=== PATIENT | female | born 1935 | race Caucasian/White ===

== ENCOUNTER 2021-04-12 18:34 | Inpatient (IN) ==
--- NOTE | 2021-04-12 23:22 | XRay Report ---
XR chest 1V portable CLINICAL HISTORY: Chest Pain. COMPARISON STUDY: No previous studies for comparison. TECHNIQUE: 1 view of the chest FINDINGS: Single frontal view of the chest demonstrates the cardiomediastinal silhouette to be within normal li mits. There is hyperinflation of the lungs with attenuation of the pulmonary vasculature peripherally characteristic of underlying chronic obstructive pulmonary disease. The lungs are clear of alveolar opacities. There is no evidence for pleural effusion. There is no evidence for vascular congestion. T here is no acute osseous pathology. IMPRESSION: No acute cardiopulmonary disease. Evidence for underlying COPD. ACT 112: Negative or not required by law. Electronically signed by: Dionisio Solis M.D. 04/12/2021 11:20 PM
--- NOTE | 2021-04-12 23:43 | Emergency Department Note ---
Impression & Plan Cellulitis ADMIT ED Provider Note HPI: The patient is a 86-year-old female who presents the emergency department with several weeks of worsening left lower extremity pain. Patient states that she has been on multiple rounds of antibiotics, states she is currently on cl indamycin, this has not improved her symptoms, she has developed some redness and pain below the knee and above the ankle in the left lower extremity. Patient sister at the bedside tells me that the patient did have an ultrasound done of the left lower extremity recently at [facility] that did not show any evidence of blood clot. Patient states that she has been on multiple rounds of clindamycin, this is caused her to have some nausea and epigastric discomfort at times, states she has had some diarrhea. Patient states she has been on various antibiotics for about the past month without improvement. On arrival here to the ED the patient is hemodynamically stable, she is frail-appearing but she is alert. She is afebrile. She is saturating well on room air. ROS: -Skin: Left lower extremity erythema/pain -MSK: Left lower extremity pain *10 point review systems was conducted and is otherwise negative unless stated above *Outpatient medications and allergy history reviewed PE: General: Alert, NAD, frail-appearing HEENT: Normocephalic, atraumatic Eyes: Extraocular eye movement is intact, no scleral erythema Pulmonary: Clear to auscultation bilaterally, no wheezing Cardio: Regular rate and rhythm GI: Abdomen is soft, nontender : No suprapubic tenderness MSK: No evidence of trauma or malformation of the extremities, plus edema of the bilateral lower extremities, there is erythema of the left lower extremity with pain to palpation Skin: Circumferential erythema of the left lower extremity below the knee and above the ankle joint, there is no blister formation, there is no crepitus to palpation Neuro: Alert, no focal deficits Psychiatric: Cooperative ekg monitor: - An order was placed for continuous cardiac monitoring - Patient was noted to be in sinus rhythm with rate of 80 EKG: Rate: 89 Rhythm: Sinus rhythm Intervals: Within normal limits Time: 2341 ST changes: No ST elevation US VENOUS LEFT LOWER EXTREMITY: Negative left lower extremity venous duplex ultrasound. There is no evidence of DVT. Radiologist: Neil Quiles MD CT OTHER - ct left tib/fib w/o: No subcutaneous emphysema is identified involving the left lower leg. The visualized osseous structures are intact and normally aligned. No acute fracture or dislocation. Mild to moderate diffuse cutaneous and subcutaneous edema throughout the left lower leg. There are scattered punctate calcifications suggesting chronic venous insufficiency. Several varicosities are present. No abscess or abnormal fluid collection is identified. Radiologist: Neil Quiles MD Medical Decision Making: Patient presented to the emergency department with left lower extremity cellulitic changes, she has had pain in this area for about the past month, she is failed outpatient antibiotic course. On arrival here to the ED she is hemodynamically stable, IV was established, lab work obtained, patient has a significant leukocytosis of 18.3 therefore blood cultures were drawn, patient was started on broad-spectrum antibiotics. Ultrasound imaging of the left lower extremity does not show any evidence of DVT, CT imaging does not show any evidence of subcutaneous emphysema. Given that the patient is failed outpatient antibiotics, she is a high white blood cell count, in addition to the finding of elevated creatinine in the setting of unknown baseline creatinine (patient denies any history of kidney disease) I do feel the patient would benefit from admission, she was given IV fluids here in the ED for her acute kidney injury and possible early sepsis, she was not given a full 30 cc/kg bolus secondary to hemodynamic stability and concern for potential fluid overload, she was started on broad-spectrum antibiotics for suspected left lower extremity cellulitis as the source for her leukocytosis. I discussed the above findings with the on- call hospitalist for [facility] in [place], Dr. Mathtews, and the patient was admitted in stable condition. Diagnosis: 1. Left lower extremity cellulitis 2. Leukocytosis 3. Acute kidney injury 4. Left lower extremity pain Disposition: Admission Pilo Monroe DO Emergency Medicine Past Med/Surg History Social History Smoking Status: Never smoker Feels Safe at Home: Yes Allergies Allergies Allergy/AdvReac Type Severity Reaction Status Date / Time barrium iodine Allergy Intermediate Rash Uncoded 04/13/21 00:12 Home Meds Home Medications Medication Instructions Recorded Confirmed acetaminophen 650 mg 650 mg PO Q4 PRN 04/13/21 04/13/21 tablet,extended release (Arthritis Pain Relief (acetaminophen) ER) clindamycin HCl 300 mg capsule 300 mg PO Q6H 04/13/21 04/13/21 dorzolamide 2 % eye drops 1 drp OPB BID 04/13/21 04/13/21 lisinopril 5 mg tablet 5 mg PO QAM 04/13/21 04/13/21 ondansetron HCl 4 mg tablet 4 mg PO Q6H PRN 04/13/21 04/13/21 timolol maleate 0.25 % eye drops 1 drp OPB QAM 04/13/21 04/13/21 Results & Data (ED) Vital Signs Vital Signs - 24 hr 04/12/21 18:40 04/13/21 00:30 04/13/21 02:30 Temperature 36.3 C L Temperature Source Temporal Artery Scan Pulse Rate 88 85 78 Pulse Rhythm Regular Pulse Strength Normal Respiratory Rate 20 21 24 Respiratory Effort / Characteristics Non-Labored Spontaneous Respiratory Depth Normal Respiratory Pattern Regular Blood Pressure 141/78 H 169/79 H 148/67 H Blood Pressure Mean 99 109 94 Pulse Oximetry 95 95 95 Oxygen Delivery Method Room Air Room Air Room Air Sepsis Recent Fever Within 48 Hours No Sepsis New/Unexplained Change in Mental Status No Sepsis Action Taken by Nursing No Action Required 04/13/21 03:00 04/13/21 03:30 04/13/21 04:00 Temperature Temperature Source Pulse Rate 81 80 84 Pulse Rhythm Pulse Strength Respiratory Rate 21 13 19 Respiratory Effort / Characteristics Respiratory Depth Respiratory Pattern Blood Pressure 162/74 H 148/61 H 154/67 H Blood Pressure Mean 103 90 96 Pulse Oximetry 95 95 94 Oxygen Delivery Method Room Air Room Air Room Air Sepsis Recent Fever Within 48 Hours Sepsis New/Unexplained Change in Mental Status Sepsis Action Taken by Nursing Laboratory Data Result diagrams: 04/13/21 00:00 04/13/21 04:30 Lab Results 04/13/21 04/13/21 04/13/21 Range/Units 00:00 00:00 00:00 WBC 18.35 H (4.8-10.8) K/uL RBC 3.36 L (4.2-5.4) M/uL Hgb 10.8 L (12.0-16.0) g/dL Hct 32.5 L (37-47) % MCV 96.7 (80-100) fL MCH 32.1 (25-34) pg MCHC 33.2 (32-36) g/dL RDW Std Deviation 53.1 H (36.4-46.3) fL RDW Coeff of Vasu 15.1 H (11.5-14.5) % Plt Count 443 H (130-400) K/uL MPV 10.2 (7.4-10.4) fL Immature Gran % (Auto) 0.3 % Neut % (Auto) 93.3 % Lymph % (Auto) 4.9 % Barry % (Auto) 1.4 % Eos % (Auto) 0.0 % Baso % (Auto) 0.1 % Reticulocyte % (Auto) (0.5-2.0) % Neut # (Auto) 17.13 H (1.4-6.5) K/uL Lymph # (Auto) 0.90 L (1.2-3.4) K/uL Barry # (Auto) 0.25 (0.11-0.59) K/uL Eos # (Auto) 0.00 (0-0.5) K/uL Baso # (Auto) 0.01 (0-0.2) K/uL Reticulocyte # (0.02-0.10) 10^6/uL Immature Gran # (Auto) 0.06 H (0.00-0.02) K/uL Echinocytes 2+ VBG pH (7.36-7.41) VBG pCO2 (38-50) mmHg VBG pO2 mmHg VBG HCO3 mmol/L VBG O2 Saturation % VBG Base Excess mEq/L Barometric Pressure mm/Hg Sodium 138 (136-145) mmol/L Potassium 5.2 H (3.5-5.1) mmol/L Chloride 111 H (98-107) mmol/L Carbon Dioxide 15 L (21-32) mmol/L Anion Gap 12 H (3-11) BUN 84 H (6-23) mg/dl Creatinine 2.71 H (0.6-1.2) mg/dl Est Cr Clr Drug Dosing Not Reportable Est GFR ( Amer) 17.8 ml/min Est GFR (Non-Af Amer) 15.4 ml/min BUN/Creatinine Ratio 31.0 H (10-20) Glucose 116 H (70-99(Fasting)) mg/dl Lactate (0.4-2.0) mmol/L Calcium 8.9 (8.5-10.1) mg/dl Iron (35-150) mcg/dl Transferrin (200-360) mg/dl Ferritin (8-388) ng/ml Total Bilirubin 0.3 (0.2-1.0) mg/dl AST 17 (13-39) U/L ALT 18 (7-52) U/L Alkaline Phosphatase 68 (34-104) U/L Total Creatine Kinase 38 (26-192) U/L Troponin I 0.03 (0-0.04) ng/ml B-Natriuretic Peptide 140 H (0-100) pg/ml Total Protein 6.8 (6.0-8.3) gm/dl Albumin 3.2 L (3.4-5.0) gm/dl Globulin 3.6 (2.5-4.0) gm/dl Albumin/Globulin Ratio 0.9 (0.9-2) Lipase 35 (11-82) U/L Vitamin B12 (211-911) pg/ml Folate (>5.38) ng/ml Procalcitonin (0-0.5) ng/ml TSH (0.300-4.500) uIu/ml SARS-CoV-2, RNA, NAAT (NEGATIVE) Blood Type Antibody Screen 04/13/21 04/13/21 04/13/21 Range/Units 00:00 00:00 00:34 WBC (4.8-10.8) K/uL RBC (4.2-5.4) M/uL Hgb (12.0-16.0) g/dL Hct (37-47) % MCV (80-100) fL MCH (25-34) pg MCHC (32-36) g/dL RDW Std Deviation (36.4-46.3) fL RDW Coeff of Vasu (11.5-14.5) % Plt Count (130-400) K/uL MPV (7.4-10.4) fL Immature Gran % (Auto) % Neut % (Auto) % Lymph % (Auto) % Barry % (Auto) % Eos % (Auto) % Baso % (Auto) % Reticulocyte % (Auto) (0.5-2.0) % Neut # (Auto) (1.4-6.5) K/uL Lymph # (Auto) (1.2-3.4) K/uL Barry # (Auto) (0.11-0.59) K/uL Eos # (Auto) (0-0.5) K/uL Baso # (Auto) (0-0.2) K/uL Reticulocyte # (0.02-0.10) 10^6/uL Immature Gran # (Auto) (0.00-0.02) K/uL Echinocytes VBG pH (7.36-7.41) VBG pCO2 (38-50) mmHg VBG pO2 mmHg VBG HCO3 mmol/L VBG O2 Saturation % VBG Base Excess mEq/L Barometric Pressure mm/Hg Sodium (136-145) mmol/L Potassium (3.5-5.1) mmol/L Chloride (98-107) mmol/L Carbon Dioxide (21-32) mmol/L Anion Gap (3-11) BUN (6-23) mg/dl Creatinine (0.6-1.2) mg/dl Est Cr Clr Drug Dosing Est GFR ( Amer) ml/min Est GFR (Non-Af Amer) ml/min BUN/Creatinine Ratio (10-20) Glucose (70-99(Fasting)) mg/dl Lactate (0.4-2.0) mmol/L Calcium (8.5-10.1) mg/dl Iron (35-150) mcg/dl Transferrin (200-360) mg/dl Ferritin (8-388) ng/ml Total Bilirubin (0.2-1.0) mg/dl AST (13-39) U/L ALT (7-52) U/L Alkaline Phosphatase (34-104) U/L Total Creatine Kinase (26-192) U/L Troponin I (0-0.04) ng/ml B-Natriuretic Peptide (0-100) pg/ml Total Protein (6.0-8.3) gm/dl Albumin (3.4-5.0) gm/dl Globulin (2.5-4.0) gm/dl Albumin/Globulin Ratio (0.9-2) Lipase (11-82) U/L Vitamin B12 (211-911) pg/ml Folate (>5.38) ng/ml Procalcitonin 0.22 (0-0.5) ng/ml TSH 3.362 (0.300-4.500) uIu/ml SARS-CoV-2, RNA, NAAT NEGATIVE (NEGATIVE) Blood Type Antibody Screen 04/13/21 04/13/21 04/13/21 Range/Units 01:14 04:30 04:30 WBC (4.8-10.8) K/uL RBC (4.2-5.4) M/uL Hgb (12.0-16.0) g/dL Hct (37-47) % MCV (80-100) fL MCH (25-34) pg MCHC (32-36) g/dL RDW Std Deviation (36.4-46.3) fL RDW Coeff of Vasu (11.5-14.5) % Plt Count (130-400) K/uL MPV (7.4-10.4) fL Immature Gran % (Auto) % Neut % (Auto) % Lymph % (Auto) % Barry % (Auto) % Eos % (Auto) % Baso % (Auto) % Reticulocyte % (Auto) 0.9 (0.5-2.0) % Neut # (Auto) (1.4-6.5) K/uL Lymph # (Auto) (1.2-3.4) K/uL Barry # (Auto) (0.11-0.59) K/uL Eos # (Auto) (0-0.5) K/uL Baso # (Auto) (0-0.2) K/uL Reticulocyte # 0.03 (0.02-0.10) 10^6/uL Immature Gran # (Auto) (0.00-0.02) K/uL Echinocytes VBG pH (7.36-7.41) VBG pCO2 (38-50) mmHg VBG pO2 mmHg VBG HCO3 mmol/L VBG O2 Saturation % VBG Base Excess mEq/L Barometric Pressure mm/Hg Sodium (136-145) mmol/L Potassium (3.5-5.1) mmol/L Chloride (98-107) mmol/L Carbon Dioxide (21-32) mmol/L Anion Gap (3-11) BUN (6-23) mg/dl Creatinine (0.6-1.2) mg/dl Est Cr Clr Drug Dosing Est GFR ( Amer) ml/min Est GFR (Non-Af Amer) ml/min BUN/Creatinine Ratio (10-20) Glucose (70-99(Fasting)) mg/dl Lactate 0.8 (0.4-2.0) mmol/L Calcium (8.5-10.1) mg/dl Iron (35-150) mcg/dl Transferrin (200-360) mg/dl Ferritin (8-388) ng/ml Total Bilirubin (0.2-1.0) mg/dl AST (13-39) U/L ALT (7-52) U/L Alkaline Phosphatase (34-104) U/L Total Creatine Kinase (26-192) U/L Troponin I (0-0.04) ng/ml B-Natriuretic Peptide (0-100) pg/ml Total Protein (6.0-8.3) gm/dl Albumin (3.4-5.0) gm/dl Globulin (2.5-4.0) gm/dl Albumin/Globulin Ratio (0.9-2) Lipase (11-82) U/L Vitamin B12 (211-911) pg/ml Folate (>5.38) ng/ml Procalcitonin (0-0.5) ng/ml TSH (0.300-4.500) uIu/ml SARS-CoV-2, RNA, NAAT (NEGATIVE) Blood Type O Positive Antibody Screen NEGATIVE 04/13/21 04/13/21 04/13/21 Range/Units 04:30 04:30 04:30 WBC (4.8-10.8) K/uL RBC (4.2-5.4) M/uL Hgb (12.0-16.0) g/dL Hct (37-47) % MCV (80-100) fL MCH (25-34) pg MCHC (32-36) g/dL RDW Std Deviation (36.4-46.3) fL RDW Coeff of Vasu (11.5-14.5) % Plt Count (130-400) K/uL MPV (7.4-10.4) fL Immature Gran % (Auto) % Neut % (Auto) % Lymph % (Auto) % Barry % (Auto) % Eos % (Auto) % Baso % (Auto) % Reticulocyte % (Auto) (0.5-2.0) % Neut # (Auto) (1.4-6.5) K/uL Lymph # (Auto) (1.2-3.4) K/uL Barry # (Auto) (0.11-0.59) K/uL Eos # (Auto) (0-0.5) K/uL Baso # (Auto) (0-0.2) K/uL Reticulocyte # (0.02-0.10) 10^6/uL Immature Gran # (Auto) (0.00-0.02) K/uL Echinocytes VBG pH 7.39 (7.36-7.41) VBG pCO2 26 L (38-50) mmHg VBG pO2 114 mmHg VBG HCO3 15 mmol/L VBG O2 Saturation 98.4 % VBG Base Excess -8.3 mEq/L Barometric Pressure 730.0 mm/Hg Sodium 137 (136-145) mmol/L Potassium 4.8 (3.5-5.1) mmol/L Chloride 114 H (98-107) mmol/L Carbon Dioxide 13 L (21-32) mmol/L Anion Gap 10 (3-11) BUN 83 H (6-23) mg/dl Creatinine 2.45 H (0.6-1.2) mg/dl Est Cr Clr Drug Dosing Not Reportable Est GFR ( Amer) 20.1 ml/min Est GFR (Non-Af Amer) 17.4 ml/min BUN/Creatinine Ratio 33.9 H (10-20) Glucose 106 H (70-99(Fasting)) mg/dl Lactate (0.4-2.0) mmol/L Calcium 7.8 L (8.5-10.1) mg/dl Iron 27 L (35-150) mcg/dl Transferrin 179 L (200-360) mg/dl Ferritin 43.2 (8-388) ng/ml Total Bilirubin (0.2-1.0) mg/dl AST (13-39) U/L ALT (7-52) U/L Alkaline Phosphatase (34-104) U/L Total Creatine Kinase (26-192) U/L Troponin I (0-0.04) ng/ml B-Natriuretic Peptide (0-100) pg/ml Total Protein (6.0-8.3) gm/dl Albumin (3.4-5.0) gm/dl Globulin (2.5-4.0) gm/dl Albumin/Globulin Ratio (0.9-2) Lipase (11-82) U/L Vitamin B12 578 (211-911) pg/ml Folate > 22.30 (>5.38) ng/ml Procalcitonin (0-0.5) ng/ml TSH (0.300-4.500) uIu/ml SARS-CoV-2, RNA, NAAT (NEGATIVE) Blood Type Antibody Screen Administered Medications Discontinued Medications Acetaminophen (Acetaminophen 500 Mg Tab) 1,000 mg PO NOW STA Stop: 04/13/21 00:18 Last Admin: 04/13/21 00:29 Dose: 1,000 mg Documented by: [id number] Amlodipine Besylate (Amlodipine Besylate 5 Mg Tab) 2.5 mg PO NOW STA Stop: 04/13/21 05:32 Last Admin: 04/13/21 05:51 Dose: 2.5 mg Documented by: [id number] Sodium Chloride (Nss 1000ml) 500 mls @ 999 mls/hr IV .Q31M ONE Stop: 04/13/21 00:31 Last Infusion: 04/13/21 03:37 Dose: 0 mls/hr Documented by: [id number] Admin: 04/13/21 00:16 Dose: 999 mls/hr Documented by: [id number] Vancomycin HCl 750 mg/ Sodium (Chloride) 265 mls @ 200 mls/hr IV NOW STA Stop: 04/13/21 02:29 Last Infusion: 04/13/21 03:37 Dose: 0 mls/hr Documented by: [id number] Admin: 04/13/21 02:08 Dose: 200 mls/hr Documented by: [id number] Cefepime HCl (Maxipime) 2,000 mg in 20 mls @ 5 mls/min IV NOW STA; Protocol Stop: 04/13/21 02:39 Last Admin: 04/13/21 04:34 Dose: 5 mls/min Documented by: [id number] Sodium Bicarbonate (Sodium Bicarbonate 8.4% Inj 50 Meq/50 Ml Vial) 50 meq IV NOW STA Stop: 04/13/21 03:24 Last Admin: 04/13/21 04:35 Dose: 50 meq Documented by: [id number] Tramadol HCl (Tramadol Hcl 50 Mg Tablet) 25 mg PO NOW STA Stop: 04/13/21 05:30 Last Admin: 04/13/21 05:51 Dose: 25 mg Documented by: [id number] Imaging Data Radiologist's Impression: Chest X-Ray 04/12/21 23:02 XR chest 1V portable CLINICAL HISTORY: Chest Pain. COMPARISON STUDY: No previous studies for comparison. TECHNIQUE: 1 view of the chest FINDINGS: Single frontal view of the chest demonstrates the cardiomediastinal silhouette to be within normal limits. There is hyperinflation of the lungs with attenuation of the pulmonary vasculature peripherally characteristic of underlying chronic obstructive pulmonary disease. The lungs are clear of alveolar opacities. There is no evidence for pleural effusion. There is no evidence for vascular congestion. There is no acute osseous pathology. IMPRESSION: No acute cardiopulmonary disease. Evidence for underlying COPD. ACT 112: Negative or not required by law. Electronically signed by: Dionisio Solis M.D. 04/12/2021 11:20 PM Discharge Plan Visit Data Chief Complaint: Swelling/Edema to Extremity Stated Complaint: LEFT LEG EDEMA ED Provider: Pilo Monroe Discharge Problem: Cellulitis Forms Stand Alone Forms: [facility] Prescriptions Prescriptions: No Action clindamycin HCl 300 mg Capsule 300 mg PO Q6H RF: 0 ondansetron HCl 4 mg Tablet 4 mg PO Q6H PRN (Reason: Nausea) RF: 0 acetaminophen [Arthritis Pain Relief (acetam)] 650 mg tablet extended release 650 mg PO Q4 PRN (Reason: Pain) RF: 0 timolol maleate 0.25 % drops 1 drp OPB QAM RF: 0 lisinopril 5 mg tablet 5 mg PO QAM RF: 0 dorzolamide 2 % drops 1 drp OPB BID RF: 0 Referrals Referrals: PCP,NO [Primary Care Provider] - Discharge Problem: Cellulitis Qualifiers: Site of cellulitis: extremity Site of cellulitis of extremity: lower extremity Laterality: left Qualified Code(s): L03.116 - Cellulitis of left lower limb
[2021-04-13] MEDS ORDERED: SODIUM CHLORIDE 0.9% 1000ML 500 ML IV ONE (00:01)
[2021-04-13] MEDS ORDERED: ACETAMINOPHEN 500 MG TAB PO STA (00:17)
[2021-04-13 00:21] LABS: Hematocrit (blood only) 32.5 % (37-47); Hemoglobin 10.8 g/dL (12.0-16.0); Mean Corpuscular Hemoglobin 32.1 pg (25-34); Mean Corpuscular Hgb Conc 33.2 g/dL (32-36); Mean Corpuscular Volume 96.7 fL (80-100); Mean Platelet Volume 10.2 fL (7.4-10.4); Platelet Count 443 K/uL (130-400); RDW Coefficient of Variation 15.1 % (11.5-14.5); RDW Standard Deviation 53.1 fL (36.4-46.3); Red Blood Count 3.36 M/uL (4.2-5.4); White Blood Count 18.35 K/uL (4.8-10.8)
[2021-04-13 00:42] LABS: Troponin I 0.03 ng/ml (0-0.04)
[2021-04-13 00:49] LABS: Alanine Aminotransferase 18 U/L (7-52); Albumin Globulin Ratio 0.9 (0.9-2); Albumin Level 3.2 gm/dl (3.4-5.0); Alkaline Phosphatase 68 U/L (34-104); Anion Gap 12 (3-11); Aspartate Aminotransferase 17 U/L (13-39); Bilirubin,Total 0.3 mg/dl (0.2-1.0); Blood Urea Nitrogen 84 mg/dl (6-23); Calcium 8.9 mg/dl (8.5-10.1); Carbon Dioxide 15 mmol/L (21-32); Chloride 111 mmol/L (98-107); Est GFR (African American) 17.8 ml/min; Est GFR (Non-African American) 15.4 ml/min; Globulin 3.6 gm/dl (2.5-4.0); Glucose 116 mg/dl (70-99(Fasting)); Lipase 35 U/L (11-82); Potassium 5.2 mmol/L (3.5-5.1); Sodium 138 mmol/L (136-145); Total Protein 6.8 gm/dl (6.0-8.3)
[2021-04-13] MEDS ORDERED: VANCOMYCIN HCL 750 MG in SODIUM CHLORIDE 0.9% 500 ML IV ONE (00:49)
[2021-04-13] MEDS ORDERED: VANCOMYCIN CONSULT ACTIVE PRN (00:49)
[2021-04-13 01:08] LABS: Basophils # (auto) 0.01 K/uL (0-0.2); Basophils % (auto) 0.1 %; Echinocytes 2+; Immature Granulocytes # (auto) 0.06 K/uL (0.00-0.02); Immature Granulocytes % (auto) 0.3 %; Lymphocytes % (auto) 4.9 %; Monocytes # (auto) 0.25 K/uL (0.11-0.59); Monocytes % (auto) 1.4 %; Neutrophils # (auto) 17.13 K/uL (1.4-6.5); Neutrophils % (auto) 93.3 %
[2021-04-13] MEDS ORDERED: VANCOMYCIN HCL 750 MG in SODIUM CHLORIDE 0.9% 250 ML IV STA (01:10)
[2021-04-13] MEDS ORDERED: CEFEPIME 2,000 MG/20 ML VIAL IV STA (02:36)
[2021-04-13] MEDS ORDERED: SODIUM BICARBONATE 8.4% INJ 50 MEQ/50 ML VIAL IV STA (03:23)
[2021-04-13 03:49] LABS: Creatine Kinase 38 U/L (26-192)
[2021-04-13 04:41] LABS: Reticulocyte % 0.9 % (0.5-2.0); Reticulocytes # 0.03 10^6/uL (0.02-0.10)
[2021-04-13 04:44] LABS: Base Excess VBG -8.3 mEq/L; Oxygen Saturation VBG 98.4 %; pH VBG 7.39 (7.36-7.41)
--- NOTE | 2021-04-13 04:48 | History & Physical Report ---
Date of Service April 13, 2021 Assessment & Plan (1) Cellulitis: Plan: LLE cellulitis Failed outpatient treatment Rule out osteomyelitis given prolonged symptoms HTN, elevated secondary to discomfort Mild hyperkalemia, ARF secondary illness, NSAID intake contributory, unknown baseline (patient unaware of prior kidney issues) Metabolic acidosis secondary to above Abdominal pain with diarrhea Rule out C. difficile given prolonged clindamycin Rx Anemia, unknown baseline FOBT done at the ER was negative Hyperglycemia rule out DM Medical telemetry given BP elevation CS, doxycycline, cefepime MRI to rule out osteomyelitis if official CT read does not show it Appropriate to hold lisinopril for now given kidney dysfunction and hyperkalemia Patient strongly counseled about adverse effects of NSAIDs on kidney function. Baseline UA, monitor creatinine response to IVF Nephrology consult if without improvement Low-dose amlodipine for BP control Stool C. difficile CT of the pelvis RE abdominal pain with diarrhea with kidney dysfunction Anemia work-up, transfuse PRBC if hemoglobin less than 7 and or for symptomatic anemia Check hemoglobin A1c Retrieve recent outpatient records/labs from PCPs office if able PT OT eval DVT prophylaxis with Heparin subcu Full code Text document was generated using [employer] voice recognition software. It may contain grammatical or spelling errors. Kindly contact undersigned for clarification of any documentation item in question. History of Present Illness Chief Complaint: Worsening left leg infection Primary Care Provider: Damien Knight (Former PCP Dr. Osborne) History obtained from patient and records. Medical history significant for hypertension. 5 months ago, patient developed left leg cellulitis for which unrecalled antibiotic was prescribed by PCPs office. No fever, no chills, no chest pain, no S OB. Infection did not respond to treatment as per patient. Left leg pain so bad that she has to take 3 tablets of Advil every day. Last month, patient consulted [facility] ER for worsening left leg infection. Patient prescribed clindamycin which she has been taking for about 3 weeks now. Left leg not getting better as per patient. Crampy abdominal pain with loose stools nonbloody/nonmelanotic. Patient brought to ER for evaluation. 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 Allergies Allergy/AdvReac Type Severity Reaction Status Date / Time Iodinated Contrast Media Allergy Intermediate Rash Verified 04/13/21 08:26 Home Medications Medication Instructions Recorded Confirmed Type acetaminophen 650 mg 650 mg PO Q4 PRN 04/13/21 04/13/21 History tablet,extended release (Arthritis Pain Relief (acetaminophen) ER) clindamycin HCl 300 mg capsule 300 mg PO Q6H 04/13/21 04/13/21 History dorzolamide 2 % eye drops 1 drp OPB BID 04/13/21 04/13/21 History lisinopril 5 mg tablet 5 mg PO QAM 04/13/21 04/13/21 History ondansetron HCl 4 mg tablet 4 mg PO Q6H PRN 04/13/21 04/13/21 History timolol maleate 0.25 % eye drops 1 drp OPB QAM 04/13/21 04/13/21 History Past Med/Surg History Social History Smoking Status: Never smoker Second Hand Exposure: No; Do You Dip or Chew Tobacco: No; Tobacco Cessation Education Requested by Patient: No Hx Alcohol Use: No Hx Substance Use: No Preferred Language: Maori Communication Ability: Effective Product Tester Fiberglass Required: Yes Beliefs That Will Affect Care: None Current Living Situation: Family Current Living Situation Comment: lives with son Feels Safe at Home: No Is there a partner from a previous relationship who is making you feel unsafe now?: No Any Concerns about Your Family Situation: No Would You Like to Speak to Someone About Your Situation: No Assistive Devices: None Review of Systems Review of Systems: As per HPI, all 10 systems reviewed, all other ROS negative Physical Exam Physical Exam: GENERAL: Comfortable, slightly anxious, frail, no respiratory distress SKIN: Pallor,, warm HEENT: Pale palpebral conjunctivae, no ptosis, dry buccal mucosa NECK : Supple, no tenderness CHEST : CTA, no tenderness HEART : RRR, no obvious murmurs ABDOMEN: Some distention, nontender RECTAL : Intact sphincter, yellow stool (FOBT negative) EXTREMITIES : LLE scaly erythema with minimal tenderness, no other conspicuous deformities noted NEUROLOGIC : Coherent, no facial asymmetry, no other gross focality Results & Data Results & Data ([facility]) Vital Signs (Past 12 Hours) Vital Signs Temp Pulse Resp BP Pulse Ox 04/13/21 04:00 84 19 154/67 H 94 04/13/21 03:30 80 13 148/61 H 95 04/13/21 03:00 81 21 162/74 H 95 04/13/21 02:30 78 24 148/67 H 95 04/13/21 00:30 85 21 169/79 H 95 04/12/21 18:40 36.3 C L 88 20 141/78 H 95 Laboratory Results Laboratory Results WBC 18.35 K/uL (4.8-10.8) H 04/13/21 00:00 RBC 3.36 M/uL (4.2-5.4) L 04/13/21 00:00 Hgb 10.8 g/dL (12.0-16.0) L 04/13/21 00:00 Hct 32.5 % (37-47) L 04/13/21 00:00 MCV 96.7 fL (80-100) 04/13/21 00:00 MCH 32.1 pg (25-34) 04/13/21 00:00 MCHC 33.2 g/dL (32-36) 04/13/21 00:00 RDW Std Deviation 53.1 fL (36.4-46.3) H 04/13/21 00:00 RDW Coeff of Vasu 15.1 % (11.5-14.5) H 04/13/21 00:00 Plt Count 443 K/uL (130-400) H 04/13/21 00:00 MPV 10.2 fL (7.4-10.4) 04/13/21 00:00 Immature Gran % (Auto) 0.3 % 04/13/21 00:00 Neut % (Auto) 93.3 % 04/13/21 00:00 Lymph % (Auto) 4.9 % 04/13/21 00:00 [place] % (Auto) 1.4 % 04/13/21 00:00 Eos % (Auto) 0.0 % 04/13/21 00:00 Baso % (Auto) 0.1 % 04/13/21 00:00 Reticulocyte % (Auto) 0.9 % (0.5-2.0) 04/13/21 04:30 Neut # (Auto) 17.13 K/uL (1.4-6.5) H 04/13/21 00:00 Lymph # (Auto) 0.90 K/uL (1.2-3.4) L 04/13/21 00:00 [place] # (Auto) 0.25 K/uL (0.11-0.59) 04/13/21 00:00 Eos # (Auto) 0.00 K/uL (0-0.5) 04/13/21 00:00 Baso # (Auto) 0.01 K/uL (0-0.2) 04/13/21 00:00 Reticulocyte # 0.03 10^6/uL (0.02-0.10) 04/13/21 04:30 Immature Gran # (Auto) 0.06 K/uL (0.00-0.02) H 04/13/21 00:00 Echinocytes 2+ 04/13/21 00:00 Sodium 138 mmol/L (136-145) 04/13/21 00:00 Potassium 5.2 mmol/L (3.5-5.1) H 04/13/21 00:00 Chloride 111 mmol/L (98-107) H 04/13/21 00:00 Carbon Dioxide 15 mmol/L (21-32) L 04/13/21 00:00 Anion Gap 12 (3-11) H 04/13/21 00:00 BUN 84 mg/dl (6-23) H 04/13/21 00:00 Creatinine 2.71 mg/dl (0.6-1.2) H 04/13/21 00:00 Est Cr Clr Drug Dosing Not Reportable 04/13/21 00:00 Est GFR ( Amer) 17.8 ml/min 04/13/21 00:00 Est GFR (Non-Af Amer) 15.4 ml/min 04/13/21 00:00 BUN/Creatinine Ratio 31.0 (10-20) H 04/13/21 00:00 Glucose 116 mg/dl (70-99(Fasting)) H 04/13/21 00:00 Lactate 0.8 mmol/L (0.4-2.0) 04/13/21 01:14 Calcium 8.9 mg/dl (8.5-10.1) 04/13/21 00:00 Total Bilirubin 0.3 mg/dl (0.2-1.0) 04/13/21 00:00 AST 17 U/L (13-39) 04/13/21 00:00 ALT 18 U/L (7-52) 04/13/21 00:00 Alkaline Phosphatase 68 U/L (34-104) 04/13/21 00:00 Total Creatine Kinase 38 U/L (26-192) 04/13/21 00:00 Troponin I 0.03 ng/ml (0-0.04) 04/13/21 00:00 B-Natriuretic Peptide 140 pg/ml (0-100) H 04/13/21 00:00 Total Protein 6.8 gm/dl (6.0-8.3) 04/13/21 00:00 Albumin 3.2 gm/dl (3.4-5.0) L 04/13/21 00:00 Globulin 3.6 gm/dl (2.5-4.0) 04/13/21 00:00 Albumin/Globulin Ratio 0.9 (0.9-2) 04/13/21 00:00 Lipase 35 U/L (11-82) 04/13/21 00:00 Procalcitonin 0.22 ng/ml (0-0.5) 04/13/21 00:00 TSH 3.362 uIu/ml (0.300-4.500) 04/13/21 00:00 SARS-CoV-2, RNA, NAAT NEGATIVE (NEGATIVE) 04/13/21 00:34 Impressions Chest X-Ray 04/12/21 23:02 XR chest 1V portable CLINICAL HISTORY: Chest Pain. COMPARISON STUDY: No previous studies for comparison. TECHNIQUE: 1 view of the chest FINDINGS: Single frontal view of the chest demonstrates the cardiomediastinal silhouette to be within normal limits. There is hyperinflation of the lungs with attenuation of the pulmonary vasculature peripherally characteristic of underlying chronic obstructive pulmonary disease. The lungs are clear of alveolar opacities. There is no evidence for pleural effusion. There is no evidence for vascular congestion. There is no acute osseous pathology. IMPRESSION: No acute cardiopulmonary disease. Evidence for underlying COPD. ACT 112: Negative or not required by law. Electronically signed by: Dionisio Solis M.D. 04/12/2021 11:20 PM Diagnostic Findings LLE venous Dopplers initial read: Negative left lower extremityvenous duplex ultrasound. There is no evidence of DVT CT left leg initial read: No subcutaneous emphysema is identified involving the left lower leg. The visualized osseous structures are intact and normallyaligned. No acute fracture or dislocation. Mild to moderate diffuse cutaneous and subcutaneous edema throughout the left lower leg. There are scattered punctate calcifications suggesting chronic venous insufficiency. Several varicosities are present. No abscess or abnormal fluid collection is identified. EKG is from interpretation rate 90, NSR, short HI, normal axis, no ischemia (1) Cellulitis Laterality: left Site of cellulitis: extremity Site of cellulitis of extremity: lower extremity Qualified Code(s): L03.116 - Cellulitis of left lower limb
[2021-04-13 05:08] LABS: Anion Gap 10 (3-11); BUN Creatinine Ratio 33.9 (10-20); Blood Urea Nitrogen 83 mg/dl (6-23); Calcium 7.8 mg/dl (8.5-10.1); Carbon Dioxide 13 mmol/L (21-32); Chloride 114 mmol/L (98-107); Est GFR (African American) 20.1 ml/min; Est GFR (Non-African American) 17.4 ml/min; Glucose 106 mg/dl (70-99(Fasting)); Iron 27 mcg/dl (35-150); Potassium 4.8 mmol/L (3.5-5.1); Sodium 137 mmol/L (136-145); Transferrin 179 mg/dl (200-360)
[2021-04-13 05:21] LABS: Ferritin 43.2 ng/ml (8-388)
[2021-04-13] MEDS ORDERED: traMADol HCL 50 MG TABLET PO STA (05:29)
[2021-04-13] MEDS ORDERED: LACTATED RINGER'S 1,000 ML IV STA (05:31)
[2021-04-13] MEDS ORDERED: amLODIPine BESYLATE 5 MG TAB PO STA (05:31)
[2021-04-13 05:35] LABS: Folate (Folic Acid) > 22.30 ng/ml (>5.38)
[2021-04-13 05:36] LABS: Vitamin B12 578 pg/ml (211-911)
[2021-04-13 06:45] LABS: Appearance Urine Clear (Clear); Bacteria Urine Automated Negative (Negative); Bilirubin Urine Negative (Negative); Blood Urine Negative (Negative); Color Urine Yellow; Glucose Urine UA Negative (Negative); Ketones Urine Negative (Negative); Leukocyte Esterase Urine Negative (Negative); Nitrite Urine Negative (Negative); Protein Urine 1+ (Negative); RBC Urine Automated 0-4 /hpf (0-4); Specific Gravity Urine 1.011 (1.000-1.030); Urobilinogen Urine Negative (Negative); pH Urine 5.5 (4.5-7.5)
--- NOTE | 2021-04-13 06:54 | CT Scan Report ---
CT OF THE ABDOMEN AND PELVIS WITHOUT CONTRAST CLINICAL HISTORY: Abdominal pain. COMPARISON STUDY: No previous studies for comparison. TECHNIQUE: Axial images of the abdomen and pelvis were obtained without IV contrast. Images were revi ewed in the axial, sagittal, and coronal planes. Automated exposure control was utilized for the buzz dy. A dose lowering technique was utilized adhering to the principles of ALARA. FINDINGS: A 6 mm subpleural right lower lobe nodule is noted. Although indeterminate, this is probabl y benign. No pneumatosis, free air or portal venous gas is present. Evaluation of the abdomen and pel vis is suboptimal given the lack of contrast and paucity of intra-abdominal fat. Unenhanced images of the liver, spleen, adrenal glands, left kidney and pancreas are unremarkable. There is no biliary or pancreatic ductal dilatation. There is a probable 8 mm hyperdense cyst within the lower pole of the right kidney. There is no hydronephrosis. There is trace right perinephric stranding. There is no arlene dence for a bowel obstruction. There is apparent wall thickening of the proximal duodenum with mild a djacent stranding. Extensive sigmoid diverticulosis is noted without evidence for acute diverticuliti s. No lymphadenopathy is identified on this unenhanced exam. No acute fracture or suspicious lesion i s identified within visualized skeletal structures. Levoscoliosis of the lumbar spine is present. IMPRESSION: 1. Wall thickening of the duodenum with trace adjacent stranding. Although this could be due to under distention, the findings raise the possibility of duodenitis. No extraluminal gas. 2. No bowel obstruction. Colonic diverticulosis without evidence for acute diverticulitis. 3. Trace right perinephric stranding, a nonspecific finding. No urinary calculi or hydronephrosis. 3. Technically difficult study to interpret given lack of contrast and paucity of intra-abdominal fat . ACT 112: Negative or not required by law. Electronically signed by: Ciaran Mcginnis M.D. 04/13/2021 6:52 AM
[2021-04-13] MEDS: HEPARIN SOD 5,000 UNIT/0.5 ML VIAL SQ SCH ×3 (06:56→21:53)
--- NOTE | 2021-04-13 07:06 | Ultrasound Report ---
LEFT LOWER EXTREMITY VENOUS DOPPLER HISTORY: Left leg pain eval for DVT COMPARISON STUDY: None. FINDINGS: There is normal compressibility, flow, and augmentation within the left lower extremity jorge p venous system. IMPRESSION: No DVT within the left lower extremity. ACT 112: Negative or not required by law. Electronically signed by: Madhu Calderon M.D. 04/13/2021 7:04 AM
--- NOTE | 2021-04-13 07:15 | CT Scan Report ---
LEFT TIBIA/FIBULA CT CT DOSE: 360.24 mGy.cm HISTORY: Left lower extremity cellulitis eval for gas forming infection TECHNIQUE: Multiaxial CT images of the left tibia/fibula were performed and reformatted in the sagitt al and coronal plane without the use of contrast. A dose lowering technique was utilized adhering to the principles of ALARA. COMPARISON: None. FINDINGS: No acute fracture or dislocation within the left tibia or fibula. Mild vascular calcificati ons are noted. No significant knee effusion. Skin thickening and mild subcutaneous trace edema seen t hroughout the left lower leg. No subcutaneous gas identified. No loculated fluid collections on this noncontrast study to suggest an abscess. Scattered varicosities are noted. IMPRESSION: 1. Skin thickening and subcutaneous edema throughout the left lower leg suggestive of a cellulitis. N o loculated fluid collections to suggest an abscess. 2. No subcutaneous emphysema identified. 3. No fracture or dislocation within the left lower leg. ACT 112: Negative or not required by law. Electronically signed by: Madhu Calderon M.D. 04/13/2021 7:14 AM
[2021-04-13] MEDS ORDERED: HYDROmorphone INJ 0.5 MG/0.5 ML SYR IV PRN (07:58)
[2021-04-13 08:00] LABS: Estimated Average Glucose 131 mg/dl; Hemoglobin A1C 6.2 % (4.5-5.6)
[2021-04-13] MEDS: PATIENT'S HEIGHT AND/OR WEIGHT NEEDED SCH ×4 (10:08→15:24)
[2021-04-13] MEDS: DOXYCYCLINE HYCLATE 100 MG CAP PO SCH ×2 (10:22→21:52)
[2021-04-13] MEDS: DORZOLAMIDE HCL 2% OPH SOLN 10 ML BTL OPB SCH ×2 (10:22→21:52)
[2021-04-13] MEDS: TIMOLOL GFS 0.5% OPH SOLN 74 DROPS/5 ML BTL OPB SCH (10:23)
[2021-04-13] MEDS: traMADol HCL 50 MG TABLET PO PRN ×3 (10:24→21:57)
[2021-04-13] MEDS ORDERED: Flu Vaccine-High Dose (Fluzone-HD) PF 65+ 0.7mL SYR IM ONE (11:30)
--- NOTE | 2021-04-13 17:25 | Hospitalist Progress Note ---
Date of Service April 13, 2021 Assessment & Plan (1) Cellulitis: Plan: 86-year-old lady with no significant past medical history except for hypertension but could have rheumatoid arthritis [ulnar deviation of bilateral fingers noted on exam] who was recently treated multiple times per left leg cellulitis. Patient states that it is started in November 2020 and he started worsening since Januarys time. She was started on an antibiotic 3 weeks ago which she could not tolerate with stomach upset and diarrhea, changed to a different antibiotic which again she could not tolerate and was finally changed to clindamycin which she was taking until prior to presentation. Patient reports worsening lower extremity erythema and pain affecting her ambulation. Patient ambulates independently at baseline. Of note, patient reports having diarrhea after initiation of her antibiotics 3 weeks ago which is resolved by 04/13 (at bedside exam). FOBT was negative. Patient not aware of any blood in the stool. She is being managed for the following: #. LLE cellulitis Present since November 2020, failure of outpatient therapy [see above] Per patient, prior to arrival, her LLE was painful, oozing with fluids to the point of her clothes and shoes getting wet and soaked in it. Admitting CT left tibia/fibula: Skin thickening and subcutaneous edema throughout left lower leg suggestive of cellulitis, no loculated fluid collecti ons. No subcutaneous emphysema identified. Admitting LLE venous Doppler: No DVT. Patient started on cefepime and doxycycline 04/13, continue with medications. Patient reports improving redness and pain, but still complains of significant pain in her lower extremity. Follow-up with 04/13 blood culture, consult ID. #. Likely TREVIN over CKD #. Mild hyperkalemia Patient not aware of her kidney being affected in the past Admitting creatinine 2.71 and BUN 84 Patient has been using ibuprofen 3 tablets up to 3 times a day for about 2 weeks prior to arrival Continue with IV fluids, monitor BMP daily. Avoid nephrotoxic's. Lisinopril on hold. #. Hypertension Likely secondary to LLE pain Patient on amlodipine, continue to monitor. Lisinopril on hold. PT OT eval DVT prophylaxis with Heparin subcu Full code Admission and Anticipated Discharge Date Admission Date: April 13, 2021 Subjective Patient seen and examined at bedside for left lower extremity cellulitis. Patient on room air, NAD, no new acute events overnight, patient reports eating and moving bowels okay. Patient reports improving belly pain to none today. Patient reports improvement in her lower extremity pain but still there is significant amount of pain in the left lower extremity or cellulitis is present. Patient denies fever/headache/dizziness/chest pain/palpitation/cough/chills/other review of symptoms. Physical Exam Physical Exam: GENERAL: Alert and oriented x3. NAD, on RA. HEENT: No pallor, no icterus. Pupils equal, round and reactive to light. Oral mucosa moist. NECK: No JVD, no neck masses. HEART: S1 and S2 heard. Regular rate and rhythm. No murmur, no gallop. RESPIRATORY SYSTEM: Normal AP diameter. No accessory muscle use. No wheezing, no crackles. ABDOMEN: Soft, bowel sounds present, nontender, no distention. CENTRAL NERVOUS SYSTEM: No facial droop. Speech is clear. Obeys simple commands. Moves extremities. EXTREMITIES: LLE -dry, scabs noted, erythematous, tender, warm ; RLE -some erythema and dry scabs around right ankle. Trace BLE edema. BUE with ulnar deviation of fingers. Results & Data Results & Data ([facility]) Vital Signs (Past 12 Hours) Vital Signs Pulse Resp BP Pulse Ox Pulse Ox 04/13/21 14:30 82 26 H 131/69 04/13/21 14:02 89 18 146/52 H 04/13/21 13:31 93 H 24 113/66 04/13/21 13:30 92 H 18 04/13/21 13:00 84 26 H 135/63 04/13/21 12:30 78 17 112/60 04/13/21 12:00 75 11 L 108/54 L 04/13/21 11:30 76 12 94/50 L 04/13/21 11:00 88 19 123/62 04/13/21 10:30 92 H 22 121/61 04/13/21 10:11 93 H 21 132/65 04/13/21 09:31 89 15 124/61 04/13/21 09:30 88 19 04/13/21 09:18 83 21 132/61 04/13/21 09:00 80 13 90/46 L 04/13/21 08:30 78 13 104/49 L 04/13/21 08:00 75 15 102/50 L 04/13/21 07:58 96 04/13/21 07:30 78 11 L 113/54 L 04/13/21 06:30 82 12 116/61 95 04/13/21 05:43 85 23 155/82 H (1) Cellulitis Laterality: left Site of cellulitis: extremity Site of cellulitis of extremity: lower extremity Qualified Code(s): L03.116 - Cellulitis of left lower limb
[2021-04-13] MEDS: LACTATED RINGER'S 1,000 ML IV SCH (19:13)
[2021-04-14] MEDS: CEFEPIME 2,000 MG in SYRINGE 0 ML IV SCH (04:47)
[2021-04-14] MEDS: HEPARIN SOD 5,000 UNIT/0.5 ML VIAL SQ SCH ×3 (05:54→21:02)
--- NOTE | 2021-04-14 06:38 | Electrocardiogram Report ---
Test Reason : Blood Pressure : / mmHG Vent. Rate : 089 BPM Atrial Rate : 089 BPM P-R Int : 120 ms QRS Dur : 088 ms QT Int : 350 ms P-R-T Axes : 082 069 070 degrees QTc Int : 425 ms Poor data quality, interpretation may be adversely affected Sinus rhythm with Premature atrial complexes Otherwise normal ECG No previous ECGs available Confirmed by Ras Fernandez ([id number]) on 04/14/2021 6:37:52 AM Referred By: REFERRED SELF Confirmed By:Ras Fernandez
[2021-04-14] MEDS: LACTATED RINGER'S 1,000 ML IV SCH (07:50)
[2021-04-14] MEDS: traMADol HCL 50 MG TABLET PO PRN ×3 (07:50→21:03)
[2021-04-14] MEDS: DOXYCYCLINE HYCLATE 100 MG CAP PO SCH ×2 (07:51→21:02)
[2021-04-14] MEDS: TIMOLOL GFS 0.5% OPH SOLN 74 DROPS/5 ML BTL OPB SCH (07:51)
[2021-04-14] MEDS: amLODIPine BESYLATE 5 MG TAB PO SCH (07:51)
[2021-04-14] MEDS: DORZOLAMIDE HCL 2% OPH SOLN 10 ML BTL OPB SCH ×2 (07:51→21:07)
[2021-04-14 10:04] LABS: Hematocrit (blood only) 24.5 % (37-47); Hemoglobin 7.8 g/dL (12.0-16.0); Mean Corpuscular Hemoglobin 31.6 pg (25-34); Mean Corpuscular Hgb Conc 31.8 g/dL (32-36); Mean Corpuscular Volume 99.2 fL (80-100); Mean Platelet Volume 10.3 fL (7.4-10.4); Platelet Count 337 K/uL (130-400); RDW Coefficient of Variation 15.3 % (11.5-14.5); Red Blood Count 2.47 M/uL (4.2-5.4); White Blood Count 9.65 K/uL (4.8-10.8)
[2021-04-14 10:16] LABS: Basophils # (auto) 0.02 K/uL (0-0.2); Basophils % (auto) 0.2 %; Eosinophils # (auto) 0.06 K/uL (0-0.5); Eosinophils % (auto) 0.6 %; Immature Granulocytes # (auto) 0.02 K/uL (0.00-0.02); Immature Granulocytes % (auto) 0.2 %; Lymphocytes # (auto) 0.66 K/uL (1.2-3.4); Lymphocytes % (auto) 6.8 %; Monocytes # (auto) 0.66 K/uL (0.11-0.59); Monocytes % (auto) 6.8 %; Neutrophils # (auto) 8.23 K/uL (1.4-6.5); Neutrophils % (auto) 85.4 %; RBC Morphology Unremarkable
[2021-04-14 11:06] LABS: BUN Creatinine Ratio 38.6 (10-20); Calcium 7.6 mg/dl (8.5-10.1); Est GFR (African American) 39.6 ml/min; Est GFR (Non-African American) 34.2 ml/min; Magnesium 1.5 mg/dl (1.7-2.4); Phosphorus 3.6 mg/dl (2.5-4.9)
[2021-04-14] MEDS: ADVANCED PROBIOTIC 1250 MG CAPSULE PO SCH (11:36)
[2021-04-14] MEDS ORDERED: STAT IV STA (12:22)
--- NOTE | 2021-04-14 12:55 | Hospitalist Progress Note ---
Date of Service April 14, 2021 Assessment & Plan (1) Cellulitis: Plan: 86-year-old lady with no significant past medical history except for hypertension but could have rheumatoid arthritis [ulnar deviation of bilateral fingers noted on exam] who was recently treated multiple times per left leg cellulitis. Patient states that it is started in November 2020 and he started worsening since Januarys time. She was started on an antibiotic 3 weeks ago which she could not tolerate with stomach upset and diarrhea, changed to a different antibiotic which again she could not tolerate and was finally changed to clindamycin which she was taking until prior to presentation. Patient reports worsening lower extremity erythema and pain affecting her ambulation. Patient ambulates independently at baseline. Of note, patient reports having diarrhea after initiation of her antibiotics 3 weeks ago which is resolved by 04/13 (at bedside exam). FOBT was negative. Patient not aware of any blood in the stool. She is being managed for the following: #. LLE cellulitis Present since November 2020, failure of outpatient therapy [see above] Per patient, prior to arrival, her LLE was painful, oozing with fluids to the point of her clothes and shoes getting wet and soaked in it. Admitting CT left tibia/fibula: Skin thickening and subcutaneous edema throughout left lower leg suggestive of cellulitis, no loculated fluid collecti ons. No subcutaneous emphysema identified. Admitting LLE venous Doppler: No DVT. Patient started on cefepime and doxycycline 04/13, continue with medications. Continue with probiotics. Patient reports improving redness but pain is same. Check vitamin D level, started her on vitamin D 04/14. 04/13 blood culture no growth 24 hours. ID consulted, await recommendations. #. Anemia Admitting hemoglobin of 10.8, patient not sure if she had anemia in the past. Unknown baseline. Hemoglobin dropped to 7.8 the following day, could be dilutional due to IV fluid she is receiving for TREVIN. Patient denies any blood in stool, FOBT in the ED was negative per documentation. Iron profile suggestive of iron deficiency with low normal ferritin storage and normal vitamin B12 and folate level. We will start her on iron supplement, and vitamin B12 supplement for 2 weeks. #. Likely TREVIN over CKD #. Electrolytes disturbances -monitor and replete as appropriate. Patient not aware of her kidney being affected in the past Admitting creatinine 2.71 and BUN 84 Patient has been using ibuprofen 3 tablets up to 3 times a day for about 2 weeks prior to arrival Creatinine trending down, 1.4 today, BMP daily, can DC IV fluids. Avoid nephrotoxic's. Lisinopril on hold. #. Hypertension Likely secondary to LLE pain Under control now. Patient on amlodipine, continue to monitor. Lisinopril on hold. PT OT eval DVT prophylaxis with Heparin subcu Full code Admission and Anticipated Discharge Date Admission Date: April 13, 2021 Subjective Patient seen and examined at bedside for left lower extremity cellulitis. Patient on room air, NAD, no new acute events overnight, patient reports eating and moving bowels okay. Patient denies any belly pain. Patient reports ongoing constant left lower extremity greater than RLE pain. Patient denies fever/headache/dizziness/chest pain/palpitation/cough/chills/other review of symptoms. Physical Exam Physical Exam: GENERAL: Alert and oriented x3. NAD, on RA. HEENT: No pallor, no icterus. Pupils equal, round and reactive to light. Oral mucosa moist. NECK: No JVD, no neck masses. HEART: S1 and S2 heard. Regular rate and rhythm. No murmur, no gallop. RESPIRATORY SYSTEM: Normal AP diameter. No accessory muscle use. No wheezing, no crackles. ABDOMEN: Soft, bowel sounds present, nontender, no distention. CENTRAL NERVOUS SYSTEM: No facial droop. Speech is clear. Obeys simple commands. Moves extremities. EXTREMITIES: LLE -dry, scabs noted, erythema improving, tender, warm ; RLE -some erythema and dry scabs around right ankle. Trace BLE edema. BUE with ulnar deviation of fingers. Results & Data Results & Data ([facility]) Vital Signs (Past 12 Hours) Vital Signs Temp Pulse Pulse Pulse Resp BP BP 04/14/21 11:57 36.5 C 83 20 132/68 04/14/21 07:45 69 04/14/21 07:27 36.7 C 85 20 133/66 04/14/21 02:47 36.5 C 101 H 16 128/65 Pulse Ox 04/14/21 11:57 100 04/14/21 07:45 04/14/21 07:27 98 04/14/21 02:47 97 (1) Cellulitis Laterality: left Site of cellulitis: extremity Site of cellulitis of extremity: lower extremity Qualified Code(s): L03.116 - Cellulitis of left lower limb
[2021-04-14] MEDS ORDERED: CALCIUM GLUCONATE 10% 1,000 MG in DEXTROSE 5% 50 ML IV ONE (13:00)
[2021-04-14] MEDS: MAGNESIUM SULFATE / D5W 1 GM/100 ML BAG IV SCH ×2 (13:10→15:05)
[2021-04-14] MEDS: CHOLECALCIFEROL 1,000 UNITS 25 MCG TAB PO SCH (14:17)
[2021-04-14] MEDS: CYANOCOBALAMIN (B-12) 100 MCG TABLET PO SCH (14:17)
[2021-04-14] MEDS: FERROUS GLUCONATE 324 MG TAB PO SCH (14:17)
[2021-04-14 16:04] LABS: Hematocrit (blood only) 26.7 % (37-47); Hemoglobin 8.6 g/dL (12.0-16.0)
[2021-04-15] MEDS: CEFEPIME 2,000 MG in SYRINGE 0 ML IV SCH (03:18)
[2021-04-15] MEDS: traMADol HCL 50 MG TABLET PO PRN ×2 (03:24→21:04)
[2021-04-15] MEDS: HEPARIN SOD 5,000 UNIT/0.5 ML VIAL SQ SCH ×3 (05:39→22:49)
[2021-04-15] MEDS: amLODIPine BESYLATE 5 MG TAB PO SCH (08:13)
[2021-04-15] MEDS: FERROUS GLUCONATE 324 MG TAB PO SCH (08:14)
[2021-04-15] MEDS: DOXYCYCLINE HYCLATE 100 MG CAP PO SCH ×2 (08:14→20:45)
[2021-04-15] MEDS: CYANOCOBALAMIN (B-12) 100 MCG TABLET PO SCH (08:14)
[2021-04-15] MEDS: CHOLECALCIFEROL 1,000 UNITS 25 MCG TAB PO SCH (08:14)
[2021-04-15] MEDS: ADVANCED PROBIOTIC 1250 MG CAPSULE PO SCH (08:15)
[2021-04-15] MEDS: ACETAMINOPHEN 325 MG TAB PO PRN ×2 (08:15→14:46)
[2021-04-15 09:02] LABS: Hematocrit (blood only) 29.6 % (37-47); Hemoglobin 9.4 g/dL (12.0-16.0); Mean Corpuscular Hemoglobin 31.6 pg (25-34); Mean Corpuscular Hgb Conc 31.8 g/dL (32-36); Mean Corpuscular Volume 99.7 fL (80-100); Mean Platelet Volume 10.5 fL (7.4-10.4); Platelet Count 401 K/uL (130-400); RDW Coefficient of Variation 15.5 % (11.5-14.5); RDW Standard Deviation 55.9 fL (36.4-46.3); Red Blood Count 2.97 M/uL (4.2-5.4); White Blood Count 9.86 K/uL (4.8-10.8)
[2021-04-15 09:18] LABS: BUN Creatinine Ratio 34.2 (10-20); Calcium 8.3 mg/dl (8.5-10.1); Creatinine Clr Calc Pharmacy 24.9 ml/min; Est GFR (African American) 49.2 ml/min; Est GFR (Non-African American) 42.5 ml/min; Magnesium 1.9 mg/dl (1.7-2.4); Potassium 3.7 mmol/L (3.5-5.1)
[2021-04-15] MEDS: DORZOLAMIDE HCL 2% OPH SOLN 10 ML BTL OPB SCH ×2 (10:53→20:44)
[2021-04-15] MEDS: TIMOLOL GFS 0.5% OPH SOLN 74 DROPS/5 ML BTL OPB SCH (10:54)
--- NOTE | 2021-04-15 17:12 | Hospitalist Progress Note ---
Date of Service April 15, 2021 Assessment & Plan (1) Cellulitis: Plan: 86-year-old lady with no significant past medical history except for hypertension but could have rheumatoid arthritis [ulnar deviation of bilateral fingers noted on exam] who was recently treated multiple times per left leg cellulitis. Patient states that it is started in November 2020 and he started worsening since Januarys time. She was started on an antibiotic 3 weeks ago which she could not tolerate with stomach upset and diarrhea, changed to a different antibiotic which again she could not tolerate and was finally changed to clindamycin which she was taking until prior to presentation. Patient reports worsening lower extremity erythema and pain affecting her ambulation. Patient ambulates independently at baseline. Of note, patient reports having diarrhea after initiation of her antibiotics 3 weeks ago which is resolved by 04/13 (at bedside exam). FOBT was negative. Patient not aware of any blood in the stool. She is being managed for the following: #. LLE cellulitis Present since November 2020, failure of outpatient therapy [see above] Per patient, prior to arrival, her LLE was painful, oozing with fluids to the point of her clothes and shoes getting wet and soaked in it. Admitting CT left tibia/fibula: Skin thickening and subcutaneous edema throughout left lower leg suggestive of cellulitis, no loculated fluid collecti ons. No subcutaneous emphysema identified. Admitting LLE venous Doppler: No DVT. Patient started on cefepime and doxycycline 04/13, continue with medications. Continue with probiotics. Patient reports improving redness but pain is same. Vitamin D level fairly WNL, MRI BLE , low-dose of gabapentin. 04/13 blood culture no growth 24 hours. ID consulted, await recommendations. #. Anemia Admitting hemoglobin of 10.8, patient not sure if she had anemia in the past. Unknown baseline. Hemoglobin dropped to 7.8 the following day, could be dilutional due to IV fluid she is receiving for TREVIN. Patient denies any blood in stool, FOBT in the ED was negative per documentation. Iron profile suggestive of iron deficiency with low normal ferritin storage and normal vitamin B12 and folate level. Started her on iron supplement, and vitamin B12 supplement for 2 weeks. f/u HnH daily and as appropriate. #. Likely TREVIN over CKD - resolved #. Electrolytes disturbances -monitor and replete as appropriate. Patient not aware of her kidney being affected in the past Admitting creatinine 2.71 and BUN 84 Patient has been using ibuprofen 3 tablets up to 3 times a day for about 2 weeks prior to arrival Resume lisinopril, stop amlodipine which has been started instead. #. Hypertension Likely secondary to LLE pain Under control now. Continue with home meds, fairly under control. PT OT eval DVT prophylaxis with Heparin subcu Full code Admission and Anticipated Discharge Date Admission Date: April 13, 2021 Subjective Patient seen and examined at bedside for left lower extremity cellulitis. Patient on room air, NAD, no new acute events overnight, patient reports eating and moving bowels okay. Patient denies any belly pain. Patient reports ongoing constant left lower extremity greater than RLE pain, no improvement, will get MRI. Patient denies fever/headache/dizziness/chest pain/palpitation/cough/chills/other review of symptoms. Physical Exam Physical Exam: GENERAL: Alert and oriented x3. NAD, on RA. HEENT: No pallor, no icterus. Pupils equal, round and reactive to light. Oral mucosa moist. NECK: No JVD, no neck masses. HEART: S1 and S2 heard. Regular rate and rhythm. No murmur, no gallop. RESPIRATORY SYSTEM: Normal AP diameter. No accessory muscle use. No wheezing, no crackles. ABDOMEN: Soft, bowel sounds present, nontender, no distention. CENTRAL NERVOUS SYSTEM: No facial droop. Speech is clear. Obeys simple commands. Moves extremities. EXTREMITIES: LLE -dry, scabs noted, erythema improving, tender, warm ; RLE -some erythema - improved and dry scabs around right ankle. Trace BLE edema. BUE with ulnar deviation of fingers. Results & Data Results & Data ([facility]) Vital Signs (Past 12 Hours) Vital Signs Temp Pulse Pulse Resp BP BP Pulse Ox 04/15/21 15:36 36.4 C L 72 18 149/67 H 97 04/15/21 12:21 36.4 C L 70 20 157/68 H 99 04/15/21 08:31 36.5 C 95 H 18 106/64 99 04/15/21 06:21 78 (1) Cellulitis Laterality: left Site of cellulitis: extremity Site of cellulitis of extremity: lower extremity Qualified Code(s): L03.116 - Cellulitis of left lower limb
[2021-04-15] MEDS: GABAPENTIN 100 MG CAP PO SCH (21:05)
[2021-04-16] MEDS ORDERED: GADOBUTROL 30ML VIAL IV ONE (01:41)
[2021-04-16] MEDS: PROMETHAZINE HCL 6.25 MG in SODIUM CHLORIDE 0.9% 50 ML IV PRN (01:48)
[2021-04-16] MEDS: CEFEPIME 2,000 MG in SYRINGE 0 ML IV SCH (04:13)
[2021-04-16] MEDS: HEPARIN SOD 5,000 UNIT/0.5 ML VIAL SQ SCH ×3 (06:11→19:56)
--- NOTE | 2021-04-16 08:05 | Magnetic Resonance Report ---
MR lower leg LT wo/w con CLINICAL HISTORY: Left lower leg pain and erythema distally. No recent injury. Evaluate for celluliti s/osteomyelitis. COMPARISON STUDY: CT of the left tibia and fibula from 04/13/2021 TECHNIQUE: Multiplanar multisequence images of the left lower leg were performed without contrast FINDINGS: Bones: Homogeneous marrow signal is seen throughout the imaged bones. There is no evidence for marrow edema or marrow replacement. There is no MR evidence for osteomyelitis. There is no evidence for acu te or old fracture. Joints: The knee joint space was not included on this study. The ankle joint space is within normal limits. There is no evidence for an intra-articular effusion. The bones are in anatomic alignment. Soft tissues: There is an intramuscular lipoma involving the distal gastrocnemius muscle. This repre sents a benign finding. There is mild edema seen within the popliteus muscle posteriorly which mildly enhances following cont rast administration. The findings represent a muscle strain. Homogeneous signal is demonstrated throu ghout the remaining imaged muscles of the lower leg without evidence for muscle edema or hematoma. There is again noted to be diffuse edema within the subcutaneous fat particularly posteriorly charact eristic of cellulitis. No focal fluid collections are identified. There is also evidence for skin thi ckening. IMPRESSION: 1. No MR evidence for osteomyelitis. 2. Strain of the popliteus also. 3. Cellulitis with no focal fluid collection. 4. Diffuse skin thickening is also present. ACT 112: Negative or not required by law. Electronically signed by: Dionisio Solis M.D. 04/16/2021 8:04 AM
[2021-04-16 08:31] LABS: Hematocrit (blood only) 27.2 % (37-47); Hemoglobin 8.9 g/dL (12.0-16.0); Mean Corpuscular Hemoglobin 32.1 pg (25-34); Mean Corpuscular Hgb Conc 32.7 g/dL (32-36); Mean Corpuscular Volume 98.2 fL (80-100); Mean Platelet Volume 10.7 fL (7.4-10.4); Platelet Count 354 K/uL (130-400); RDW Coefficient of Variation 15.1 % (11.5-14.5); Red Blood Count 2.77 M/uL (4.2-5.4); White Blood Count 12.22 K/uL (4.8-10.8)
[2021-04-16] MEDS: GABAPENTIN 100 MG CAP PO SCH ×2 (08:48→19:55)
[2021-04-16] MEDS: CYANOCOBALAMIN (B-12) 100 MCG TABLET PO SCH (08:48)
[2021-04-16] MEDS: FERROUS GLUCONATE 324 MG TAB PO SCH (08:48)
[2021-04-16] MEDS: lisinopril 5 MG TAB PO SCH (08:48)
[2021-04-16] MEDS: CHOLECALCIFEROL 1,000 UNITS 25 MCG TAB PO SCH (08:48)
[2021-04-16] MEDS: ADVANCED PROBIOTIC 1250 MG CAPSULE PO SCH (08:48)
[2021-04-16] MEDS: DORZOLAMIDE HCL 2% OPH SOLN 10 ML BTL OPB SCH ×2 (08:49→19:55)
[2021-04-16] MEDS: DOXYCYCLINE HYCLATE 100 MG CAP PO SCH ×2 (08:49→19:56)
[2021-04-16] MEDS: TIMOLOL GFS 0.5% OPH SOLN 74 DROPS/5 ML BTL OPB SCH (08:49)
[2021-04-16 09:00] LABS: Calcium 7.7 mg/dl (8.5-10.1); Creatinine Clr Calc Pharmacy 28.4 ml/min; Est GFR (African American) 59.5 ml/min; Est GFR (Non-African American) 51.3 ml/min; Potassium 3.7 mmol/L (3.5-5.1)
--- NOTE | 2021-04-16 09:19 | Magnetic Resonance Report ---
MRI OF THE RIGHT TIBIA AND FIBULA COMBO CLINICAL HISTORY: Right leg pain. COMPARISON STUDY: No priors. TECHNIQUE: MRI of the right tibia and fibula was performed utilizing various T1 and T2-weighted seque nces in the axial, sagittal, and coronal planes. Contrast-enhanced sequences are acquired following t he IV administration of 4 cc of Gadavist. FINDINGS: Normal marrow signal intensity is maintained throughout the right tibia and fibula. There i s no marrow edema or evidence of periostitis. No destructive bony lesion is seen. The knee and ankle joints are grossly maintained. Degenerative changes are noted in the lateral tibial plateau. Soft tis nasrin edema is present throughout the right lower extremity. No organized fluid collection is seen sugg est abscess. There is mild generalized atrophy of the regional musculature. The Achilles tendon is in tact as imaged. IMPRESSION: 1. No osseous abnormality is seen involving the right tibia or fibula. 2. Soft tissue edema is present throughout the right calf. 3. No organized fluid collection is seen to suggest abscess. Dictated: 04/16/2021 7:57 AM Transcribed: 04/16/2021 8:32 AM Candace [id number] [facility] Electronically signed by: Po Gaines M.D. 04/16/2021 9:18 AM
--- NOTE | 2021-04-16 18:14 | Hospitalist Progress Note ---
Date of Service April 16, 2021 Assessment & Plan (1) Cellulitis: Plan: 86-year-old lady with no significant past medical history except for hypertension but could have rheumatoid arthritis [ulnar deviation of bilateral fingers noted on exam] who was recently treated multiple times per left leg cellulitis. Patient states that it is started in November 2020 and he started worsening since January [place] time. She was started on an antibiotic 3 weeks ago which she could not tolerate with stomach upset and diarrhea, changed to a different antibiotic which again she could not tolerate and was finally changed to clindamycin which she was taking until prior to presentation. Patient reports worsening lower extremity erythema and pain affecting her ambulation. Patient ambulates independently at baseline. Of note, patient reports having diarrhea after initiation of her antibiotics 3 weeks ago which is resolved by 04/13 (at bedside exam). FOBT was negative. Patient not aware of any blood in the stool. She is being managed for the following: #. LLE cellulitis Present since November 2020, failure of outpatient therapy [see above] Per patient, prior to arrival, her LLE was painful, oozing with fluids to the point of her clothes and shoes getting wet and soaked in it. Admitting CT left tibia/fibula: Skin thickening and subcutaneous edema throughout left lower leg suggestive of cellulitis, no loculated fluid collecti ons. No subcutaneous emphysema identified. Admitting LLE venous Doppler: No DVT. MRI BLE: neg for OM. Patient started on cefepime and doxycycline 04/13 --> doxy and augmentin 04/16. Continue with probiotics. Patient reports improving redness, also pain after gabapentin. Vitamin D level fairly WNL, c/w low-dose of gabapentin. 04/13 blood culture no growth 48 hours. ID consulted, Change antibiotics to doxycycline and Augmentin for 2-3 more days. Consider vascular evaluation. #. Anemia Admitting hemoglobin of 10.8, patient not sure if she had anemia in the past. Unknown baseline. Hemoglobin dropped to 7.8 the following day, could be dilutional due to IV fluid she is receiving for TREVIN. Patient denies any blood in stool, FOBT in the ED was negative per document ation. Iron profile suggestive of iron deficiency with low normal ferritin storage and normal vitamin B12 and folate level. Started her on iron supplement vitamin B12 supplement for 2 weeks. f/u HnH daily and as appropriate. #. Likely TREVIN over CKD - resolved #. Electrolytes disturbances -monitor and replete as appropriate. Patient not aware of her kidney being affected in the past Admitting creatinine 2.71 and BUN 84 Patient has been using ibuprofen 3 tablets up to 3 times a day for about 2 weeks prior to arrival Resume lisinopril, stop amlodipine which has been started instead. Pt advised to avoid NSAIDs. #. Hypertension Likely secondary to LLE pain Fairly under control now. Continue with home meds. PT OT eval DVT prophylaxis with Heparin subcu Full code Admission and Anticipated Discharge Date Admission Date: April 13, 2021 Subjective Patient seen and examined at bedside for left lower extremity cellulitis. Patient on room air, NAD, no new acute events overnight, patient reports eating and moving bowels okay. Patient denies any belly pain. Patient reports improvement in her lower extremity pain after starting her on gabapentin. Patient was made aware of possible side effects of gabapentin, patient was agreeable to try gabapentin. Now she wants to continue with gabapentin as of now. Patient feels better with pain. Patient denies fever/headache/dizziness/chest pain/palpitation/cough/chills/other review of symptoms. Physical Exam Physical Exam: GENERAL: Alert and oriented x3. NAD, on RA. HEENT: No pallor, no icterus. Pupils equal, round and reactive to light. Oral mucosa moist. NECK: No JVD, no neck masses. HEART: S1 and S2 heard. Regular rate and rhythm. No murmur, no gallop. RESPIRATORY SYSTEM: Normal AP diameter. No accessory muscle use. No wheezing, no crackles. ABDOMEN: Soft, bowel sounds present, nontender, no distention. CENTRAL NERVOUS SYSTEM: No facial droop. Speech is clear. Obeys simple commands. Moves extremities. EXTREMITIES: LLE -dry, scabs noted, erythema improved, tender, warm ; RLE -no erythema - improved and dry scabs around right ankle. Trace BLE edema. BUE with ulnar deviation of fingers. Results & Data Results & Data ([facility]) Vital Signs (Past 12 Hours) Vital Signs Temp Pulse Pulse Resp BP Pulse Ox 04/16/21 15:40 76 04/16/21 15:24 36.8 C 81 18 157/82 H 97 04/16/21 11:17 37.1 C 80 18 127/72 95 04/16/21 08:00 86 04/16/21 07:29 36.8 C 90 18 162/73 H 98 (1) Cellulitis Laterality: left Site of cellulitis: extremity Site of cellulitis of extremity: lower extremity Qualified Code(s): L03.116 - Cellulitis of left lower limb
[2021-04-16] MEDS: AMOXICILLIN/CLAVULANATE 500 MG TAB PO SCH (18:26)
[2021-04-17] MEDS: PROMETHAZINE HCL 6.25 MG in SODIUM CHLORIDE 0.9% 50 ML IV PRN (02:47)
[2021-04-17] MEDS: HEPARIN SOD 5,000 UNIT/0.5 ML VIAL SQ SCH ×3 (05:53→21:40)
--- NOTE | 2021-04-17 07:40 | History & Physical Report ---
Date of Service April 17, 2021 Assessment & Plan (1) Aortoiliac occlusive disease: Plan: Patient is admitted for an aortobifemoral bypass. I have discussed the risks options and benefits of the procedure with the patient. The patient understands the risks options and benefits and agrees to the procedure. Admission and Anticipated Discharge Date Admission Date: April 13, 2021 History of Present Illness Chief Complaint: Bilateral iliac artery occlusions Primary Care Provider: NO PCP Ms. Cast is a 55-year-old female who presents for followup, having undergone an MRA of the abdomen to better evaluate left renal artery stenosis. 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 The patient reports to clinic today with no complaints related to her renal artery stenosis. She denies any issues with urination and otherwise states that her hypertension has been managed relatively well recently. Upon review of the MRA in clinic, there was noted to be a small area of the left renal artery, which is perhaps mildly stenotic; however, this does not appear to be generating any symptoms. In addition to the renal artery stenosis, she also notes significant restrictions on her ability to ambulate. She states that she has been experiencing claudication symptoms that limit her to walking less than 1 block at a time. She states that she frequently has to wake up from sleep and sit at the edge of the bed in order to help with the cramping and pain that she develops overnight. 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 She states that when she used to be able to work, she used to have to take frequent breaks given the cramping and pain that she was experiencing in her bilateral lower extremities. 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 She denies any fevers, chills, nausea , vomiting, shortness of breath or chest pain at this visit. Allergies Allergy/AdvReac Type Severity Reaction Status Date / Time Iodinated Contrast Media Allergy Intermediate Rash Verified 04/13/21 08:26 Home Medications Medication Instructions Recorded Confirmed Type acetaminophen 650 mg 650 mg PO Q4 PRN 04/13/21 04/13/21 History tablet,extended release (Arthritis Pain Relief (acetaminophen) ER) clindamycin HCl 300 mg capsule 300 mg PO Q6H 04/13/21 04/13/21 History dorzolamide 2 % eye drops 1 drp OPB BID 04/13/21 04/13/21 History lisinopril 5 mg tablet 5 mg PO QAM 04/13/21 04/13/21 History ondansetron HCl 4 mg tablet 4 mg PO Q6H PRN 04/13/21 04/13/21 History timolol maleate 0.25 % eye drops 1 drp OPB QAM 04/13/21 04/13/21 History Past Med/Surg History Social History Smoking Status: Never smoker Second Hand Exposure: No; Do You Dip or Chew Tobacco: No; Tobacco Cessation Education Requested by Patient: No Hx Alcohol Use: No Hx Substance Use: No Preferred Language: Vietnamese Communication Ability: Effective Surgery Teacher Required: Yes Beliefs That Will Affect Care: None Current Living Situation: Family Current Living Situation Comment: lives with son Feels Safe at Home: No Is there a partner from a previous relationship who is making you feel unsafe now?: No Any Concerns about Your Family Situation: No Would You Like to Speak to Someone About Your Situation: No Assistive Devices: Walker Review of Systems All systems reviewed & are unremarkable except as noted in HPI & below Physical Exam Physical Exam: The patient is in no acute distress. In the office today, her heart rate is 67 beats per minute, she is saturating 95% on room air. Her blood pressure is 116 systolic over 78 diastolic. She moves about the room without assistance. Her neck is supple. Her trachea is midline. No carotid bruits can be auscultated. Her heart is in regular rate and rhythm with no extraneous heart sounds, her lungs are clear to auscultation bilaterally. Her abdomen is soft, nontender, nondistended. On cardiovascular exam, she has bilateral upper extremity pulses palpable. On lower extremity exam, she is noted to have a nonpalpable dorsalis pedis pulses, posterior tibial pulses bilaterally. In addition, her femoral pulses can also not be palpated. She does have Doppler signals in the left peroneal region as well as the left posterior tibial region, and on the right lower extremity, she has Doppler signals present in the dorsalis pedis region as well as the posterior tibial region. Results & Data ([facility]) Vital Signs (Past 12 Hours) Vital Signs Temp Pulse Pulse Resp BP Pulse Ox 04/17/21 07:00 37.0 C 96 H 16 153/73 H 95 04/17/21 02:08 37.5 C 99 H 18 170/82 H 95 04/16/21 23:52 86 04/16/21 21:57 36.8 C 90 18 170/73 H 97 Code Status & VTE Plan VTE Prophylaxis Plan VTE Prophylaxis will be ordered: Yes
[2021-04-17 07:54] LABS: Hematocrit (blood only) 26.3 % (37-47); Hemoglobin 8.5 g/dL (12.0-16.0); Mean Corpuscular Hemoglobin 31.8 pg (25-34); Mean Corpuscular Hgb Conc 32.3 g/dL (32-36); Mean Corpuscular Volume 98.5 fL (80-100); Mean Platelet Volume 10.5 fL (7.4-10.4); Platelet Count 339 K/uL (130-400); RDW Coefficient of Variation 15.2 % (11.5-14.5); RDW Standard Deviation 54.2 fL (36.4-46.3); Red Blood Count 2.67 M/uL (4.2-5.4); White Blood Count 11.68 K/uL (4.8-10.8)
[2021-04-17] MEDS: GABAPENTIN 100 MG CAP PO SCH ×2 (08:51→21:40)
[2021-04-17] MEDS: ADVANCED PROBIOTIC 1250 MG CAPSULE PO SCH (08:51)
[2021-04-17] MEDS: FERROUS GLUCONATE 324 MG TAB PO SCH (08:51)
[2021-04-17] MEDS: DOXYCYCLINE HYCLATE 100 MG CAP PO SCH ×2 (08:51→21:40)
[2021-04-17] MEDS: DORZOLAMIDE HCL 2% OPH SOLN 10 ML BTL OPB SCH ×2 (08:52→21:39)
[2021-04-17] MEDS: lisinopril 5 MG TAB PO SCH (08:52)
[2021-04-17] MEDS: CYANOCOBALAMIN (B-12) 100 MCG TABLET PO SCH (08:52)
[2021-04-17] MEDS: TIMOLOL GFS 0.5% OPH SOLN 74 DROPS/5 ML BTL OPB SCH (08:52)
[2021-04-17] MEDS: CHOLECALCIFEROL 1,000 UNITS 25 MCG TAB PO SCH (08:52)
[2021-04-17] MEDS: AMOXICILLIN/CLAVULANATE 500 MG TAB PO SCH ×2 (08:52→17:12)
[2021-04-17] MEDS: ONDANSETRON 4 MG OD TAB PO PRN ×2 (10:20→17:11)
--- NOTE | 2021-04-17 16:52 | Hospitalist Progress Note ---
Date of Service April 17, 2021 Assessment & Plan (1) Cellulitis: Plan: 86-year-old lady with non healing/recurrent LLE cellulitis presented with LLE cellulitis and pain. Patient states that it is started in November 2020 and he started worsening since [place] time. She was started on an antibiotic 3 weeks ago which she could not tolerate with stomach upset and diarrhea, changed to a different antibiotic which again she could not tolerate and was finally c hanged to clindamycin which she was taking until prior to presentation. Patient reports worsening lower extremity erythema and pain affecting her ambulation. Patient ambulates independently at baseline without use of cane or walker. Lives with son at home. Of note, patient reports having diarrhea after initiation of her antibiotics 3 weeks ago which is resolved by 04/13 (at bedside exam). FOBT was negative. Patient not aware of any blood in the stool. She is being managed for the following: #. LLE cellulitis- Present since November 2020, failure of outpatient therapy [see above] Per patient, prior to arrival, her LLE was painful, oozing with fluids to the point of her clothes and shoes getting wet and soaked in it. Admitting CT left tibia/fibula: Skin thickening and subcutaneous edema throughout left lower leg suggestive of cellulitis, no loculated fluid collections. No subcutaneous emphysema identified. Admitting LLE venous Doppler: No DVT. MRI BLE: neg for OM. Patient started on cefepime and doxycycline 04/13 --> doxy and augmentin 04/16. Continue with probiotics. Patient reports improving redness, also pain after gabapentin. Vitamin D level fairly WNL, c/w low-dose of gabapentin. 04/13 blood culture no growth 48 hours. ID consulted, Changed antibiotics to doxycycline and Augmentin, continue and monitor. Vascular surgery consulted per ID recommendation for possible PAD- recommended arterial duplex- ordered. #. Anemia Admitting hemoglobin of 10.8, patient not sure if she had anemia in the past. Hb slowly drifting down. No active bleed, FOBT negative in ED. Iron profile suggestive of iron deficiency wand on iron supplement Follow up on H&H #. Likely TREVIN over CKD - resolved #. Electrolytes disturbances -monitor and replete as appropriate. Patient not aware of her kidney being affected in the past Admitting creatinine 2.71 and BUN 84 Patient has been using ibuprofen 3 tablets up to 3 times a day for about 2 weeks prior to arrival. Recommended avoiding NSAIDs. Tylenol instead. #. Hypertension Likely secondary to LLE pain. On low dose lisinopril, titrate as indicated. PT OT eval DVT prophylaxis with Heparin subcu. Will hold if Hb continues to downtrend. Full code Admission and Anticipated Discharge Date Admission Date: April 13, 2021 Subjective Patient seen and examined at bedside. States has mild abdominal discomfort with medications and intermittent nausea/vomiting. Appetite not so great. Leg pain improving, more pain with when weight bearing. She would like to walk more. Asking when she will be discharged. Physical Exam Physical Exam: Patient was seen and examined. Constitutional: Elderly female, not in distress Eyes: PERRL, conjunctivae normal, anicteric sclerae ENMT: external ear and nose normal, oropharynx normal Neck: normal visual inspection Respiratory: normal respiratory effort, lungs clear to auscultation Cardiovascular: RRR, no murmur, no edema Rate/Rhythm: regular rate and regular rhythm Heart Sounds: normal S1 and normal S2; no gallop, no murmur and no cardiac rub Left leg covered with dressing, venous stasis changes Gastrointestinal (Abdomen): normal bowel sounds, soft, nontender, no hepatosplenomegaly Musculoskeletal: no cyanosis or clubbing, extremities motor strength 5/5 Skin: no rashes, warm and dry Neurologic: moves all extremities and awake; no focal motor deficits Psychiatric: A+Ox3, euthymic affect Orientation: alert and oriented x 3 Results & Data Results & Data ([facility]) Vital Signs (Past 12 Hours) Vital Signs Temp Pulse Pulse Pulse Resp BP Pulse Ox 04/17/21 16:00 36.6 C 76 20 177/86 H 99 04/17/21 15:59 75 04/17/21 11:00 36.8 C 73 16 167/80 H 98 04/17/21 10:26 88 04/17/21 07:00 37.0 C 96 H 16 153/73 H 95 Laboratory Results Short CBC 04/17/21 Range/Units 07:23 WBC 11.68 H (4.8-10.8) K/uL Hgb 8.5 L (12.0-16.0) g/dL Hct 26.3 L (37-47) % Plt Count 339 (130-400) K/uL Diagnostic Findings Reviewed. LE arterial duplex pending. Medications Administered Current Inpatient Medications Acetaminophen (Acetaminophen 325 Mg Tab) 650 mg PO Q4H PRN PRN Reason: Pain or Fever Stop: 05/13/21 07:57 Last Admin: 04/15/21 14:46 Dose: 650 mg Documented by: Amoxicillin/Clavulanate Potassium (Amoxicillin/Clavulanate 500 Mg Tab) 1 tab PO BIDM [facility] Stop: 04/23/21 18:14 Last Admin: 04/17/21 08:52 Dose: 1 tab Documented by: Cyanocobalamin (Cyanocobalamin (Vitamin B-12) 100 Mcg Tablet) 100 mcg PO QAM S Stop: 04/27/21 09:01 Last Admin: 04/17/21 08:52 Dose: 100 mcg Documented by: Dorzolamide HCl (Dorzolamide Hcl 2% Oph Soln 10 Ml Btl) 1 drops OPB BID [facility] Stop: 05/13/21 08:59 Last Admin: 04/17/21 08:52 Dose: 1 drops Documented by: Doxycycline Hyclate (Doxycycline Hyclate 100 Mg Cap) 100 mg PO BID [facility] Stop: 04/20/21 08:59 Last Admin: 04/17/21 08:51 Dose: 100 mg Documented by: Ferrous Gluconate (Ferrous Gluconate 324 Mg Tab) 324 mg PO QAM [facility] Stop: 05/14/21 12:59 Last Admin: 04/17/21 08:51 Dose: 324 mg Documented by: Gabapentin (Gabapentin 100 Mg Cap) 100 mg PO BID [facility] Stop: 05/15/21 20:59 Last Admin: 04/17/21 08:51 Dose: 100 mg Documented by: Heparin Sodium (Porcine) (Heparin Sod 5,000 Unit/0.5 Ml Vial) 5,000 units SQ Q8 CK Stop: 05/13/21 05:59 Last Admin: 04/17/21 15:35 Dose: 5,000 units Documented by: Hydromorphone HCl (Hydromorphone Inj 0.5 Mg/0.5 Ml Syr) 0.25 mg IV Q6H PRN PRN Reason: Pain Stop: 04/27/21 07:57 Promethazine HCl 6.25 mg/ (Sodium Chloride) 50.25 mls @ 201 mls/hr IV Q6H PRN PRN Reason: Nausea And Vomiting Stop: 05/13/21 07:57 Last Infusion: 04/17/21 03:08 Dose: Infused Documented by: Lactobacillus Acidophilus (Advanced Probiotic 1250 Mg Capsule) 2 cap PO DAILY [facility] Stop: 05/14/21 08:59 Last Admin: 04/17/21 08:51 Dose: 2 cap Documented by: Lisinopril (Lisinopril 5 Mg Tab) 5 mg PO QAM [facility] Stop: 05/16/21 08:59 Last Admin: 04/17/21 08:52 Dose: 5 mg Documented by: Ondansetron HCl (Ondansetron 4 Mg Od Tab) 4 mg PO Q6H PRN PRN Reason: Nausea Stop: 05/17/21 10:08 Last Admin: 04/17/21 10:20 Dose: 4 mg Documented by: Timolol Maleate (Timolol Gfs 0.5% Oph Soln 74 Drops/5 Ml Btl) 1 drops [facility]B [facility] [place] Stop: 05/13/21 08:59 Last Admin: 04/17/21 08:52 Dose: 1 drops Documented by: Tramadol HCl (Tramadol Hcl 50 Mg Tablet) 25 - 50 mg PO Q4H PRN PRN Reason: Pain Stop: 05/13/21 07:57 Last Admin: 04/15/21 21:04 Dose: 50 mg Documented by: Vitamin D (Cholecalciferol 1,000 Units 25 Mcg Tab) 1,000 units PO QAM [facility] Stop: 05/14/21 12:44 Last Admin: 04/17/21 08:52 Dose: 1,000 units Documented by: (1) Cellulitis Laterality: left Site of cellulitis: extremity Site of cellulitis of extremity: lower extremity Qualified Code(s): L03.116 - Cellulitis of left lower limb
[2021-04-18] MEDS: HEPARIN SOD 5,000 UNIT/0.5 ML VIAL SQ SCH ×2 (05:26→15:37)
[2021-04-18 06:58] LABS: BUN Creatinine Ratio 29.9 (10-20); Calcium 7.6 mg/dl (8.5-10.1); Creatinine Clr Calc Pharmacy 31.8 ml/min; Est GFR (African American) 70.4 ml/min; Est GFR (Non-African American) 60.7 ml/min; Magnesium 1.3 mg/dl (1.7-2.4); Phosphorus 2.3 mg/dl (2.5-4.9); Potassium 3.4 mmol/L (3.5-5.1)
[2021-04-18] MEDS ORDERED: POTASSIUM CHLORIDE 10 MEQ TABCR PO STA (07:48)
--- NOTE | 2021-04-18 07:50 | Ultrasound Report ---
US arterial duplex LE BI HISTORY: 86 years-old Female r/o PAD peripheral arterial disease COMPARISON: None TECHNIQUE: Segmental pressures of the lower extremities were obtained in addition to numerous real-ti me sonographic images of the arterial structures assessing grayscale appearance, color and spectral f low FINDINGS: SEGMENTAL PRESSURES: (ABIS WERE UNABLE TO BE CONDUCTED SECONDARY TO REPORTED PAIN). Right: Brachial-168 (index); digit-95 (0.57) Left: Digital-77 (0.46). RIGHT: There is diffuse atherosclerotic plaque. Triphasic waveforms within the common femoral artery, super ficial femoral and popliteal arteries with mildly blunted biphasic waveforms within the profunda femo ris artery. Abdominal triphasic waveforms of the lower leg. No arterial occlusion or or significant e levated peak systolic velocities. Within the right ankle note is made of a 1.5 cm fluid collection, p ossibly a joint effusion. LEFT: There is diffuse atherosclerotic plaque. Predominantly triphasic waveforms are noted above the level of the knee. Biphasic waveforms in the popliteal artery with mildly elevated peak systolic velocities measuring up to 165 cm/s. Mostly biphasic waveforms within the left lower leg. No arterial occlusion or significantly elevated peak systolic velocities. IMPRESSION: 1. Decreased left greater than right toe brachial indices. 2. No arterial occlusion. 3. Mostly biphasic waveforms within the left lower leg. 4. Mildly elevated peak systolic velocities within the left popliteal artery suggests mild stenosis. ACT 112: Negative or not required by law. The above report was generated using voice recognition software. It may contain grammatical, syntax o r spelling errors. Electronically signed by: Braulio Sumner M.D. 04/18/2021 7:48 AM
--- NOTE | 2021-04-18 08:01 | Communication Note ---
Date of Service: April 18, 2021 Lower extremity arterial study does not suggest occlusions of the main arteries of both lower extremities. Waveforms are triphasic to biphasic in both lower extremities. No indication for any intervention needed at this time. Won't be able to see patient till this afternoon.
[2021-04-18] MEDS ORDERED: POT PHOSPHATE MONOBASIC W/ SOD TAB PO SCH (09:00)
[2021-04-18] MEDS: MAGNESIUM SULFATE / D5W 1 GM/100 ML BAG IV SCH ×4 (09:03→15:37)
[2021-04-18] MEDS: lisinopril 5 MG TAB PO SCH (09:04)
[2021-04-18] MEDS: TIMOLOL GFS 0.5% OPH SOLN 74 DROPS/5 ML BTL OPB SCH (09:04)
[2021-04-18] MEDS: DORZOLAMIDE HCL 2% OPH SOLN 10 ML BTL OPB SCH (09:04)
[2021-04-18] MEDS: GABAPENTIN 100 MG CAP PO SCH (09:04)
[2021-04-18] MEDS: CHOLECALCIFEROL 1,000 UNITS 25 MCG TAB PO SCH (09:04)
[2021-04-18] MEDS: ADVANCED PROBIOTIC 1250 MG CAPSULE PO SCH (09:04)
[2021-04-18] MEDS: CYANOCOBALAMIN (B-12) 100 MCG TABLET PO SCH (09:04)
[2021-04-18] MEDS: DOXYCYCLINE HYCLATE 100 MG CAP PO SCH (09:04)
[2021-04-18] MEDS: FERROUS GLUCONATE 324 MG TAB PO SCH (09:05)
[2021-04-18] MEDS: AMOXICILLIN/CLAVULANATE 500 MG TAB PO SCH ×2 (09:05→16:52)
--- NOTE | 2021-04-18 12:39 | Consultation ---
Date of Consultation April 18, 2021 Assessment & Plan (1) Peripheral arterial disease: Pt with PAD noted on US, but this is mild and unlikely to be contributing to her LLE cellulitis. Pt discussed wtih Dr Jackson. Does not recommend vascular surgical intervention at this time. Pt aware. Please call if needed. History of Present Illness Reason for Consultation: PAD Attending Physician: Charlie Perez MD History of Present Illness 86 yo f with hx of HTN, admitted with LLE cellulitis, seen in consultation today for PAD. Pt states she developed cellulitis in LLE, and has had this infection in the past as well. Had such severe pain that she was unable to ambulate and came to [facility] for eval. Pt states her pain, erythema, swelling in LLE are significantly improved since admission here. States is looking forward to going home soon. Prior to this infection, she was ambulating down the jaz to get her mail daily without any claudication sx. Pt denies BENAVIDES, fever, chest pain, SOB, abd pain, N/V, rest pain, claudication, other complaints. Arterial US demonstrates mild/moderate diffuse disease without focal stenosis. Allergies Allergy/AdvReac Type Severity Reaction Status Date / Time Iodinated Contrast Media Allergy Intermediate Rash Verified 04/13/21 08:26 Home Medications Medication Instructions Recorded Confirmed Type acetaminophen 650 mg 650 mg PO Q4 PRN 04/13/21 04/13/21 History tablet,extended release (Arthritis Pain Relief (acetaminophen) ER) clindamycin HCl 300 mg capsule 300 mg PO Q6H 04/13/21 04/13/21 History dorzolamide 2 % eye drops 1 drp OPB BID 04/13/21 04/13/21 History lisinopril 5 mg tablet 5 mg PO QAM 04/13/21 04/13/21 History ondansetron HCl 4 mg tablet 4 mg PO Q6H PRN 04/13/21 04/13/21 History timolol maleate 0.25 % eye drops 1 drp OPB QAM 04/13/21 04/13/21 History Patient History Social History Smoking Status: Never smoker Second Hand Exposure: No; Do You Dip or Chew Tobacco: No; Tobacco Cessation Education Requested by Patient: No Hx Alcohol Use: No Hx Substance Use: No Preferred Language: Malaysian Communication Ability: Effective Digital Media Associate Required: Yes Beliefs That Will Affect Care: None marital status: / Current Living Situation: Family Current Living Situation Comment: lives with son Feels Safe at Home: No Is there a partner from a previous relationship who is making you feel unsafe now?: No Any Concerns about Your Family Situation: No Would You Like to Speak to Someone About Your Situation: No Assistive Devices: Walker Review of Systems Review of Systems: All systems reviewed & are unremarkable except as noted in HPI & below Physical Exam Constitutional: WD/WN, vitals as above healthy appearing and cooperative; not in distress ENMT: Ears: no hearing impairment Respiratory: normal respiratory effort, lungs clear to auscultation Auscultation: + diminished lung sounds Cardiovascular: Rate/Rhythm: regular rate and regular rhythm Vessels: femoral pulses present, posterior tibial pulses present (+1), dorsalis pedis pulses present (+1 ) and radial pulses present Extremities: normal capillary refill and + edema (LLE) Gastrointestinal (Abdomen): Inspection/Auscultation: abdomen normal to inspection and normal bowel sounds Percussion/Palpation: abdomen soft; abdomen nontender Musculoskeletal: no cyanosis or clubbing, extremities motor strength 5/5 Skin: no erythema (LLE improved per pt. ) Neurologic: moves all extremities and awake; no focal motor deficits and not confused Psychiatric: A+Ox3, euthymic affect Results & Data ([facility]) Vital Signs (Past 12 Hours) Vital Signs Temp Pulse Pulse Resp BP Pulse Ox 04/18/21 12:25 81 04/18/21 11:14 37.0 C 78 16 110/61 92 04/18/21 07:45 36.8 C 86 18 149/70 H 97 04/18/21 04:54 36.8 C 97 H 18 157/78 H 95 04/18/21 01:00 76
--- NOTE | 2021-04-18 16:25 | Discharge Summary ---
Date of Service April 18, 2021 Admission HPI Per Admitting Provider Ms. Cast is a 55-year-old female who presents for followup, having undergone an MRA of the abdomen to better evaluate left renal artery stenosis. 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 The patient reports to clinic today with no complaints related to her renal artery stenosis. She denies any issues with urination and otherwise states that her hypertension has been managed relatively well recently. Upon review of the MRA in clinic, there was noted to be a small area of the left renal artery, which is perhaps mildly stenotic; however, this does not appear to be generating any symptoms. In addition to the renal artery stenosis, she also notes significant restrictions on her ability to ambulate. She states that she has been experiencing claudication symptoms that limit her to walking less than 1 block at a time. She states that she frequently has to wake up from sleep and sit at the edge of the bed in order to help with the cramping and pain that she develops overnight. 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 She states that when she used to be able to work, she used to have to take frequent breaks given the cramping and pain that she was experiencing in her bilateral lower extremities. 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 She denies any fevers, chills, nausea, vomiting, shortness of breath or chest pain at this visit. Principal Diagnosis LLE cellulitis Discharge Data Allergies Allergy/AdvReac Type Severity Reaction Status Date / Time Iodinated Contrast Media Allergy Intermediate Rash Verified 04/13/21 08:26 Consultations 04/13/21 03:03 ED Decision to Admit Stat 04/13/21 17:15 Consult Infectious Diseases Routine 04/16/21 18:09 Consult Vascular Surgery Routine Ordered Studies 04/12/21 23:41 CT tib/fib LT wo con Urgent 04/13/21 00:29 US venous doppler LE LT Urgent 04/13/21 05:26 CT abd pelvis wo con Stat 04/15/21 17:20 MR lower leg LT wo/w con Routine 04/16/21 00:18 MR lower leg RT wo/w con Routine 04/17/21 12:53 US arterial duplex LE BI Routine Hospital Course (1) Cellulitis: 86-year-old lady with non healing/recurrent LLE cellulitis presented with LLE cellulitis and pain. Patient states that it is started in November 2020 and he started worsening since [place] time. She was started on an antibiotic 3 weeks ago which she could not tolerate with stomach upset and diarrhea, changed to a different antibiotic which again she could not tolerate and was f inally changed to clindamycin which she was taking until prior to presentation. Patient reports worsening lower extremity erythema and pain affecting her ambulation. Patient ambulates independently at baseline without use of cane or walker. Lives with son at home. Patient was seen by ID. Started on augmentin/doxycycline with improvement in cellulitis and pain. Seen by vascular surgery- only mild PAD. Electrolytes repleted prior to discharge. Patient declined rehab and home services. Being discharged to complete antibiotic course along with probiotic. Called son to discuss discharge plan but unable to reach. Patient is awake, alert, comfortable and stable for discharge. Recommended to find a PCP as soon as possible and follow up. She was managed for the following: #. LLE cellulitis- significantly better. Continue doxycycline/augmentin for 3 more days, along with probiotic. Low dose gabapentin for pain. Recommended avoiding NSAIDs. F/u with PCP Present since November 2020, failure of outpatient therapy and intolerance Per patient, prior to arrival, her LLE was painful, oozing with fluids to the point of her clothes and shoes getting wet and soaked in it. On admission, CT left tibia/fibula: Skin thickening and subcutaneous edema throughout left lower leg suggestive of cellulitis, no loculated fluid collections. No subcutaneous emphysema identified. On admission, LLE venous Doppler: No DVT. MRI BLE: neg for OM. LE duplex reviewed. Blood clx negative #. Anemia- Hb overall stable. Ferritin normal, iron low. she was briefly on iron supplementation- Can consider OTC iron supplement after antibiotic course is done. No active bleed, FOBT negative in ED. #. TREVIN due to NSAIDs use- resolved. Cr back to baseline. Recommended avoiding NSAIDS and use tylenol instead #. Hypertension- Likely secondary to LLE pain, now improved. continue home lisinopril, f/u with PCP # Hypokalemia- repleted # Hypomagnesemia- repleted IV. Being discharged on po supplementation- recommended to start taking after antibiotic course is done # Hypophosphatemia- repleted. Total Time Total Time Spent Total Time Spent (In Minutes): 35 minute Discharge Plan Discharge Items Patient Disposition: Home - Self-Care Reason For Visit: HYPERKALEMIA, ARF Discharge Diagnosis: Left leg cellulitis, TREVIN Condition on Discharge: Good Activity: Resume your previous activity Non-emergency contact: Primary Care Provider Call non-emergency contact if: you have any medication questions, your symptoms worsen, your pain is not controlled and you have a fever Follow-up/Referrals: Marjorie Saravia CRNP [Outside Practitioners] - (Date & Time 04/23/2021 11:00 AM Provider [facility]ORIN [facility] [address], [place] [id number] ) Diet: Regular Addtl Attending Provider Instructions: Continue the antibiotics starting tonight Start taking magnesium pills only after the antibiotic course is done. Avoid pain medications like advil or motrin. Okay to take tylenol for pain. Follow up with family doctor as soon as possible to make sure the leg infection is completely resolved. Pending Studies at Discharge: No Stand-Alone Forms: My [facility] BRAINDIGIT, Smoking Cessation Medications and DC Order Prescriptions: New amoxicillin-pot clavulanate 500-125 mg tablet 1 tab PO BIDM 3 Days Qty: 6 RF: 0 doxycycline hyclate 100 mg Capsule 100 mg PO BID 3 Days Qty: 6 RF: 0 gabapentin 100 mg Capsule 100 mg PO BID 30 Days Qty: 60 RF: 0 Advanced Probiotic 625 mg (10 billion cell) Capsule 2 cap PO DAILY 7 Days Qty: 14 RF: 0 magnesium 200 mg tablet 200 mg PO DAILY Qty: 1 RF: 0 Continued ondansetron HCl 4 mg Tablet 4 mg PO Q6H PRN (Reason: Nausea) RF: 0 acetaminophen [Arthritis Pain Relief (acetam)] 650 mg tablet extended release 650 mg PO Q4 PRN (Reason: Pain) RF: 0 timolol maleate 0.25 % drops 1 drp OPB QAM RF: 0 lisinopril 5 mg tablet 5 mg PO QAM RF: 0 dorzolamide 2 % drops 1 drp OPB BID RF: 0 Discontinued clindamycin HCl 300 mg Capsule 300 mg PO Q6H RF: 0 Discharge Orders: Discharge Order (Routine); Ordered 04/18/21 Ordered By: Charlie Levine/Other Patient Handouts: A1C Admission Data Admit Date/Time: 04/13/21 06:29 Attending Provider: Charlie Perez Admit Provider: Wyatt German Primary Care Provider: PCP,NO Other Providers: Wyatt German ; Adarsh Fajardo ; Sheila Blum ; Casey Quiles I. ; Reinier Tenorio II ; Maddi Nava ; Pilo Magana ; Shilo Serrano ; Derik Jackson Other Interventions: Discharge Summary Assessment (RN) Last Done: 04/18/21 14:27
[2021-04-18] MEDS: ONDANSETRON 4 MG OD TAB PO PRN (16:52)
--- NOTE | 2021-04-19 09:29 | Discharge Summary ---
Date of Service April 19, 2021 Admission HPI Per Admitting Provider Ms. Cast is a 55-year-old female who presents for followup, having undergone an MRA of the abdomen to better evaluate left renal artery stenosis. 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 The patient reports to clinic today with no complaints related to her renal artery stenosis. She denies any issues with urination and otherwise states that her hypertension has been managed relatively well recently. Upon review of the MRA in clinic, there was noted to be a small area of the left renal artery, which is perhaps mildly stenotic; however, this does not appear to be generating any symptoms. In addition to the renal artery stenosis, she also notes significant restrictions on her ability to ambulate. She states that she has been experiencing claudication symptoms that limit her to walking less than 1 block at a time. She states that she frequently has to wake up from sleep and sit at the edge of the bed in order to help with the cramping and pain that she develops overnight. 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 She states that when she used to be able to work, she used to have to take frequent breaks given the cramping and pain that she was experiencing in her bilateral lower extremities. 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 She denies any fevers, chills, nausea, vomiting, shortness of breath or chest pain at this visit. Discharge Data Allergies Allergy/AdvReac Type Severity Reaction Status Date / Time Iodinated Contrast Media Allergy Intermediate Rash Verified 04/13/21 08:26 Consultations 04/13/21 03:03 ED Decision to Admit Stat 04/13/21 17:15 Consult Infectious Diseases Routine 04/16/21 18:09 Consult Vascular Surgery Routine Ordered Studies 04/12/21 23:41 CT tib/fib LT wo con Urgent 04/13/21 00:29 US venous doppler LE LT Urgent 04/13/21 05:26 CT abd pelvis wo con Stat 04/15/21 17:20 MR lower leg LT wo/w con Routine 04/16/21 00:18 MR lower leg RT wo/w con Routine 04/17/21 12:53 US arterial duplex LE BI Routine Hospital Course (1) Cellulitis: 86-year-old lady with non healing/recurrent LLE cellulitis presented with LLE cellulitis and pain. Patient states that it is started in November 2020 and he started worsening since [place] time. She was started on an antibiotic 3 weeks ago which she could not tolerate with stomach upset and diarrhea, changed to a different antibiotic which again she could not tolerate and was finally changed to clindamycin which she was taking until prior to presentation. Patient reports worsening lower extremity erythema and pain affecting her ambulation. Patient ambulates independently at baseline without use of cane or walker. Lives with son at home. Patient was seen by ID. Started on augmentin/doxycycline with improvement in cellulitis and pain. Seen by vascular surgery- only mild PAD. Electrolytes repleted prior to discharge. Patient declined rehab and home services. Being discharged to complete antibiotic course along with probiotic. Called son to discuss discharge plan but unable to reach. Patient is awake, alert, comfortable and stable for discharge. Recommended to find a PCP as soon as possible and follow up. She was managed for the following: #. LLE cellulitis- significantly better. Continue doxycycline/augmentin for 3 more days, along with probiotic. Low dose gabapentin for pain. Recommended avoiding NSAIDs. F/u with PCP Present since November 2020, failure of outpatient therapy and intolerance Per patient, prior to arrival, her LLE was painful, oozing with fluids to the point of her clothes and shoes getting wet and soaked in it. On admission, CT left tibia/fibula: Skin thickening and subcutaneous edema throughout left lower leg suggestive of cellulitis, no loculated fluid collections. No subcutaneous emphysema identified. On admission, LLE venous Doppler: No DVT. MRI BLE: neg for OM. LE duplex reviewed. Blood clx negative #. Anemia- Hb overall stable. Ferritin normal, iron low. she was briefly on iron supplementation- Can consider OTC iron supplement after antibiotic course is done. No active bleed, FOBT negative in ED. #. TREVIN due to NSAIDs use- resolved. Cr back to baseline. Recommended avoiding NSAIDS and use tylenol instead #. Hypertension- Likely secondary to LLE pain, now improved. continue home lisinopril, f/u with PCP # Hypokalemia- repleted # Hypomagnesemia- repleted IV. Being discharged on po supplementation- recommended to start taking after antibiotic course is done # Hypophosphatemia- repleted. Discharge Plan Discharge Items Patient Disposition: Home - Self-Care Reason For Visit: HYPERKALEMIA, ARF Discharge Diagnosis: Left leg cellulitis, TREVIN Condition on Discharge: Good Activity: Resume your previous activity Non-emergency contact: Primary Care Provider Call non-emergency contact if: you have any medication questions, your symptoms worsen, your pain is not controlled and you have a fever Follow-up/Referrals: Marjorie Saravia CRNP [Outside Practitioners] - (Date & Time 04/23/2021 11:00 AM Provider KORIN Cobian [facility] [address] [facility], [place] [id number] ) Diet: Regular Addtl Attending Provider Instructions: Continue the antibiotics starting tonight Start taking magnesium pills only after the antibiotic course is done. Avoid pain medications like advil or motrin. Okay to take tylenol for pain. Follow up with family doctor as soon as possible to make sure the leg infection is completely resolved. Pending Studies at Discharge: No Stand-Alone Forms: My [facility], Smoking Cessation Medications and DC Order Prescriptions: New amoxicillin-pot clavulanate 500-125 mg tablet 1 tab PO BIDM 3 Days Qty: 6 RF: 0 doxycycline hyclate 100 mg Capsule 100 mg PO BID 3 Days Qty: 6 RF: 0 gabapentin 100 mg Capsule 100 mg PO BID 30 Days Qty: 60 RF: 0 Advanced Probiotic 625 mg (10 billion cell) Capsule 2 cap PO DAILY 7 Days Qty: 14 RF: 0 magnesium 200 mg tablet 200 mg PO DAILY Qty: 1 RF: 0 Continued ondansetron HCl 4 mg Tablet 4 mg PO Q6H PRN (Reason: Nausea) RF: 0 acetaminophen [Arthritis Pain Relief (acetam)] 650 mg tablet extended release 650 mg PO Q4 PRN (Reason: Pain) RF: 0 timolol maleate 0.25 % drops 1 drp OPB QAM RF: 0 lisinopril 5 mg tablet 5 mg PO QAM RF: 0 dorzolamide 2 % drops 1 drp OPB BID RF: 0 Discontinued clindamycin HCl 300 mg Capsule 300 mg PO Q6H RF: 0 Discharge Orders: Discharge Order (Routine); Ordered 04/18/21 Ordered By: Charlie Levine/Other Patient Handouts: A1C Admission Data Admit Date/Time: 04/13/21 06:29 Attending Provider: Charlie Perez Admit Provider: Wyatt German Primary Care Provider: PCP,NO Other Providers: Wyatt German ; Adarsh Fajardo ; Sheila Blum ; Casey Quiles I. ; Reinier Tenorio II ; Maddi Nava ; Pilo Magana ; Shilo Serrano ; Derik Jackson Other Interventions: Discharge Summary Assessment (RN) Last Done: 04/18/21 14:27
--- NOTE | 2021-04-19 09:38 | Discharge Summary ---
Date of Service April 18, 2021 Admission HPI Per Admitting Provider Chief Complaint: Worsening left leg infection Primary Care Provider: Damien Knight (Former PCP Dr. Osborne) History obtained from patient and records. Medical history significant for hypertension. 5 months ago, patient developed left leg cellulitis for which unrecalled antibiotic was prescribed by PCPs office. No fever, no chills, no chest pain, no S OB. Infection did not respond to treatment as per patient. Left leg pain so bad that she has to take 3 tablets of Advil every day. Last month, patient consulted [facility] ER for worsening left leg infection. Patient prescribed clindamycin which she has been taking for about 3 weeks now. Left leg not getting better as per patient. Crampy abdominal pain with loose stools nonbloody/nonmelanotic. Admission Exam Per Admitting Provider GENERAL: Comfortable, slightly anxious, frail, no respiratory distress SKIN: Pallor,, warm HEENT: Pale palpebral conjunctivae, no ptosis, dry buccal mucosa NECK : Supple, no tenderness CHEST : CTA, no tenderness HEART : RRR, no obvious murmurs ABDOMEN: Some distention, nontender RECTAL : Intact sphincter, yellow stool (FOBT negative) EXTREMITIES : LLE scaly erythema with minimal tenderness, no other conspicuous deformities noted NEUROLOGIC : Coherent, no facial asymmetry, no other gross focality Principal Diagnosis LLE cellulitis Discharge Data Allergies Allergy/AdvReac Type Severity Reaction Status Date / Time Iodinated Contrast Media Allergy Intermediate Rash Verified 04/13/21 08:26 Consultations 04/13/21 03:03 ED Decision to Admit Stat 04/13/21 17:15 Consult Infectious Diseases Routine 04/16/21 18:09 Consult Vascular Surgery Routine Ordered Studies 04/12/21 23:41 CT tib/fib LT wo con Urgent 04/13/21 00:29 US venous doppler LE LT Urgent 04/13/21 05:26 CT abd pelvis wo con Stat 04/15/21 17:20 MR lower leg LT wo/w con Routine 04/16/21 00:18 MR lower leg RT wo/w con Routine 04/17/21 12:53 US arterial duplex LE BI Routine Hospital Course (1) Cellulitis: 86-year-old lady with non healing/recurrent LLE cellulitis presented with LLE cellulitis and pain. Patient states that it is started in November 2020 and he started worsening since [place] time. She was started on an antibiotic 3 weeks ago which she could not tolerate with stomach upset and diarrhea, changed to a different antibiotic which again she could not tolerate and was fi renee changed to clindamycin which she was taking until prior to presentation. Patient reports worsening lower extremity erythema and pain affecting her ambulation. Patient ambulates independently at baseline without use of cane or walker. Lives with son at home. Patient was seen by ID. Started on augmentin/doxycycline with improvement in cellulitis and pain. Seen by vascular surgery- only mild PAD. Electrolytes repleted prior to discharge. Patient declined rehab and home services. Being discharged to complete antibiotic course along with probiotic. Called son to discuss discharge plan but unable to reach. Patient is awake, alert, comfortable and stable for discharge. Recommended to find a PCP as soon as possible and follow up. She was managed for the following: #. LLE cellulitis- significantly better. Continue doxycycline/augmentin for 3 more days, along with probiotic. Low dose gabapentin for pain. Recommended avoiding NSAIDs. F/u with PCP Present since November 2020, failure of outpatient therapy and intolerance Per patient, prior to arrival, her LLE was painful, oozing with fluids to the point of her clothes and shoes getting wet and soaked in it. On admission, CT left tibia/fibula: Skin thickening and subcutaneous edema throughout left lower leg suggestive of cellulitis, no loculated fluid collections. No subcutaneous emphysema identified. On admission, LLE venous Doppler: No DVT. MRI BLE: neg for OM. LE duplex reviewed. Blood clx negative #. Anemia- Hb overall stable. Ferritin normal, iron low. she was briefly on iron supplementation- Can consider OTC iron supplement after antibiotic course is done. No active bleed, FOBT negative in ED. #. TREVIN due to NSAIDs use- resolved. Cr back to baseline. Recommended avoiding NSAIDS and use tylenol instead #. Hypertension- Likely secondary to LLE pain, now improved. continue home lisinopril, f/u with PCP # Hypokalemia- repleted # Hypomagnesemia- repleted IV. Being discharged on po supplementation- recommended to start taking after antibiotic course is done # Hypophosphatemia- repleted. # Moderate malnutrition/Undernutrition- BMI 18.34. On nutritional supplement here- recommend continuing. Total Time Total Time Spent Total Time Spent (In Minutes): 35 min Discharge Plan Discharge Items Patient Disposition: Home - Self-Care Reason For Visit: HYPERKALEMIA, ARF Discharge Diagnosis: Left leg cellulitis, TREVIN Condition on Discharge: Good Activity: Resume your previous activity Non-emergency contact: Primary Care Provider Call non-emergency contact if: you have any medication questions, your symptoms worsen, your pain is not controlled and you have a fever Follow-up/Referrals: Marjorie Saravia CRNP [Outside Practitioners] - (Date & Time 04/23/2021 11:00 AM Provider KORIN Cobian [facility] [address], [place] [id number] ) Diet: Regular Addtl Attending Provider Instructions: Continue the antibiotics starting tonight Start taking magnesium pills only after the antibiotic course is done. Avoid pain medications like advil or motrin. Okay to take tylenol for pain. Follow up with family doctor as soon as possible to make sure the leg infection is completely resolved. Pending Studies at Discharge: No Stand-Alone Forms: My [facility] [employer], Smoking Cessation Medications and DC Order Prescriptions: New amoxicillin-pot clavulanate 500-125 mg tablet 1 tab PO BIDM 3 Days Qty: 6 RF: 0 doxycycline hyclate 100 mg Capsule 100 mg PO BID 3 Days Qty: 6 RF: 0 gabapentin 100 mg Capsule 100 mg PO BID 30 Days Qty: 60 RF: 0 Advanced Probiotic 625 mg (10 billion cell) Capsule 2 cap PO DAILY 7 Days Qty: 14 RF: 0 magnesium 200 mg tablet 200 mg PO DAILY Qty: 1 RF: 0 Continued ondansetron HCl 4 mg Tablet 4 mg PO Q6H PRN (Reason: Nausea) RF: 0 acetaminophen [Arthritis Pain Relief (acetam)] 650 mg tablet extended release 650 mg PO Q4 PRN (Reason: Pain) RF: 0 timolol maleate 0.25 % drops 1 drp OPB QAM RF: 0 lisinopril 5 mg tablet 5 mg PO QAM RF: 0 dorzolamide 2 % drops 1 drp OPB BID RF: 0 Discontinued clindamycin HCl 300 mg Capsule 300 mg PO Q6H RF: 0 Discharge Orders: Discharge Order (Routine); Ordered 04/18/21 Ordered By: Charlie Levine/Other Patient Handouts: A1C Admission Data Admit Date/Time: 04/13/21 06:29 Attending Provider: Charlie Perez Admit Provider: Wyatt German Primary Care Provider: PCP,YINKA Other Providers: Wyatt German ; Adarsh Fajardo ; Sheila Blum ; Casey Quiles I. ; Reinier Tenorio II ; Maddi Nava ; Pilo Magana ; Shilo Serrano ; Derik Jackson Other Interventions: Discharge Summary Assessment (RN) Last Done: 04/18/21 14:27
== END 2021-04-18 18:20 | disposition home or self-care (01) | DRG 603 ==
LOC: ED 18:34 → EDINP 04-13 06:29 → SUATTDRO 04-13 06:29 → EDINP 04-13 06:54 → 2W 04-13 20:22
DX: E83.42 Hypomagnesemia; Z68.1 Body mass index [BMI] 19.9 or less, adult; I73.9 Peripheral vascular disease, unspecified; T39.395A Adverse effect of other nonsteroidal anti-inflammatory drugs [NSAID], initial encounter; N17.9 Acute kidney failure, unspecified; E44.0 Moderate protein-calorie malnutrition; E87.6 Hypokalemia; Z79.899 Other long term (current) drug therapy; Z91.041 Radiographic dye allergy status; E83.39 Other disorders of phosphorus metabolism; L03.116 Cellulitis of left lower limb; I10 Essential (primary) hypertension

== ENCOUNTER 2021-05-23 12:02 | Inpatient (IN) ==
[2021-05-23 12:51] LABS: Partial Thromboplastin Ratio 0.8; Partial Thromboplastin Time 22.1 Seconds (21.0-31.0); Prothrombin Time 10.5 Seconds (9.0-12.0)
[2021-05-23 13:10] LABS: Alanine Aminotransferase 17 U/L (7-52); Albumin Level 3.1 gm/dl (3.4-5.0); Alkaline Phosphatase 66 U/L (34-104); Anion Gap 6 (3-11); Aspartate Aminotransferase 21 U/L (13-39); Bilirubin,Total 0.3 mg/dl (0.2-1.0); Blood Urea Nitrogen 52 mg/dl (6-23); Calcium 8.5 mg/dl (8.5-10.1); Carbon Dioxide 24 mmol/L (21-32); Chloride 108 mmol/L (98-107); Est GFR (African American) 59.5 ml/min; Est GFR (Non-African American) 51.3 ml/min; Globulin 3.2 gm/dl (2.5-4.0); Glucose 98 mg/dl (70-99(Fasting)); Potassium 4.1 mmol/L (3.5-5.1); Sodium 138 mmol/L (136-145); Total Protein 6.3 gm/dl (6.0-8.3)
[2021-05-23 13:15] LABS: Hematocrit (blood only) 19.4 % (37-47); Mean Corpuscular Hemoglobin 32.3 pg (25-34); Mean Corpuscular Hgb Conc 30.9 g/dL (32-36); Mean Corpuscular Volume 104.3 fL (80-100); Mean Platelet Volume 9.6 fL (7.4-10.4); Nucleated RBC # (auto) 0.04 K/uL (0-0); Nucleated RBC % (auto) 0.4 %; Platelet Count 382 K/uL (130-400); RDW Coefficient of Variation 18.6 % (11.5-14.5); RDW Standard Deviation 65.1 fL (36.4-46.3); Red Blood Count 1.86 M/uL (4.2-5.4); White Blood Count 11.02 K/uL (4.8-10.8)
[2021-05-23 13:16] LABS: Anisocytosis Present; Basophils # (auto) 0.01 K/uL (0-0.2); Basophils % (auto) 0.1 %; Immature Granulocytes # (auto) 0.05 K/uL (0.00-0.02); Immature Granulocytes % (auto) 0.5 %; Lymphocytes # (auto) 1.22 K/uL (1.2-3.4); Lymphocytes % (auto) 11.1 %; Monocytes # (auto) 0.96 K/uL (0.11-0.59); Monocytes % (auto) 8.7 %; Neutrophils # (auto) 8.78 K/uL (1.4-6.5); Neutrophils % (auto) 79.6 %; Polychromasia 1+
--- NOTE | 2021-05-23 13:30 | XRay Report ---
XR chest 1V portable CLINICAL HISTORY: Chest Pain. COMPARISON STUDY: 04/12/2021 TECHNIQUE: 1 view of the chest FINDINGS: Single frontal view of the chest demonstrates the cardiomediastinal silhouette to be within normal li mits. Compared to previous study, there is a decreased inspiratory effort with asymmetric elevation r ight hemidiaphragm and minimal crowding the bronchovascular markings at the right lung base. The lung s are otherwise clear of alveolar opacities. There is no evidence for pleural effusion. There is no e vidence for vascular congestion. There is no acute osseous pathology. IMPRESSION: 1. No acute cardiopulmonary disease. Decreased inspiration. ACT 112: Negative or not required by law. Electronically signed by: Dionisio Solis M.D. 05/23/2021 1:28 PM
[2021-05-23 13:33] LABS: Troponin I 0.07 ng/ml (0-0.04)
[2021-05-23] MEDS ORDERED: SODIUM CHLORIDE 0.9% 250 ML IV PRN (13:38)
--- NOTE | 2021-05-23 13:42 | Emergency Department Note ---
History of Present Illness General Chief complaint: Chest Pain Stated complaint: CHEST PAIN, SOB, DR HINES OVER Time Seen by Provider: 05/23/21 13:25 Source: patient History of Present Illness Provider complaint: Chest pain Onset (ago): week(s) Location: chest Radiation: back and neck Pain Consistency: + intermittent and + now resolved Maximum Pain Intensity: 8 Quality: + aching (Pressure and tightness) Relieved By: + none Exacerbated By: + none Associated symptoms: + shortness of breath and + weakness; no cough, no diaphoresis, no fever/chills or no nausea/vomiting This is an 86-year-old female who presents with chest pain intermittently for the past week. She states that last about 15 minutes at a time. It is located in the middle of her chest with some radiation to her back, neck and shoulders. She has associated shortness of breath but no diaphoresis. She denies any modifying factors. She is no longer having any chest pain. She did have some earlier. She denies using any blood thinners even aspirin. She does state that she was admitted recently for cellulitis and was placed on antibiotics. She states after taking the antibiotic she developed epigastric burning. She states that she had an EGD and colonoscopy about 5 years ago which showed polyps in her colon but otherwise was unremarkable. She has had some black stools over the past 2 weeks but states that this is because she was placed on iron for anemia. She was anemic in the hospital but was told that she did not require transfusion. She does state that she has been feeling very weak over the past week. She denies fever, cough or cold symptoms, vomiting, diarrhea or urinary symptoms. Home Medications Medication Instructions Recorded Confirmed Type acetaminophen 650 mg 650 mg PO Q4 PRN 04/13/21 05/23/21 History tablet,extended release (Arthritis Pain Relief (acetaminophen) ER) dorzolamide 2 % eye drops 1 drp OPB BID 04/13/21 05/23/21 History lisinopril 5 mg tablet 5 mg PO QAM 04/13/21 05/23/21 History ondansetron HCl 4 mg tablet 4 mg PO Q6H PRN 04/13/21 05/23/21 History timolol maleate 0.25 % eye drops 1 drp OPB QAM 04/13/21 05/23/21 History magnesium 200 mg tablet 200 mg PO DAILY #1 tab 04/18/21 05/23/21 Rx ferrous sulfate 325 mg (65 mg 325 mg PO AMHS 05/23/21 05/23/21 History iron) tablet Allergies Allergy/AdvReac Type Severity Reaction Status Date / Time Iodinated Contrast Media Allergy Intermediate Rash Verified 05/23/21 14:13 Past Med/Surg History Medical History Anemia Arthritis Hypertension Surgical History H/O: hysterectomy History of bunionectomy History of surgery on arm Family History Other Family history non-contributory Social History Smoking Status: Never smoker Second Hand Exposure: No; Hx Alcohol Use: No Hx Substance Use: No Preferred Language: Monegasque Communication Ability: Effective Shot Lighter Required: Yes Beliefs That Will Affect Care: None marital status: / Current Living Situation: Family Current Living Situation Comment: lives with son Feels Safe at Home: Yes Assistive Devices: Walker Review of Systems See HPI for pertinent positives & negatives. and A total of 10 systems reviewed and were otherwise negative Physical Exam Vital Signs Vital Signs - 24 hr 05/23/21 12:06 05/23/21 14:01 Temperature 36.7 C Temperature Source Oral Pulse Rate 88 Pulse Rate [Apical] 79 Pulse Rhythm Regular Pulse Rhythm [Apical] Regular Pulse Strength Normal Respiratory Rate 20 15 Respiratory Effort / Characteristics Non-Labored Spontaneous Respiratory Depth Normal Normal Respiratory Pattern Regular Blood Pressure 125/65 Blood Pressure [Left Arm] 153/93 H Blood Pressure Mean 85 Blood Pressure Mean [Left Arm] 113 Blood Pressure Position Sitting Pulse Oximetry 100 100 Oxygen Delivery Method Room Air Room Air Sepsis Recent Fever Within 48 Hours No Sepsis New/Unexplained Change in Mental Status No Sepsis Action Taken by Nursing No Action Required Constitutional: Vital signs reviewed. Eyes: Pupils are equal round reactive to light. Conjunctiva are noninjected. ENT: Pharynx is clear without erythema or exudate. Mucous membranes are moist. Neck supple without meningeal signs. Respiratory: Clear to auscultation bilaterally. Breath sounds are equal bilaterally. Cardiovascular: Regular rate and rhythm. No rubs or gallops. GI: Soft, nondistended with minimal epigastric tenderness. Bowel sounds are present. Rectal: Guaiac positive dark stools. Musculoskeletal: Bilateral lower extremity edema. Slight erythema no lower extremity tenderness. Integumentary: No cyanosis. or jaundice. Neurological: The patient is awake and alert. No focal deficits. Psychiatric: Normal affect. Not anxious appearing. Course Administered Medications Pantoprazole Sodium 40 mg/ (Dextrose) 100 mls @ 20 mls/hr IV Q5H CK Stop: 06/22/21 14:14 Last Admin: 05/23/21 14:27 Dose: 8 mg/hr, 20 mls/hr Documented by: [id number] Discontinued Medications Pantoprazole Sodium 80 mg/ (Dextrose) 120 mls @ 400 mls/hr IV NOW ONE Stop: 05/23/21 14:17 Last Infusion: 05/23/21 14:56 Dose: 0 mls/hr Documented by: [id number] Admin: 05/23/21 14:27 Dose: 400 mls/hr Documented by: [id number] Ceftriaxone Sodium (Rocephin) 1,000 mg in 50 mls @ 100 mls/hr IV NOW STA Stop: 05/23/21 15:14 Last Infusion: 05/23/21 15:17 Dose: 0 mls/hr Documented by: [id number] Admin: 05/23/21 15:17 Dose: 100 mls/hr Documented by: [id number] Critical Care Time Critical Care Time: Yes Total Critical Care Time: 40 I have personally spent approximately 40 minutes of critical care time in the direct management of this patient. This includes bedside care, interpretation of diagnostic studies, and testing, discussion with consultants, patient, and family members, and other required patient management activities. These minutes are in excess of all separately billable procedures. Medical Decision Making Differential Diagnosis Unstable angina, RI, pleurisy, pneumonia, anemia, GI bleed Medical Records Attestation: I reviewed the patient's medical records. I did perform a limited focused review of portions of the patient's old chart on the electronic medical record. The patient was admitted to the hospital last month for left lower extremity cellulitis and had a Doppler of the left lower extremity showing no evidence of DVT. Hemoglobin on April 17 was 8.5. Home Medications Current Medication List: was personally reviewed by me Laboratory Data Attestation: I reviewed the patient's lab results. Result diagrams: 05/23/21 12:19 05/23/21 12:19 Lab Results 05/23/21 05/23/21 05/23/21 Range/Units 12:19 12:19 12:19 WBC 11.02 H (4.8-10.8) K/uL RBC 1.86 L (4.2-5.4) M/uL Hgb 6.0 L* (12.0-16.0) g/dL Hct 19.4 L* (37-47) % MCV 104.3 H (80-100) fL MCH 32.3 (25-34) pg MCHC 30.9 L (32-36) g/dL RDW Std Deviation 65.1 H (36.4-46.3) fL RDW Coeff of Vasu 18.6 H (11.5-14.5) % Plt Count 382 (130-400) K/uL MPV 9.6 (7.4-10.4) fL Immature Gran % (Auto) 0.5 % Neut % (Auto) 79.6 % Lymph % (Auto) 11.1 % [place] % (Auto) 8.7 % Eos % (Auto) 0.0 % Baso % (Auto) 0.1 % Neut # (Auto) 8.78 H (1.4-6.5) K/uL Lymph # (Auto) 1.22 (1.2-3.4) K/uL [place] # (Auto) 0.96 H (0.11-0.59) K/uL Eos # (Auto) 0.00 (0-0.5) K/uL Baso # (Auto) 0.01 (0-0.2) K/uL Immature Gran # (Auto) 0.05 H (0.00-0.02) K/uL Absolute Nucleated RBC 0.04 H (0-0) K/uL Nucleated RBC % (auto) 0.4 % Polychromasia 1+ Anisocytosis Present PT 10.5 (9.0-12.0) Seconds INR 1.0 (0.9-1.1) APTT 22.1 (21.0-31.0) Seconds PTT Ratio 0.8 Sodium 138 (136-145) mmol/L Potassium 4.1 (3.5-5.1) mmol/L Chloride 108 H (98-107) mmol/L Carbon Dioxide 24 (21-32) mmol/L Anion Gap 6 (3-11) BUN 52 H (6-23) mg/dl Creatinine 1.00 (0.6-1.2) mg/dl Est Cr Clr Drug Dosing Not Reportable Est GFR ( Amer) 59.5 ml/min Est GFR (Non-Af Amer) 51.3 ml/min BUN/Creatinine Ratio 52.0 H (10-20) Glucose 98 (70-99(Fasting)) mg/dl Calcium 8.5 (8.5-10.1) mg/dl Total Bilirubin 0.3 (0.2-1.0) mg/dl AST 21 (13-39) U/L ALT 17 (7-52) U/L Alkaline Phosphatase 66 (34-104) U/L Troponin I 0.07 H* (0-0.04) ng/ml B-Natriuretic Peptide (0-100) pg/ml Total Protein 6.3 (6.0-8.3) gm/dl Albumin 3.1 L (3.4-5.0) gm/dl Globulin 3.2 (2.5-4.0) gm/dl Albumin/Globulin Ratio 1.0 (0.9-2) TSH (0.300-4.500) uIu/ml SARS-CoV-2, RNA, NAAT (NEGATIVE) Blood Type Blood Type Recheck Antibody Screen Crossmatch 05/23/21 05/23/21 05/23/21 Range/Units 12:19 13:53 14:51 WBC (4.8-10.8) K/uL RBC (4.2-5.4) M/uL Hgb (12.0-16.0) g/dL Hct (37-47) % MCV (80-100) fL MCH (25-34) pg MCHC (32-36) g/dL RDW Std Deviation (36.4-46.3) fL RDW Coeff of Vasu (11.5-14.5) % Plt Count (130-400) K/uL MPV (7.4-10.4) fL Immature Gran % (Auto) % Neut % (Auto) % Lymph % (Auto) % [place] % (Auto) % Eos % (Auto) % Baso % (Auto) % Neut # (Auto) (1.4-6.5) K/uL Lymph # (Auto) (1.2-3.4) K/uL [place] # (Auto) (0.11-0.59) K/uL Eos # (Auto) (0-0.5) K/uL Baso # (Auto) (0-0.2) K/uL Immature Gran # (Auto) (0.00-0.02) K/uL Absolute Nucleated RBC (0-0) K/uL Nucleated RBC % (auto) % Polychromasia Anisocytosis PT (9.0-12.0) Seconds INR (0.9-1.1) APTT (21.0-31.0) Seconds PTT Ratio Sodium (136-145) mmol/L Potassium (3.5-5.1) mmol/L Chloride (98-107) mmol/L Carbon Dioxide (21-32) mmol/L Anion Gap (3-11) BUN (6-23) mg/dl Creatinine (0.6-1.2) mg/dl Est Cr Clr Drug Dosing Est GFR ( Amer) ml/min Est GFR (Non-Af Amer) ml/min BUN/Creatinine Ratio (10-20) Glucose (70-99(Fasting)) mg/dl Calcium (8.5-10.1) mg/dl Total Bilirubin (0.2-1.0) mg/dl AST (13-39) U/L ALT (7-52) U/L Alkaline Phosphatase (34-104) U/L Troponin I (0-0.04) ng/ml B-Natriuretic Peptide (0-100) pg/ml Total Protein (6.0-8.3) gm/dl Albumin (3.4-5.0) gm/dl Globulin (2.5-4.0) gm/dl Albumin/Globulin Ratio (0.9-2) TSH 2.935 (0.300-4.500) uIu/ml SARS-CoV-2, RNA, NAAT (NEGATIVE) Blood Type O Positive Blood Type Recheck O Positive Antibody Screen NEGATIVE Crossmatch See Detail 05/23/21 05/23/21 Range/Units 14:51 Unknown WBC (4.8-10.8) K/uL RBC (4.2-5.4) M/uL Hgb (12.0-16.0) g/dL Hct (37-47) % MCV (80-100) fL MCH (25-34) pg MCHC (32-36) g/dL RDW Std Deviation (36.4-46.3) fL RDW Coeff of Vasu (11.5-14.5) % Plt Count (130-400) K/uL MPV (7.4-10.4) fL Immature Gran % (Auto) % Neut % (Auto) % Lymph % (Auto) % [place] % (Auto) % Eos % (Auto) % Baso % (Auto) % Neut # (Auto) (1.4-6.5) K/uL Lymph # (Auto) (1.2-3.4) K/uL [place] # (Auto) (0.11-0.59) K/uL Eos # (Auto) (0-0.5) K/uL Baso # (Auto) (0-0.2) K/uL Immature Gran # (Auto) (0.00-0.02) K/uL Absolute Nucleated RBC (0-0) K/uL Nucleated RBC % (auto) % Polychromasia Anisocytosis PT (9.0-12.0) Seconds INR (0.9-1.1) APTT (21.0-31.0) Seconds PTT Ratio Sodium (136-145) mmol/L Potassium (3.5-5.1) mmol/L Chloride (98-107) mmol/L Carbon Dioxide (21-32) mmol/L Anion Gap (3-11) BUN (6-23) mg/dl Creatinine (0.6-1.2) mg/dl Est Cr Clr Drug Dosing Est GFR ( Amer) ml/min Est GFR (Non-Af Amer) ml/min BUN/Creatinine Ratio (10-20) Glucose (70-99(Fasting)) mg/dl Calcium (8.5-10.1) mg/dl Total Bilirubin (0.2-1.0) mg/dl AST (13-39) U/L ALT (7-52) U/L Alkaline Phosphatase (34-104) U/L Troponin I (0-0.04) ng/ml B-Natriuretic Peptide 435 H (0-100) pg/ml Total Protein (6.0-8.3) gm/dl Albumin (3.4-5.0) gm/dl Globulin (2.5-4.0) gm/dl Albumin/Globulin Ratio (0.9-2) TSH (0.300-4.500) uIu/ml SARS-CoV-2, RNA, NAAT NEGATIVE (NEGATIVE) Blood Type Blood Type Recheck Antibody Screen Crossmatch Imaging Data Radiologist's Impression: Chest X-Ray 05/23/21 12:27 XR chest 1V portable CLINICAL HISTORY: Chest Pain. COMPARISON STUDY: 04/12/2021 TECHNIQUE: 1 view of the chest FINDINGS: Single frontal view of the chest demonstrates the cardiomediastinal silhouette to be within normal limits. Compared to previous study, there is a decreased inspiratory effort with asymmetric elevation right hemidiaphragm and minimal crowding the bronchovascular markings at the right lung base. The lungs are otherwise clear of alveolar opacities. There is no evidence for pleural effusion. There is no evidence for vascular congestion. There is no acute osseous pathology. IMPRESSION: 1. No acute cardiopulmonary disease. Decreased inspiration. ACT 112: Negative or not required by law. Electronically signed by: Dionisio Solis M.D. 05/23/2021 1:28 PM ECG Data Attestation: I personally reviewed and interpreted this ECG as follows: Indication: + chest pain Rate (beats per minute): 85 Rhythm: + normal sinus ECG Intervals/blocks: + Short KS ECG ST segments: no ST elevation ECG Findings: + Other (Motion artifact); no PVCs Comparison ECG Date: from (April 12, 2021) Change: the following changes noted (Shortened KS is new today) MDM Narrative I did evaluate the patient as noted above. The patient is presenting with intermittent chest pain for the past week. She describes it as a tightness and aching and pressure. It lasts about 15 minutes at a time and she has shortness of breath with it. Currently she is not having chest pain. IV access was established. I did place an order for continuous cardiac monitoring. The mon itor showed normal sinus rhythm at a rate of 88 bpmI did order and personally review the patient's 12-lead EKG as described above. She has a shortened KS interval without delta waves. No acute ischemia is noted. I did order and personally reviewed the images of the patient's chest x-ray as described above. Chest x-ray is unremarkable. I did order and review the patient's blood work as noted in the electronic medical record. Hemoglobin is 6 down from 8.5 last month. White count is 11. Platelet count is 382. Coags are unremarkable. Electrolytes are unremarkable other than a chloride of 108. Troponin is slightly elevated 0.07. I did obtain informed consent for transfusion. I did order a Covid 19 swab. I did order 2 units of packed RBCs to be transfused immediately. She is guaiac positive on rectal examination. She stated that she had epigastric burning since she took the antibiotics several weeks ago. She was started on a Protonix drip with a bolus. I did discuss the case with the hospitalist and case folder. Impression & Plan Acute gastrointestinal bleeding, Anemia due to blood loss, Acute chest pain, E levated troponin, Bilateral edema of lower extremity, Acute epigastric pain Discharge Plan Visit Data Chief Complaint: Chest Pain Stated Complaint: CHEST PAIN, SOB, DR REF OVER ED Provider: Osmany Villalobos Discharge Problem: Acute gastrointestinal bleeding, Anemia due to blood loss, Acute chest pain, Elevated troponin, Bilateral edema of lower extremity, Acute epigastric pain Forms Stand Alone Forms: My [facility] [place] Prescriptions Prescriptions: No Action ondansetron HCl 4 mg Tablet 4 mg PO Q6H PRN (Reason: Nausea) RF: 0 acetaminophen [Arthritis Pain Relief (acetam)] 650 mg tablet extended release 650 mg PO Q4 PRN (Reason: Pain) RF: 0 timolol maleate 0.25 % drops 1 drp OPB QAM RF: 0 lisinopril 5 mg tablet 5 mg PO QAM RF: 0 dorzolamide 2 % drops 1 drp OPB BID RF: 0 magnesium 200 mg tablet 200 mg PO DAILY Qty: 1 RF: 0 ferrous sulfate 325 mg (65 mg iron) tablet 325 mg PO AMHS RF: 0 Referrals Referrals: PCP,NO [Physician] -
--- NOTE | 2021-05-23 13:42 | Electrocardiogram Report ---
Test Reason : Blood Pressure : / mmHG Vent. Rate : 085 BPM Atrial Rate : 085 BPM P-R Int : 100 ms QRS Dur : 088 ms QT Int : 366 ms P-R-T Axes : 100 087 083 degrees QTc Int : 435 ms Poor data quality, interpretation may be adversely affected Sinus rhythm Otherwise normal ECG When compared with ECG of 12-APR-2021 23:41, Premature atrial complexes are no longer Present Confirmed by Lauro Finnegan ([id number]) on 05/23/2021 1:41:48 PM Referred By: Confirmed By:Bereket Finnegan
[2021-05-23] MEDS ORDERED: PANTOPRAZOLE BOLUS/DRIP 1 EA IV STA (13:50)
[2021-05-23] MEDS ORDERED: PANTOprazole 80 MG in DEXTROSE 5% 100 ML IV ONE (14:00)
--- NOTE | 2021-05-23 14:02 | History & Physical Report ---
Date of Service May 23, 2021 Assessment & Plan (1) Acute gastrointestinal bleeding: (2) Anemia due to blood loss: (3) Acute chest pain: (4) Elevated troponin: (5) Bilateral edema of lower extremity: (6) Cellulitis: Plan: This is an 86-year-old female who has significant past medical history of HTN, glaucoma, arthritis, history of cellulitis who presents to ED secondary to, "going downhill for a few weeks." Suspected acute upper GI bleeding Anemia due to blood loss Admit to PCU Type and cross, transfuse 2 units PRBC, 20 mg IV Lasix in between units Recent anemia panel 04/13 revealed iron 27, transferrin 179, ferritin 43, normal B12 folic acid Patient started iron twice daily 3 weeks ago IV PPI bolus and drip Clear liquids today, n.p.o. after midnight GI consulted -discussed with nurse practitioner Joey Possible plan for scope tomorrow Chest Pain elevated trop currently CP free, ekg w/o st t wave change likely demand in setting of anemia cycle troponin, monitor on tele obtain echo B/L Lower extremity swelling R > L LLE Cellulitis LLE mildly erythematous, warm; WBC mildly elevated at 11k empirically tx with IV Rocephin obtain b/l venous doppler HTN hold lisinopril for now in setting of anemia monitor BP Glaucoma continue eye gtts DVT ppx: SCD/TEDS Dispo: PCU PCP: Debora, new to PCP will need to establish FULL CODE Pt was seen and examined in collaboration with Dr. Abbott, please see addendum History of Present Illness Chief Complaint: "Going downhill for few weeks." Primary Care Provider: Dr. Cazares This is an 86-year-old female who has significant past medical history of HTN, glaucoma, arthritis, history of cellulitis who presents to ED secondary to, "going downhill for a few weeks." Of significance patient was hospitalized at our facility from 04/13-04/19 secondary to left lower extremity cellulitis. She required IV antibiotics. During that hospitalization she was diagnosed with anemia and iron panel was performed. Revealed iron 27, ferritin 43, normal B12 folic acid. She was subsequently started on oral iron twice daily. Upon discharge she gradually went downhill over the span of 3 to 4 weeks. She complained of burning in her stomach that would come and go, made worse with meals. She further complained of weakness, fatigue, inability to walk, ROGEL and substernal chest pain that radiates to her right neck. Chest pain would come and go and would improve if she would sit still. It would last from seconds to minutes. She cannot pinpoint a pattern of the chest pain. Did not occur with exertion as she states, "I have not been able to exert myself." Typically patient lives at home and her son lives with her. Normally she is ambulatory and active in the house with IADLs. This is limited over the past few weeks. She does complain of black tarry stools ever since starting the iron. She states she was seen in [facility] due to PCP telling her to go there for a transfusion. It was felt that she did not need a transfusion and was started on iron. In ED she did remain hemodynamically stable; however, hemoglobin and hematocrit was 6.0 19.4 respectively. She does have mild elevation WBC 11.0 2K. Her CMP was generally unremarkable except for elevated BUN of 52 creatinine 1.00. She did have mild elevated troponin of 0.07. Her EKG revealed sinus rhythm without ST or T wave abnormality. Allergies Allergy/AdvReac Type Severity Reaction Status Date / Time Iodinated Contrast Media Allergy Intermediate Rash Verified 05/23/21 14:13 Home Medications Medication Instructions Recorded Confirmed Type acetaminophen 650 mg 650 mg PO Q4 PRN 04/13/21 05/23/21 History tablet,extended release (Arthritis Pain Relief (acetaminophen) ER) dorzolamide 2 % eye drops 1 drp OPB BID 04/13/21 05/23/21 History lisinopril 5 mg tablet 5 mg PO QAM 04/13/21 05/23/21 History ondansetron HCl 4 mg tablet 4 mg PO Q6H PRN 04/13/21 05/23/21 History timolol maleate 0.25 % eye drops 1 drp OPB QAM 04/13/21 05/23/21 History magnesium 200 mg tablet 200 mg PO DAILY #1 tab 04/18/21 05/23/21 Rx ferrous sulfate 325 mg (65 mg 325 mg PO AMHS 05/23/21 05/23/21 History iron) tablet Past Med/Surg History Medical History Anemia Arthritis Hypertension Surgical History H/O: hysterectomy History of bunionectomy History of surgery on arm Family History Other Family history non-contributory Social History Smoking Status: Never smoker Second Hand Exposure: No; Hx Alcohol Use: No Hx Substance Use: No Preferred Language: Tamazight Communication Ability: Effective Pipe Jeeper Required: Yes Beliefs That Will Affect Care: None marital status: / Current Living Situation: Family Current Living Situation Comment: lives with son Feels Safe at Home: Yes Assistive Devices: Walker Review of Systems Review of Systems: All systems reviewed & are unremarkable except as noted in HPI & below Physical Exam Physical Exam: Constitutional: Petite, elderly, female, WD/WN, vitals as above, NAD, sitting up in bed, pleasant, conversing easily Head: Normocephalic, Atraumatic Eyes: PERRL, conjunctivae normal, anicteric sclerae ENMT: external ear and nose normal, oropharynx normal Neck: trachea midline, no thyromegaly normal visual inspection Respiratory: normal respiratory effort, lungs clear to auscultation, no wheeze, rales, rhonchi. Normal insp/exp effort, no accessory muscle use Cardiovascular: RRR, no murmur, bilateral lower extremity swelling right greater than left, left-sided warmth and erythema noted pretibially Vessels: no JVD or carotid bruit Chest: normal inspection of chest Abdomen: normal bowel sounds, soft, tender to palpation in epigastrium, no rebound, no guarding no hepatosplenomegaly Musculoskeletal: no cyanosis or clubbing, extremities motor strength 5/5 Skin: no rashes, warm and dry normal turgor Neurologic: PERRL, EOMI, accommodation nl, no face palsy, no dysarthria CN's II-XI intact bilaterally and moves all extremities Psychiatric: A+Ox3, euthymic affect Lymphatic: no cervical or axillary lymphadenopathy : deferred Results & Data Results & Data ([facility]) Vital Signs (Past 12 Hours) Vital Signs Temp Pulse Resp BP Pulse Ox 05/23/21 12:06 36.7 C 88 20 125/65 100 Diagnostic Findings Chest X-Ray 05/23/21 12:27 XR chest 1V portable CLINICAL HISTORY: Chest Pain. COMPARISON STUDY: 04/12/2021 TECHNIQUE: 1 view of the chest FINDINGS: Single frontal view of the chest demonstrates the cardiomediastinal silhouette to be within normal limits. Compared to previous study, there is a decreased inspiratory effort with asymmetric elevation right hemidiaphragm and minimal crowding the bronchovascular markings at the right lung base. The lungs are otherwise clear of alveolar opacities. There is no evidence for pleural effusion. There is no evidence for vascular congestion. There is no acute osseous pathology. IMPRESSION: 1. No acute cardiopulmonary disease. Decreased inspiration. ACT 112: Negative or not required by law. Electronically signed by: Dionisio Solis M.D. 05/23/2021 1:28 PM Medications Administered Medication List Pantoprazole Sodium 40 mg/ (Dextrose) 100 mls @ 20 mls/hr IV Q5H CK Stop: 06/22/21 14:14 Last Admin: 05/23/21 14:27 Dose: 8 mg/hr, 20 mls/hr Documented by: Discontinued Medications Pantoprazole Sodium 80 mg/ (Dextrose) 120 mls @ 400 mls/hr IV NOW ONE Stop: 05/23/21 14:17 Last Admin: 05/23/21 14:27 Dose: 400 mls/hr Documented by: COVID-19 Results Results COVID-19 Adm Lab Results: RBC 1.86 M/uL (4.2-5.4) L 05/23/21 WBC 11.02 K/uL (4.8-10.8) H 05/23/21 Hgb 6.0 g/dL (12.0-16.0) L* 05/23/21 Hct 19.4 % (37-47) L* 05/23/21 Plt Count 382 K/uL (130-400) 05/23/21 Neutrophils (%) (Auto) 79.6 % 05/23/21 Lymphocytes (%) (Auto) 11.1 % 05/23/21 Monocytes # (Auto) 0.96 K/uL (0.11-0.59) H 05/23/21 Eosinophils # (Auto) 0.00 K/uL (0-0.5) 05/23/21 Immature Granulocyte % (Auto) 0.5 % 05/23/21 Neutrophils # (Auto) 8.78 K/uL (1.4-6.5) H 05/23/21 Lymphocytes # (Auto) 1.22 K/uL (1.2-3.4) 05/23/21 Monocytes # (Auto) 0.96 K/uL (0.11-0.59) H 05/23/21 Eosinophils # (Auto) 0.00 K/uL (0-0.5) 05/23/21 Basophils # (Auto) 0.01 K/uL (0-0.2) 05/23/21 Immature Granulocyte # (Auto) 0.05 K/uL (0.00-0.02) H 05/23/21 Polychromasia 1+ 05/23/21 Anisocytosis Present 05/23/21 Na 138 mmol/L (136-145) 05/23/21 K 4.1 mmol/L (3.5-5.1) 05/23/21 Cl 108 mmol/L (98-107) H 05/23/21 CO2 24 mmol/L (21-32) 05/23/21 Anion Gap 6 (3-11) 05/23/21 BUN 52 mg/dl (6-23) H 05/23/21 Creatinine 1.00 mg/dl (0.6-1.2) 05/23/21 BUN/Creatinine Ratio 52.0 (10-20) H 05/23/21 Glucose Level 98 mg/dl (70-99(Fasting)) 05/23/21 Ca 8.5 mg/dl (8.5-10.1) 05/23/21 Total Bilirubin 0.3 mg/dl (0.2-1.0) 05/23/21 AST/SGOT 21 U/L (13-39) 05/23/21 ALT/SGPT 17 U/L (7-52) 05/23/21 Alkaline Phosphatase 66 U/L (34-104) 05/23/21 Total Protein 6.3 gm/dl (6.0-8.3) 05/23/21 Albumin 3.1 gm/dl (3.4-5.0) L 05/23/21 Globulin 3.2 gm/dl (2.5-4.0) 05/23/21 Albumin/Globulin Ratio 1.0 (0.9-2) 05/23/21 Troponin I 0.07 ng/ml (0-0.04) H* 05/23/21 PTT 22.1 Seconds (21.0-31.0) 05/23/21 INR 1.0 (0.9-1.1) 05/23/21 SARS-CoV-2, RNA, NAAT NEGATIVE (NEGATIVE) 05/23/21 Chest X-Ray 05/23/21 Code Status & VTE Plan Code Status Full code VTE Prophylaxis Plan VTE Prophylaxis will be ordered: Yes Supervising Physician Co-Signing Physician Notes Attending addendum: The patient was seen and examined in emergency room in presence of the brother She has been complaining of epigastric discomfort with weakness and shortness of breath for the last 2 to 3 weeks She also has history of black stool but at the same time she has been taking iron tablet Complains to have some chest pressure but no definite chest pain Does not take any NSAID's On examination Lying in bed without any acute distress Very lean and thin and hemodynamically stable Chest pain-decreased breath sounds in both sides without any crackles Heart-S1-S2 with flow murmurs Abdomen-benign with normal bowel sound Extremities-trace edema on the left and about 1+ edema on the right FLY RAISER LOCKSTITCH-alert, awake and oriented x3 Admission labs, EKG and imaging studies reviewed Hemoglobin is noted to be low at 6.0 with BUN elevated at 52 Likely has upper GI bleed secondary to peptic ulcer disease without any evidence of use of NSAID's She will get blood transfusions and Protonix infusion GI will be consulted Agree with assessment and plan as outlined above by Emeli Abbott (1) Cellulitis Laterality: left Site of cellulitis: extremity Site of cellulitis of extremity: lower extremity Qualified Code(s): L03.116 - Cellulitis of left lower limb
[2021-05-23] MEDS: PANTOprazole 40 MG in DEXTROSE 5% 100 ML IV SCH ×2 (14:27→20:10)
[2021-05-23] MEDS ORDERED: FUROSEMIDE INJ 20 MG/2 ML VIAL IV STA (14:43)
[2021-05-23] MEDS ORDERED: cefTRIAXone SODIUM 1,000 MG/50 ML BAG IV STA (14:45)
--- NOTE | 2021-05-23 15:09 | Gastrointestinal Consultation ---
Date of Consultation May 23, 2021 Assessment & Plan (1) Anemia due to blood loss: Appreciate primary hospitalists management of fluids/electrolyte replacement. Consider cardiology consult to r/o cardiac event. would plan for EGD tomorrow. Clear liquids po today. NPO after midnight except pills with sip of water. Agree with PPI drip or could do BID as no evidence of rapid GI bleeding. Will continue to follow closely. Please notify us if worsening Hb and/or if rapid gross GI bleeding. Supervising Physician Co-Signing Physician Notes I performed a history and physical examination of the patient today, including specifically on physical exam - soft abdomen. I have discussed the patient's management with the advanced practitioner. Please refer to the nurse practitioner's note for the documented findings and plan of care. EGD IV PPI History of Present Illness Reason for Consultation: GI bleed Requesting Physician: Emeli Lopez PA-C Attending Physician: Dr. Abbott History of Present Illness Ms. Danica Lorenz is an 86 yr old female pt of Dr. Cazares with a hx of HTN, glaucoma, arthritis, history of cellulitis (IP tx in April). She presented for weakness which was first noticed about 2 weeks ago and has slowly worsened. During this time, she has passed 1-2 formed black BMs/day but has been on po iron since her last admission. She has also epigastric burning intermittently during the past 2 weeks. She has not had nausea/vomiting. Because she experienced chest/neck pressure today she was brought to the ED by her brother. She is comfortable now. On arrival, Hb 6, down from 8.5 on 04/17/21. She has an elevated BUN at 52, creatinine is normal. Troponin is elevated. She is receiving a PPI drip, fluids and blood transfusion is ordered. She is awake, alert and hemodynamically stable. She has not had any BMs since arrival. Pt believes that she underwent EGD and colonoscopy about 5 yrs ago but I am unable to find of record of that in [facility] or [facility]. Allergies Allergy/AdvReac Type Severity Reaction Status Date / Time Iodinated Contrast Media Allergy Intermediate Rash Verified 05/23/21 14:13 Home Medications Medication Instructions Recorded Confirmed Type acetaminophen 650 mg 650 mg PO Q4 PRN 04/13/21 05/23/21 History tablet,extended release (Arthritis Pain Relief (acetaminophen) ER) dorzolamide 2 % eye drops 1 drp OPB BID 04/13/21 05/23/21 History lisinopril 5 mg tablet 5 mg PO QAM 04/13/21 05/23/21 History ondansetron HCl 4 mg tablet 4 mg PO Q6H PRN 04/13/21 05/23/21 History timolol maleate 0.25 % eye drops 1 drp OPB QAM 04/13/21 05/23/21 History magnesium 200 mg tablet 200 mg PO DAILY #1 tab 04/18/21 05/23/21 Rx ferrous sulfate 325 mg (65 mg 325 mg PO AMHS 05/23/21 05/23/21 History iron) tablet Patient History Medical History Anemia Arthritis Hypertension Surgical History H/O: hysterectomy History of bunionectomy History of surgery on arm Family History Other Family history non-contributory Social History Smoking Status: Never smoker Second Hand Exposure: No; Hx Alcohol Use: No Hx Substance Use: No Preferred Language: Uzbek Communication Ability: Effective Slitting Machine Feeder Required: Yes Beliefs That Will Affect Care: None marital status: / Current Living Situation: Family Current Living Situation Comment: lives with son Other Information That Helps Us Care for You: No Feels Safe at Home: Yes Safety Concerns: Feels Safe At This Time Assistive Devices: Walker Review of Systems Review of Systems: ROS: Gen: + weakness, fatigue; no fevers/chills/sweats Eyes: No eye redness, or pain, no recent vision changes Resp: + SOB, no cough Cardio: +chest/neck pressure. No palpitations/irregular beats GI: + burning abdominal pain; no nausea/vomiting : Denies pain on urination Skin: + cellulitis on both lower legs. No jaundice, itching or new rashes Ext: + mild edema both lower legs - pt tells me improved. Physical Exam Constitutional: well developed, + ill appearing, + thin and cooperative Eyes: PERRL, conjunctivae normal, anicteric sclerae ENMT: external ear and nose normal, oropharynx normal Neck: trachea midline, no thyromegaly Respiratory: normal respiratory effort, lungs clear to auscultation Cardiovascular: Rate/Rhythm: regular rate and regular rhythm Extremities: + edema (bilat lower leg (mild) edema/redness consistent with cellulitis) Gastrointestinal (Abdomen): Inspection/Auscultation: abdomen normal to inspection and normal bowel sounds; abdomen not distended and no abdominal edema Percussion/Palpation: + abdomen tender (Mild diffuse adbdominal msk tenderness. No signs of acute abdomen.) and abdomen soft; no guarding and abd omen not rigid Skin: normal turgor and + pallor Neurologic: PERRL, EOMI, accommodation nl, no face palsy, no dysarthria awake; not confused Psychiatric: Orientation: alert, oriented x 3 and cooperative Results & Data ([facility]) Vital Signs (Past 12 Hours) Vital Signs Temp Pulse Pulse Resp BP BP Pulse Ox 05/23/21 14:01 79 15 153/93 H 100 05/23/21 12:06 36.7 C 88 20 125/65 100 Laboratory Results WBC 11, Hb 6, Hct 19, Plts 382, Na 138, K 4.1, Cl 108, CO2 24, BUN 52, Cr 1.0, glucose 98. Trop 0.07 LFTs normal. Diagnostic Findings CXR (-)
[2021-05-23] MEDS ORDERED: POLYETHYLENE (MIRALAX) 17 GM PACK PO PRN (22:09)
[2021-05-23] MEDS ORDERED: MAGNESIUM HYDROXIDE SUSP 30 ML UDC PO PRN (22:09)
[2021-05-23] MEDS ORDERED: ONDANSETRON INJ 2 MG/ML 2 ML VIAL IV PRN (22:09)
[2021-05-23] MEDS ORDERED: ALUMINUM/MAGNESIUM SUSP 30 ML UDC PO PRN (22:09)
[2021-05-23] MEDS ORDERED: ACETAMINOPHEN 325 MG TAB PO PRN (22:09)
[2021-05-23] MEDS ORDERED: PATIENT'S HEIGHT AND/OR WEIGHT NEEDED SCH (22:15)
[2021-05-23] MEDS: DORZOLAMIDE HCL 2% OPH SOLN 10 ML BTL OPB SCH (22:56)
[2021-05-23] MEDS: FERROUS SULFATE 325 MG TAB PO SCH (22:56)
[2021-05-24 00:50] LABS: Hemoglobin 8.3 g/dL (12.0-16.0)
[2021-05-24] MEDS: PANTOprazole 40 MG in DEXTROSE 5% 100 ML IV SCH ×4 (00:56→16:45)
[2021-05-24 06:18] LABS: Basophils # (auto) 0.02 K/uL (0-0.2); Basophils % (auto) 0.2 %; Eosinophils # (auto) 0.04 K/uL (0-0.5); Eosinophils % (auto) 0.5 %; Hematocrit (blood only) 23.8 % (37-47); Hemoglobin 7.8 g/dL (12.0-16.0); Immature Granulocytes # (auto) 0.01 K/uL (0.00-0.02); Immature Granulocytes % (auto) 0.1 %; Lymphocytes % (auto) 13.2 %; Mean Corpuscular Hemoglobin 30.7 pg (25-34); Mean Corpuscular Hgb Conc 32.8 g/dL (32-36); Mean Corpuscular Volume 93.7 fL (80-100); Mean Platelet Volume 9.8 fL (7.4-10.4); Monocytes # (auto) 0.98 K/uL (0.11-0.59); Monocytes % (auto) 11.7 %; Neutrophils % (auto) 74.3 %; Platelet Count 299 K/uL (130-400); RDW Standard Deviation 59.6 fL (36.4-46.3); Red Blood Count 2.54 M/uL (4.2-5.4); White Blood Count 8.35 K/uL (4.8-10.8)
[2021-05-24 06:45] LABS: Albumin Globulin Ratio 0.9 (0.9-2); Albumin Level 2.4 gm/dl (3.4-5.0); BUN Creatinine Ratio 46.3 (10-20); Bilirubin,Total 0.7 mg/dl (0.2-1.0); Calcium 7.6 mg/dl (8.5-10.1); Creatinine Clr Calc Pharmacy 34.8 ml/min; Est GFR (African American) 75.6 ml/min; Est GFR (Non-African American) 65.3 ml/min; Globulin 2.7 gm/dl (2.5-4.0); Magnesium 1.8 mg/dl (1.7-2.4); Potassium 3.8 mmol/L (3.5-5.1); Total Protein 5.1 gm/dl (6.0-8.3)
[2021-05-24 06:56] LABS: RBC Morphology Unremarkable
--- NOTE | 2021-05-24 07:09 | Ultrasound Report ---
BILATERAL LOWER EXTREMITY VENOUS DOPPLER HISTORY: Lower extremity edema COMPARISON STUDY: None. FINDINGS: There is normal compressibility, flow, and augmentation within the bilateral lower extremit y deep venous systems. IMPRESSION: No DVT within the right or left lower extremity. ACT 112: Negative or not required by law. Electronically signed by: Madhu Calderon M.D. 05/24/2021 7:07 AM
[2021-05-24] MEDS: DORZOLAMIDE HCL 2% OPH SOLN 10 ML BTL OPB SCH ×2 (08:41→21:21)
[2021-05-24] MEDS: TIMOLOL GFS 0.5% OPH SOLN 74 DROPS/5 ML BTL OPB SCH (08:41)
[2021-05-24] MEDS: FERROUS SULFATE 325 MG TAB PO SCH ×2 (08:42→21:21)
[2021-05-24] MEDS: MAGNESIUM OXIDE 400 MG TAB PO SCH (08:43)
--- NOTE | 2021-05-24 10:10 | Anesthesiology Consultation ---
Date of Service May 24, 2021 Assessment & Plan (1) Encounter for pre-operative examination: Chart Review Chart Review: Acceptable Risk for Surgery History Surgery Operation Date: 05/24/21 16:00 Proposed Procedures p Esophagogastroduodenoscopy Dr Peoples - Aliza Peoples MD Height/Weight Height: 5 ft Weight: 44 kg Allergies Allergy/AdvReac Type Severity Reaction Status Date / Time Iodinated Contrast Media Allergy Intermediate Rash Verified 05/23/21 14:13 Medications Home Medications Medication Instructions Recorded Confirmed Last Taken acetaminophen 650 mg 650 mg PO Q4 PRN 04/13/21 05/23/21 Unknown tablet,extended release (Arthritis Pain Relief (acetaminophen) ER) dorzolamide 2 % eye drops 1 drp OPB BID 04/13/21 05/23/21 04/11/21 lisinopril 5 mg tablet 5 mg PO QAM 04/13/21 05/23/21 04/12/21 ondansetron HCl 4 mg tablet 4 mg PO Q6H PRN 04/13/21 05/23/21 Unknown timolol maleate 0.25 % eye drops 1 drp OPB QAM 04/13/21 05/23/21 04/11/21 magnesium 200 mg tablet 200 mg PO DAILY #1 tab 04/18/21 05/23/21 Unknown ferrous sulfate 325 mg (65 mg 325 mg PO AMHS 05/23/21 05/23/21 Unknown iron) tablet Active Medications Generic Name Dose Route Start Last Admin Trade Name Freq PRN Reason Stop Dose Admin Dorzolamide HCl 1 drops 05/23/21 22:09 05/24/21 08:41 Dorzolamide Hcl 2% Oph Soln 10 Ml Btl OPB 06/22/21 22:08 1 drops BID CK Administration Ferrous Sulfate 325 mg 05/23/21 22:09 05/24/21 08:42 Ferrous Sulfate 325 Mg Tab PO 06/22/21 22:08 325 mg AMHS CK Administration Pantoprazole Sodium 40 mg/ 100 mls @ 20 mls/hr 05/23/21 14:15 05/24/21 09:58 Dextrose IV 06/22/21 14:14 8 mg/hr Q5H CK 20 mls/hr Administration 8 MG/HR Magnesium Oxide 200 mg 05/24/21 09:00 05/24/21 08:43 Magnesium Oxide 400 Mg Tab PO 06/23/21 08:59 200 mg DAILY CK Administration Timolol Maleate 1 drops 05/24/21 09:00 05/24/21 08:41 Timolol Gfs 0.5% Oph Soln 74 Drops/5 Ml Btl OPB 06/23/21 08:59 1 drops QAM CK Administration Past Medical History Medical History Anemia Arthritis Hypertension Past Family History Family History Other Family history non-contributory Past Surgical History Surgical History H/O: hysterectomy History of bunionectomy History of surgery on arm Social History Smoking Status: Never smoker Hx Alcohol Use: No Hx Substance Use: No Physical Exam Vital Signs Last Vital Signs Temp 36.7 C 05/24/21 07:45 Pulse 84 05/24/21 08:00 Resp 17 05/24/21 07:45 BP 136/64 05/24/21 07:45 Pulse Ox 96 05/24/21 07:45 Testing Laboratory Results 05/24/21 05:35 05/24/21 05:35 PT 10.5 Seconds (9.0-12.0) 05/23/21 12:19 INR 1.0 (0.9-1.1) 05/23/21 12:19 APTT 22.1 Seconds (21.0-31.0) 05/23/21 12:19 Blood Type O Positive 05/23/21 13:53 Antibody Screen NEGATIVE 05/23/21 13:53 Electrocardiogram Date: 05/23/21 Findings: + NSR @ (85) Echocardiogram Date: 05/23/21 EF: 65% LV Function: normal Valvular Disease: + no significant valvular disease
--- NOTE | 2021-05-24 11:03 | History & Physical Bridge Note ---
Date of Service May 24, 2021 History & Physical Bridge Note I have examined the patient, reviewed the History & Physical and in the interval since the performance of the History & Physical I have noted the following changes of clinical significance: no changes noted
[2021-05-24] MEDS ORDERED: LIDOCAINE 2% 2 ML VIAL/AMP(20MG/ML) INFIL ONE (11:26)
[2021-05-24] MEDS ORDERED: PROPOFOL IV EMULSION 10 MG/ML 20 ML VIAL IV ONE (11:26)
[2021-05-24] MEDS ORDERED: GLYCOPYRROLATE 0.2 MG/ML VIAL ONE (11:26)
[2021-05-24] MEDS ORDERED: ONDANSETRON INJ 2 MG/ML 2 ML VIAL ONE (11:26)
--- NOTE | 2021-05-24 12:08 | GI REPORT ---
Patient Name: Danica Lorenz Procedure Date: 05/24/2021 10:58 AM Date of : 1935 Admit Type: Inpatient Age: 86 Gender: Female Attending MD: Aliza Peoples MD Procedure: Upper GI endoscopy Providers: Aliza Peoples MD Referring MD: Sen Fletcher Md Indications: Suspected upper gastrointestinal bleeding, Anemia Medicines: Propofol per Anesthesia Complications: No immediate complications. Estimated Blood Loss: Estimated blood loss: none. Procedure: Pre-Anesthesia Assessment: - Prior to the procedure, a History and Physical was performed, and patient medications, allergies and sensitivities were reviewed. The patient's tolerance of previous anesthesia was reviewed. - The risks and benefits of the procedure and the sedation options and risks were discussed with the patient. All questions were answered and informed consent was obtained. - Patient identification and proposed procedure were verified prior to the procedure by the physician and the nurse. The procedure was verified in the procedure room. - Pre-procedure physical examination revealed no contraindications to sedation. After obtaining informed consent, the endoscope was passed under direct vision. Throughout the procedure, the patient's blood pressure, pulse, and oxygen saturations were monitored continuously. The Endoscope was introduced through the mouth, and advanced to the second part of duodenum. The upper GI endoscopy was accomplished without difficulty. The patient tolerated the procedure well. Findings: The examined esophagus was normal. The entire examined stomach was normal. One non-bleeding cratered duodenal ulcer with a visible vessel was found in the duodenal bulb. The lesion was 20 mm in largest dimension. Coagulation for hemostasis using bipolar probe was successful. The second portion of the duodenum was normal. Impression: - Normal esophagus. - Normal stomach. - Non-bleeding duodenal ulcer with a visible vessel. Treated with bipolar cautery. - Normal second portion of the duodenum. - No specimens collected. Recommendation: - [facility] to [facility] for [facility] care. - Clear liquid diet today. - No aspirin, ibuprofen, naproxen, or other non-steroidal anti-inflammatory drugs. - Use a proton pump inhibitor IV daily for 2 days then PO BID for 3 months then once daily lifelong. Aliza Peolpes MD 05/24/2021 12:08:00 PM This report has been signed electronically. Note Initiated On: 05/24/2021 10:58 AM Number of Addenda: 0 I attest to the content of the Intraoperative Record and orders documented therein, exceptions below {[id number]}
--- NOTE | 2021-05-24 12:47 | Anesthesiology Progress Note ---
Date of Service May 24, 2021 Anesthesia Post Procedure Vital Signs Vital Signs: Temp Pulse Pulse Pulse Resp BP BP 05/24/21 12:30 36.4 C L 63 16 149/74 H 05/24/21 12:15 36.4 C L 77 16 157/74 H 05/24/21 12:00 81 16 126/77 05/24/21 11:44 78 16 106/70 05/24/21 11:29 73 16 97/50 L 05/24/21 10:30 36.5 C 69 16 142/80 H 05/24/21 08:00 84 05/24/21 07:45 36.7 C 83 17 136/64 05/24/21 02:53 36.7 C 93 H 16 133/69 05/23/21 23:00 80 05/23/21 22:10 36.9 C 82 84 16 152/81 H 05/23/21 20:41 92 H 17 122/70 05/23/21 19:43 102 H 16 129/84 05/23/21 18:21 36.8 C 103 H 152/76 H 05/23/21 18:17 102 H 16 156/88 H 05/23/21 17:45 95 H 17 138/80 05/23/21 16:09 89 15 138/60 05/23/21 16:07 87 16 132/70 05/23/21 15:49 36.6 C 92 H 20 135/53 L 05/23/21 14:01 79 15 153/93 H Pulse Ox 05/24/21 12:30 99 05/24/21 12:15 99 05/24/21 12:00 92 05/24/21 11:44 98 05/24/21 11:29 97 05/24/21 10:30 98 05/24/21 08:00 05/24/21 07:45 96 05/24/21 02:53 96 05/23/21 23:00 05/23/21 22:10 96 05/23/21 20:41 96 05/23/21 19:43 98 05/23/21 18:21 99 05/23/21 18:17 98 05/23/21 17:45 98 05/23/21 16:09 96 05/23/21 16:07 98 05/23/21 15:49 95 05/23/21 14:01 100 Pain Intensity Bilateral Leg: Pain Intensity: 5 Transfer of Care Handoff Completed per policy Notes Mental Status: alert / awake / arousable Patient Amnestic to Procedure: Yes Nausea / Vomiting: adequately controlled Pain: adequately controlled Airway Patency, RR, SpO2: stable & adequate BP & HR: stable & adequate Hydration State: stable & adequate Anesthetic Complications: no major complications apparent
[2021-05-24] MEDS: cefTRIAXone SODIUM 1,000 MG in DEXTROSE 5% 50 ML IV SCH (13:55)
--- NOTE | 2021-05-24 15:37 | Hospitalist Progress Note ---
Date of Service May 24, 2021 Assessment & Plan (1) Acute gastrointestinal bleeding: (2) Anemia due to blood loss: (3) Acute chest pain: (4) Elevated troponin: (5) Bilateral edema of lower extremity: (6) Cellulitis: Plan: 86-year-old female who has significant past medical history of HTN, glaucoma, arthritis, BLE cellulitis presented to ED 05/23 secondary to, "going downhill for a few weeks." She is being managed for the following: #. Likely acute upper GI bleeding #. Anemia due to blood loss Patient easily tired and fatigued prior to presentation which was worsening lately. Admitting hemoglobin of 6.0, status post 2 unit PRBC transfusion Hemoglobin 7.8 today, follow-up with hemoglobin in the evening, transfuse for symptomatic anemia or hemoglobin less than 7 05/24 EGD scope: Normal esophagus/stomach. Nonbleeding duodenal ulcer treated with bipolar cautery. Normal second portion of the duodenum. No specimens collected. GI evaluated, clear liquid diet today, no aspirin/NSAIDs, PPI IV for 2 days and then p.o. twice daily for 3 months and then once daily lifelong. Continue with iron supplement, PPI, clear liquid diet, advance as tolerated from tomorrow. #. Chest Pain #. elevated trop Chest pain likely secondary to demand ischemia in the setting of anemia No further chest pain while in hospital per patient Troponin flat trended around 0.07-0.09 05/23/2021 echo: Grade 1 diastolic dysfunction, EF 65 to 70%. Continue to monitor, continue with telemetry. #. B/L Lower extremity swelling R > L #. New diastolic CHF #. LLE Cellulitis LLE mildly erythematous, warm; WBC mildly elevated at 11k at presentation BLE US Doppler: negative for DVT empirically tx with IV Rocephin at admission, c/w Rocephin 05/24 BNP at presentation elevated. 05/23 ECHO see above, pt got a dose of iv lasix at presentation. Clinically leg swelling getting better. Pt will likely need lasix as needed upon DC and possible f/u with cardio. #. HTN hold lisinopril for now in setting of blood loss for concern of hypotension, likely resume when Hb stable. monitor BP #. Glaucoma continue eye gtts DVT ppx: SCD/TEDS Dispo: PCU PCP: Debora, new to PCP will need to establish FULL CODE Admission and Anticipated Discharge Date Admission Date: May 23, 2021 Subjective Patient seen and examined at bedside as a follow-up of likely acute upper GI bleeding, anemia and demand ischemia and LLE cellulitis. Patient lying in bed, on room air, NAD, no new acute events overnight. Patient remains n.p.o. for EGD scope today. Patient denies any further chest pain while in the hospital. Patient denies any headache/chills/chest pain/dizziness/belly pain/sore throat/other review of symptoms. Physical Exam Physical Exam: GENERAL: Alert and oriented x3. NAD, on RA. HEENT: No pallor, no icterus. Pupils equal, round and reactive to light. Oral mucosa moist. NECK: No JVD, no neck masses. HEART: S1 and S2 heard. Regular rate and rhythm. No murmur, no gallop. RESPIRATORY SYSTEM: Normal AP diameter. No accessory muscle use. No wheezing, no crackles. ABDOMEN: Soft, bowel sounds present, nontender, no distention. CENTRAL NERVOUS SYSTEM: No facial droop. Speech is clear. Obeys simple commands. Moves extremities. EXTREMITIES: BLE alicia stockings in place, trace edema noted. Results & Data Results & Data ([facility]) Vital Signs (Past 12 Hours) Vital Signs Temp Pulse Pulse Pulse Resp BP Pulse Ox 05/24/21 15:18 36.5 C 76 18 130/52 L 96 05/24/21 13:45 36.4 C L 66 16 149/74 H 100 05/24/21 13:15 36.4 C L 67 16 146/69 H 99 05/24/21 12:45 36.4 C L 63 16 141/65 H 99 05/24/21 12:30 36.4 C L 63 16 149/74 H 99 05/24/21 12:15 36.4 C L 77 16 157/74 H 99 05/24/21 12:00 81 16 126/77 92 05/24/21 11:44 78 16 106/70 98 05/24/21 11:29 73 16 97/50 L 97 05/24/21 10:30 36.5 C 69 16 142/80 H 98 05/24/21 08:00 84 05/24/21 07:45 36.7 C 83 17 136/64 96 (1) Cellulitis Laterality: left Site of cellulitis: extremity Site of cellulitis of extremity: lower extremity Qualified Code(s): L03.116 - Cellulitis of left lower limb
[2021-05-24] MEDS: PANTOprazole 40 MG in SYRINGE 0 ML IV SCH (21:21)
[2021-05-24 22:36] LABS: Hematocrit (blood only) 26.3 % (37-47); Hemoglobin 8.6 g/dL (12.0-16.0)
[2021-05-25 07:32] LABS: Hematocrit (blood only) 25.9 % (37-47); Hemoglobin 8.6 g/dL (12.0-16.0); Mean Corpuscular Hemoglobin 31.6 pg (25-34); Mean Corpuscular Hgb Conc 33.2 g/dL (32-36); Mean Corpuscular Volume 95.2 fL (80-100); Mean Platelet Volume 9.8 fL (7.4-10.4); Platelet Count 309 K/uL (130-400); RDW Coefficient of Variation 19.3 % (11.5-14.5); RDW Standard Deviation 64.8 fL (36.4-46.3); Red Blood Count 2.72 M/uL (4.2-5.4); White Blood Count 7.08 K/uL (4.8-10.8)
[2021-05-25 07:56] LABS: BUN Creatinine Ratio 27.5 (10-20); Calcium 7.6 mg/dl (8.5-10.1); Creatinine Clr Calc Pharmacy 28.7 ml/min; Est GFR (African American) 58.1 ml/min; Est GFR (Non-African American) 50.1 ml/min; Magnesium 1.8 mg/dl (1.7-2.4); Potassium 3.9 mmol/L (3.5-5.1)
[2021-05-25] MEDS: TIMOLOL GFS 0.5% OPH SOLN 74 DROPS/5 ML BTL OPB SCH (08:44)
[2021-05-25] MEDS: FERROUS SULFATE 325 MG TAB PO SCH ×2 (08:45→20:39)
[2021-05-25] MEDS: MAGNESIUM OXIDE 400 MG TAB PO SCH (08:45)
[2021-05-25] MEDS: PANTOprazole 40 MG in SYRINGE 0 ML IV SCH ×2 (08:45→20:40)
[2021-05-25] MEDS: DORZOLAMIDE HCL 2% OPH SOLN 10 ML BTL OPB SCH ×2 (08:48→20:39)
--- NOTE | 2021-05-25 10:59 | Gastroenterology Progress Note ---
Date of Service May 25, 2021 Assessment & Plan (1) Duodenal ulcer disease: Plan: PPI drip x48 hours, then 40 mg twice daily x3 months, then once daily long-term. No NSAIDs. No follow-up endoscopy required. Advance diet. GI will sign off. Please notify us if any new or worsening GI issues. Admission and Anticipated Discharge Date Admission Date: May 23, 2021 Supervising Physician Co-Signing Physician Notes I performed a history and physical examination of the patient today, including specifically on physical exam - soft abdomen. I have discussed the patient's management with the advanced practitioner. Please refer to the nurse practitioner's note for the documented findings and plan of care. No evidence of GI bleeding. Advance Diet. PPI Recall GI if needed Subjective 86-year-old female, admitted 05/24 for melena. Hemoglobin 6 on arrival + 2 units RBCs ->8.6 today. BUN 52->28. No gross GI bleeding since arrival. Patient had moderate upper abdomen pain yesterday and today is pain-free though soft minimally tender in the epigastric area on exam. PPI drip is running. She is hemodynamically stable. Sitting up in bed. Conversational. No O2 requirements. Continues to deny any NSAID use. Review of Systems Review of Systems: ROS: Gen: + weakness, fatigue; no fevers/chills/sweats Eyes: No eye redness, or pain, no recent vision changes Resp: No SOB, no cough Cardio: Denies chest pain . No palpitations/irregular beats GI: Minimal epigastric discomfort; no nausea/vomiting : Denies pain on urination Skin: + cellulitis on both lower legs. No jaundice, itching or new rashes Ext: + mild edema both lower legs - pt tells me improved. Physical Exam Constitutional: well developed, + ill appearing, + thin and cooperative Eyes: PERRL, conjunctivae normal, anicteric sclerae ENMT: external ear and nose normal, oropharynx normal Neck: trachea midline, no thyromegaly Respiratory: normal respiratory effort, lungs clear to auscultation Cardiovascular: Rate/Rhythm: regular rate and regular rhythm Extremities: + edema (bilat lower leg (mild) edema/redness consistent with cellulitis) Gastrointestinal (Abdomen): Inspection/Auscultation: abdomen normal to inspection and normal bowel sounds; abdomen not distended and no abdominal edema Percussion/Palpation: + abdomen tender (Minimal epigastric tenderness on deep palpation.) and abdomen soft; no guarding and abdomen not rigid Musculoskeletal: Scoliosis/kyphosis Skin: normal turgor and + pallor (Improved) Neurologic: PERRL, EOMI, accommodation nl, no face palsy, no dysarthria awake; not confused Psychiatric: Orientation: alert, oriented x 3 and cooperative Results & Data ([facility]) Vital Signs (Past 12 Hours) Vital Signs Temp Pulse Pulse Resp BP Pulse Ox 05/25/21 07:49 36.7 C 80 15 160/82 H 97 05/25/21 03:03 36.8 C 69 16 128/68 97 05/24/21 23:19 36.8 C 77 18 122/60 96 05/24/21 23:00 83 Laboratory Results WBC 7, Hb 8.6, HCT 25, platelets 309. NA 135, K3.7, CL 108, CO2 23, BUN 28, CR 1.02, glucose 76. Diagnostic Findings EGD 04/26/2021: - Normal esophagus. - Normal stomach. - Non-bleeding duodenal ulcer with a visible vessel. Treated with bipolar cautery. - Normal second portion of the duodenum. - No specimens collected.
[2021-05-25] MEDS: cefTRIAXone SODIUM 1,000 MG in DEXTROSE 5% 50 ML IV SCH (14:03)
--- NOTE | 2021-05-25 17:00 | Hospitalist Progress Note ---
Date of Service May 25, 2021 Assessment & Plan (1) Acute gastrointestinal bleeding: (2) Anemia due to blood loss: (3) Acute chest pain: (4) Elevated troponin: (5) Bilateral edema of lower extremity: (6) Cellulitis: Plan: 86-year-old female who has significant past medical history of HTN, glaucoma, arthritis, BLE cellulitis presented to ED 05/23 secondary to, "going downhill for a few weeks." She is being managed for the following: #. Likely acute upper GI bleeding #. Anemia due to blood loss Patient easily tired and fatigued prior to presentation which was worsening lately. Admitting hemoglobin of 6.0, status post 2 unit PRBC transfusion Hemoglobin is stable around 8, transfuse for symptomatic anemia or hemoglobin less than 7 05/24 EGD scope: Normal esophagus/stomach. Nonbleeding duodenal ulcer treated with bipolar cautery. Normal second portion of the duodenum. No specimens collected. GI evaluated, no aspirin/NSAIDs, PPI p.o. twice daily for 3 months and then once daily lifelong. Continue with iron supplement, PPI IV, to be transitioned to p.o. from tomorrow evening, advance as tolerated from tomorrow. Patient reports feeling better. #. Chest Pain #. elevated trop Chest pain likely secondary to demand ischemia in the setting of anemia No further chest pain while in hospital per patient Troponin flat trended around 0.07-0.09 05/23/2021 echo: Grade 1 diastolic dysfunction, EF 65 to 70%. Continue to monitor, continue with telemetry. #. B/L Lower extremity swelling R > L #. New acute diastolic CHF - improving. #. LLE Cellulitis LLE mildly erythematous, warm; WBC mildly elevated at 11k at presentation BLE US Doppler: negative for DVT empirically tx with IV Rocephin at admission, c/w Rocephin 05/24 BNP at presentation elevated. 05/23 ECHO see above, pt got a dose of iv lasix at presentation. Clinically leg swelling getting better. Pt will likely need lasix as needed upon DC and possible f/u with cardio. Patient made aware. #. HTN Continue with home meds as and when appropriate. monitor BP #. Glaucoma continue eye gtts DVT ppx: SCD/TEDS Dispo: PCU PCP: Debora, new to PCP will need to establish FULL CODE Admission and Anticipated Discharge Date Admission Date: May 23, 2021 Subjective Patient seen and examined at bedside as a follow-up of likely acute upper GI bleeding, anemia and demand ischemia and LLE cellulitis. Patient lying in bed, on room air, NAD, no new acute events overnight. Patient tolerating diet well, patient reports improving appetite and feeling better. Patient denies any chest pain or belly pain. Patient denies any headache/chills/chest pain/dizziness/belly pain/sore throat/other review of symptoms. Physical Exam Physical Exam: GENERAL: Alert and oriented x3. NAD, on RA. HEENT: No pallor, no icterus. Pupils equal, round and reactive to light. Oral mucosa moist. NECK: No JVD, no neck masses. HEART: S1 and S2 heard. Regular rate and rhythm. No murmur, no gallop. RESPIRATORY SYSTEM: Normal AP diameter. No accessory muscle use. No wheezing, no crackles. ABDOMEN: Soft, bowel sounds present, nontender, no distention. CENTRAL NERVOUS SYSTEM: No facial droop. Speech is clear. Obeys simple commands. Moves extremities. EXTREMITIES: BLE alicia stockings in place, trace edema noted. Results & Data Results & Data ([facility]) Vital Signs (Past 12 Hours) Vital Signs Temp Pulse Resp BP Pulse Ox 05/25/21 15:13 36.4 C L 80 15 121/57 L 98 05/25/21 11:38 36.5 C 65 16 121/62 98 05/25/21 07:49 36.7 C 80 15 160/82 H 97 (1) Cellulitis Laterality: left Site of cellulitis: extremity Site of cellulitis of extremity: lower extremity Qualified Code(s): L03.116 - Cellulitis of left lower limb
[2021-05-26 07:58] LABS: Hematocrit (blood only) 29.7 % (37-47); Hemoglobin 9.6 g/dL (12.0-16.0); Mean Corpuscular Hemoglobin 31.1 pg (25-34); Mean Corpuscular Hgb Conc 32.3 g/dL (32-36); Mean Corpuscular Volume 96.1 fL (80-100); Mean Platelet Volume 9.5 fL (7.4-10.4); Platelet Count 324 K/uL (130-400); RDW Coefficient of Variation 18.7 % (11.5-14.5); RDW Standard Deviation 65.1 fL (36.4-46.3); Red Blood Count 3.09 M/uL (4.2-5.4); White Blood Count 9.92 K/uL (4.8-10.8)
[2021-05-26 08:26] LABS: BUN Creatinine Ratio 22.4 (10-20); Calcium 7.7 mg/dl (8.5-10.1); Creatinine Clr Calc Pharmacy 27.1 ml/min; Est GFR (Non-African American) 52.6 ml/min; Magnesium 1.8 mg/dl (1.7-2.4); Potassium 3.8 mmol/L (3.5-5.1)
[2021-05-26] MEDS: TIMOLOL GFS 0.5% OPH SOLN 74 DROPS/5 ML BTL OPB SCH (09:12)
[2021-05-26] MEDS: PANTOprazole 40 MG in SYRINGE 0 ML IV SCH (09:13)
[2021-05-26] MEDS: FERROUS SULFATE 325 MG TAB PO SCH ×2 (09:13→20:11)
[2021-05-26] MEDS: MAGNESIUM OXIDE 400 MG TAB PO SCH (09:14)
[2021-05-26] MEDS: lisinopril 5 MG TAB PO SCH (09:14)
[2021-05-26] MEDS: DORZOLAMIDE HCL 2% OPH SOLN 10 ML BTL OPB SCH ×2 (09:21→20:09)
[2021-05-26] MEDS ORDERED: STAT IV STA (10:00)
[2021-05-26] MEDS ORDERED: CALCIUM GLUCONATE 10% 1,000 MG in DEXTROSE 5% 50 ML IV ONE (10:15)
[2021-05-26] MEDS: ADVANCED PROBIOTIC 1250 MG CAPSULE PO SCH (10:30)
[2021-05-26] MEDS: cefTRIAXone SODIUM 1,000 MG in DEXTROSE 5% 50 ML IV SCH (14:01)
--- NOTE | 2021-05-26 17:34 | Hospitalist Progress Note ---
Date of Service May 26, 2021 Assessment & Plan (1) Acute gastrointestinal bleeding: (2) Anemia due to blood loss: (3) Acute chest pain: (4) Elevated troponin: (5) Bilateral edema of lower extremity: (6) Cellulitis: Plan: 86-year-old female who has significant past medical history of HTN, glaucoma, arthritis, BLE cellulitis presented to ED 05/23 secondary to, "going downhill for a few weeks." She is being managed for the following: #. Likely acute upper GI bleeding #. Anemia due to blood loss Patient easily tired and fatigued prior to presentation which was worsening lately. Admitting hemoglobin of 6.0, status post 2 unit PRBC transfusion Hemoglobin is stable around 8 -9 , transfuse for symptomatic anemia or hemoglobin less than 7 05/24 EGD scope: Normal esophagus/stomach. Nonbleeding duodenal ulcer treated with bipolar cautery. Normal second portion of the duodenum. No specimens collected. GI evaluated, no aspirin/NSAIDs, PPI p.o. twice daily for 3 months and then once daily lifelong. Continue with iron supplement, PPI PO from today evening, for 3 months BID and then daily lifelong. Pt tolerating diet well. Patient reports feeling better. #. Chest Pain #. elevated trop Chest pain likely secondary to demand ischemia in the setting of anemia No further chest pain while in hospital per patient Troponin flat trended around 0.07-0.09 05/23/2021 echo: Grade 1 diastolic dysfunction, EF 65 to 70%. Continue to monitor, continue with telemetry. #. B/L Lower extremity swelling R > L #. New acute diastolic CHF - improving. #. LLE Cellulitis LLE mildly erythematous, warm; WBC mildly elevated at 11k at presentation BLE US Doppler: negative for DVT empirically tx with IV Rocephin at admission, c/w Rocephin 05/24, transition to PO after tomorrow's iv dose. BNP at presentation elevated. 05/23 ECHO see above, pt got a dose of iv lasix at presentation. Clinically leg swelling getting better. Pt will likely need lasix as needed upon DC and possible f/u with cardio. Patient made aware. #. HTN Continue with home meds as and when appropriate. monitor BP #. Glaucoma continue eye gtts DVT ppx: SCD/TEDS Dispo: PCU PCP: Debora, new to PCP will need to establish FULL CODE Disposition: likely DC arianna. Needs f/u with PCP, Cardio. Admission and Anticipated Discharge Date Admission Date: May 23, 2021 Subjective Patient seen and examined at bedside as a follow-up of likely acute upper GI bleeding, anemia and demand ischemia and LLE cellulitis. Patient eating her lunch, on room air, NAD, no new acute events overnight. Patient tolerating diet well, patient reports improving appetite and feeling better. Patient denies any chest pain or belly pain. Patient denies any headache/chills/chest pain/dizziness/belly pain/sore throat/other review of symptoms. Physical Exam Physical Exam: GENERAL: Alert and oriented x3. NAD, on RA. HEENT: No pallor, no icterus. Pupils equal, round and reactive to light. Oral mucosa moist. NECK: No JVD, no neck masses. HEART: S1 and S2 heard. Regular rate and rhythm. No murmur, no gallop. RESPIRATORY SYSTEM: Normal AP diameter. No accessory muscle use. No wheezing, no crackles. ABDOMEN: Soft, bowel sounds present, nontender, no distention. CENTRAL NERVOUS SYSTEM: No facial droop. Speech is clear. Obeys simple commands. Moves extremities. EXTREMITIES: erythema LLE > RLE, trace edema noted. Results & Data Results & Data ([facility]) Vital Signs (Past 12 Hours) Vital Signs Temp Pulse Pulse Resp BP Pulse Ox 05/26/21 15:38 80 05/26/21 15:11 36.8 C 70 17 118/56 L 98 05/26/21 12:37 67 05/26/21 11:04 36.6 C 68 18 132/71 98 05/26/21 07:14 36.7 C 72 17 148/73 H 97 (1) Cellulitis Laterality: left Site of cellulitis: extremity Site of cellulitis of extremity: lower extremity Qualified Code(s): L03.116 - Cellulitis of left lower limb
[2021-05-26] MEDS: PANTOprazole 40 MG TAB PO SCH (20:10)
[2021-05-27 05:46] LABS: Hematocrit (blood only) 27.9 % (37-47); Hemoglobin 8.9 g/dL (12.0-16.0)
[2021-05-27 06:29] LABS: BUN Creatinine Ratio 21.2 (10-20); Calcium 7.6 mg/dl (8.5-10.1); Creatinine Clr Calc Pharmacy 31.2 ml/min; Est GFR (African American) 72.4 ml/min; Est GFR (Non-African American) 62.5 ml/min; Potassium 4.1 mmol/L (3.5-5.1)
[2021-05-27] MEDS: TIMOLOL GFS 0.5% OPH SOLN 74 DROPS/5 ML BTL OPB SCH (08:11)
[2021-05-27] MEDS: ADVANCED PROBIOTIC 1250 MG CAPSULE PO SCH (08:12)
[2021-05-27] MEDS: lisinopril 5 MG TAB PO SCH (08:13)
[2021-05-27] MEDS: MAGNESIUM OXIDE 400 MG TAB PO SCH (08:14)
[2021-05-27] MEDS: FERROUS SULFATE 325 MG TAB PO SCH ×2 (08:15→20:37)
[2021-05-27] MEDS: PANTOprazole 40 MG TAB PO SCH ×2 (08:16→20:37)
[2021-05-27] MEDS: DORZOLAMIDE HCL 2% OPH SOLN 10 ML BTL OPB SCH ×2 (08:17→20:38)
[2021-05-27] MEDS ORDERED: Nursing to Pharmacy Communication SCH (08:45)
[2021-05-27] MEDS: CHOLECALCIFEROL 1,000 UNITS 25 MCG TAB PO SCH (09:23)
--- NOTE | 2021-05-27 09:26 | Discharge Summary ---
Date of Service May 27, 2021 Admission HPI Per Admitting Provider This is an 86-year-old female who has significant past medical history of HTN, glaucoma, arthritis, history of cellulitis who presents to ED secondary to, "going downhill for a few weeks." Of significance patient was hospitalized at our facility from 04/13-04/19 secondary to left lower extremity cellulitis. She required IV antibiotics. During that hospitalization she was diagnosed with anemia and iron panel was performed. Revealed iron 27, ferritin 43, normal B12 folic acid. She was subsequently started on oral iron twice daily. Upon discharge she gradually went downhill over the span of 3 to 4 weeks. She c omplained of burning in her stomach that would come and go, made worse with meals. She further complained of weakness, fatigue, inability to walk, ROGEL and substernal chest pain that radiates to her right neck. Chest pain would come and go and would improve if she would sit still. It would last from seconds to minutes. She cannot pinpoint a pattern of the chest pain. Did not occur with exertion as she states, "I have not been able to exert myself." Typically patient lives at home and her son lives with her. Normally she is ambulatory and active in the house with IADLs. This is limited over the past few weeks. She does complain of black tarry stools ever since starting the iron. She states she was seen in [facility]/ER due to PCP telling her to go there for a transfusion. It was felt that she did not need a transfusion and was started on iron. In ED she did remain hemodynamically stable; however, hemoglobin and hematocrit was 6.0 19.4 respectively. She does have mild elevation WBC 11.0 2K. Her CMP was generally unremarkable except for elevated BUN of 52 creatinine 1.00. She did have mild elevated troponin of 0.07. Her EKG revealed sinus rhythm without ST or T wave abnormality. Admission Exam Per Admitting Provider Constitutional: Petite, elderly, female, WD/WN, vitals as above, NAD, sitting up in bed, pleasant, conversing easily Head: Normocephalic, Atraumatic Eyes: PERRL, conjunctivae normal, anicteric sclerae ENMT: external ear and nose normal, oropharynx normal Neck: trachea midline, no thyromegaly normal visual inspection Respiratory: normal respiratory effort, lungs clear to auscultation, no wheeze, rales, rhonchi. Normal insp/exp effort, no accessory muscle use Cardiovascular: RRR, no murmur, bilateral lower extremity swelling right greater than left, left-sided warmth and erythema noted pretibially Vessels: no JVD or carotid bruit Chest: normal inspection of chest Abdomen: normal bowel sounds, soft, tender to palpation in epigastrium, no rebound, no guarding no hepatosplenomegaly Musculoskeletal: no cyanosis or clubbing, extremities motor strength 5/5 Skin: no rashes, warm and dry normal turgor Neurologic: PERRL, EOMI, accommodation nl, no face palsy, no dysarthria CN's II-XI intact bilaterally and moves all extremities Psychiatric: A+Ox3, euthymic affect Lymphatic: no cervical or axillary lymphadenopathy : deferred Principal Diagnosis Likely upper GI bleed BLE edema/acute diastolic CHF [new] LLE cellulitis Discharge Exam GENERAL: Alert and oriented x3. NAD, on RA. HEENT: No pallor, no icterus. Pupils equal, round and reactive to light. Oral mucosa moist. NECK: No JVD, no neck masses. HEART: S1 and S2 heard. Regular rate and rhythm. No murmur, no gallop. RESPIRATORY SYSTEM: Normal AP diameter. No accessory muscle use. No wheezing, no crackles. ABDOMEN: Soft, bowel sounds present, nontender, no distention. CENTRAL NERVOUS SYSTEM: No facial droop. Speech is clear. Obeys simple commands. Moves extremities. EXTREMITIES: erythema LLE improving, trace edema noted. Discharge Data Allergies Allergy/AdvReac Type Severity Reaction Status Date / Time Iodinated Contrast Media Allergy Intermediate Rash Verified 05/24/21 10:29 Consultations 05/23/21 13:53 Consult Gastroenterology Routine 05/23/21 14:01 ED Decision to Admit Stat Procedures Performed Operation Date: 05/24/21 16:00 Actual Procedures p EGD Hemostasis - Aliza Peoples MD Ordered Studies 05/24/21 00:01 US venous doppler LE Routine Hospital Course (1) Acute gastrointestinal bleeding: (2) Anemia due to blood loss: (3) Acute chest pain: (4) Elevated troponin: (5) Bilateral edema of lower extremity: (6) Cellulitis: 86-year-old female who has significant past medical history of HTN, glaucoma, arthritis, BLE cellulitis presented to ED 05/23 secondary to, "going downhill for a few weeks." She was managed for the following: #. Likely acute upper GI bleeding #. Anemia due to blood loss Patient easily tired and fatigued prior to presentation which was worsening lately. Admitting hemoglobin of 6.0, status post 2 unit PRBC transfusion Hemoglobin is stable around 8 -9 , get CBC done in a week time upon DC, Pt made aware. 05/24 EGD scope: Normal esophagus/stomach. Nonbleeding duodenal ulcer treated with bipolar cautery. Normal second portion of the duodenum. No specimens collected. GI evaluated, no aspirin/NSAIDs, PPI p.o. twice daily for 3 months and then once daily lifelong. Continue with iron supplement, PPI PO BID for 3 months and then daily lifelong. #. Chest Pain #. elevated trop Chest pain likely secondary to demand ischemia in the setting of anemia No further chest pain while in hospital per patient Troponin flat trended around 0.07-0.09 05/23/2021 echo: Grade 1 diastolic dysfunction, EF 65 to 70%. Continue to monitor, continue with telemetry. #. B/L Lower extremity swelling R > L #. New acute diastolic CHF - improving. #. LLE Cellulitis LLE mildly erythematous, warm; WBC mildly elevated at 11k at presentation BLE US Doppler: negative for DVT empirically tx with IV Rocephin at admission, c/w Rocephin 05/24, transition to PO keflex for 7 more days upon DC. Pt will get todays iv dose and will DC, can take PO meds from arianna. BNP at presentation elevated. 05/23 ECHO see above, pt got a dose of iv lasix at presentation. Clinically leg swelling got better. Patient being discharged on a small dose of Lasix to be taken as needed for leg swelling/increasing weight gain, will need cardiology follow-up as an outpatient. Patient made aware. #. HTN Continue with home meds as and when appropriate. monitor BP #. Glaucoma continue eye gtts DVT ppx: SCD/TEDS Dispo: PCU PCP: Debora new to PCP will need to establish FULL CODE Patient being discharged to home with family support with following instruction at the point of discharge which were communicated to patient's Son as well over the phone: You are being discharged home with family support. Follow-up with your PCP within 1 week time. While in the hospital, you underwent EGD scope and found to have duodenal ulcer which was cauterized. Continue with Protonix 40 mg twice a day for 3 months and then once daily for lifelong. Get your blood work CBC and BMP in a week time upon discharge. Avoid Motrin/Aleve/any other NSAIDs in future. Continue with iron supplement, continue with high-dose vitamin D supplement for 7 days followed by [id number] vitamin D/calcium tablet daily as discussed at the bedside. Continue with antibiotics for 7 more days for your LLE cellulitis, wear compression stockings during the day. You have been diagnosed with new diastolic heart failure, you will be discharged on a small dose of Lasix to be used as needed for leg swelling or increasing body weight [measure your body weight daily]. As discussed at the bedside, you will need an outpatient follow-up with cardiology in a month time. Take medications as prescribed. Total Time Total Time Spent Total Time Spent (In Minutes): 35 Discharge Plan Discharge Items Patient Disposition: Home - Self-Care Reason For Visit: GIB Discharge Diagnosis: Likely upper GI bleed BLE edema/acute diastolic CHF [new] LLE cellulitis Activity: Resume your previous activity Non-emergency contact: Primary Care Provider Call non-emergency contact if: you have any medication questions, your symptoms worsen and your temperature is above 101 Follow-up/Referrals: Peter Cazares MD [Primary Care Provider] - (Date & Time 05/31/2021 11:20 AM Provider Meagan Castillo MD Department Family Practice [facility] ) Diet: Heart Healthy Add Attending Provider Instructions: You are being discharged home with family support. Follow-up with your PCP within 1 week time. While in the hospital, you underwent EGD scope and found to have duodenal ulcer which was cauterized. Continue with Protonix 40 mg twice a day for 3 months and then once daily for lifelong. Get your blood work CBC and BMP in a week time upon discharge. Avoid Motrin/Aleve/any other NSAIDs in future. Continue with iron supplement, continue with high-dose vitamin D supplement for 7 days followed by [id number] vitamin D/calcium tablet daily as discussed at the bedside. Continue with antibiotics for 7 more days for your LLE cellulitis, wear compression stockings during the day. You have been diagnosed with new diastolic heart failure, you will be discharged on a small dose of Lasix to be used as needed for leg swelling or increasing body weight [measure your body weight daily]. As discussed at the bedside, you will need an outpatient follow-up with cardiology in a month time. Take medications as prescribed. Pending Studies at Discharge: No Stand-Alone Forms: [facility], Smoking Cessation Medications and DC Order Prescriptions: New Advanced Probiotic 625 mg (10 billion cell) Capsule 2 cap PO DAILY 10 Days Qty: 20 RF: 0 pantoprazole 40 mg Tablet,Delayed Release (Dr/Ec) 40 mg PO BID Qty: 60 RF: 0 cephalexin 500 mg capsule 500 mg PO BID 7 Days Qty: 14 RF: 0 cholecalciferol (vitamin D3) 125 mcg (5,000 unit) capsule 125 mcg PO DAILY 7 Days Qty: 7 RF: 0 furosemide 20 mg tablet 20 mg PO Q OTHER DAY Qty: 14 RF: 0 Continued ondansetron HCl 4 mg Tablet 4 mg PO Q6H PRN (Reason: Nausea) RF: 0 acetaminophen [Arthritis Pain Relief (acetam)] 650 mg tablet extended release 650 mg PO Q4 PRN (Reason: Pain) RF: 0 timolol maleate 0.25 % drops 1 drp OPB QAM RF: 0 lisinopril 5 mg tablet 5 mg PO QAM RF: 0 dorzolamide 2 % drops 1 drp OPB BID RF: 0 magnesium 200 mg tablet 200 mg PO DAILY Qty: 1 RF: 0 ferrous sulfate 325 mg (65 mg iron) tablet 325 mg PO AMHS RF: 0 Discharge Orders: Discharge Order (Routine); Ordered 05/27/21 Ordered By: Sen Fletcher Admission Data Admit Date/Time: 05/23/21 13:58 Attending Provider: Sen Fletcher Admit Provider: Neno Abbott Primary Care Provider: Peter Cazares Other Providers: Aliza Peoples ; Neno Abbott
[2021-05-27] MEDS: cefTRIAXone SODIUM 1,000 MG in DEXTROSE 5% 50 ML IV SCH (10:43)
[2021-05-27] MEDS ORDERED: DIPHTHERIA/TETANUS TOX ADSORBED ULTRAFINED 0.5 ML SYR/VIAL IM ONE (11:59)
[2021-05-27] MEDS ORDERED: MoRPHine SULFATE 2 MG/ML CARP IV PRN (12:06)
--- NOTE | 2021-05-27 12:31 | XRay Report ---
XR hand LT min 3V routine CLINICAL HISTORY: 4th digit pain, pinched in wheelchair TECHNIQUE: 3 views of the bilateral hands were obtained. Comparison: None available at the time of this dictation. FINDINGS: There is a mildly comminuted fracture of the distal tuft of the fourth digit distal phalanx. There is a fracture of the right fifth digit distal phalanx. Degenerative changes are seen in the bilateral j oints, most prominent in the metacarpophalangeal joints. Soft tissue swelling seen about the fracture s. IMPRESSION: Comminuted fracture of the left fourth digit distal phalanx and fracture and partial indentation of t he fifth digit distal phalanx. ACT 112: Negative or not required by law. Electronically signed by: Vinay Lai M.D. 05/27/2021 12:29 PM
--- NOTE | 2021-05-27 12:53 | Hospitalist Progress Note ---
Date of Service May 27, 2021 Assessment & Plan (1) Acute gastrointestinal bleeding: (2) Anemia due to blood loss: (3) Acute chest pain: (4) Elevated troponin: (5) Bilateral edema of lower extremity: (6) Cellulitis: Plan: 86-year-old female who has significant past medical history of HTN, glaucoma, arthritis, BLE cellulitis presented to ED 05/23 secondary to, "going downhill for a few weeks." She was managed for the following: #. Left 4th Digit # #. Rt 5th digit #/laceration/partial amputation Patient was discharged and while trying to sit over wheelchair to get transported around, her fingers stuck in handle and hurt fingers. XR Rt and Lt hand sent and reviewed: Comminuted fracture of left fourth digit distal phalanx, complete fracture of right fifth digit distal phalanx Orthopedic consulted, to OR at 1700 today #. Likely acute upper GI bleeding #. Anemia due to blood loss Patient easily tired and fatigued prior to presentation which was worsening lately. Admitting hemoglobin of 6.0, status post 2 unit PRBC transfusion Hemoglobin is stable around 8 -9 , get CBC done in a week time upon DC, Pt made aware. 05/24 EGD scope: Normal esophagus/stomach. Nonbleeding duodenal ulcer treated with bipolar cautery. Normal second portion of the duodenum. No specimens collected. GI evaluated, no aspirin/NSAIDs, PPI p.o. twice daily for 3 months and then once daily lifelong. Continue with iron supplement, PPI PO BID for 3 months and then daily lifelong. #. Chest Pain #. elevated trop Chest pain likely secondary to demand ischemia in the setting of anemia No further chest pain while in hospital per patient Troponin flat trended around 0.07-0.09 05/23/2021 echo: Grade 1 diastolic dysfunction, EF 65 to 70%. Continue to monitor, continue with telemetry. #. B/L Lower extremity swelling R > L #. New acute diastolic CHF - improving. #. LLE Cellulitis LLE mildly erythematous, warm; WBC mildly elevated at 11k at presentation BLE US Doppler: negative for DVT empirically tx with IV Rocephin at admission, c/w Rocephin 05/24, transition to PO keflex for 7 more days upon DC. Pt will get todays iv dose and will DC, can take PO meds from arianna. BNP at presentation elevated. 05/23 ECHO see above, pt got a dose of iv lasix at presentation. Clinically leg swelling got better. Patient being discharged on a small dose of Lasix to be taken as needed for leg swelling/increasing weight gain, will need cardiology follow-up as an outpatient. Patient made aware. #. HTN Continue with home meds as and when appropriate. monitor BP #. Glaucoma continue eye gtts DVT ppx: SCD/TEDS Dispo: PCU PCP: Debora, new to PCP will need to establish FULL CODE Admission and Anticipated Discharge Date Admission Date: May 23, 2021 Subjective Patient seen and examined at bedside as a follow-up of likely acute upper GI bleeding, anemia and demand ischemia and LLE cellulitis. Pt lying in bed, on room air, NAD, no new acute events overnight.Pt was being discharged and had her finger stuck in wheelchair getting left 4th digit and rt 5th digit. Patient denies any headache/chills/chest pain/dizziness/belly pain/sore throat/other review of symptoms. Physical Exam Physical Exam: GENERAL: Alert and oriented x3. NAD, on RA. HEENT: No pallor, no icterus. Pupils equal, round and reactive to light. Oral mucosa moist. NECK: No JVD, no neck masses. HEART: S1 and S2 heard. Regular rate and rhythm. No murmur, no gallop. RESPIRATORY SYSTEM: Normal AP diameter. No accessory muscle use. No wheezing, no crackles. ABDOMEN: Soft, bowel sounds present, nontender, no distention. CENTRAL NERVOUS SYSTEM: No facial droop. Speech is clear. Obeys simple commands. Moves extremities. EXTREMITIES: erythema LLE improving, trace edema noted. Left 4 and 5 digit tender; rt fifth digit - partial ampuation. Results & Data Results & Data ([facility]) Vital Signs (Past 12 Hours) Vital Signs Temp Pulse Pulse Resp BP Pulse Ox 05/27/21 11:03 36.6 C 81 78 17 153/74 H 96 05/27/21 07:03 36.6 C 78 17 153/74 H 96 05/27/21 02:59 36.7 C 71 16 146/69 H 96 (1) Cellulitis Laterality: left Site of cellulitis: extremity Site of cellulitis of extremity: lower extremity Qualified Code(s): L03.116 - Cellulitis of left lower limb
--- NOTE | 2021-05-27 12:55 | XRay Report ---
XR hand RT min 3V routine CLINICAL HISTORY: partial amp distal 5th digit TECHNIQUE: 3 views of the bilateral hands were obtained. Comparison: None available at the time of this dictation. FINDINGS: There is a mildly comminuted fracture of the distal tuft of the fourth digit distal phalanx. There is a fracture of the right fifth digit distal phalanx. Degenerative changes are seen in the bilateral j oints, most prominent in the metacarpophalangeal joints. Soft tissue swelling seen about the fracture s. IMPRESSION: Comminuted fracture of the left fourth digit distal phalanx and fracture and partial indentation of t he fifth digit distal phalanx. ACT 112: Negative or not required by law. Electronically signed by: Vinay Lai M.D. 05/27/2021 12:54 PM
--- NOTE | 2021-05-27 15:10 | Anesthesiology Consultation ---
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 History Surgery Operation Date: 05/24/21 16:00 Proposed Procedures p Esophagogastroduodenoscopy Dr Peoples - Aliza Peoples MD Operation Date: 05/27/21 16:30 Proposed Procedures p Partial amputation of right Fifth finger and Partial amputation of Left fifth finger(Bilateral) - Kush Starr DO Height/Weight Height: 5 ft Weight: 40.9 kg Allergies Allergy/AdvReac Type Severity Reaction Status Date / Time Iodinated Contrast Media Allergy Intermediate Rash Verified 05/24/21 10:29 Medications Home Medications Medication Instructions Recorded Confirmed Last Taken acetaminophen 650 mg 650 mg PO Q4 PRN 04/13/21 05/23/21 Unknown tablet,extended release (Arthritis Pain Relief (acetaminophen) ER) dorzolamide 2 % eye drops 1 drp OPB BID 04/13/21 05/23/21 04/11/21 lisinopril 5 mg tablet 5 mg PO QAM 04/13/21 05/23/21 04/12/21 ondansetron HCl 4 mg tablet 4 mg PO Q6H PRN 04/13/21 05/23/21 Unknown timolol maleate 0.25 % eye drops 1 drp OPB QAM 04/13/21 05/23/21 04/11/21 magnesium 200 mg tablet 200 mg PO DAILY #1 tab 04/18/21 05/23/21 Unknown ferrous sulfate 325 mg (65 mg 325 mg PO AMHS 05/23/21 05/23/21 Unknown iron) tablet L.acidop,casei,lactis,rham-B.lact,larissa 2 cap PO DAILY 10 Days #20 cap 05/27/21 Unknown 625 mg (10 billion cell) capsule (Advanced Probiotic) cephalexin 500 mg capsule 500 mg PO BID 7 Days #14 cap 05/27/21 Unknown cholecalciferol (vitamin D3) 125 125 mcg PO DAILY 7 Days #7 cap 05/27/21 Unknown mcg (5,000 unit) capsule furosemide 20 mg tablet 20 mg PO Q OTHER DAY #14 tab 05/27/21 Unknown pantoprazole 40 mg tablet,delayed 40 mg PO BID #60 tab 05/27/21 Unknown release Active Medications Generic Name Dose Route Start Last Admin Trade Name Freq PRN Reason Stop Dose Admin Acetaminophen 650 mg 05/23/21 22:09 05/27/21 11:57 Acetaminophen 325 Mg Tab PO 06/22/21 22:08 650 mg Q4H PRN Administration Pain or Fever Dorzolamide HCl 1 drops 05/23/21 22:09 05/27/21 08:17 Dorzolamide Hcl 2% Oph Soln 10 Ml Btl OPB 06/22/21 22:08 1 drops BID CK Administration Ferrous Sulfate 325 mg 05/23/21 22:09 05/27/21 08:15 Ferrous Sulfate 325 Mg Tab PO 06/22/21 22:08 325 mg AMHS CK Administration Ceftriaxone Sodium 1,000 mg/ 50 mls @ 100 mls/hr 05/24/21 14:00 05/27/21 11:51 Dextrose IV 05/31/21 13:59 Infused Q24H CK Infusion Protocol Lactobacillus Acidophilus 2 cap 05/26/21 10:15 05/27/21 08:12 Advanced Probiotic 1250 Mg Capsule PO 06/25/21 10:14 2 cap DAILY CK Administration Lisinopril 5 mg 05/26/21 09:00 05/27/21 08:13 Lisinopril 5 Mg Tab PO 06/25/21 08:59 5 mg QAM CK Administration Magnesium Oxide 200 mg 05/24/21 09:00 05/27/21 08:14 Magnesium Oxide 400 Mg Tab PO 06/23/21 08:59 200 mg DAILY CK Administration Pantoprazole Sodium 40 mg 05/26/21 21:00 05/27/21 08:16 Pantoprazole 40 Mg Tab PO 08/24/21 20:59 40 mg BID CK Administration Timolol Maleate 1 drops 05/24/21 09:00 05/27/21 08:11 Timolol Gfs 0.5% Oph Soln 74 Drops/5 Ml Btl OPB 06/23/21 08:59 1 drops QAM CK Administration Vitamin D 1,000 units 05/27/21 09:00 05/27/21 09:23 Cholecalciferol 1,000 Units 25 Mcg Tab PO 06/26/21 08:59 1,000 units QAM CK Administration NPO Date Last Intake of Fluids: 05/23/21 Time Last Intake of Fluids: 23:59 Last Intake of Fluids Comment: None today Date Last Intake of Solids: 05/22/21 Time Last Intake of Solids: 17:00 Last Intake of Solids Comment: None today Past Medical History Medical History Anemia Arthritis Hypertension Past Family History Family History Other Family history non-contributory Past Surgical History Surgical History H/O: hysterectomy History of bunionectomy History of surgery on arm Social History Smoking Status: Never smoker Hx Alcohol Use: No Hx Substance Use: No Physical Exam Vital Signs Last Vital Signs Temp 97.9 F 05/27/21 11:03 Pulse 81 05/27/21 11:03 Resp 17 05/27/21 11:03 BP 153/74 H 05/27/21 11:03 Pulse Ox 96 05/27/21 11:03 Testing Laboratory Results 05/27/21 05:37 05/27/21 05:37 PT 10.5 Seconds (9.0-12.0) 05/23/21 12:19 INR 1.0 (0.9-1.1) 05/23/21 12:19 APTT 22.1 Seconds (21.0-31.0) 05/23/21 12:19 Blood Type O Positive 05/23/21 13:53 Antibody Screen NEGATIVE 05/23/21 13:53 Electrocardiogram Date: 05/23/21 Findings: + NSR @ (85) Echocardiogram Date: 05/23/21 EF: 65% LV Function: normal Valvular Disease: + no significant valvular disease
[2021-05-27] MEDS ORDERED: BUPIVACAINE 0.5 % 5 MG/1 ML MPF 30ML VIAL ONE (15:43)
[2021-05-27] MEDS ORDERED: fentaNYL citrate 100 MCG/2 ML VIAL IV PRN (16:13)
[2021-05-27] MEDS ORDERED: ONDANSETRON INJ 2 MG/ML 2 ML VIAL IV PRN (16:13)
[2021-05-27] MEDS ORDERED: ePHEDrine sulfate 50 MG/ML AMP IV PRN (16:13)
[2021-05-27] MEDS ORDERED: ATROPINE SULFATE 0.1 MG/ML 10ML SYR IV PRN (16:13)
[2021-05-27] MEDS ORDERED: fentaNYL citrate 100 MCG/2 ML VIAL ONE (16:23)
[2021-05-27] MEDS ORDERED: PROPOFOL IV EMULSION 10 MG/ML 20 ML VIAL IV ONE (16:23)
--- NOTE | 2021-05-27 16:54 | History & Physical Bridge Note ---
Date of Service May 27, 2021 History & Physical Bridge Note I have examined the patient, reviewed the History & Physical and in the interval since the performance of the History & Physical I have noted the following changes of clinical significance: Will require revision amputation right fifth finger and revision amputation left fourth finger.
[2021-05-27] MEDS ORDERED: ceFAZolin 330 MG/ML 1 GM VIAL ONE ×2 (17:04→17:09)
[2021-05-27] MEDS ORDERED: ceFAZolin 1000MG 1,000 MG/7.5 ML SYR IV ONE (17:07)
--- NOTE | 2021-05-27 17:46 | Orthopedic Consultation ---
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 All potential risks, benefits, complications, alternatives, and rehab have been discussed with the patient and she wishes to proceed. We will follow with the patient through admission. Follow up with Dr. Starr's clinic ~10-14 days post op. (2) Partial traumatic amputation of left ring finger through phalanx: History of Present Illness Reason for Consultation: left 4th finger and right 5th finger injuries Attending Physician: Sen Fletcher MD History of Present Illness This is a patient who was being discharged from the hospital today. While being transported, her hands got caught in the wheels of her wheelchair. She sustained a partial amputation of the right 5th finger and also partial amputation of the left 4th finger. She is now being scheduled for surgical tx of bilateral hand partial amputations. Allergies Allergy/AdvReac Type Severity Reaction Status Date / Time Iodinated Contrast Media Allergy Intermediate Rash Verified 05/24/21 10:29 Home Medications Medication Instructions Recorded Confirmed Type acetaminophen 650 mg 650 mg PO Q4 PRN 04/13/21 05/23/21 History tablet,extended release (Arthritis Pain Relief (acetaminophen) ER) dorzolamide 2 % eye drops 1 drp OPB BID 04/13/21 05/23/21 History lisinopril 5 mg tablet 5 mg PO QAM 04/13/21 05/23/21 History ondansetron HCl 4 mg tablet 4 mg PO Q6H PRN 04/13/21 05/23/21 History timolol maleate 0.25 % eye drops 1 drp OPB QAM 04/13/21 05/23/21 History magnesium 200 mg tablet 200 mg PO DAILY #1 tab 04/18/21 05/23/21 Rx ferrous sulfate 325 mg (65 mg 325 mg PO AMHS 05/23/21 05/23/21 History iron) tablet L.acidop,casei,lactis,rham-B.lact,larissa 2 cap PO DAILY 10 Days #20 cap 05/27/21 Rx 625 mg (10 billion cell) capsule (Advanced Probiotic) cephalexin 500 mg capsule 500 mg PO BID 7 Days #14 cap 05/27/21 Rx cholecalciferol (vitamin D3) 125 125 mcg PO DAILY 7 Days #7 cap 05/27/21 Rx mcg (5,000 unit) capsule furosemide 20 mg tablet 20 mg PO Q OTHER DAY #14 tab 05/27/21 Rx pantoprazole 40 mg tablet,delayed 40 mg PO BID #60 tab 05/27/21 Rx release Patient History Medical History Anemia Arthritis Hypertension Surgical History H/O: hysterectomy History of bunionectomy History of surgery on arm Family History Other Family history non-contributory Social History Smoking Status: Never smoker Second Hand Exposure: No; Hx Alcohol Use: No Hx Substance Use: No Preferred Language: [place] Communication Ability: Effective Network Infrastructure Architect Required: Yes Beliefs That Will Affect Care: None marital status: / Current Living Situation: Family Current Living Situation Comment: lives with son Other Information That Helps Us Care for You: No Feels Safe at Home: Yes Safety Concerns: Feels Safe At This Time Assistive Devices: None Physical Exam Constitutional: WD/WN, vitals as above + thin; no acute distress Neck: trachea midline Musculoskeletal: Extremities: + hand abnormality Left (right 5th finger partial amputation. left 4th partial amputation) Psychiatric: Orientation: alert Speech: normal rate/rhythm/volume of speech Results & Data ([facility]) Vital Signs (Past 12 Hours) Vital Signs Temp Pulse Pulse Pulse Resp BP Pulse Ox 05/27/21 15:10 36.7 C 67 17 149/69 H 99 05/27/21 11:03 36.6 C 81 78 17 153/74 H 96 05/27/21 08:00 69 05/27/21 07:03 36.6 C 78 17 153/74 H 96
--- NOTE | 2021-05-27 18:17 | Post Operative Brief Note ---
Immediate Post Op Note v1 Date of Surgery May 27, 2021 Pre & Post Diagnosis Operation Date: 05/24/21 16:00 Pre-Op Diagnosis: GIB Post-Op Diagnosis: ulcer Operation Date: 05/27/21 16:30 Pre-Op Diagnosis: Partial traumatic amputation of right fifth finger, partial traumatic amputation of left fourth finger Post-Op Diagnosis: Partial traumatic amputation of right fifth finger, partial traumatic amputation of left fourth finger I identified the patient and participated in the time-out.: Yes Procedure Operation Date: 05/24/21 16:00 Actual Procedures p EGD Hemostasis - Aliza Peoples MD Operation Date: 05/27/21 16:30 Actual Procedures p 1. Revision Amputation of Right Fifth Finger and 2. Revision Amputation of Left Fourth Finger(Bilateral) - Kush tSarr DO Surgeon Kush Starr DO Electrical Systems Drafter None Estimated Blood Loss 1 Findings Consistent with Post-Op Diagnosis Specimens Amputated parts left fifth finger Anesthesia Type MAC Regional Complications none Disposition Accompanied Patient To Recovery: No
--- NOTE | 2021-05-27 18:24 | Anesthesiology Progress Note ---
Date of Service May 27, 2021 Anesthesia Post Procedure Vital Signs Vital Signs: Temp Pulse Pulse Pulse Resp BP Pulse Ox 05/27/21 15:10 36.7 C 67 17 149/69 H 99 05/27/21 11:03 36.6 C 81 78 17 153/74 H 96 05/27/21 08:00 69 05/27/21 07:03 36.6 C 78 17 153/74 H 96 05/27/21 02:59 36.7 C 71 16 146/69 H 96 05/26/21 23:05 37.0 C 74 16 164/65 H 96 05/26/21 22:42 75 05/26/21 19:16 36.5 C 80 17 142/66 H 97 Pain Intensity Bilateral Leg: Pain Intensity: 1 Transfer of Care Handoff Completed per policy Notes Mental Status: alert / awake / arousable Patient Amnestic to Procedure: Yes Nausea / Vomiting: adequately controlled Pain: adequately controlled Airway Patency, RR, SpO2: stable & adequate BP & HR: stable & adequate Hydration State: stable & adequate Anesthetic Complications: no major complications apparent and Pt Satisfied with anesthetic care Notes: The patient is awake and comfortable. Her vital signs are stable.
[2021-05-27] MEDS ORDERED: bisacodyL 10 MG SUPP PR PRN (19:41)
[2021-05-27] MEDS ORDERED: traMADol HCL 50 MG TABLET PO PRN (19:41)
[2021-05-27] MEDS ORDERED: METOCLOPRAMIDE HCL INJ 5 MG/ML 2 ML VIAL IV PRN (19:41)
[2021-05-27] MEDS ORDERED: diphenhydrAMINE Capsule 25 MG CAP PO PRN (19:41)
[2021-05-27] MEDS ORDERED: HYDROmorphone INJ 0.5 MG/0.5 ML SYR IV PRN (19:41)
[2021-05-27] MEDS ORDERED: MAGNESIUM HYDROXIDE SUSP 30 ML UDC PO PRN (19:41)
[2021-05-27] MEDS ORDERED: NALOXONE HCL 0.4 MG/1 ML VIAL/CARP IV PRN (19:41)
[2021-05-27] MEDS ORDERED: SODIUM CHLORIDE 0.9% 1000ML 1,000 ML IV SCH (19:41)
[2021-05-27] MEDS: DOCUSATE SODIUM 100 MG CAP PO SCH (20:37)
[2021-05-27] MEDS: ACETAMINOPHEN 500 MG TAB PO SCH (20:38)
[2021-05-27] MEDS ORDERED: SENNA 8.6 MG TAB PO SCH (21:00)
--- NOTE | 2021-05-28 00:08 | Operative Report (OR) ---
DATE OF PROCEDURE: 05/27/2021. PREOPERATIVE DIAGNOSES: 1. Right hand fifth finger traumatic partial amputation. 2. Left hand fourth finger traumatic partial amputation. POSTOPERATIVE DIAGNOSES: 1. Right hand fifth finger traumatic partial amputation. 2. Left hand fourth finger traumatic partial amputation. PROCEDURES: 1. Right hand fifth finger revision amputation. 2. Left hand fourth finger revision amputation. SURGEON: Kush Starr DO. PRODUCTION DRILLING MACHINE OPERATOR: None. ANESTHESIA: MAC regional. SPECIMENS: Amputated parts, right fifth finger. DRAINS: None. COMPLICATIONS: None. BLOOD LOSS: 1 mL. PERTINENT HISTORY: This is an 86-year-old female who was initially admitted to [facility] for GI bleeding. She had undergone a successful treatment for that problem and upon discharg e today, there was a mishap with her wheelchair and she had both of her fingers, bilateral hands caug ht in the spokes of the wheelchair performing a partial amputation on the right fifth digit and a par tial amputation on the left fourth digit. Orthopedics was consulted by the medical service and in li ght of the fact the patient had a full breakfast including eggs, we had to wait a full 8 hours after ingestion of her breakfast and she was then scheduled for revision amputation of the above noted fing ers as indicated. All potential risks, benefits, complications, alternatives, rehab potential for incomplete relief of symptoms, need for further surgery, DVT, PE, , persistent pain, swelling, scarring, weakness, ne urovascular injury, wound complications, need for further amputation revision were discussed with the patient. The patient decided to proceed with the procedure as indicated. DESCRIPTION OF PROCEDURE: The patient was taken to the operative suite and placed supine on the oper ating table. After review of consent and identification of proper operative site, the patient was se dated and the bilateral hands were then sterilely prepped and draped in the usual fashion. Beginning with the right hand, after surgical timeout was performed, a digital block was performed with 10 mL of 0.5% Marcaine plain to the fifth digit and then, after surgical timeout was confirmed, a digital block was then performed of the left hand fourth digit with 10 mL of 0.5% Marcaine. Then, a Tourni-C ot was used to exsanguinate and occlude blood flow for the right fifth digit and then a revision ampu tation was performed of the fifth digit beginning with a 15 blade scalpel to excise the devitalized t issue including a significant portion of the distal phalanx, which was crushed, and the nail bed and the remainder of the nail plate due to a soft tissue deficit. Next, a bone biting rongeur was then u sed to resect approximately 50% of the remaining distal phalanx. The site was copiously irrigated wi th sterile saline until clear. The flap was then revised to have a low tension closure of the finger tip closing over the damaged soft tissue and then 4-0 nylon suture closure was then performed to form a stable soft tissue closure. Next, the right fifth finger then had a sterile compressive dressing consisting of Xeroform gauze, 1-inch Conform and Coban. The Tourni-Cot tourniquet was then removed. Normal blood flow returned to the digit. Next, attention was directed toward the left fourth digit and a 15 blade scalpel was then used to exc ise devitalized tissue distally and the damaged portion of the nail bed and nail plate were then margarita ply excised with a 15-blade scalpel and a bone biting rongeur. Portion of the distal phalanx was the n sharply excised with a bone biting rongeur, smoothed and contoured and then residual comminuted fra gments of the distal phalanx were then sharply excised with a 15 blade scalpel. The soft tissue enve rani was then revised and reshaped with a 15 blade scalpel. The site was then copiously irrigated wi th sterile saline with Ancef and soft tissue was then closed back to the surrounding soft tissue of t he fourth digit of the left hand to perform the shape of the tip of the finger with interrupted 4-0 n ylon sutures. Next, a sterile compressive dressing consisting of Xeroform gauze, 1-inch Conform roll and Coban was then applied over the digit. The tourniquet was released. Normal blood flow returned to the digit. The patient was then awakened and then taken to recovery in stable condition. Job ID: [id number]
[2021-05-28] MEDS: ACETAMINOPHEN 500 MG TAB PO SCH ×2 (05:01→15:34)
[2021-05-28 06:27] LABS: Hemoglobin 9.3 g/dL (12.0-16.0); Mean Corpuscular Hemoglobin 30.2 pg (25-34); Mean Corpuscular Volume 97.4 fL (80-100); Mean Platelet Volume 9.8 fL (7.4-10.4); Platelet Count 317 K/uL (130-400); RDW Coefficient of Variation 18.2 % (11.5-14.5); RDW Standard Deviation 64.6 fL (36.4-46.3); Red Blood Count 3.08 M/uL (4.2-5.4); White Blood Count 10.23 K/uL (4.8-10.8)
[2021-05-28] MEDS: TIMOLOL GFS 0.5% OPH SOLN 74 DROPS/5 ML BTL OPB SCH (08:25)
[2021-05-28] MEDS: DORZOLAMIDE HCL 2% OPH SOLN 10 ML BTL OPB SCH (08:25)
[2021-05-28] MEDS: FERROUS SULFATE 325 MG TAB PO SCH (08:26)
[2021-05-28] MEDS: lisinopril 5 MG TAB PO SCH (08:26)
[2021-05-28] MEDS: DOCUSATE SODIUM 100 MG CAP PO SCH (08:26)
[2021-05-28] MEDS: CHOLECALCIFEROL 1,000 UNITS 25 MCG TAB PO SCH (08:26)
[2021-05-28] MEDS: MAGNESIUM OXIDE 400 MG TAB PO SCH (08:26)
[2021-05-28] MEDS: ADVANCED PROBIOTIC 1250 MG CAPSULE PO SCH (08:26)
[2021-05-28] MEDS: PANTOprazole 40 MG TAB PO SCH (08:27)
[2021-05-28] MEDS ORDERED: MULTIVITAMIN TAB PO SCH (09:00)
[2021-05-28] MEDS: cefTRIAXone SODIUM 1,000 MG in DEXTROSE 5% 50 ML IV SCH (12:09)
--- NOTE | 2021-05-28 14:04 | Discharge Summary ---
Date of Service May 28, 2021 Admission HPI Per Admitting Provider This is an 86-year-old female who has significant past medical history of HTN, glaucoma, arthritis, history of cellulitis who presents to ED secondary to, "going downhill for a few weeks." Of significance patient was hospitalized at our facility from 04/13-04/19 secondary to left lower extremity cellulitis. She required IV antibiotics. During that hospitalization she was diagnosed with anemia and iron panel was performed. Revealed iron 27, ferritin 43, normal B12 folic acid. She was subsequently started on oral iron twice daily. Upon discharge she gradually went downhill over the span of 3 to 4 weeks. She c omplained of burning in her stomach that would come and go, made worse with meals. She further complained of weakness, fatigue, inability to walk, ROGEL and substernal chest pain that radiates to her right neck. Chest pain would come and go and would improve if she would sit still. It would last from seconds to minutes. She cannot pinpoint a pattern of the chest pain. Did not occur with exertion as she states, "I have not been able to exert myself." Typically patient lives at home and her son lives with her. Normally she is ambulatory and active in the house with IADLs. This is limited over the past few weeks. She does complain of black tarry stools ever since starting the iron. She states she was seen in [facility]/ER due to PCP telling her to go there for a transfusion. It was felt that she did not need a transfusion and was started on iron. In ED she did remain hemodynamically stable; however, hemoglobin and hematocrit was 6.0 19.4 respectively. She does have mild elevation WBC 11.0 2K. Her CMP was generally unremarkable except for elevated BUN of 52 creatinine 1.00. She did have mild elevated troponin of 0.07. Her EKG revealed sinus rhythm without ST or T wave abnormality. Admission Exam Per Admitting Provider Constitutional: Petite, elderly, female, WD/WN, vitals as above, NAD, sitting up in bed, pleasant, conversing easily Head: Normocephalic, Atraumatic Eyes: PERRL, conjunctivae normal, anicteric sclerae ENMT: external ear and nose normal, oropharynx normal Neck: trachea midline, no thyromegaly normal visual inspection Respiratory: normal respiratory effort, lungs clear to auscultation, no wheeze, rales, rhonchi. Normal insp/exp effort, no accessory muscle use Cardiovascular: RRR, no murmur, bilateral lower extremity swelling right greater than left, left-sided warmth and erythema noted pretibially Vessels: no JVD or carotid bruit Chest: normal inspection of chest Abdomen: normal bowel sounds, soft, tender to palpation in epigastrium, no rebound, no guarding no hepatosplenomegaly Musculoskeletal: no cyanosis or clubbing, extremities motor strength 5/5 Skin: no rashes, warm and dry normal turgor Neurologic: PERRL, EOMI, accommodation nl, no face palsy, no dysarthria CN's II-XI intact bilaterally and moves all extremities Psychiatric: A+Ox3, euthymic affect Lymphatic: no cervical or axillary lymphadenopathy : deferred Principal Diagnosis Likely upper GI bleed BLE edema/acute diastolic CHF [new] LLE cellulitis Traumatic partial amputation right hand fifth finger and left hand fourth finger Discharge Exam GENERAL: Alert and oriented x3. NAD, on RA. HEENT: No pallor, no icterus. Pupils equal, round and reactive to light. Oral mucosa moist. NECK: No JVD, no neck masses. HEART: S1 and S2 heard. Regular rate and rhythm. No murmur, no gallop. RESPIRATORY SYSTEM: Normal AP diameter. No accessory muscle use. No wheezing, no crackles. ABDOMEN: Soft, bowel sounds present, nontender, no distention. CENTRAL NERVOUS SYSTEM: No facial droop. Speech is clear. Obeys simple commands. Moves extremities. EXTREMITIES: erythema LLE improving, trace edema noted. Left 4th and rt fifth digit - clean dressing w/o soakage. Discharge Data Allergies Allergy/AdvReac Type Severity Reaction Status Date / Time Iodinated Contrast Media Allergy Intermediate Rash Verified 05/24/21 10:29 Consultations 05/23/21 13:53 Consult Gastroenterology Routine 05/23/21 14:01 ED Decision to Admit Stat 05/27/21 11:44 Consult Orthopedic Surgery Routine Procedures Performed Operation Date: 05/24/21 16:00 Actual Procedures p EGD Hemostasis - Aliza Peoples MD Operation Date: 05/27/21 16:30 Actual Procedures p Revison Amputation of Right Fifth Finger and Revision Amputation of Left Fourth Finger(Bilateral) - Kush Starr DO Ordered Studies 05/24/21 00:01 US venous doppler LE BI Routine Hospital Course (1) Acute gastrointestinal bleeding: (2) Anemia due to blood loss: (3) Acute chest pain: (4) Elevated troponin: (5) Bilateral edema of lower extremity: (6) Cellulitis: 86-year-old female who has significant past medical history of HTN, glaucoma, arthritis, BLE cellulitis presented to ED 05/23 secondary to, "going downhill for a few weeks." She was managed for the following: #. Traumatic partial amputation right hand fifth finger and left hand fourth finger Patient was discharged 05/27 and while trying to sit over wheelchair to get transported around, her fingers stuck in handle and hurt fingers. XR Rt and Lt hand sent and reviewed: Comminuted fracture of left fourth digit distal phalanx, complete fracture of right fifth digit distal phalanx Orthopedic evaluated, s/p Rt hand 5th finger partial amputation and left hand 4th finger revision amputation. d/w ortho 05/28, ok w/ dc from their POV. #. Likely acute upper GI bleeding #. Anemia due to blood loss Patient easily tired and fatigued prior to presentation which was worsening lately. Admitting hemoglobin of 6.0, status post 2 unit PRBC transfusion Hemoglobin is stable around 8 -9 , get CBC done in a week time upon DC, Pt made aware. 05/24 EGD scope: Normal esophagus/stomach. Nonbleeding duodenal ulcer treated with bipolar cautery. Normal second portion of the duodenum. No specimens collected. GI evaluated, no aspirin/NSAIDs, PPI p.o. twice daily for 3 months and then once daily lifelong. Continue with iron supplement, PPI PO BID for 3 months and then daily lifelong. #. Chest Pain #. elevated trop Chest pain likely secondary to demand ischemia in the setting of anemia No further chest pain while in hospital per patient Troponin flat trended around 0.07-0.09 05/23/2021 echo: Grade 1 diastolic dysfunction, EF 65 to 70%. Continue to monitor, continue with telemetry. #. B/L Lower extremity swelling R > L #. New acute diastolic CHF - improving. #. LLE Cellulitis LLE mildly erythematous, warm; WBC mildly elevated at 11k at presentation BLE US Doppler: negative for DVT empirically tx with IV Rocephin at admission, c/w Rocephin 3/24, transition to PO keflex for 7 more days upon DC. Pt will get todays iv dose and will DC, can take PO meds from arianna. BNP at presentation elevated. 05/23 ECHO see above, pt got a dose of iv lasix at presentation. Clinically leg swelling got better. Patient being discharged on a small dose of Lasix to be taken as needed for leg swelling/increasing weight gain, will need cardiology follow-up as an outpatient. Patient made aware. #. HTN Continue with home meds as and when appropriate. monitor BP #. Glaucoma continue eye gtts DVT ppx: SCD/TEDS Dispo: PCU PCP: Debora, new to PCP will need to establish FULL CODE Patient being discharged to home with family support with following instruction at the point of discharge which were communicated to patient's Son as well over the phone: You are being discharged home with family support. Follow-up with your PCP within 1 week time. Follow-up with your orthopedics in 7 to 10 days upon discharge. While in the hospital, you underwent EGD scope and found to have duodenal ulcer which was cauterized. Continue with Protonix 40 mg twice a day for 3 months and then once daily for lifelong. Get your blood work CBC and BMP in a week time upon discharge. Avoid Motrin/Aleve/any other NSAIDs in future. Continue with iron supplement, continue with high-dose vitamin D supplement for 7 days followed by [id number] vitamin D/calcium tablet daily as discussed at the bedside. Continue with antibiotics for 7 more days for your LLE cellulitis, wear compression stockings during the day. You have been diagnosed with new diastolic heart failure, you will be discharged on a small dose of Lasix to be used as needed for leg swelling or increasing body weight [measure your body weight daily]. As discussed at the bedside, you will need an outpatient follow-up with cardiology in a month time. Can use OTC tylenol for pain control. Take medications as prescribed. Total Time Total Time Spent Total Time Spent (In Minutes): 35 Discharge Plan Discharge Items Patient Disposition: Home - Self-Care Reason For Visit: GIB Discharge Diagnosis: Likely upper GI bleed BLE edema/acute diastolic CHF [new] LLE cellulitis Traumatic partial amputation right hand fifth finger and left hand fourth finger Activity: Resume your previous activity Non-emergency contact: Primary Care Provider Call non-emergency contact if: you have any medication questions, your symptoms worsen and your temperature is above 101 Follow-up/Referrals: Peter Cazares MD [Primary Care Provider] - 05/31/21 11:20 am (Date & Time 05/31/2021 11:20 AM Provider Meagan Castillo MD Department Family Practice [facility] ) Diet: Heart Healthy Addtl Attending Provider Instructions: You are being discharged home with family support. Follow-up with your PCP within 1 week time. Follow-up with your orthopedics in 7 to 10 days upon discharge. While in the hospital, you underwent EGD scope and found to have duodenal ulcer which was cauterized. Continue with Protonix 40 mg twice a day for 3 months and then once daily for lifelong. Get your blood work CBC and BMP in a week time upon discharge. Avoid Motrin/Aleve/any other NSAIDs in future. Continue with iron supplement, continue with high-dose vitamin D supplement for 7 days followed by [id number] vitamin D/calcium tablet daily as discussed at the bedside. Continue with antibiotics for 7 more days for your LLE cellulitis, wear compression stockings during the day. You have been diagnosed with new diastolic heart failure, you will be discharged on a small dose of Lasix to be used as needed for leg swelling or increasing body weight [measure your body weight daily]. As discussed at the bedside, you will need an outpatient follow-up with cardiology in a month time. Can use OTC tylenol for pain control. Take medications as prescribed. Addtl Chiropractic Teacher Provider Instructions: ACTIVITY RECOMMENDATIONS: * Avoid lifting anything heavier than a medium water glass until your first post operative visit. SPECIAL CARE INSTRUCTIONS: * Your bandage should be left in place until your first post op follow up. * Some drainage onto the dressing may occur. This is normal. * If the bandage feels excessively tight, you may loosen the elastic bandage. Then call the physician's office for further instructions. * If possible, keep your hand elevated above the level of your heart for the first 2 post operative days. You may use a sling if necessary. * You should move your fingers regularly (50-100 motions per hour) unless otherwise instructed. SPECIAL PRECAUTIONS: * If you notice increased drainage, fever over 101 degrees F. or severe, unremitting pain, call your physician/office at . * You may have been prescribed pain medication. If you experience nausea and/or skin rash, discontinue this medication and contact our office for an alternative medication. FOLLOW UP VISIT: If appointment is not already scheduled: Please call [facility] to make a follow-up appointment for 7- 10 days after your surgery at . Pending Studies at Discharge: No Stand-Alone Forms: My [facility], Smoking Cessation Medications and DC Order Prescriptions: New Advanced Probiotic 625 mg (10 billion cell) Capsule 2 cap PO DAILY 10 Days Qty: 20 RF: 0 pantoprazole 40 mg Tablet,Delayed Release (Dr/Ec) 40 mg PO BID Qty: 60 RF: 0 cephalexin 500 mg capsule 500 mg PO BID 7 Days Qty: 14 RF: 0 cholecalciferol (vitamin D3) 125 mcg (5,000 unit) capsule 125 mcg PO DAILY 7 Days Qty: 7 RF: 0 furosemide 20 mg tablet 20 mg PO Q OTHER DAY Qty: 14 RF: 0 acetaminophen [Tylenol 8 Hour] 650 mg tablet extended release 650 mg PO Q8H PRN (Reason: fever or pain) Qty: 30 RF: 0 Continued ondansetron HCl 4 mg Tablet 4 mg PO Q6H PRN (Reason: Nausea) RF: 0 acetaminophen [Arthritis Pain Relief (acetam)] 650 mg tablet extended release 650 mg PO Q4 PRN (Reason: Pain) RF: 0 timolol maleate 0.25 % drops 1 drp OPB QAM RF: 0 lisinopril 5 mg tablet 5 mg PO QAM RF: 0 dorzolamide 2 % drops 1 drp OPB BID RF: 0 magnesium 200 mg tablet 200 mg PO DAILY Qty: 1 RF: 0 ferrous sulfate 325 mg (65 mg iron) tablet 325 mg PO AMHS RF: 0 Discharge Orders: Discharge Order (Routine); Ordered 05/28/21 Ordered By: Sen Fletcher Admission Data Admit Date/Time: 05/23/21 13:58 Attending Provider: Sen Fletcher Admit Provider: Neno Abbott Primary Care Provider: Peter Cazares Other Providers: Aliza Peoples ; Neno Abbott ; Kush Starr Other Interventions: Discharge Summary Assessment (RN) Last Done: 05/27/21 11:03
--- NOTE | 2021-06-04 09:51 | Coding Query ---
CODING QUERY To promote full compliance with coding requirements relating to patient care, provider participation is requested in all cases of production utility worker uncertainty. Please assist us with the question(s) below: Coding Question(s): Pt adm with acute GI bleed and transfused PC's . EGD revealed peptic ulcer,nonbleeding. One visable vessel cauterized. Please document, if known or suspected, the etiology of the GI bleed. Thanks for your help! [facility] Physician's Response(s): Likely duodenal ulcer is the etiology of the GI bleed. Principal Diagnosis: "that condition established after study, to be chiefly responsible for occasioning the admission of the patient to the hospital for care." Co-Existing Principal Diagnosis: "when two or more diagnoses equally meet the criteria for principal diagnosis as determined by the circumstances of admission, diagnostic work up, and/or therapy provided, and the Alphabetic Index, Tabular List, or another coding guideline does not provide sequencing direction, any one of the diagnoses may be sequenced first." "When the physician has documented what appears to be a current diagnosis in the body of the record, but has not included the diagnosis in the final diagnostic statement, the physician should be asked whether the diagnosis should be added." ([facility] 2 QTR90. p3-4) JOSIASD
== END 2021-05-28 15:45 | disposition home or self-care (01) | DRG 987 ==
LOC: ED 12:02 → SUATTDRO 13:58 → EDINP 13:58 → 2S 22:07 → 3W 05-27 16:26
DX: K26.4 Chronic or unspecified duodenal ulcer with hemorrhage; D62 Acute posthemorrhagic anemia; W23.0XXA Caught, crushed, jammed, or pinched between moving objects, initial encounter; S68.125A Partial traumatic metacarpophalangeal amputation of left ring finger, initial encounter; S68.124A Partial traumatic metacarpophalangeal amputation of right ring finger, initial encounter; Z91.041 Radiographic dye allergy status; L03.116 Cellulitis of left lower limb; Y92.239 Unspecified place in hospital as the place of occurrence of the external cause; H40.9 Unspecified glaucoma; I11.0 Hypertensive heart disease with heart failure; I50.31 Acute diastolic (congestive) heart failure; R07.9 Chest pain, unspecified; I24.8 Other forms of acute ischemic heart disease

== ENCOUNTER 2021-10-10 12:55 | Observation (INO) ==
--- NOTE | 2021-10-10 13:00 | ED Triage Note ---
Date of Service October 10, 2021 History of Present Illness This patient was briefly evaluated while in triage. An abbreviated physical exam was performed. This patient is a 86-year-old Female with past medical history of anemia, elevated troponin, HTN, who presents to the ED for evaluation after a fall. Pt. having right hip pain. Pt. has history scoliosis, which she believes caused the fall. Physical Exam VITALS: Vitals are noted on the nurse's note and reviewed by myself. GENERAL: This is an 86 year old white female, in no acute distress, nondiaphoretic, well-developed well-nourished. SKIN: No obvious rashes, erythema, edema HEAD: Normocephalic atraumatic. NECK: No lymphadenopathy. Cervical spine is nontender. No JVD. LUNGS: No retractions or accessory muscle use. MUSCULOSKELETAL: Pt. in wheelchair. NEURO: Patient was alert and oriented to person place and time. No focal neurological deficits. Initial orders for labs and / or imaging were placed and patient was placed in the waiting area until a bed is available. Please see further documentation for the full ED course.
--- NOTE | 2021-10-10 14:06 | XRay Report ---
XR hip RT 2V w pelvis CLINICAL HISTORY: Pain, fall COMPARISON: CT of the abdomen and pelvis April 13, 2021. FINDINGS: Lumbar spine levoscoliosis is incidentally noted. Sacroiliac joints and symphysis pubis ar e intact. No acute fracture is identified within the pelvis or hips. 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 No suspicious osseous lesions are identified. IMPRESSION: No acute fracture within the pelvis or hips. ACT 112: Negative or not required by law. Electronically signed by: Ciaran Mcginnis M.D. 10/10/2021 2:04 PM
[2021-10-10] MEDS ORDERED: LIDOCAINE 5% 1 PATCH TD STA (16:43)
--- NOTE | 2021-10-10 17:17 | CT Scan Report ---
CT hip RT wo con CLINICAL HISTORY: Fall, R hip pain COMPARISON STUDY: Standard radiographs from 10/10/2021 CT DOSE: 172.62 mGy.cm TECHNIQUE: Standard CT of the right hip is performed without IV contrast. Multiplanar reconstruction is performed. A dose lowering technique was utilized adhering to the principles of ALARA. FINDINGS: Bones: Bones are osteopenic. There is no evidence for an acute fracture or dislocation. Small, sharpl y defined osseous densities are seen adjacent to the greater trochanter characteristic of chronic tro chanteric bursitis. There are no lytic or blastic lesions. Joints: There is mild narrowing of the hip joint space superiorly. No significant secondary degenerat teresa changes are present. The bones are in anatomic alignment. Soft tissues: There is no focal soft tissue swelling. There are no focal fluid collections. IMPRESSION: 1. No acute osseous pathology. 2. Osteopenia and mild osteoarthritis. 3. Evidence for chronic trochanteric bursitis as well. ACT 112: Negative or not required by law. Electronically signed by: Dionisio Solis M.D. 10/10/2021 5:15 PM
--- NOTE | 2021-10-10 17:19 | CT Scan Report ---
CT head/brain wo con CLINICAL HISTORY: 86 years-old Female with Fall. Acute head trauma status post fall TECHNIQUE: Multiple axial CT images of the head were obtained without contrast. A dose lowering tech nique was utilized adhering to the principles of ALARA. CT DOSE: 884.08 mGy.cm COMPARISON: None. FINDINGS: No acute intracranial hemorrhage, midline shift, intracranial mass, hydrocephalus, territorial ischem ia or abnormal extra-axial collection. Motion degraded exam. Age-related involutional changes with ex vacuo ventriculomegaly. White matter hypodensities suggest chronic microvascular ischemic disease. C erebral vascular calcifications. The calvarium is intact. Polypoid focus of mucosal thickening is noted within the left maxillary sin us. Mastoid air cells are generally clear. Unremarkable soft tissues. Prior bilateral lens repair. IMPRESSION: No acute intracranial abnormality or calvarial fracture. ACT 112: Negative or not required by law. The above report was generated using voice recognition software. It may contain grammatical, syntax o r spelling errors. Electronically signed by: Braulio Sumner M.D. 10/10/2021 5:18 PM
[2021-10-10 17:46] LABS: Basophils # (auto) 0.05 K/uL (0-0.2); Basophils % (auto) 0.6 %; Eosinophils # (auto) 0.11 K/uL (0-0.50); Eosinophils % (auto) 1.3 %; Hematocrit (blood only) 33.1 % (34.1-44.9); Immature Granulocytes # (auto) 0.04 K/uL (0.00-0.02); Immature Granulocytes % (auto) 0.5 %; Lymphocytes % (auto) 9.4 %; Mean Corpuscular Hemoglobin 24.9 pg (25.0-34.0); Mean Corpuscular Hgb Conc 30.2 g/dL (32.0-36.0); Mean Corpuscular Volume 82.5 fL (80.0-100.0); Mean Platelet Volume 10.7 fL (9.4-12.3); Monocytes # (auto) 0.35 K/uL (0.24-0.82); Monocytes % (auto) 4.1 %; Neutrophils # (auto) 7.12 K/uL (1.4-6.5); Neutrophils % (auto) 84.1 %; Platelet Count 254 K/uL (130-400); RDW Coefficient of Variation 17.6 % (11.5-14.5); RDW Standard Deviation 52.3 fL (36.4-46.3); Red Blood Count 4.01 M/uL (3.93-5.22); White Blood Count 8.47 K/ul (4.8-10.8)
[2021-10-10 18:11] LABS: Alanine Aminotransferase 21 U/L (7-52); Albumin Globulin Ratio 0.9 (0.9-2); Albumin Level 3.9 gm/dl (3.4-5.0); Alkaline Phosphatase 100 U/L (34-104); Anion Gap 9 (3-11); Aspartate Aminotransferase 26 U/L (13-39); BUN Creatinine Ratio 31.3 (10-20); Bilirubin,Total 0.8 mg/dl (0.2-1.0); Blood Urea Nitrogen 35 mg/dl (6-23); Calcium 9.4 mg/dl (8.5-10.1); Carbon Dioxide 22 mmol/L (21-32); Chloride 106 mmol/L (98-107); Est GFR (African American) 51.9 ml/min; Est GFR (Non-African American) 44.8 ml/min; Globulin 4.2 gm/dl (2.5-4.0); Glucose 86 mg/dl (70-99(Fasting)); Potassium 4.6 mmol/L (3.5-5.1); Sodium 137 mmol/L (136-145); Total Protein 8.1 gm/dl (6.0-8.3)
[2021-10-10 18:11] LABS: Appearance Urine Clear (Clear); Bilirubin Urine Negative (Negative); Blood Urine Negative (Negative); Color Urine Yellow; Glucose Urine UA Negative (Negative); Ketones Urine Negative (Negative); Leukocyte Esterase Urine Negative (Negative); Nitrite Urine Negative (Negative); Protein Urine Negative (Negative); Specific Gravity Urine 1.011 (1.000-1.030); Urobilinogen Urine Negative (Negative)
--- NOTE | 2021-10-10 19:35 | History & Physical Report ---
Date of Service October 10, 2021 Assessment & Plan (1) Fall: (2) Right hip pain: Plan: Patient is 86 y/o F with PMH HTN, gastric ulcer, glaucoma, BLE edema presented to ER with c/o fall today after picking up paper and right hip pain. In ER Hip Xray without acute fracture. CT Right hip: No acute osseous pathology. Obtain CT femur which shows cortical irregularity of femoral neck, suspicious for acute nondisplaced fracture Will have non weight bearing to right leg Ortho consult. Will defer further imaging to ortho recommendations PT/OT eval Fall precautions Pain control with scheduled Tylenol, lidocaine patch, oxycodone as needed (3) Cellulitis: (4) Bilateral lower extremity edema: Plan: Chronic bilateral lower extremity edema Likely bilateral lower extremity cellulitis No leukocytosis Treated for cellulitis lower extremity in 05/2021 and patient reports has not had complete resolution of redness since Blood cultures pending Start Rocephin CBC in a.m. (5) Hypertension: Plan: Continue lisinopril (6) History of gastric ulcer: Plan: History GI bleed and gastric ulcer 05/2021 Hgb: 10. Was 9 in 05/2021 after transfusion Continue PPI (7) Glaucoma: Plan: Continue home eyedrops DVT Prophylaxis Heparin SQ Full Code as per discussion with pt Follows with Dr Castillo for routine care Pt was seen and care coordinated with Dr Yuan. See addendum History of Present Illness Chief Complaint: Fall Primary Care Provider: Meagan Castillo MD Patient is 86 y/o F with PMH HTN, gastric ulcer, glaucoma, BLE edema presented to ER with c/o fall today and right hip pain. Patient reports bending over to cone picker piece of paper today and fell over onto right hip. C/O right hip pain. Denies syncope or hitting head. Was able to get self off floor to sit in chair. Having pain with weight bearing and attempted walking. Denies neck pain, back pain, knee pain. Denies dizziness, CP, SOB, palpitations or other symptoms prior to fall. Patient with history chronic BLE edema thought to be multifactorial. Prior echo with grade 1 diastolic dysfunction. Previously was taking lasix 20mg every other day but stopped taking as didn't feel it helped with swelling. Denies any increased swelling. 05/2021 hospitalized for GI bleed and LE cellulitis. Was treated with Rocephin and discharged on Keflex. Patient reports has had BLE redness since discharge but denies any worsening redness and denies any discharge. Reports in 05/2021 had weeping of LE which resolved during hospitalization. Reports areas are tender to palpation. Denies fever/chills, diaphoresis, N/V/D/C, BENAVIDES, dizziness, syncope, vision changes, neck pain, CP, SOB, orthopnea, palpitations, cough, sore throat, choking, otalgia, rhinorrhea, abdominal pain, paresthesias, other rashes, urinary symptoms. Today in ER xray and CT of right hip negative for fracture. Patient had d ifficulty ambulating. Allergies Allergy/AdvReac Type Severity Reaction Status Date / Time Iodinated Contrast Media Allergy Intermediate Rash Verified 10/10/21 18:15 Home Medications Medication Instructions Recorded Confirmed Type acetaminophen 650 mg 650 mg PO Q4 PRN Pain 04/13/21 10/10/21 History tablet,extended release (Arthritis Pain Relief (acetaminophen) ER) dorzolamide 2 % eye drops 1 drp OPB BID 04/13/21 10/10/21 History lisinopril 5 mg tablet 5 mg PO HS 04/13/21 10/10/21 History timolol maleate 0.25 % eye drops 1 drp OPB QAM 04/13/21 10/10/21 History biotin 10 mg tablet 10 mg PO DAILY 10/10/21 10/10/21 History pantoprazole 40 mg tablet,delayed 40 mg PO DAILY 10/10/21 10/10/21 History release Past Med/Surg History Medical History Anemia Arthritis Bilateral lower extremity edema Glaucoma History of gastric ulcer Hypertension Surgical History H/O: hysterectomy History of bunionectomy History of surgery on arm Family History Other Family history non-contributory Social History Smoking Status: Never smoker Second Hand Exposure: No; Hx Alcohol Use: No Hx Substance Use: No Preferred Language: Thai Communication Ability: Effective 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 Required: No Beliefs That Will Affect Care: None marital status: / Current Living Situation: Family Current Living Situation Comment: Lives at home with son Feels Safe at Home: Yes Assistive Devices: None Review of Systems Review of Systems: All systems reviewed & are unremarkable except as noted in HPI & below Physical Exam Physical Exam: General: no distress, WDWN Head: normocephalic, atraumatic Eyes: PERRL, EOM's intact, conjunctiva non-injected, anicteric ENT: normal inspection external ears, nose, mucous membranes moist Neck: supple, trachea midline, ROM intact Lungs: clear, no respiratory distress, no wheezing/rhonchi/rales CV: RRR, no murmur, 1+ pretibial edema Abd: normal BS, soft, non-tender Ext: no cyanosis, +erythema and warmth to bilateral lower legs, +tenderness to palpation bilateral lower legs. RLE: +tenderness to palpation right lateral hip and proximal leg. knee no erythema or ecchymosis or edema and nontender to palpation. Patient unable to flex right hip without lifting right leg using her hands, able to flex and extend right knee once right hip is flexed. tenderness to right hip with rotation right hip and leg. distal pulses palpable, sensation to light touch intact Neuro: A&O x 3, no focal deficits noted, normal affect Skin: BLE +erythema and warmth, otherwise skin warm, dry Results & Data Results & Data ([facility]) Vital Signs (Past 12 Hours) Vital Signs Temp Pulse Pulse Resp BP Pulse Ox O2 Del Method 10/10/21 18:15 65 16 176/89 H 97 Room Air 10/10/21 13:27 36.4 C L 70 16 96 Room Air Laboratory Results Short CBC 10/10/21 Range/Units 17:31 WBC 8.47 (4.8-10.8) K/ul Hgb 10.0 L (12.0-16.0) g/dl Hct 33.1 L (34.1-44.9) % Plt Count 254 (130-400) K/uL BMP 10/10/21 17:31 Sodium 137 Potassium 4.6 Chloride 106 Carbon Dioxide 22 BUN 35 H Creatinine 1.12 Glucose 86 Calcium 9.4 Liver Function 10/10/21 Range/Units 17:31 Total Bilirubin 0.8 (0.2-1.0) mg/dl AST 26 (13-39) U/L ALT 21 (7-52) U/L Alkaline Phosphatase 100 (34-104) U/L Albumin 3.9 (3.4-5.0) gm/dl Urine 10/10/21 Range/Units 17:10 Urine Color Yellow Urine Appearance Clear (Clear) Urine pH 7.0 (4.5-7.5) Ur Specific [place] 1.011 (1.000-1.030) Urine Protein Negative (Negative) Urine Glucose (UA) Negative (Negative) Diagnostic Findings Hip/Pelvis X-Ray 10/10/21 13:30 XR hip RT 2V w pelvis CLINICAL HISTORY: Pain, fall COMPARISON: CT of the abdomen and pelvis April 13, 2021. FINDINGS: Lumbar spine levoscoliosis is incidentally noted. Sacroiliac joints and symphysis pubis are intact. No acute fracture is identified within the pelvis or hips. 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 No suspicious osseous lesions are identified. IMPRESSION: No acute fracture within the pelvis or hips. ACT 112: Negative or not required by law. Electronically signed by: Ciaran Mcginnis M.D. 10/10/2021 2:[address] 10/10/21 16:42 CT head/brain wo con CLINICAL HISTORY: 86 years-old Female with Fall. Acute head trauma status post fall TECHNIQUE: Multiple axial CT images of the head were obtained without contrast. A dose lowering technique was utilized adhering to the principles of ALARA. CT DOSE: 884.08 mGy.cm COMPARISON: None. FINDINGS: No acute intracranial hemorrhage, midline shift, intracranial mass, hydrocephalus, territorial ischemia or abnormal extra-axial collection. Motion degraded exam. Age-related involutional changes with ex vacuo ventriculomegaly. White matter hypodensities suggest chronic microvascular ischemic disease. Cerebral vascular calcifications. The calvarium is intact. Polypoid focus of mucosal thickening is noted within the left maxillary sinus. Mastoid air cells are generally clear. Unremarkable soft tissues. Prior bilateral lens repair. IMPRESSION: No acute intracranial abnormality or calvarial fracture. ACT 112: Negative or not required by law. The above report was generated using voice recognition software. It may contain grammatical, syntax or spelling errors. Electronically signed by: Braulio Sumner M.D. 10/10/2021 5:[address] 10/10/21 16:42 CT hip RT wo con CLINICAL HISTORY: Fall, R hip pain COMPARISON STUDY: Standard radiographs from 10/10/2021 CT DOSE: 172.62 mGy.cm TECHNIQUE: Standard CT of the right hip is performed without IV contrast. Multiplanar reconstruction is performed. A dose lowering technique was utilized adhering to the principles of ALARA. FINDINGS: Bones: Bones are osteopenic. There is no evidence for an acute fracture or dislocation. Small, sharply defined osseous densities are seen adjacent to the greater trochanter characteristic of chronic trochanteric bursitis. There are no lytic or blastic lesions. Joints: There is mild narrowing of the hip joint space superiorly. No significant secondary degenerative changes are present. The bones are in anatomic alignment. Soft tissues: There is no focal soft tissue swelling. There are no focal fluid collections. IMPRESSION: 1. No acute osseous pathology. 2. Osteopenia and mild osteoarthritis. 3. Evidence for chronic trochanteric bursitis as well. ACT 112: Negative or not required by law. Electronically signed by: Dionisio Solis M.D. 10/10/2021 5:15 PM Supervising Physician Co-Signing Physician Notes delayed entry date of service noted above Attending Addendum: care coordinated with CARLEE Rios please refer to her notes for full details, I agree with her notes patient seen and examined, records reviewed by myself as well on exam, patient seen resting in bed, not in distress does report moderate pain on the right proximal/lateral right thigh, worse with minimal movement no other pain in her body except for BL lower extremity tenderness associated with redness- noted since May no other symptoms VS noted and reviewed oriented x 3, not in distress, speaks in sentences with no effort nor accessory muscle use normal rate, regular rhythm, no murmurs clear breath sounds bilaterally non distended, soft, nontender (+) tenderness R lateral thigh (+) BL lower leg moderate erythema, warmth, tenderness no neuro deficits WBC 8.4 CT R femur: 1. Cortical irregularity of the femoral neck is suspicious for an acute nondisplaced fracture. Confirmation with MRI of the right hip is recommended. 2. Demineralized appearance of the bones with normal appearance of the mid to distal right femur. 3. Extensive fecal retention. 4. Nonspecific urinary bladder wall thickening. Correlate with urinalysis. ASSESSMENT AND PLAN> R FEMORAL FRACTURE s/p Mechanical Fall - consult Ortho - Pain control with Tylenol 1g q8h Lidoderm patch declines Ice pack - Non weight bearing R LE - patient declines Inpatient Rehab and would rather go home in her 1 story house upon discharge PT/OT BL LOWER EXTREMITY CELLULITIS - start Ceftriaxone IV daily other diagnoses and plan of care as per CARLEE Pete notes Choco Yuan MD (1) Cellulitis Laterality: left Site of cellulitis: extremity Site of cellulitis of extremity: lower extremity Qualified Code(s): L03.116 - Cellulitis of left lower limb
[2021-10-10] MEDS ORDERED: cefTRIAXone SODIUM 2,000 MG/70 ML BAG IV ONE (20:15)
[2021-10-10] MEDS ORDERED: POLYETHYLENE (MIRALAX) 17 GM PACK PO PRN (20:50)
[2021-10-10] MEDS ORDERED: MAGNESIUM HYDROXIDE SUSP 30 ML UDC PO PRN (20:50)
[2021-10-10] MEDS ORDERED: ONDANSETRON INJ 2 MG/ML 2 ML VIAL IV PRN (20:50)
--- NOTE | 2021-10-10 21:32 | CT Scan Report ---
CT femur RT wo con HISTORY: 86 years-old Female fall, right hip and upper leg pain acute pain of the right thigh status post fall COMPARISON: CT right hip of same day TECHNIQUE: Multiple axial CT images of the right femur were obtained without the use of IV contrast. A dose lowering technique was used consistent with the principals of ELINA. FINDINGS: Demineralized appearance of the bones with mild to moderate osteoarthritis of the right hip and chond rocalcinosis. Mild to moderate tricompartmental osteoarthritis of the knee with chondrocalcinosis. No dislocation or avascular necrosis. There is however mild cortical irregularity of the right femoral neck, most pronounced anteriorly. No acute displaced fracture. The mid to distal femur appears intact . Small right hip joint effusion. No large joint effusion of the knee. Extensive fecal retention of the rectum. Colonic diverticulosis. Urinary bladder wall thickening. Art erial calcifications. No hematoma identified. IMPRESSION: 1. Cortical irregularity of the femoral neck is suspicious for an acute nondisplaced fracture. Confir mation with MRI of the right hip is recommended. 2. Demineralized appearance of the bones with normal appearance of the mid to distal right femur. 3. Extensive fecal retention. 4. Nonspecific urinary bladder wall thickening. Correlate with urinalysis. ACT 112: Negative or not required by law. The above report was generated using voice recognition software. It may contain grammatical, syntax o r spelling errors. Electronically signed by: Braulio Sumner M.D. 10/10/2021 9:29 PM
[2021-10-10] MEDS ORDERED: oxyCODONE HCL IR 5 MG TAB (IMMEDIATE RELEASE) PO PRN (22:01)
[2021-10-10] MEDS: ACETAMINOPHEN 500 MG TAB PO SCH (22:56)
--- NOTE | 2021-10-10 23:07 | Emergency Department Note ---
History of Present Illness General Chief complaint: Fall Stated complaint: FALL, BILAT. HIP PAIN Time Seen by Provider: 10/10/21 16:30 History of Present Illness Maximum Pain Intensity: 8 This is an 86-year-old female that presents to the emergency department with complaints of "fall, bilateral hip pain right greater than left". The patient notes that earlier today around 11 AM she was standing in her kitchen. She states that she then just fell to the ground. She is unsure what caused her to fall. She denies any preceding chest pain or shortness of breath. No dizziness. No lightheadedness. No fevers or chills. She states that she was able to stand up but since that time has a pain in her right hip region. She is unsure if she struck her head. No loss of consciousness. Pain is worse with weightbearing. Pain 10/10. Home Medications Medication Instructions Recorded Confirmed Type acetaminophen 650 mg 650 mg PO Q4 PRN Pain 04/13/21 10/10/21 History tablet,extended release (Arthritis Pain Relief (acetaminophen) ER) dorzolamide 2 % eye drops 1 drp OPB BID 04/13/21 10/10/21 History lisinopril 5 mg tablet 5 mg PO HS 04/13/21 10/10/21 History timolol maleate 0.25 % eye drops 1 drp OPB QAM 04/13/21 10/10/21 History biotin 10 mg tablet 10 mg PO DAILY 10/10/21 10/10/21 History pantoprazole 40 mg tablet,delayed 40 mg PO DAILY 10/10/21 10/10/21 History release Allergies Allergy/AdvReac Type Severity Reaction Status Date / Time Iodinated Contrast Media Allergy Intermediate Rash Verified 10/10/21 18:15 Past Med/Surg History Medical History Anemia Arthritis Bilateral lower extremity edema Glaucoma History of gastric ulcer Hypertension Surgical History H/O: hysterectomy History of bunionectomy History of surgery on arm Family History Other Family history non-contributory Social History Smoking Status: Never smoker Second Hand Exposure: No; Hx Alcohol Use: No Hx Substance Use: No Preferred Language: Cymraes Communication Ability: Effective 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 Beliefs That Will Affect Care: None marital status: / Current Living Situation: Family Current Living Situation Comment: lives with son Feels Safe at Home: Yes Assistive Devices: None Review of Systems A total of 10 systems reviewed and were otherwise negative Physical Exam Vital Signs Vital Signs - 24 hr 10/10/21 13:27 10/10/21 18:15 Temperature 36.4 C L Temperature Source Temporal Artery Scan Pulse Rate 70 Pulse Rate [Left Finger] 65 Pulse Rhythm [Left Finger] Regular Pulse Strength [Left Finger] Normal Respiratory Rate 16 16 Respiratory Effort / Characteristics Non-Labored Spontaneous Non-Labored Respiratory Depth Normal Normal Respiratory Pattern Regular Regular Blood Pressure [Right Arm] 176/89 H Blood Pressure Mean [Right Arm] 118 Blood Pressure Position [Right Arm] Sitting Pulse Oximetry 96 97 Oxygen Delivery Method Room Air Room Air Sepsis Recent Fever Within 48 Hours No Sepsis New/Unexplained Change in Mental Status N/A Sepsis Action Taken by Nursing No Action Required VITAL SIGNS - Vital signs and nursing notes were reviewed. Stable and afebrile. GENERAL -86-year-old female appearing her stated age. Communicates well with provider and answers questions appropriately. SKIN - Gross examination of the entire body surface demonstrates no lacerations to the body surface. There is no bruising or break in the integument overlying the right lateral hip region. HEAD - Normocephalic, Atraumatic. No Lyman's Sign or Raccoon's Eyes. No depressed skull fractures palpable. EYES - PERRL with EOMI bilaterally. Without subconjunctival hemorrhage. EARS - No deformities of external structures noted on gross examination bilaterally. NOSE - Midline and without cyanosis. No epistaxis or clear watery discharge noted. MOUTH/OROPHARYNX - Without perioral cyanosis. NECK - No tenderness to palpation over the cervical spinous processes. No cervical paraspinal muscle tenderness noted. LUNGS - Chest wall symmetric without accessory muscle use, intercostals retractions, or central cyanosis. Clear to auscultation. CARDIAC -regular rate and rhythm. EXTREMITIES - No gross deformities noted of the extremities. There is tenderness to palpation overlying the right lateral hip region. +5/5 strength noted in UE/LE bilaterally. NEUROLOGIC - Cranial nerves II through XII grossly intact. PSYCH - A&Ox3 and cooperates fully with examiner. Pt is very pleasant and interacts well with examiner. Course Administered Medications Acetaminophen (Acetaminophen 500 Mg Tab) 1,000 mg PO Q8H CK Stop: 11/09/21 21:59 Last Admin: 10/10/21 22:56 Dose: 1,000 mg Documented By: BERENICE Discontinued Medications Ceftriaxone Sodium (Rocephin) 2,000 mg in 70 mls @ 100 mls/hr IV ONCE ONE; Protocol Stop: 10/10/21 20:56 Last Admin: 10/10/21 22:58 Dose: 100 mls/hr Documented By: BERENICE Lidocaine (Lidocaine 5% 1 Patch) 1 patch TD NOW STA Stop: 10/10/21 16:44 Last Admin: 10/10/21 17:37 Dose: 1 patch Documented By: CINDY Medical Decision Making Laboratory Data Result diagrams: 10/10/21 17:31 10/10/21 17:31 Lab Results 10/10/21 10/10/21 10/10/21 Range/Units 17:10 17:31 17:31 WBC 8.47 (4.8-10.8) K/ul RBC 4.01 (3.93-5.22) M/uL Hgb 10.0 L (12.0-16.0) g/dl Hct 33.1 L (34.1-44.9) % MCV 82.5 (80.0-100.0) fL MCH 24.9 L (25.0-34.0) pg MCHC 30.2 L (32.0-36.0) g/dL RDW Std Deviation 52.3 H (36.4-46.3) fL RDW Coeff of Vasu 17.6 H (11.5-14.5) % Plt Count 254 (130-400) K/uL MPV 10.7 (9.4-12.3) fL Immature Gran % (Auto) 0.5 % Neut % (Auto) 84.1 % Lymph % (Auto) 9.4 % [place] % (Auto) 4.1 % Eos % (Auto) 1.3 % Baso % (Auto) 0.6 % Neut # (Auto) 7.12 H (1.4-6.5) K/uL Lymph # (Auto) 0.80 L (1.2-3.4) K/uL [place] # (Auto) 0.35 (0.24-0.82) K/uL Eos # (Auto) 0.11 (0-0.50) K/uL Baso # (Auto) 0.05 (0-0.2) K/uL Immature Gran # (Auto) 0.04 H (0.00-0.02) K/uL Sodium 137 (136-145) mmol/L Potassium 4.6 (3.5-5.1) mmol/L Chloride 106 (98-107) mmol/L Carbon Dioxide 22 (21-32) mmol/L Anion Gap 9 (3-11) BUN 35 H (6-23) mg/dl Creatinine 1.12 (0.6-1.2) mg/dl Est Cr Clr Drug Dosing Not Reportable Est GFR ( Amer) 51.9 ml/min Est GFR (Non-Af Amer) 44.8 ml/min BUN/Creatinine Ratio 31.3 H (10-20) Glucose 86 (70-99(Fasting)) mg/dl Calcium 9.4 (8.5-10.1) mg/dl Total Bilirubin 0.8 (0.2-1.0) mg/dl AST 26 (13-39) U/L ALT 21 (7-52) U/L Alkaline Phosphatase 100 (34-104) U/L Total Protein 8.1 (6.0-8.3) gm/dl Albumin 3.9 (3.4-5.0) gm/dl Globulin 4.2 H (2.5-4.0) gm/dl Albumin/Globulin Ratio 0.9 (0.9-2) Urine Color Yellow Urine Appearance Clear (Clear) Urine pH 7.0 (4.5-7.5) Ur Specific [place] 1.011 (1.000-1.030) Urine Protein Negative (Negative) Urine Glucose (UA) Negative (Negative) Urine Ketones Negative (Negative) Urine Blood Negative (Negative) Urine Nitrite Negative (Negative) Urine Bilirubin Negative (Negative) Urine Urobilinogen Negative (Negative) Ur Leukocyte Esterase Negative (Negative) SARS-CoV-2, RNA, NAAT (NEGATIVE) 10/10/21 Range/Units 18:15 WBC (4.8-10.8) K/ul RBC (3.93-5.22) M/uL Hgb (12.0-16.0) g/dl Hct (34.1-44.9) % MCV (80.0-100.0) fL MCH (25.0-34.0) pg MCHC (32.0-36.0) g/dL RDW Std Deviation (36.4-46.3) fL RDW Coeff of Vasu (11.5-14.5) % Plt Count (130-400) K/uL MPV (9.4-12.3) fL Immature Gran % (Auto) % Neut % (Auto) % Lymph % (Auto) % [place] % (Auto) % Eos % (Auto) % Baso % (Auto) % Neut # (Auto) (1.4-6.5) K/uL Lymph # (Auto) (1.2-3.4) K/uL [place] # (Auto) (0.24-0.82) K/uL Eos # (Auto) (0-0.50) K/uL Baso # (Auto) (0-0.2) K/uL Immature Gran # (Auto) (0.00-0.02) K/uL Sodium (136-145) mmol/L Potassium (3.5-5.1) mmol/L Chloride (98-107) mmol/L Carbon Dioxide (21-32) mmol/L Anion Gap (3-11) BUN (6-23) mg/dl Creatinine (0.6-1.2) mg/dl Est Cr Clr Drug Dosing Est GFR ( Amer) ml/min Est GFR (Non-Af Amer) ml/min BUN/Creatinine Ratio (10-20) Glucose (70-99(Fasting)) mg/dl Calcium (8.5-10.1) mg/dl Total Bilirubin (0.2-1.0) mg/dl AST (13-39) U/L ALT (7-52) U/L Alkaline Phosphatase (34-104) U/L Total Protein (6.0-8.3) gm/dl Albumin (3.4-5.0) gm/dl Globulin (2.5-4.0) gm/dl Albumin/Globulin Ratio (0.9-2) Urine Color Urine Appearance (Clear) Urine pH (4.5-7.5) Ur Specific [place] (1.000-1.030) Urine Protein (Negative) Urine Glucose (UA) (Negative) Urine Ketones (Negative) Urine Blood (Negative) Urine Nitrite (Negative) Urine Bilirubin (Negative) Urine Urobilinogen (Negative) Ur Leukocyte Esterase (Negative) SARS-CoV-2, RNA, NAAT NEGATIVE (NEGATIVE) Imaging Data Radiologist's Impression: Hip/Pelvis X-Ray 10/10/21 13:30 XR hip RT 2V w pelvis CLINICAL HISTORY: Pain, fall COMPARISON: CT of the abdomen and pelvis April 13, 2021. FINDINGS: Lumbar spine levoscoliosis is incidentally noted. Sacroiliac joints and symphysis pubis are intact. No acute fracture is identified within the pelvis or hips. 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 No suspicious osseous lesions are identified. IMPRESSION: No acute fracture within the pelvis or hips. ACT 112: Negative or not required by law. Electronically signed by: Ciaran Mcginnis M.D. 10/10/2021 2:[address] 10/10/21 16:42 CT head/brain wo con CLINICAL HISTORY: 86 years-old Female with Fall. Acute head trauma status post fall TECHNIQUE: Multiple axial CT images of the head were obtained without contrast. A dose lowering technique was utilized adhering to the principles of ALARA. CT DOSE: 884.08 mGy.cm COMPARISON: None. FINDINGS: No acute intracranial hemorrhage, midline shift, intracranial mass, hydrocephalus, territorial ischemia or abnormal extra-axial collection. Motion degraded exam. Age-related involutional changes with ex vacuo ventriculomegaly. White matter hypodensities suggest chronic microvascular ischemic disease. Cerebral vascular calcifications. The calvarium is intact. Polypoid focus of mucosal thickening is noted within the left maxillary sinus. Mastoid air cells are generally clear. Unremarkable soft tissues. Prior bilateral lens repair. IMPRESSION: No acute intracranial abnormality or calvarial fracture. ACT 112: Negative or not required by law. The above report was generated using voice recognition software. It may contain grammatical, syntax or spelling errors. Electronically signed by: Braulio Sumner M.D. 10/10/2021 5:[address] 10/10/21 16:42 CT hip RT wo con CLINICAL HISTORY: Fall, R hip pain COMPARISON STUDY: Standard radiographs from 10/10/2021 CT DOSE: 172.62 mGy.cm TECHNIQUE: Standard CT of the right hip is performed without IV contrast. Multiplanar reconstruction is performed. A dose lowering technique was utilized adhering to the principles of ALARA. FINDINGS: Bones: Bones are osteopenic. There is no evidence for an acute fracture or dislocation. Small, sharply defined osseous densities are seen adjacent to the greater trochanter characteristic of chronic trochanteric bursitis. There are no lytic or blastic lesions. Joints: There is mild narrowing of the hip joint space superiorly. No significant secondary degenerative changes are present. The bones are in anatomic alignment. Soft tissues: There is no focal soft tissue swelling. There are no focal fluid collections. IMPRESSION: 1. No acute osseous pathology. 2. Osteopenia and mild osteoarthritis. 3. Evidence for chronic trochanteric bursitis as well. ACT 112: Negative or not required by law. Electronically signed by: Dionisio Solis M.D. 10/10/2021 5:15 PM MDM Narrative Patient was seen and evaluated as above in room D06. Review was performed of nursing notes and vital signs. I did review pertinent previous visits and patient history. After obtaining a thorough history and physical examination the above work up was performed. Patient presents to us today status post fall now with pain in her right hip. She clinically appears well and nontoxic. Patient was seen during a period of high volume and acuity in the emergency department and secondary to this already had imaging performed out of triage. X-rays of the right hip were negative. I am suspicious about an occult right hip fracture. I did obtain dedicated right hip CT but also added a head CT to ensure that there was no acute intracranial injury noting the patient's fall w ith essentially unknown reason. CT imaging of the head was negative from an emergent standpoint. Hip CT read is negative however I still am concerned about an occult right hip fracture given the patient's location of discomfort and mechanism of injury. The patient is very cautious with movements on the right hip and very slow to ambulate secondary to this discomfort. I was even notified by the patient's nurse that there was significant difficulty in ambulating to the bathroom. I discussed options with the patient. I do believe that further evaluation and management the inpatient setting is warranted. Case discussed with the hospitalist. Please refer to further documentation regarding her stay. Patient happy with plan of care. Labs reveal no leukocytosis or worsening anemia. No emergent metabolic disturbance. COVID testing negative. Urine negative. Case was discussed with the attending physician. GCS: 15 In the evaluation and treatment of this patient the following differential diagnoses were entertained: Fracture, dislocation, subluxation, contusion, among others. Impression & Plan Fall, Right hip pain Discharge Plan Visit Data Chief Complaint: Fall Stated Complaint: FALL, BILAT. HIP PAIN ED Provider: Bradford Salcido ED Midlevel Provider: Mark Brambila Discharge Problem: Fall, Right hip pain Patient Disposition: Admitted As Inpatient Condition: Good
[2021-10-11] MEDS: lisinopril 5 MG TAB PO SCH ×2 (00:02→20:15)
[2021-10-11] MEDS: DORZOLAMIDE HCL 2% OPH SOLN 10 ML BTL OPB SCH ×3 (00:02→20:14)
[2021-10-11] MEDS: ACETAMINOPHEN 500 MG TAB PO SCH ×3 (06:26→22:11)
[2021-10-11] MEDS: LIDOCAINE 5% 1 PATCH TD SCH (08:30)
[2021-10-11] MEDS: HEPARIN SOD 5,000 UNIT/0.5 ML VIAL SQ SCH ×2 (08:30→20:14)
[2021-10-11] MEDS: TIMOLOL GFS 0.5% OPH SOLN 74 DROPS/5 ML BTL OPB SCH (08:30)
[2021-10-11] MEDS: PANTOprazole 40 MG TAB PO SCH (08:31)
[2021-10-11 09:12] LABS: Hematocrit (blood only) 28.4 % (34.1-44.9); Hemoglobin 8.9 g/dl (12.0-16.0); Mean Corpuscular Hemoglobin 25.2 pg (25.0-34.0); Mean Corpuscular Hgb Conc 31.3 g/dL (32.0-36.0); Mean Corpuscular Volume 80.5 fL (80.0-100.0); Mean Platelet Volume 10.4 fL (9.4-12.3); Platelet Count 226 K/uL (130-400); RDW Coefficient of Variation 17.9 % (11.5-14.5); RDW Standard Deviation 52.2 fL (36.4-46.3); Red Blood Count 3.53 M/uL (3.93-5.22); White Blood Count 7.57 K/ul (4.8-10.8)
[2021-10-11 09:33] LABS: Calcium 8.3 mg/dl (8.5-10.1); Creatinine Clr Calc Pharmacy 24.6 ml/min; Est GFR (African American) 48.7 ml/min
[2021-10-11] MEDS: POLYETHYLENE (MIRALAX) 17 GM PACK PO SCH (11:32)
--- NOTE | 2021-10-11 12:41 | Orthopedic Consultation ---
Date of Consultation October 11, 2021 Assessment & Plan (1) Right hip pain: Right hip pain status post fall. X-rays and CT scans have been reviewed by myself and Dr. Barker. Patient examines that she may possibly have a nondisplaced subcapital hip fracture. CT scan is not completely conclusive. Plan for MRI of her right hip to rule out fracture. Continue nonweightbearing status at this point in time. Patient may eat at this time but consider n.p.o. status depending on her MRI imaging. MRI positive for incomplete Subcapital Hip fx. Plan for Dr. Starr to perform ORIF with 7.3 cannulated screws. History of Present Illness Reason for Consultation: Question of right hip fracture Attending Physician: Sen Fletcher MD History of Present Illness Patient is an 86 y/o with PMH of HTN, gastric ulcer, glaucoma, BLE edema presented to ER with c/o fall today and right hip pain. Patient states that yesterday, she was bending over to flower buncher or picker piece of paper and fell over onto right hip and side. C/O right hip pain. Denies syncope or hitting head. She was able to get herself off of the floor to sit in chair. She was having pain with weight bearing and attempted walking. She was brought to the emergency room yesterday evening and was seen by the staff. X-rays were taken and her original plain films were not showing any type of fracture. CT of the hip and femur were performed and CT of the femur was showing question of cortical discrepancy in the subcapital region. Patient states that a lot of her pain is over the lateral aspect of the hip over the greater trochanter but also she does have some groin pain with weightbearing. She did not have this before the fall. She states that she fell completely onto her right hip and shoulder. The area over the lateral side of her hip is where she had fallen onto. No loss of consciousness is noted. She denies any dizziness, lightheadedness, shortness of breath or chest pain prior to or after the fall. We have been asked to review her films and to see her in consult for her right hip pain. Allergies Allergy/AdvReac Type Severity Reaction Status Date / Time Iodinated Contrast Media Allergy Intermediate Rash Verified 10/10/21 18:15 Home Medications Medication Instructions Recorded Confirmed Type acetaminophen 650 mg 650 mg PO Q4 PRN Pain 04/13/21 10/10/21 History tablet,extended release (Arthritis Pain Relief (acetaminophen) ER) dorzolamide 2 % eye drops 1 drp OPB BID 04/13/21 10/10/21 History lisinopril 5 mg tablet 5 mg PO HS 04/13/21 10/10/21 History timolol maleate 0.25 % eye drops 1 drp OPB QAM 04/13/21 10/10/21 History biotin 10 mg tablet 10 mg PO DAILY 10/10/21 10/10/21 History pantoprazole 40 mg tablet,delayed 40 mg PO DAILY 10/10/21 10/10/21 History release Patient History Medical History Anemia Arthritis Bilateral lower extremity edema Glaucoma History of gastric ulcer Hypertension Surgical History H/O: hysterectomy History of bunionectomy History of surgery on arm Family History Other Family history non-contributory Social History Smoking Status: Never smoker Second Hand Exposure: No; Hx Alcohol Use: No Hx Substance Use: No Preferred Language: Austrian Communication Ability: Effective Svp Digital Ad Sales Required: No Beliefs That Will Affect Care: None marital status: / Current Living Situation: Family Current Living Situation Comment: Lives at home with son Feels Safe at Home: Yes Assistive Devices: Walker Physical Exam Physical Exam: Patient is an 86-year-old white female who appears her stated age. She is pleasant and cooperative. Alert and oriented to person and place. No acute distress. On examination of her right lower extremity, she has some noted cellulitis of the lower extremity below the knee to the foot. This area is tender to palpation. She is able to move her right ankle without discomfort and has good range of motion and good sensation. I am able to take her right hip through gentle range of motion of flexion and extension as well as internal and external rotation and abduction and adduction. She complains of pain over the lateral aspect of the hip as well as some groin pain with the range of motion. She is not complaining of any pain in the right shoulder elbow or wrist at this time and range of motion is within normal limits. Denies any new back pain in the cervical, thoracic, lumbar area. No gross motor or sensory loss seen at this time. Results & Data ([facility]) Vital Signs (Past 12 Hours) Vital Signs Pulse Resp BP Pulse Ox O2 Del Method 10/11/21 06:08 76 12 127/68 98 Room Air 10/11/21 04:12 82 14 118/63 95 Room Air Diagnostic Findings Patient:LEX LEUNG Admit Date:10/10/21 MR#:[id number] Address1:[address] Acct ID:[id number] Address2: Date:[address] Zip:[place] [address] Age:86 Location:[facility] Sex:F Room/Bed:[facility] 111 Att Phy:Choco Yuan MD Diagnosis:FALL, BILAT. HIP PAIN Marianela Phy:Meagan Castillo MD Service Date:10/10/21 Fam Phy: Interpreting Phy:Braulio SumnerAdmit Phy:Choco Yuan MD Ordering Phy:Lorin Shay PA-C cc: ~ CT femur RT wo con HISTORY: 86 years-old Female fall, right hip and upper leg pain acute pain of the right thigh status post fall COMPARISON: CT right hip of same day TECHNIQUE: Multiple axial CT images of the right femur were obtained without the use of IV contrast. A dose lowering technique was used consistent with the principals of ELINA. FINDINGS: Demineralized appearance of the bones with mild to moderate osteoarthritis of the right hip and chondrocalcinosis. Mild to moderate tricompartmental osteoarthritis of the knee with chondrocalcinosis. No dislocation or avascular necrosis. There is however mild cortical irregularity of the right femoral neck, most pronounced anteriorly. No acute displaced fracture. The mid to distal femur appears intact. Small right hip joint effusion. No large joint effusion of the knee. Extensive fecal retention of the rectum. Colonic diverticulosis. Urinary bladder wall thickening. Arterial calcifications. No hematoma identified. IMPRESSION: 1. Cortical irregularity of the femoral neck is suspicious for an acute nondisplaced fracture. Confirmation with MRI of the right hip is recommended. 2. Demineralized appearance of the bones with normal appearance of the mid to distal right femur. 3. Extensive fecal retention. 4. Nonspecific urinary bladder wall thickening. Correlate with urinalysis. ACT 112: Negative or not required by law. The above report was generated using voice recognition software. It may contain grammatical, syntax or spelling errors. Electronically signed by: Braulio Sumner M.D. 10/10/2021 9:29 PM XR hip RT 2V w pelvis CLINICAL HISTORY: Pain, fall COMPARISON: CT of the abdomen and pelvis April 13, 2021. FINDINGS: Lumbar spine levoscoliosis is incidentally noted. Sacroiliac joints and symphysis pubis are intact. No acute fracture is identified within the pelvis or hips. 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 No suspicious osseous lesions are identified. IMPRESSION: No acute fracture within the pelvis or hips. ACT 112: Negative or not required by law. Electronically signed by: Ciaran Mcginnis M.D. 10/10/2021 2:04 PM
--- NOTE | 2021-10-11 16:20 | Hospitalist Progress Note ---
Date of Service October 11, 2021 Assessment & Plan (1) Right hip pain: (2) Fall: Plan 86 y/o F with PMH HTN, gastric ulcer, glaucoma, BLE edema presented to ER 10/10 with c/o fall after picking up paper f/b right hip pain. Patient denies dizziness/loss of consciousness/hitting head. She is being managed for the following: Fall Right hip pain Patient presented with fall [see above]. Admitting hip/pelvic x-ray; CT head; right hip CT [with chronic trochanteric bursitis]: with no acute findings. Admitting right femur CT: Suggestive of acute nondisplaced fracture of femoral neck, MRI of the right hip recommended. Extensive fecal retention noted. Orthopedics evaluated, MRI hip, may have nondisplaced subcapital hip fracture, continue nonweightbearing status at this point in time. Can resume diet but n.p.o. midnight for further evaluation tomorrow. PT/OT when able, CM to assist with DC planning. Possible BLE cellulitis BLE edema Chronic BLE extremity edema with likely BLE cellulitis Status posttreatment for lower extremity cellulitis in May 2021, patient reports not having complete resolution of redness since then. Continue with Rocephin 10/10, follow-up admitting blood cultures. Other chronic medical conditions: HTN, gastric ulcer, glaucoma----> continue with/resume home meds as and when appropriate. DVT prophylaxis: Heparin subcu Full code Admission and Anticipated Discharge Date Admission Date: October 10, 2021 Subjective Patient seen and examined at bedside as a follow-up of likely acute nondisplaced fracture of right femoral neck after fall. Patient was sitting upright in bed, on room air, NAD, denies new acute events overnight. Patient reports eating okay and moving bowels okay. Patient reports pain under control at right hip. Patient denies any headache/dizziness/chest pain/palpitations/belly pain/other review of symptoms. Physical Exam Physical Exam: GENERAL: Alert and oriented x3. NAD, on RA. HEENT: No pallor, no icterus. Pupils equal, round and reactive to light. Oral mucosa moist. NECK: No JVD, no neck masses. HEART: S1 and S2 heard. Regular rate and rhythm. No murmur, no gallop. RESPIRATORY SYSTEM: Normal AP diameter. No accessory muscle use. No wheezing, no crackles. ABDOMEN: Soft, bowel sounds present, nontender, no distention. CENTRAL NERVOUS SYSTEM: No facial droop. Speech is clear. Obeys simple commands. Moves extremities. EXTREMITIES: Trace/1+ edema, BLE erythema/tenderness. Rt lateral thigh tenderness. Results & Data Results & Data ([facility]) Vital Signs (Past 12 Hours) Vital Signs Temp Pulse Resp BP BP Pulse Ox O2 Del Method 10/11/21 14:37 36.7 C 59 L 16 117/63 91 Room Air 10/11/21 06:08 76 12 127/68 98 Room Air 10/11/21 04:12 82 14 118/63 95 Room Air
--- NOTE | 2021-10-11 16:23 | Magnetic Resonance Report ---
MR hip RT wo con CLINICAL HISTORY: Status post fall with continued pain. Evaluate for occult fracture.. COMPARISON: CT from 10/10/2021 and standard radiographs from 10/10/2021 TECHNIQUE: Multiplanar multisequence images of the right hip were performed without contrast. FINDINGS: Bones: There is a nondisplaced, subcapital fracture of the right femoral neck. This involves predomin antly the superior and anterior cortical margin of the right femoral neck. Homogeneous marrow signal is seen throughout the remaining imaged bones of the pelvis and hip. There is no other evidence for m arrow edema or marrow replacement. There is no evidence for lytic or blastic lesion. Joints: There is mild narrowing of the joint space superiorly. The bones are in anatomic alignment. T he articular cartilaginous surfaces are maintained. No chondral lesions are identified. No definite l abral tear is identified on these limited noncontrast images. There is a moderate size intra-articula r effusion. . Soft Tissues: There is no focal soft tissue swelling identified. There is no evidence for muscle michelle a or muscle tear. No mass lesions are identified. There is again evidence for chronic trochanteric bu rsitis. IMPRESSION: 1. MRI demonstrates a nondisplaced, incomplete subcapital fracture of the right femoral neck. 2. Moderate size intra-articular effusion. The floor will be informed of the results of this study. ACT 112: Negative or not required by law. Electronically signed by: Dionisio Solis M.D. 10/11/2021 4:21 PM
[2021-10-11] MEDS: cefTRIAXone SODIUM 2,000 MG in DEXTROSE 5% 50 ML IV SCH (20:09)
[2021-10-12] MEDS: ACETAMINOPHEN 500 MG TAB PO SCH ×2 (05:58→19:44)
[2021-10-12 07:59] LABS: Hematocrit (blood only) 28.3 % (34.1-44.9); Mean Corpuscular Hemoglobin 25.7 pg (25.0-34.0); Mean Corpuscular Hgb Conc 31.8 g/dL (32.0-36.0); Mean Corpuscular Volume 80.9 fL (80.0-100.0); Mean Platelet Volume 11.3 fL (9.4-12.3); Platelet Count 234 K/uL (130-400); RDW Coefficient of Variation 17.8 % (11.5-14.5); RDW Standard Deviation 51.8 fL (36.4-46.3); White Blood Count 7.63 K/ul (4.8-10.8)
[2021-10-12 08:23] LABS: BUN Creatinine Ratio 26.6 (10-20); Calcium 8.2 mg/dl (8.5-10.1); Creatinine Clr Calc Pharmacy 22.7 ml/min; Est GFR (African American) 44.1 ml/min; Est GFR (Non-African American) 38.1 ml/min; Magnesium 1.7 mg/dl (1.7-2.4); Phosphorus 2.8 mg/dl (2.5-4.9)
[2021-10-12] MEDS: DORZOLAMIDE HCL 2% OPH SOLN 10 ML BTL OPB SCH ×2 (10:56→20:35)
[2021-10-12] MEDS: TIMOLOL GFS 0.5% OPH SOLN 74 DROPS/5 ML BTL OPB SCH (10:57)
[2021-10-12] MEDS: POLYETHYLENE (MIRALAX) 17 GM PACK PO SCH (10:58)
[2021-10-12] MEDS: PANTOprazole 40 MG TAB PO SCH (10:58)
[2021-10-12] MEDS: LIDOCAINE 5% 1 PATCH TD SCH (10:58)
[2021-10-12] MEDS: HEPARIN SOD 5,000 UNIT/0.5 ML VIAL SQ SCH (10:59)
[2021-10-12] MEDS ORDERED: SODIUM CHLORIDE 0.9% 250 ML IV PRN (11:55)
[2021-10-12] MEDS ORDERED: fentaNYL citrate 100 MCG/2 ML VIAL ONE (14:46)
[2021-10-12] MEDS ORDERED: ceFAZolin 1000MG 1,000 MG/7.5 ML SYR IV ONE (14:52)
--- NOTE | 2021-10-12 14:54 | History & Physical Bridge Note ---
Date of Service October 12, 2021 History & Physical Bridge Note I have examined the patient, reviewed the History & Physical and in the interval since the performance of the History & Physical I have noted the following changes of clinical significance: Will require open reduction internal fixation right hip fracture.
[2021-10-12] MEDS ORDERED: BUPIVACAINE 0.5 % 5 MG/1 ML PF 10ML VIAL ONE (15:15)
[2021-10-12] MEDS ORDERED: KETAMINE 50 MG/5 ML SYRINGE ONE (15:17)
--- NOTE | 2021-10-12 15:27 | Anesthesiology Consultation ---
Date of Service October 12, 2021 Assessment & Plan Chart Review Chart Review: Acceptable Risk for Surgery Consults Requested none History Surgery Operation Date: 10/12/21 11:45 Proposed Procedures p Right Hip Open Reduction Internal Fixation using 7.0 Cannulated Screw - Kush Starr DO Height/Weight Height: 5 ft Weight: 44.7 kg Allergies Allergy/AdvReac Type Severity Reaction Status Date / Time Iodinated Contrast Media Allergy Intermediate Rash Verified 10/10/21 18:15 Medications Home Medications Medication Instructions Recorded Confirmed Last Taken acetaminophen 650 mg 650 mg PO Q4 PRN Pain 04/13/21 10/10/21 Unknown tablet,extended release (Arthritis Pain Relief (acetaminophen) ER) dorzolamide 2 % eye drops 1 drp OPB BID 04/13/21 10/10/21 10/10/21 08:00 lisinopril 5 mg tablet 5 mg PO HS 04/13/21 10/10/21 10/09/21 timolol maleate 0.25 % eye drops 1 drp OPB QAM 04/13/21 10/10/21 10/10/21 biotin 10 mg tablet 10 mg PO DAILY 10/10/21 10/10/21 10/10/21 pantoprazole 40 mg tablet,delayed 40 mg PO DAILY 10/10/21 10/10/21 Unknown release Active Medications Generic Name Dose Route Start Last Admin Trade Name Osielq PRN Reason Stop Dose Admin Acetaminophen 1,000 mg 10/10/21 22:00 10/12/21 05:58 Acetaminophen 500 Mg Tab PO 11/09/21 21:59 1,000 mg Q8H CK Administration Dorzolamide HCl 1 drops 10/10/21 21:00 10/12/21 10:56 Dorzolamide Hcl 2% Oph Soln 10 Ml Btl OPB 11/09/21 20:59 1 drops BID CK Administration Heparin Sodium (Porcine) 5,000 units 10/11/21 09:00 10/12/21 10:59 Heparin Sod 5,000 Unit/0.5 Ml Vial SQ 11/10/21 08:59 5,000 units Q12 CK Administration Ceftriaxone Sodium 2,000 mg/ 70 mls @ 140 mls/hr 10/11/21 20:00 10/11/21 20:46 Dextrose IV 10/18/21 19:59 Infused Q24H CK Infusion Protocol Lidocaine 1 patch 10/11/21 09:00 10/12/21 10:58 Lidocaine 5% 1 Patch TD 11/10/21 08:59 Not Given QAM CK Lisinopril 5 mg 10/10/21 21:00 10/11/21 20:15 Lisinopril 5 Mg Tab PO 11/09/21 20:59 5 mg HS CK Administration Miscellaneous 1 each 10/10/21 21:00 10/11/21 20:15 Remove Lidoderm Patch N/A 11/09/21 20:59 1 each DAILY@2100 CK Administration Oxycodone HCl 2.5 mg 10/10/21 22:01 10/11/21 03:09 Oxycodone Hcl Ir 5 Mg Tab (Immediate Release) PO 10/24/21 22:00 2.5 mg Q6H PRN Administration Severe Pain 7-10 Pantoprazole Sodium 40 mg 10/11/21 09:00 10/12/21 10:58 Pantoprazole 40 Mg Tab PO 11/10/21 08:59 40 mg DAILY CK Administration Polyethylene Glycol 17 gm 10/11/21 10:15 10/12/21 10:58 Polyethylene (Miralax) 17 Gm Pack PO 11/10/21 10:14 Not Given DAILY CK Timolol Maleate 1 drops 10/11/21 09:00 10/12/21 10:57 Timolol Gfs 0.5% Oph Soln 74 Drops/5 Ml Btl OPB 11/10/21 08:59 1 drops QAM CK Administration NPO Date Last Intake of Fluids: 10/11/21 Time Last Intake of Fluids: 18:00 Date Last Intake of Solids: 10/11/21 Time Last Intake of Solids: 18:00 Past Medical History Medical History Anemia Arthritis Bilateral lower extremity edema Glaucoma History of gastric ulcer Hypertension Past Family History Family History Other Family history non-contributory Past Surgical History Surgical History H/O: hysterectomy History of bunionectomy History of surgery on arm Social History Smoking Status: Never smoker Hx Alcohol Use: No Hx Substance Use: No Physical Exam Vital Signs Last Vital Signs Temp 36.7 C 10/12/21 14:10 Pulse 71 10/12/21 14:10 Resp 20 10/12/21 14:10 BP 176/80 H 10/12/21 14:10 Pulse Ox 98 10/12/21 14:10 O2 Del Method 10/12/21 14:10 Testing Laboratory Results 10/12/21 06:49 10/12/21 06:49 Urine Color Yellow 10/10/21 17:10 Urine Appearance Clear (Clear) 10/10/21 17:10 Urine pH 7.0 (4.5-7.5) 10/10/21 17:10 Ur Specific [place] 1.011 (1.000-1.030) 10/10/21 17:10 Urine Protein Negative (Negative) 10/10/21 17:10 Urine Glucose (UA) Negative (Negative) 10/10/21 17:10 Urine Ketones Negative (Negative) 10/10/21 17:10 Urine Nitrite Negative (Negative) 10/10/21 17:10 Ur Leukocyte Esterase Negative (Negative) 10/10/21 17:10 Blood Type O Positive 10/12/21 12:20 Antibody Screen NEGATIVE 10/12/21 12:20 10/10/21 21:19 Aerobic Blood Culture - Preliminary Blood No growth in Aerobic bottle after 24 hours. Anaerobic Blood Culture - Preliminary No growth in Anaerobic bottle after 24 hours. 10/10/21 21:14 Aerobic Blood Culture - Preliminary Blood No growth in Aerobic bottle after 24 hours. Anaerobic Blood Culture - Preliminary No growth in Anaerobic bottle after 24 hours.
--- NOTE | 2021-10-12 15:48 | Hospitalist Progress Note ---
Date of Service October 12, 2021 Assessment & Plan (1) Right hip pain: (2) Fall: Plan 86 y/o F with PMH HTN, gastric ulcer, glaucoma, BLE edema presented to ER 10/10 with c/o fall after picking up paper f/b right hip pain. Patient denies dizziness/loss of consciousness/hitting head. She is being managed for the following: Fall Right hip pain/Likely age related incomplete subcapital fracture of the right femoral neck Patient presented with fall [see above]. Admitting hip/pelvic x-ray; CT head; right hip CT [with chronic trochanteric bursitis]: with no acute findings. Admitting right femur CT: Suggestive of acute nondisplaced fracture of femoral neck, MRI of the right hip recommended. Extensive fecal retention noted. 10/11 Rt hip MRI: nondisplaced, incomplete subcapital fracture of the right femoral neck. Orthopedics evaluated, ?? for Sx today. Resume diet, PT/OT and DVT Px when cleared per Ortho PT/OT when able, CM to assist with DC planning. Possible BLE cellulitis BLE edema Chronic BLE extremity edema with likely BLE cellulitis Status posttreatment for lower extremity cellulitis in May 2021, patient reports not having complete resolution of redness since then. Continue with Rocephin 10/10, follow-up admitting blood cultures. No growth so far. Other chronic medical conditions: HTN, gastric ulcer, glaucoma----> continue with/resume home meds as and when appropriate. DVT prophylaxis: Heparin subcu on hold Full code Admission and Anticipated Discharge Date Admission Date: October 11, 2021 Subjective Patient seen and examined at bedside as a follow-up of likely acute nondisplaced fracture of right femoral neck after fall. Patient was lying in bed, on room air, NAD, denies new acute events overnight. Patient reports improving Rt hip pain w/ improving ROM. Pt npo until evaluated by Ortho Sx. Patient denies any headache/dizziness/chest pain/palpitations/belly pain/other review of symptoms. Physical Exam Physical Exam: GENERAL: Alert and oriented x3. NAD, on RA. HEENT: No pallor, no icterus. Pupils equal, round and reactive to light. Oral mucosa moist. NECK: No JVD, no neck masses. HEART: S1 and S2 heard. Regular rate and rhythm. No murmur, no gallop. RESPIRATORY SYSTEM: Normal AP diameter. No accessory muscle use. No wheezing, no crackles. ABDOMEN: Soft, bowel sounds present, nontender, no distention. CENTRAL NERVOUS SYSTEM: No facial droop. Speech is clear. Obeys simple commands. Moves extremities. EXTREMITIES: Trace/1+ edema, RLE>LLE erythema/tenderness. Rt lateral thigh tenderness resolved. Results & Data Results & Data [facility]) Vital Signs (Past 12 Hours) Vital Signs Temp Pulse Pulse Resp BP Pulse Ox Pulse Ox 10/12/21 14:10 36.7 C 71 20 176/80 H 98 10/12/21 13:02 99 10/12/21 11:50 36.6 C 80 18 164/78 H 99 10/12/21 08:20 36.6 C 78 22 152/76 H 96 10/12/21 05:57 36.8 C 80 18 145/79 H 95 O2 Del Method O2 Del Method 10/12/21 14:10 Room Air 10/12/21 13:02 Room Air 10/12/21 11:50 Room Air 10/12/21 08:20 Room Air 10/12/21 05:57 Room Air
[2021-10-12] MEDS ORDERED: ONDANSETRON INJ 2 MG/ML 2 ML VIAL ONE (16:18)
[2021-10-12] MEDS ORDERED: DEXAMETHASONE SOD INJ 4 MG/ML VIAL ONE (16:18)
[2021-10-12] MEDS ORDERED: LIDOCAINE 2% MPF LOCAL 5 ML VIAL INFIL ONE (16:18)
[2021-10-12] MEDS ORDERED: GLYCOPYRROLATE 0.2 MG/ML VIAL ONE (16:18)
[2021-10-12] MEDS ORDERED: PROPOFOL IV EMULSION 10 MG/ML 20 ML VIAL IV ONE (16:18)
[2021-10-12] MEDS ORDERED: BUPIVACAINE 0.5 % 5 MG/1 ML MPF 30ML VIAL ONE (16:27)
--- NOTE | 2021-10-12 16:53 | Post Operative Brief Note ---
Immediate Post Op Note v1 Date of Surgery October 12, 2021 Pre & Post Diagnosis Operation Date: 10/12/21 11:45 Pre-Op Diagnosis: Right femoral neck fracture Post-Op Diagnosis: Right femoral neck fracture I identified the patient and participated in the time-out.: Yes Procedure Operation Date: 10/12/21 11:45 Actual Procedures p Right Hip Open Reduction Internal Fixation using 7.3 Cannulated Screws X3 (Left) - Kush Starr DO Surgeon Kush Starr DO [employer] None Estimated Blood Loss 7 Findings Consistent with Post-Op Diagnosis Anesthesia Type Spinal MAC Complications none Disposition Accompanied Patient To Recovery: No
[2021-10-12] MEDS ORDERED: ATROPINE SULFATE 0.1 MG/ML 10ML SYR IV PRN (16:55)
[2021-10-12] MEDS ORDERED: ePHEDrine sulfate 50 MG/ML AMP IV PRN (16:55)
--- NOTE | 2021-10-12 17:05 | Fluoroscopy Report ---
FL hip RT 2-3V CLINICAL HISTORY: RT ORIF CANNULATED SCREWS. Status post internal fixation COMPARISON STUDY: MR of the right hip from 10/11/2021 FLUOROSCOPY TIME: 1 minute and 14 seconds. FLUOROSCOPIC IMAGES: 2 C-arm images FINDINGS: The patient is status post placement of 3 cancellus screws transfixing previously identifie d subcapital fracture. IMPRESSION: Status post internal fixation. ACT 112: Negative or not required by law. Electronically signed by: Dionisio Solis M.D. 10/12/2021 5:04 PM
[2021-10-12] MEDS ORDERED: ONDANSETRON INJ 2 MG/ML 2 ML VIAL IV STA (17:55)
--- NOTE | 2021-10-12 18:24 | Anesthesiology Progress Note ---
Date of Service October 12, 2021 Anesthesia Post Procedure Vital Signs Vital Signs: Temp Pulse Pulse Resp BP Pulse Ox Pulse Ox 10/12/21 18:00 36.7 C 60 12 186/82 H 99 10/12/21 17:50 68 14 169/81 H 98 10/12/21 17:40 71 19 180/79 H 99 10/12/21 17:30 66 19 172/79 H 98 10/12/21 17:20 63 13 163/79 H 98 10/12/21 17:10 66 12 171/79 H 98 10/12/21 16:50 71 15 173/82 H 100 10/12/21 17:00 66 14 174/88 H 100 10/12/21 16:42 36.8 C 76 17 153/80 H 100 10/12/21 14:10 36.7 C 71 20 176/80 H 98 10/12/21 13:02 99 10/12/21 11:50 36.6 C 80 18 164/78 H 99 10/12/21 08:20 36.6 C 78 22 152/76 H 96 10/12/21 05:57 36.8 C 80 18 145/79 H 95 10/11/21 19:15 10/11/21 22:06 36.7 C 86 16 126/71 95 10/11/21 20:06 36.8 C 83 16 126/67 94 O2 Del Method O2 Del Method O2 Flow Rate 10/12/21 18:00 Room Air 10/12/21 17:50 Room Air 10/12/21 17:40 Room Air 10/12/21 17:30 Room Air 10/12/21 17:20 Room Air 10/12/21 17:10 Room Air 10/12/21 16:50 Nasal Cannula 2 10/12/21 17:00 Nasal Cannula 2 10/12/21 16:42 Nasal Cannula 2 10/12/21 14:10 Room Air 10/12/21 13:02 Room Air 10/12/21 11:50 Room Air 10/12/21 08:20 Room Air 10/12/21 05:57 Room Air 10/11/21 19:15 Room Air 10/11/21 22:06 Room Air 10/11/21 20:06 Room Air Pain Intensity Right Hip: Pain Intensity: 3 Transfer of Care Handoff Completed per policy Notes Mental Status: alert / awake / arousable and participated in evaluation Nausea / Vomiting: adequately controlled Pain: adequately controlled Airway Patency, RR, SpO2: stable & adequate BP & HR: stable & adequate Hydration State: stable & adequate Neuraxial Anesthesia: was administered and sensory block is resolving Anesthetic Complications: no major complications apparent and Pt Satisfied with anesthetic care
[2021-10-12] MEDS ORDERED: SODIUM CHLORIDE 0.9% 1000ML 1,000 ML IV SCH (18:29)
[2021-10-12] MEDS ORDERED: MoRPHine SULFATE 2 MG/ML CARP IV PRN (18:29)
--- NOTE | 2021-10-12 19:54 | Operative Report (OR) ---
DATE OF PROCEDURE: 10/12/2021. PREOPERATIVE DIAGNOSIS: Right femoral neck fracture. POSTOPERATIVE DIAGNOSIS: Right femoral neck fracture. PROCEDURES PERFORMED: Open reduction and internal fixation of right hip femoral neck fracture using 7.3 cannulated screws x3, 80 mm screws x2 and a 75 mm screw. SURGEON: Kush Starr DO. DIRT BIKE MECHANIC: None. ANESTHESIA: Spinal, MAC. SPECIMENS: None. DRAINS: None. COMPLICATIONS: None. BLOOD LOSS: 7 mL. PERTINENT HISTORY: This is an 86-year-old female who sustained a mechanical fall at home. She had persistent discomfort in the right hip. She then presented to [facility]. She was evaluated. She had radiographs, CT scan, and MRI, which conclusively demonstrated a right femoral neck fracture. The patient was then scheduled for surgery as indicated. All potential risks, benefits, complications, alternatives, rehab potential for incomplete relief of symptoms, need for further surgery, DVT, PE, , persistent pain, swelling, scarring, weakness, neurovascular injury, wound complications, hardware failure, nonunion, malunion, bone fracture were discussed with the patient. The patient decided to proceed with the procedure as indicated. DESCRIPTION OF PROCEDURE: The patient was taken to the operative suite, placed supine on the operating room table. The consent was reviewed and proper operative site was identified and then anesthesia was administered appropriately. Next, the patient was placed on the fracture table. The affected limb was placed to padded boot traction and the unaffected leg was placed in a well leg rivera, flexed and abducted and slightly externally rotated. The well leg was then padded and protected. All other bony prominences were properly padded and protected. The post was padded in the peroneum. Next, the affected right lower limb was placed under appropriate traction using the fracture table and initial reduction was performed under live fluoroscopic assistance. Next, the affected hip was then sterilely prepped and draped in usual fashion. Next, the greater trochanter of the hip was visualized under C-arm fluoroscopy. A 10 blade scalpel incision was made along the lateral aspect of the hip inferior to the greater trochanter. This incision was then carefully deepened through subcutaneous tissue. Meticulous hemostasis was achieved with electrocautery. Next, the iliotibial band was then incised with a 10 blade scalpel and appropriate bleeders were cauterized as well. Next, using live fluoroscopic assistance 7.3 mm cannulated guide pin was placed into the central aspect of the lateral femur directed into the inferior one-third of the femoral neck and head, inferior and central both confirmed with AP and lateral projections. Next, the cannulated guide was then used to place 2 further 7.3 mm cannulated screw guide pins superior anterior and superior posterior in relation to the inferiorly placed guide pin under AP and lateral live fluoroscopic assistance. Next, the guide pins were all noted to be within 5 mm of the subchondral bone on AP and lateral projections. This was then followed by measurement of the appropriate length for planned screw implantation and then the lateral cortex was drilled, this followed by countersinking of the planned screw sites followed by implantation of the 7.3 mm cannulated screws x3, 80 mm screws x2 and a 75 mm screw. This was confirmed under live fluoroscopic assistance. Next, a hand screwdriver was used to tighten the screws to fully seat the fracture and compress it confirmed using x-ray. Next, the guide pins were removed. The wound was copiously irrigated with sterile normal saline. Final x-rays obtained in both AP and lateral projections, followed by final irrigation with sterile normal saline, closure of the fascia with interrupted #1 Vicryl sutures, closure of the dermis with buried interrupted 2-0 Vicryl. The skin was then closed using skin buddy. A sterile compressive dressing was applied. The patient was awakened and taken to recovery in stable condition. Job ID: [id number] [facility]ER HOSPITALMichelle
[2021-10-12] MEDS ORDERED: SODIUM CHLORIDE 0.9% 1000ML 1,000 ML IV ONE (20:17)
[2021-10-12] MEDS ORDERED: amLODIPine BESYLATE 5 MG TAB PO SCH (20:20)
[2021-10-12] MEDS: cefTRIAXone SODIUM 2,000 MG in DEXTROSE 5% 50 ML IV SCH (20:35)
[2021-10-13] MEDS: ACETAMINOPHEN 500 MG TAB PO SCH ×4 (00:04→21:26)
--- NOTE | 2021-10-13 01:12 | Communication Note ---
Date of Service: October 13, 2021 Made aware by RN of uncontrolled blood pressure. SBP 140s to 180s today. Patient asymptomatic as per RN. Creatinine 1.28 today AP Hypertensive urgency ARF Amlodipine for now Baseline UA, monitor his creatinine response to postop IVF Hold lisinopril until creatinine back to baseline Will relay to AM provider.
[2021-10-13] MEDS: DORZOLAMIDE HCL 2% OPH SOLN 10 ML BTL OPB SCH ×2 (07:54→20:57)
[2021-10-13] MEDS: PANTOprazole 40 MG TAB PO SCH (07:54)
[2021-10-13] MEDS: TIMOLOL GFS 0.5% OPH SOLN 74 DROPS/5 ML BTL OPB SCH (07:55)
[2021-10-13] MEDS: LIDOCAINE 5% 1 PATCH TD SCH (07:57)
[2021-10-13] MEDS: POLYETHYLENE (MIRALAX) 17 GM PACK PO SCH (07:58)
--- NOTE | 2021-10-13 09:02 | Orthopedic Progress Note ---
Date of Service October 13, 2021 Assessment & Plan (1) Closed right hip fracture: Plan: 86 yo female stable POD #1 s/p right hip ORIF with 7.3 mm cannulated screws. 1. Med management 2. DVT prophylaxis- SCDs 3. PT/OT- NWB right LE 4. D/C planning- Admission and Anticipated Discharge Date Admission Date: October 11, 2021 Subjective Pt resting in bed, denies complaints, pain controlled, "wants to go home" Physical Exam Physical Exam: Dressing C/D/I, thigh soft, toes mobile Results & Data ([facility]) Vital Signs (Past 12 Hours) Vital Signs Temp Pulse Resp BP Pulse Ox O2 Del Method 10/13/21 08:00 Room Air 10/13/21 02:56 36.7 C 94 H 16 137/67 97 Room Air 10/12/21 23:31 36.8 C 92 H 18 187/75 H 100 Room Air Laboratory Results 10/13/21 10/13/21 10/12/21 Range/Units 08:31 08:31 12:20 WBC Pending RBC Pending Hgb Pending Hct Pending MCV Pending MCH Pending MCHC Pending Plt Count Pending Sodium Pending Potassium Pending Chloride Pending Carbon Dioxide Pending Anion Gap Pending BUN Pending Creatinine Pending Est Cr Clr Drug Dosing Pending Est GFR ( Amer) Pending Est GFR (Non-Af Amer) Pending BUN/Creatinine Ratio Pending Glucose Pending Calcium Pending Magnesium Pending Blood Type O Positive Antibody Screen NEGATIVE Crossmatch See Detail
[2021-10-13 09:06] LABS: Hematocrit (blood only) 25.8 % (34.1-44.9); Hemoglobin 8.1 g/dl (12.0-16.0); Mean Corpuscular Hgb Conc 31.4 g/dL (32.0-36.0); Mean Corpuscular Volume 79.6 fL (80.0-100.0); Mean Platelet Volume 11.6 fL (9.4-12.3); Platelet Count 225 K/uL (130-400); RDW Coefficient of Variation 18.3 % (11.5-14.5); RDW Standard Deviation 52.4 fL (36.4-46.3); Red Blood Count 3.24 M/uL (3.93-5.22); White Blood Count 6.51 K/ul (4.8-10.8)
[2021-10-13 09:31] LABS: BUN Creatinine Ratio 27.9 (10-20); Calcium 8.1 mg/dl (8.5-10.1); Creatinine Clr Calc Pharmacy 27.9 ml/min; Est GFR (African American) 56.7 ml/min; Magnesium 1.6 mg/dl (1.7-2.4)
[2021-10-13] MEDS ORDERED: MAGNESIUM SULFATE / D5W 1 GM/100 ML BAG IV ONE (15:08)
--- NOTE | 2021-10-13 15:17 | Hospitalist Progress Note ---
Date of Service October 13, 2021 Assessment & Plan (1) Right hip pain: (2) Fall: Plan 86 y/o F with PMH HTN, gastric ulcer, glaucoma, BLE edema presented to ER 10/10 with c/o fall after picking up paper f/b right hip pain. Patient denies dizziness/loss of consciousness/hitting head. She is being managed for the following: Fall Right hip pain/Likely age related incomplete subcapital fracture of the right femoral neck Patient presented with fall [see above]. Admitting hip/pelvic x-ray; CT head; right hip CT [with chronic trochanteric bursitis]: with no acute findings. Admitting right femur CT: Suggestive of acute nondisplaced fracture of femoral neck, MRI of the right hip recommended. Extensive fecal retention noted. 10/11 Rt hip MRI: nondisplaced, incomplete subcapital fracture of the right femoral neck. Orthopedics evaluated, s/p Rt hip ORIF using 7.3 cannulated screws x 3 on 10/12/[address] Kush Starr. Resume PT/OT and DVT Px when cleared per Ortho PT/OT when able, CM to assist with DC planning. Possible BLE cellulitis BLE edema Chronic BLE extremity edema with likely BLE cellulitis Status posttreatment for lower extremity cellulitis in May 2021, patient reports not having complete resolution of redness since then. Continue with Rocephin 10/10, follow-up admitting blood cultures. No growth so far. Other chronic medical conditions: HTN, gastric ulcer, glaucoma----> continue with/resume home meds as and when appropriate. DVT prophylaxis: Heparin subcu on hold Full code Dispo: Likely will be ready in next 1 day for dc w/ ortho clearance, OT recommending inpatient rehab. Admission and Anticipated Discharge Date Admission Date: October 11, 2021 Subjective Patient seen and examined at bedside as a follow-up of likely acute nondisplaced fracture of right femoral neck after fall. Patient was lying in bed, on room air, NAD, denies new acute events overnight. Pt is s/p Rt hip ORIF using 7.3 cannulated screws x 3 on 10/12/[address] Kush Starr. Patient reports pain under control. Pt reports eating okay and moving bowels ok. Patient denies any headache/dizziness/chest pain/palpitations/belly pain/other review of symptoms. Physical Exam Physical Exam: GENERAL: Alert and oriented x3. NAD, on RA. HEENT: No pallor, no icterus. Pupils equal, round and reactive to light. Oral mucosa moist. NECK: No JVD, no neck masses. HEART: S1 and S2 heard. Regular rate and rhythm. No murmur, no gallop. RESPIRATORY SYSTEM: Normal AP diameter. No accessory muscle use. No wheezing, no crackles. ABDOMEN: Soft, bowel sounds present, nontender, no distention. CENTRAL NERVOUS SYSTEM: No facial droop. Speech is clear. Obeys simple commands. Moves extremities. EXTREMITIES: Trace/1+ edema, RLE>LLE erythema/tenderness. Rt hip w/ clean dressing w/ minimal soakage. Results & Data Results & Data ([facility]) Vital Signs (Past 12 Hours) Vital Signs Temp Pulse Resp BP Pulse Ox O2 Del Method 10/13/21 07:35 36.7 C 81 20 146/69 H 97 Room Air 10/13/21 08:00 Room Air
[2021-10-13] MEDS: cefTRIAXone SODIUM 2,000 MG in DEXTROSE 5% 50 ML IV SCH (20:57)
[2021-10-13] MEDS: lisinopril 5 MG TAB PO SCH (21:26)
[2021-10-14] MEDS: ACETAMINOPHEN 500 MG TAB PO SCH ×2 (06:27→14:19)
[2021-10-14] MEDS: TIMOLOL GFS 0.5% OPH SOLN 74 DROPS/5 ML BTL OPB SCH (08:21)
[2021-10-14] MEDS: PANTOprazole 40 MG TAB PO SCH (08:22)
[2021-10-14] MEDS: LIDOCAINE 5% 1 PATCH TD SCH (08:22)
[2021-10-14] MEDS: POLYETHYLENE (MIRALAX) 17 GM PACK PO SCH (08:23)
[2021-10-14] MEDS: DORZOLAMIDE HCL 2% OPH SOLN 10 ML BTL OPB SCH (08:27)
[2021-10-14 08:35] LABS: Hemoglobin 7.6 g/dl (12.0-16.0); Mean Corpuscular Hemoglobin 24.8 pg (25.0-34.0); Mean Corpuscular Hgb Conc 31.7 g/dL (32.0-36.0); Mean Corpuscular Volume 78.4 fL (80.0-100.0); Mean Platelet Volume 11.2 fL (9.4-12.3); Platelet Count 225 K/uL (130-400); RDW Coefficient of Variation 18.3 % (11.5-14.5); RDW Standard Deviation 51.5 fL (36.4-46.3); Red Blood Count 3.06 M/uL (3.93-5.22); White Blood Count 6.56 K/ul (4.8-10.8)
--- NOTE | 2021-10-14 09:12 | Orthopedic Progress Note ---
Date of Service October 14, 2021 Assessment & Plan (1) Closed right hip fracture: Plan: 86 yo female stable POD #2 s/p right hip pinning, post op anemia likely chronic and acute blood loss 1. Med management- decision to transfuse per medicine 2. DVT prophylaxis- Consider EC ASA 81mg bid x 4 weeks(h/o gastric ulcer) vs Xarelto 10 mg daily x 2 weeks, SCDs 3. PT/OT 4. D/C planning- home w/wo HH per medicine, ortho to sign off Admission and Anticipated Discharge Date Admission Date: October 11, 2021 Subjective Pt resting in bed, denies complaints, "ready to pack her suitcase to go home" Physical Exam Physical Exam: Clean dressing in place right hip, thigh soft, toes mobile, NVI Results & Data ([facility]) Vital Signs (Past 12 Hours) Vital Signs Pulse Resp BP Pulse Ox O2 Del Method 10/13/21 21:24 86 18 152/67 H 96 Room Air Laboratory Results 10/14/21 10/14/21 10/13/21 Range/Units 07:44 07:44 08:31 WBC 6.56 (4.8-10.8) K/ul RBC 3.06 L (3.93-5.22) M/uL Hgb 7.6 L (12.0-16.0) g/dl Hct 24.0 L (34.1-44.9) % MCV 78.4 L (80.0-100.0) fL MCH 24.8 L (25.0-34.0) pg MCHC 31.7 L (32.0-36.0) g/dL RDW Std Deviation 51.5 H (36.4-46.3) fL RDW Coeff of Vasu 18.3 H (11.5-14.5) % Plt Count 225 (130-400) K/uL MPV 11.2 (9.4-12.3) fL Sodium 135 L (136-145) mmol/L Potassium 4.0 (3.5-5.1) mmol/L Chloride 105 (98-107) mmol/L Carbon Dioxide 22 (21-32) mmol/L Anion Gap 8 (3-11) BUN 29 H (6-23) mg/dl Creatinine 1.04 (0.6-1.2) mg/dl Est Cr Clr Drug Dosing 27.9 ml/min Est GFR ( Amer) 56.7 ml/min Est GFR (Non-Af Amer) 49.0 ml/min BUN/Creatinine Ratio 27.9 H (10-20) Glucose 67 L (70-99(Fasting)) mg/dl Calcium 8.1 L (8.5-10.1) mg/dl Magnesium 1.8 1.6 L (1.7-2.4) mg/dl
[2021-10-14] MEDS ORDERED: SODIUM CHLORIDE 0.9% 250 ML IV PRN (11:51)
--- NOTE | 2021-10-14 14:56 | Discharge Summary ---
Date of Service October 14, 2021 Admission HPI Per Admitting Provider Patient is 86 y/o F with PMH HTN, gastric ulcer, glaucoma, BLE edema presented to ER with c/o fall today and right hip pain. Patient reports bending over to tack picker piece of paper today and fell over onto right hip. C/O right hip pain. Denies syncope or hitting head. Was able to get self off floor to sit in chair. Having pain with weight bearing and attempted walking. Denies neck pain, back pain, knee pain. Denies dizziness, CP, SOB, palpitations or other symptoms prior to fall. Patient with history chronic BLE edema thought to be multifactorial. Prior echo with grade 1 diastolic dysfunction. Previously was taking lasix 20mg every other day but stopped taking as didn't feel it helped with swelling. Denies any increased swelling. 05/2021 hospitalized for GI bleed and LE cellulitis. Was treated with Rocephin and discharged on Keflex. Patient reports has had BLE redness since discharge but denies any worsening redness and denies any discharge. Reports in 05/2021 had weeping of LE which resolved during hospit alization. Reports areas are tender to palpation. Denies fever/chills, diaphoresis, N/V/D/C, BENAVIDES, dizziness, syncope, vision changes, neck pain, CP, SOB, orthopnea, palpitations, cough, sore throat, choking, otalgia, rhinorrhea, abdominal pain, paresthesias, other rashes, urinary symptoms. Today in ER xray and CT of right hip negative for fracture. Patient had difficulty ambulating. Admission Exam Per Admitting Provider GENERAL: Alert and oriented x3. NAD, on RA. HEENT: No pallor, no icterus. Pupils equal, round and reactive to light. Oral mucosa moist. NECK: No JVD, no neck masses. HEART: S1 and S2 heard. Regular rate and rhythm. No murmur, no gallop. RESPIRATORY SYSTEM: Normal AP diameter. No accessory muscle use. No wheezing, no crackles. ABDOMEN: Soft, bowel sounds present, nontender, no distention. CENTRAL NERVOUS SYSTEM: No facial droop. Speech is clear. Obeys simple commands. Moves extremities. EXTREMITIES: Trace/1+ edema, RLE>LLE erythema/tenderness. Rt hip w/ clean dressing w/ minimal soakage. Principal Diagnosis Fall Likely is related incomplete subcapital fracture of the right femoral neck Possible BLE cellulitis Discharge Exam GENERAL: Alert and oriented x3. NAD, on RA. HEENT: No pallor, no icterus. Pupils equal, round and reactive to light. Oral mucosa moist. NECK: No JVD, no neck masses. HEART: S1 and S2 heard. Regular rate and rhythm. No murmur, no gallop. RESPIRATORY SYSTEM: Normal AP diameter. No accessory muscle use. No wheezing, no crackles. ABDOMEN: Soft, bowel sounds present, nontender, no distention. CENTRAL NERVOUS SYSTEM: No facial droop. Speech is clear. Obeys simple commands. Moves extremities. EXTREMITIES: Trace/1+ edema, RLE>LLE erythema/tenderness --> improving. Rt hip w/ clean dressing w/o soakage. Discharge Data Allergies Allergy/AdvReac Type Severity Reaction Status Date / Time Iodinated Contrast Media Allergy Intermediate Rash Verified 10/10/21 18:15 Consultations 10/10/21 18:08 ED Decision to Admit Stat 10/11/21 09:52 Consult Orthopedic Surgery Routine Procedures Performed Operation Date: 10/12/21 11:45 Actual Procedures p Right Hip Open Reduction Internal Fixation using 7.0 Cannulated Screw(Left) - Kush Starr DO Ordered Studies 10/10/21 16:42 CT head/brain wo con Stat CT hip RT wo con Stat 10/10/21 19:52 CT femur RT wo con Urgent 10/11/21 10:57 MR hip RT wo con Routine 10/12/21 14:30 FL hip RT 2-3V Routine Hospital Course (1) Right hip pain: (2) Fall: Plan 86 y/o F with PMH HTN, gastric ulcer, glaucoma, BLE edema presented to ER 10/10 with c/o fall after picking up paper f/b right hip pain. Patient denies dizziness/loss of consciousness/hitting head. She was managed for the following: Fall Right hip pain/Likely age related incomplete subcapital fracture of the right femoral neck Acute blood loss anemia likely secondary to hip fracture and postoperative status Patient presented with fall [see above]. Admitting hip/pelvic x-ray; CT head; right hip CT [with chronic trochanteric bursitis]: with no acute findings. Admitting right femur CT: Suggestive of acute nondisplaced fracture of femoral neck, MRI of the right hip recommended. Extensive fecal retention noted. 10/11 Rt hip MRI: nondisplaced, incomplete subcapital fracture of the right femoral neck. Orthopedics evaluated, s/p Rt hip ORIF using 7.3 cannulated screws x 3 on 10/12/[address] Kush Starr. PT/OT evaluated, patient denies inpatient rehab, agreeable to home health, CM aware, patient reports moving around okay. Patient being discharged on Xarelto 10 mg daily for 2 weeks for DVT prophylaxis. Patient to follow-up with orthopedics in 10 to 14 days upon discharge and her primary care physician in a week upon discharge. Patient's hemoglobin dropped to 7.6 from 10.0 at admission, receiving 1 unit of blood prior to discharge today. Patient hemodynamically stable. Patient to get her blood work CBC and CMP done in a week time upon discharge. Possible BLE cellulitis BLE edema Chronic BLE extremity edema with likely BLE cellulitis Status posttreatment for lower extremity cellulitis in May 2021, patient reports not having complete resolution of redness since then. Continue with Rocephin 10/10, follow-up admitting blood cultures. No growth so far. Other chronic medical conditions: HTN, gastric ulcer, glaucoma----> continue with/resume home meds as and when appropriate. DVT prophylaxis: Xarelto 10 mg daily for 2 weeks upon discharge. Full code Patient being discharged to home with home health with following instructions at the point of discharge: Follow-up with your primary care physician within a week time. Follow-up with orthopedics in 10 to 14 days upon discharge. You are being discharged on Xarelto 10 mg daily for 2 weeks for DVT phylaxis. Get the blood work CBC and CMP done in a week time and have the results forwarded to your primary care physician. Complete the course of antibiotics for your lower extremity cellulitis. Take your medications as prescribed. Total Time Total Time Spent Total Time Spent (In Minutes): 35 Discharge Plan Discharge Items Patient Disposition: Home - Home Health Services Reason For Visit: FALL, BILAT. HIP PAIN Discharge Diagnosis: Fall Likely is related incomplete subcapital fracture of the right femoral neck Possible BLE cellulitis Condition on Discharge: Good Activity: Per Instructions section Weightbearing: Right toe touch Non-emergency contact: Surgeon Call non-emergency contact if: your temperature is above 101.5 and your wound has increased redness Follow-up/Referrals: Meagan Castillo MD [Primary Care Provider] - Diet: Heart Healthy Joanna Attending Provider Instructions: Follow-up with your primary care physician within a week time. Follow-up with orthopedics in 10 to 14 days upon discharge. You are being discharged on Xarelto 10 mg daily for 2 weeks for DVT phylaxis. Get the blood work CBC and CMP done in a week time and have the results forwarded to your primary care physician. Complete the course of antibiotics for your lower extremity cellulitis. Take your medications as prescribed. Addtl Director Of Design Provider Instructions: Continue toe touch weightbearing right lower extremity; dressing to right hip as needed, may leave open to the air if dry; pt may shower upon discharge; continue ice right hip every 2-3 hours for 15-20 minutes as needed; follow up with Dr Starr ~ 10-14 days, call [phone] for appt Pending Studies at Discharge: Yes (10/10 blood culture.) Stand-Alone Forms: My [facility] [employer], Smoking Cessation Medications and DC Order Prescriptions: New oxycodone 5 mg Tablet 2.5 mg PO Q12 PRN (Reason: severe pain (scale score 7-10)) 3 Days Qty: 3 0RF Rx Instructions: take 2.5 mg twice a day for severe pain. cephalexin 500 mg capsule 500 mg PO BID 7 Days Qty: 14 0RF Probiotic 3 billion cell capsule 3,000 mmu cells PO DAILY 7 Days Qty: 7 0RF Rx Instructions: administer with a meal Xarelto 10 mg tablet 10 mg PO DAILY 14 Days Qty: 14 0RF Continued biotin 10 mg Tablet 10 mg PO DAILY pantoprazole 40 mg tablet,delayed release (DR/EC) 40 mg PO DAILY acetaminophen [Arthritis Pain Relief (acetam)] 650 mg tablet extended release 650 mg PO Q4 PRN (Reason: Pain) timolol maleate 0.25 % drops 1 drp OPB QAM lisinopril 5 mg tablet 5 mg PO HS dorzolamide 2 % drops 1 drp OPB BID Discharge Orders: Discharge Order (Routine); Ordered 10/14/21 Ordered By: Sen Fletcher Admission Data Admit Date/Time: 10/11/21 18:26 Attending Provider: Sen Fletcher Admit Provider: Choco Yuan Primary Care Provider: Meagan Castillo Other Providers: Choco Yuan ; Kush Starr
== END 2021-10-14 19:02 | disposition home health service (06) ==
LOC: EDINP 12:55 → ED 12:55 → SUATTDRO 19:29 → 3W 10-11 00:37
DX: W19.XXXA Unspecified fall, initial encounter; S72.001A Fracture of unspecified part of neck of right femur, initial encounter for closed fracture; Z91.041 Radiographic dye allergy status; Z79.899 Other long term (current) drug therapy; Z87.11 Personal history of peptic ulcer disease; L03.116 Cellulitis of left lower limb; Y92.010 Kitchen of single-family (private) house as the place of occurrence of the external cause; R60.0 Localized edema; M41.9 Scoliosis, unspecified; I10 Essential (primary) hypertension; L03.115 Cellulitis of right lower limb

== ENCOUNTER 2022-01-23 09:07 | Inpatient (IN) ==
[2022-01-23] MEDS ORDERED: VANCOMYCIN CONSULT ACTIVE PRN (09:42)
[2022-01-23] MEDS ORDERED: VANCOMYCIN HCL 1,000 MG in SODIUM CHLORIDE 0.9% 500 ML IV ONE (09:42)
[2022-01-23] MEDS ORDERED: CEFEPIME 2,000 MG/20 ML VIAL IV STA (09:42)
--- NOTE | 2022-01-23 09:42 | Emergency Department Note ---
Impression & Plan Cellulitis of left foot, Anemia, Failure of outpatient treatment ED Provider Note Name: LEX LEUNG Age: 86 Sex: F Arrives Via: Walk-In Informant: Patient, family ED Provider: Hardik Askew MD Chief Complaint: Foot infection Impression: As per impressions above Medical Decision Makin-year-old female with a history of hypertension, arthritis, anemia, PUD, glaucoma arrives for evaluation of worsening left foot infection. She was seen for left foot ulcer about 2 months ago with sinus cellulitis at that time started on antibiotics. Initially on Doxy and switched to Cipro is growing out Pseudomonas from wound. She has been seen by PCP now with worsening infection despite 2 different antibiotics. Patient arrives now with large swelling of the left foot areas of possible gangrene and severe malodorous drainage from the wound. X-ray obtained does not reveal clear evidence of osteomyelitis at this time nor free air appreciated. Her laboratory work-up is remarkable for hemoglobin of 7 which is lower than her baseline. She is not having any chest pain or shortness of breath thus will defer transfusion to hospitalist as she denies any cardiac history and denies any recent bleeding or bruising. She does have a history of peptic ulcer disease/GERD. Patient has now failed multiple antibiotics she has a severely infected left foot I do not feel that treatment as an outpatient again would be of much benefit. I discussed this with the hospitalist will bring her in for further management. At this point patient is not septic with a normal procalcitonin and no fevers. Prior Medical Record and Triage/Nursing Notes reviewed by Me Additional history obtained from chart Differentials: Cellulitis, Gangrene, abscess, osteo, sepsis, Fracture, dislocation, compartment syndrome, rhabdomyolysis, as well as other pathologies. Vital Signs: reviewed and remarkable for no significant abnormalities Interventions: Cefepime and vancomycin, normal saline bolus Labs:Reviewed and remarkable for anemia Imaging:X-ray left foot no free air, no clear osteo-, there is moderate soft tissue edema Consults:Kevon Hospitalist Plan: Disposition:Hospitalization. Condition: Good History of Present Illness:86-year-old female with left foot infection. Patient notes she has been dealing with a left foot infection for the last 2 to 3 months. Previously was seen in ER by me 2 months ago diagnosed with Pseudomonas foot infection and had been on Cipro for 10 days. She went and saw her PCP who started on Bactrim and doxacylin for another 10 days due to worsening wound. Follow-up appointment with PCP today and she was sent to the ER for further evaluation. Patient notes worsening smell and drainage from the foot. The foot is now swollen. Notes significant pain when trying to put her shoe on. Worse with walking around. Better with rest and keeping it elevated. She is not having fevers, chills, nausea, vomiting, leg swelling, syncope, chest pain, urinary/bowel symptoms or other concerning signs or symptoms. No medications prior to arrival. Movement makes worse rest makes better. ROS: See above HPI for pertinent positives & negatives. A total of 10 systems reviewed and were otherwise negative. Past Medical History:See Below Past Surgical History:See Below Family History:See Below Social History:See Below Home Medications:See Below Allergies:iv dye Vitals:Blood Pressure: 142/65, Pulse 84, RR 18, T 36.9C, O2 97% on RA Physical Exam: GENERAL: Patient is uncomfortable appearing and in mild distress. EYES: No scleral icterus, unremarkable pupils. ENT: Mucous membranes moist, no nasal congestion. NECK: No masses appreciated, nomeningismus, trachea is midline. RESPIRATORY: No dyspnea. Clear to auscultation and equal bilaterally. No wheeze, no rhonchi. CARDIOVASCULAR: Regular rate and rhythm.No murmurs, rubs, gallops appreciated. GASTROINTESTINAL: Abdomen soft, non-tender, no peritonitis.Bowel sounds positive.No masses appreciated. BACK: No midline tenderness, no CVA tenderness EXTREMITIES: Gangrenous appearing, swollen erythematous left foot with drainage throughout soaking through dressing, mallodorous, otherwise normal motion all extremities, no cyanosis, milr gith leg edema. NEUROLOGIC: Alert and oriented, no acute motor or sensory deficits, no focal weakness, cranial nerves grossly intact. SKIN: No rash, no jaundice, no diaphoresis. 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 Surgical History H/O: hysterectomy History of bunionectomy History of surgery on arm Family History Other Kidney disease Stroke Social History Smoking Status: Never smoker Second Hand Exposure: No; Hx Alcohol Use: No Hx Substance Use: No Preferred Language: Japanese Communication Ability: Effective Subway Operator Required: No Beliefs That Will Affect Care: None marital status: / Current Living Situation: Family Current Living Situation Comment: Home with son Other Information That Helps Us Care for You: No Feels Safe at Home: Yes Safety Concerns: Feels Safe At This Time Assistive Devices: Walker Allergies Allergies Allergy/AdvReac Type Severity Reaction Status Date / Time Iodinated Contrast Media Allergy Intermediate Rash Verified 10/10/21 18:15 Home Meds Home Medications Medication Instructions Recorded Confirmed acetaminophen 650 mg 650 mg PO Q8H PRN Pain 04/13/21 01/23/22 tablet,extended release (Arthritis Pain Relief (acetaminophen) ER) dorzolamide 2 % eye drops 1 drp OPB BID 04/13/21 01/23/22 lisinopril 5 mg tablet 5 mg PO HS 04/13/21 01/23/22 timolol maleate 0.25 % eye drops 1 drp OPB QAM 04/13/21 01/23/22 pantoprazole 40 mg tablet,delayed 40 mg PO BID 10/10/21 01/23/22 release L.acidop,casei,lactis,rham-B.lact,larissa 2 cap PO DAILY 01/23/22 01/23/22 625 mg (10 billion cell) capsule (Advanced Probiotic) cholecalciferol (vitamin D3) 125 125 mcg PO DAILY 01/23/22 01/23/22 mcg (5,000 unit) capsule furosemide 20 mg tablet 20 mg PO Q2D PRN Edema 01/23/22 01/23/22 magnesium 200 mg tablet 200 mg PO DAILY 01/23/22 01/23/22 fwtrypajngtu-beoooolx-iimpfi tablet 1 tab PO DAILY 01/23/22 01/23/22 Results & Data (ED) Vital Signs Vital Signs - 24 hr 01/23/22 09:15 01/23/22 11:07 Temperature 36.9 C 36.8 C Temperature Source Oral Oral Pulse Rate 84 Pulse Rate [Apical] 91 H Respiratory Rate 18 18 Blood Pressure 142/65 H Blood Pressure [Right Arm] 145/88 H Blood Pressure Mean 90 Blood Pressure Mean [Right Arm] 107 Pulse Oximetry 97 95 Oxygen Delivery Method Room Air Room Air Sepsis Recent Fever Within 48 Hours No Sepsis New/Unexplained Change in Mental Status No Sepsis Action Taken by Nursing No Action Required Laboratory Data Result diagrams: 01/24/22 05:58 01/24/22 05:58 Lab Results 01/23/22 01/23/22 01/23/22 Range/Units 10:05 10:05 10:05 WBC 9.20 (4.8-10.8) K/ul RBC 2.47 L (3.93-5.22) M/uL Hgb 7.0 L (12.0-16.0) g/dl Hct 21.9 L (34.1-44.9) % MCV 88.7 (80.0-100.0) fL MCH 28.3 (25.0-34.0) pg MCHC 32.0 (32.0-36.0) g/dL RDW Std Deviation 57.1 H (36.4-46.3) fL RDW Coeff of Vasu 17.4 H (11.5-14.5) % Plt Count 411 H (130-400) K/uL MPV 9.9 (9.4-12.3) fL Immature Gran % (Auto) 0.4 % Neut % (Auto) 80.2 % Lymph % (Auto) 8.2 % [place]lette % (Auto) 10.3 % Eos % (Auto) 0.5 % Baso % (Auto) 0.4 % Neut # (Auto) 7.37 H (1.4-6.5) K/uL Lymph # (Auto) 0.75 L (1.2-3.4) K/uL Sublette # (Auto) 0.95 H (0.24-0.82) K/uL Eos # (Auto) 0.05 (0-0.50) K/uL Baso # (Auto) 0.04 (0-0.2) K/uL Immature Gran # (Auto) 0.04 H (0.00-0.02) K/uL Polychromasia 1+ Poikilocytosis Present Sodium 138 (136-145) mmol/L Potassium 4.6 (3.5-5.1) mmol/L Chloride 108 H (98-107) mmol/L Carbon Dioxide 23 (21-32) mmol/L Anion Gap 7 (3-11) BUN 36 H (6-23) mg/dl Creatinine 1.00 (0.6-1.2) mg/dl Est Cr Clr Drug Dosing Not Reportable Est GFR ( Amer) 59.5 ml/min Est GFR (Non-Af Amer) 51.3 ml/min BUN/Creatinine Ratio 36.0 H (10-20) Glucose 89 (70-99(Fasting)) mg/dl Lactate 0.8 (0.4-2.0) mmol/L Calcium 8.8 (8.5-10.1) mg/dl Magnesium 1.8 (1.7-2.4) mg/dl Total Bilirubin 0.4 (0.2-1.0) mg/dl Direct Bilirubin 0.0 (0-0.2) mg/dl AST 22 (13-39) U/L ALT 20 (7-52) U/L Alkaline Phosphatase 77 (34-104) U/L Troponin I High Sens 26.0 H (0-14) pg/ml Total Protein 6.8 (6.0-8.3) gm/dl Albumin 3.2 L (3.4-5.0) gm/dl Procalcitonin (0-0.5) ng/ml 01/23/22 Range/Units 10:05 WBC (4.8-10.8) K/ul RBC (3.93-5.22) M/uL Hgb (12.0-16.0) g/dl Hct (34.1-44.9) % MCV (80.0-100.0) fL MCH (25.0-34.0) pg MCHC (32.0-36.0) g/dL RDW Std Deviation (36.4-46.3) fL RDW Coeff of Vasu (11.5-14.5) % Plt Count (130-400) K/uL MPV (9.4-12.3) fL Immature Gran % (Auto) % Neut % (Auto) % Lymph % (Auto) % Sublette % (Auto) % Eos % (Auto) % Baso % (Auto) % Neut # (Auto) (1.4-6.5) K/uL Lymph # (Auto) (1.2-3.4) K/uL Sublette # (Auto) (0.24-0.82) K/uL Eos # (Auto) (0-0.50) K/uL Baso # (Auto) (0-0.2) K/uL Immature Gran # (Auto) (0.00-0.02) K/uL Polychromasia Poikilocytosis Sodium (136-145) mmol/L Potassium (3.5-5.1) mmol/L Chloride (98-107) mmol/L Carbon Dioxide (21-32) mmol/L Anion Gap (3-11) BUN (6-23) mg/dl Creatinine (0.6-1.2) mg/dl Est Cr Clr Drug Dosing Est GFR ( Amer) ml/min Est GFR (Non-Af Amer) ml/min BUN/Creatinine Ratio (10-20) Glucose (70-99(Fasting)) mg/dl Lactate (0.4-2.0) mmol/L Calcium (8.5-10.1) mg/dl Magnesium (1.7-2.4) mg/dl Total Bilirubin (0.2-1.0) mg/dl Direct Bilirubin (0-0.2) mg/dl AST (13-39) U/L ALT (7-52) U/L Alkaline Phosphatase (34-104) U/L Troponin I High Sens (0-14) pg/ml Total Protein (6.0-8.3) gm/dl Albumin (3.4-5.0) gm/dl Procalcitonin < 0.05 (0-0.5) ng/ml Administered Medications Acetaminophen (Acetaminophen 325 Mg Tab) 650 mg PO Q4H PRN PRN Reason: Pain or Fever Stop: 02/22/22 14:45 Last Admin: 01/23/22 20:30 Dose: 650 mg Documented By: LANCE Dorzolamide HCl (Dorzolamide Hcl 2% Oph Soln 10 Ml Btl) 1 drops OPB BID CK Stop: 02/22/22 20:59 Last Admin: 01/23/22 20:33 Dose: 1 drops Documented By: LANCE Furosemide (Furosemide 20 Mg Tab) 20 mg PO Q2D CK Stop: 02/22/22 14:45 Last Admin: 01/23/22 16:26 Dose: 20 mg Documented By: CHRISTINA Cefepime HCl 1,000 mg/ Syringe 10 mls @ 5 mls/min IV Q12 CK; Protocol Stop: 01/30/22 20:59 Last Admin: 01/23/22 20:30 Dose: 5 mls/min Documented By: LANCE Lisinopril (Lisinopril 5 Mg Tab) 5 mg PO HS CK Stop: 02/22/22 20:59 Last Admin: 01/23/22 20:34 Dose: 5 mg Documented By: LANCE Pantoprazole Sodium (Pantoprazole 40 Mg Tab) 40 mg PO BID CK Stop: 02/22/22 20:59 Last Admin: 01/23/22 20:34 Dose: 40 mg Documented By: LANCE Discontinued Medications Sodium Chloride (Nss 1000ml) 500 mls @ 999 mls/hr IV .Q31M CK Stop: 01/23/22 10:15 Last Infusion: 01/23/22 10:49 Dose: 0 mls/hr Documented By: Admin: 01/23/22 10:08 Dose: 999 mls/hr Documented By: UNA Cefepime HCl (Maxipime) 2,000 mg in 20 mls @ 5 mls/min IV NOW STA; Protocol Stop: 01/23/22 09:45 Last Admin: 01/23/22 10:08 Dose: 5 mls/min Documented By: UNA Vancomycin HCl 1,000 mg/ (Sodium Chloride) 520 mls @ 200 mls/hr IV NOW ONE Stop: 01/23/22 12:11 Last Infusion: 01/23/22 14:06 Dose: 0 mls/hr Documented By: Admin: 01/23/22 10:25 Dose: 200 mls/hr Documented By: MANSOOR Iron Sucrose 200 mg/ Sodium (Chloride) 110 mls @ 220 mls/hr IV TODAY@1530 ONE Stop: 01/23/22 15:59 Last Infusion: 01/23/22 17:04 Dose: 0 mls/hr Documented By: Admin: 01/23/22 16:26 Dose: 220 mls/hr Documented By: CHRISTINA Imaging Data Radiologist's Impression: Foot X-Ray 01/23/22 09:39 XR foot LT min 3V routine CLINICAL HISTORY: sepsis, foot infection, concern osteomyelitis COMPARISON STUDY: None. FINDINGS: 3 views of the left foot were submitted for review. Soft tissue swelling within the dorsum of the foot. There is a 2.5 cm skin ulceration at the dorsal aspect of the midfoot. No underlying destruction to suggest an osteomyelitis. Tiny plantar and posterior calcaneal spurs are noted. The Lisfranc joint is intact. No fracture or dislocation. The bones are slightly osteopenic. Suggestion of a prior bunionectomy. IMPRESSION: A 2.5 cm skin ulceration at the dorsal aspect of the midfoot. No underlying bony destruction to suggest an osteomyelitis. ACT 112: Negative or not required by law. Electronically signed by: Madhu Calderon M.D. 01/23/2022 11:49 AM Discharge Plan Visit Data Chief Complaint: Skin Problem Stated Complaint: CELLULITIS ON LEFT FOOT ED Provider: Hardik Askew Discharge Problem: Cellulitis of left foot, Anemia, Failure of outpatient treatment Patient Disposition: Admitted As Inpatient Discharge Instructions Interventions: ED Discharge Assessment Last Done: 01/23/22 14:22 : Anemia Qualifiers: Anemia type: unspecified type Qualified Code(s): D64.9 - Anemia, unspecified
[2022-01-23] MEDS ORDERED: SODIUM CHLORIDE 0.9% 1000ML 500 ML IV SCH (09:45)
[2022-01-23 10:20] LABS: Basophils # (auto) 0.04 K/uL (0-0.2); Basophils % (auto) 0.4 %; Eosinophils # (auto) 0.05 K/uL (0-0.50); Eosinophils % (auto) 0.5 %; Hematocrit (blood only) 21.9 % (34.1-44.9); Immature Granulocytes # (auto) 0.04 K/uL (0.00-0.02); Immature Granulocytes % (auto) 0.4 %; Lymphocytes # (auto) 0.75 K/uL (1.2-3.4); Lymphocytes % (auto) 8.2 %; Mean Corpuscular Hemoglobin 28.3 pg (25.0-34.0); Mean Corpuscular Volume 88.7 fL (80.0-100.0); Mean Platelet Volume 9.9 fL (9.4-12.3); Monocytes # (auto) 0.95 K/uL (0.24-0.82); Monocytes % (auto) 10.3 %; Neutrophils # (auto) 7.37 K/uL (1.4-6.5); Neutrophils % (auto) 80.2 %; Platelet Count 411 K/uL (130-400); RDW Coefficient of Variation 17.4 % (11.5-14.5); RDW Standard Deviation 57.1 fL (36.4-46.3); Red Blood Count 2.47 M/uL (3.93-5.22)
[2022-01-23 10:37] LABS: Poikilocytosis Present; Polychromasia 1+
--- NOTE | 2022-01-23 10:41 | History & Physical Report ---
Date of Service January 23, 2022 Assessment & Plan (1) Cellulitis of left foot: Plan: This is an 86-year-old female with PMHx of left foot cellulitis on recent oral antibiotics, chronic diastolic heart failure, hypertension, venous insufficiency and other medical problems listed below who presents from PCPs office with worsening cellulitis. Previously diagnosed with Pseudomonas foot infection 2 months ago in ED and completed Cipro course followed by 10-day course of Bactrim and doxycycline Sent by PCP for worsening LLE cellulitis and open wound with purulent drainage, increased swelling and pain Vital signs stable, nontoxic appearance, lactate and procalcitonin within normal range. Not septic and does not require additional IV fluids at this time Foot x-ray with a 2.5 cm skin ulceration at the dorsal aspect of the midfoot. 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 Has required blood transfusions in the past. Previous on oral iron supplementation due to constipation Repeating anemia lab work, FOBT Concern for PUD due to ongoing dark stool Consented for, type & crossed and transfusing 1u prbcs Consider GI consult for PUD Continue PPI (3) Hypertension: Plan: Continue lisinopril DVT Ppx: SCDs on RLE for now given possible GI bleed, anemia Code status: FULL PCP: Debora Dispo: admitted to [facility] tele Patient seen in collaboration with Dr. Christensen. Please see addendum. History of Present Illness Chief Complaint: Foot wound Primary Care Provider: Meagan Castillo MD This is an 86-year-old female with PMHx of left foot cellulitis on recent oral antibiotics, chronic diastolic heart failure, hypertension, venous insufficiency and other medical problems listed below who presents from PCPs office with worsening cellulitis. Ongoing issues with cellulitis over the past few years with left foot infection for the past 2-3 months. Previously diagnosed with P seudomonas foot infection 2 months ago in ED and completed Cipro course. Then followed up with PCP and placed on another 10-day course of Bactrim and doxycycline. Was seen in clinic for follow-up today and noted to have a fungal appearing film over her foot with worsening pain and was sent to ED for further evaluation. Patient notes foul odor and increased swelling. Painful when trying to put shoe on. Has not been seen by wound care in the past. Does have as needed Lasix to take for leg swelling but has not been taking due to issues with urinary incontinence. Denies any fever or chills. No headache, chest pain, shortness of breath, nausea, vomiting. Some epigastric pain with history of hiatal hernia and duodenal ulcer. Notes some dark stool with occasional bright red blood. Has not been taking oral iron supplement due to constipation issues. Allergies Allergy/AdvReac Type Severity Reaction Status Date / Time Iodinated Contrast Media Allergy Intermediate Rash Verified 10/10/21 18:15 Home Medications Medication Instructions Recorded Confirmed Type acetaminophen 650 mg 650 mg PO Q8H PRN Pain 04/13/21 01/23/22 History tablet,extended release (Arthritis Pain Relief (acetaminophen) ER) dorzolamide 2 % eye drops 1 drp OPB BID 04/13/21 01/23/22 History lisinopril 5 mg tablet 5 mg PO HS 04/13/21 01/23/22 History timolol maleate 0.25 % eye drops 1 drp OPB QAM 04/13/21 01/23/22 History pantoprazole 40 mg tablet,delayed 40 mg PO BID 10/10/21 01/23/22 History release L.acidop,casei,lactis,rham-B.lact,larissa 2 cap PO DAILY 01/23/22 01/23/22 History 625 mg (10 billion cell) capsule (Advanced Probiotic) cholecalciferol (vitamin D3) 125 125 mcg PO DAILY 01/23/22 01/23/22 History mcg (5,000 unit) capsule furosemide 20 mg tablet 20 mg PO Q2D PRN Edema 01/23/22 01/23/22 History magnesium 200 mg tablet 200 mg PO DAILY 01/23/22 01/23/22 History pzpawhteiyhp-ilbrakhf-pyufdg tablet 1 tab PO DAILY 01/23/22 01/23/22 History Past Med/Surg History Medical History (Updated 01/23/22 @ 11:01 by Rosalie Quiles PA-C) Anemia Arthritis Closed right hip fracture Glaucoma Hypertension 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 Surgical History H/O: hysterectomy History of bunionectomy History of surgery on arm Family History Other Kidney disease Stroke Social History Smoking Status: Never smoker Second Hand Exposure: No; Hx Alcohol Use: No Hx Substance Use: No Preferred Language: Bulgarian Communication Ability: Effective [employer]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 Physical Exam Physical Exam: Please see Dr. Christensen's addendum for physical exam. Results & Data Results & Data ([facility]) Vital Signs (Past 12 Hours) Vital Signs Temp Pulse Resp BP Pulse Ox O2 Del Method 01/23/22 09:15 36.9 C 84 18 142/65 H 97 Room Air Laboratory Results Short CBC 01/23/22 Range/Units 10:05 WBC 9.20 (4.8-10.8) K/ul Hgb 7.0 L (12.0-16.0) g/dl Hct 21.9 L (34.1-44.9) % Plt Count 411 H (130-400) K/uL BMP 01/23/22 10:05 Sodium 138 Potassium 4.6 Chloride 108 H Carbon Dioxide 23 BUN 36 H Creatinine 1.00 Glucose 89 Calcium 8.8 Liver Function 01/23/22 Range/Units 10:05 Total Bilirubin 0.4 (0.2-1.0) mg/dl Direct Bilirubin 0.0 (0-0.2) mg/dl AST 22 (13-39) U/L ALT 20 (7-52) U/L Alkaline Phosphatase 77 (34-104) U/L Albumin 3.2 L (3.4-5.0) gm/dl Diagnostic Findings Foot X-Ray 01/23/22 09:39 XR foot LT min 3V routine CLINICAL HISTORY: sepsis, foot infection, concern osteomyelitis COMPARISON STUDY: None. FINDINGS: 3 views of the left foot were submitted for review. Soft tissue swelling within the dorsum of the foot. There is a 2.5 cm skin ulceration at the dorsal aspect of the midfoot. No underlying destruction to suggest an osteomyelitis. Tiny plantar and posterior calcaneal spurs are noted. The Lisfranc joint is intact. No fracture or dislocation. The bones are slightly osteopenic. Suggestion of a prior bunionectomy. IMPRESSION: A 2.5 cm skin ulceration at the dorsal aspect of the midfoot. No underlying bony destruction to suggest an osteomyelitis. ACT 112: Negative or not required by law. Electronically signed by: Madhu Calderon M.D. 01/23/2022 11:49 AM Supervising Physician Co-Signing Physician Notes Patient is an 85-year-old female with history of chronic diastolic heart failure, venous insufficiency and other medical problems presents with history of worsening left foot infection. She complains of leg swelling, pain leading to ambulatory dysfunction. She has been having recurrent infections for the past 2 to 3 months. She recently completed a 10-day course of Bactrim and doxycycline with no improvement. Left foot pain been gradually worsening and also noted foul smelling. She also admits to have intermittent blood in stools. Please review HPI for complete details of presentation. Blood work showed hemoglobin 7.0, hematocrit 21.9, platelets 411, INR 1.0, sodium 138, potassium 4.6, chloride 108, bicarbonate 23, BUN 36, creatinine 1.0, lactate 0.8, procalcitonin 0.05. Urine analysis, fecal occult pending. Foot x-ray showed 2.5 cm skin ulceration at the dorsal aspect of the midfoot. No underlying bony destruction to suggest osteomyelitis. Physical Exam: Vitals signs as noted above General Appearance: Thin, frail, elderly, no apparent distress Head: normocephalic, Atraumatic Eyes: normal inspection, EOMI Neck: supple, Trachea midline Respiratory/Chest: Normal breath sounds, CTA, No accessory muscle use Cardiovascular: S1, S2, No murmur Abdomen/GI:Soft, Non tender, Bowel sounds present Extremities/Musculoskeletal:normal inspection, 2+ B/L LE Edema, left foot dorsal ulceration, mild erythema, tender, drainage Neurologic/Psych:AAO, grossly no focal neurological deficits Skin: normal color, warm Left foot ulceration/cellulitis Agree with broad-spectrum IV antibiotics vancomycin, cefepime Blood, wound cultures Wound care consulted Also consulted podiatry for possible debridement Continue wound care Received IV fluids in ED Consider lasix as needed Anemia Likely multifactorial: Iron deficiency, blood loss Anemia work-up including fecal occult Transfuse 1 unit PRBC Monitor CBC I personally reviewed the record. Patient is interviewed and examined at bedside. Patient's care is coordinated with Rosalie Quiles PA-C. Please refer to the documentation above for details of patient's presentation and for discussion of other issues.
[2022-01-23 10:43] LABS: Alanine Aminotransferase 20 U/L (7-52); Albumin Level 3.2 gm/dl (3.4-5.0); Alkaline Phosphatase 77 U/L (34-104); Anion Gap 7 (3-11); Aspartate Aminotransferase 22 U/L (13-39); Bilirubin,Total 0.4 mg/dl (0.2-1.0); Blood Urea Nitrogen 36 mg/dl (6-23); Calcium 8.8 mg/dl (8.5-10.1); Carbon Dioxide 23 mmol/L (21-32); Chloride 108 mmol/L (98-107); Est GFR (African American) 59.5 ml/min; Est GFR (Non-African American) 51.3 ml/min; Glucose 89 mg/dl (70-99(Fasting)); Magnesium 1.8 mg/dl (1.7-2.4); Potassium 4.6 mmol/L (3.5-5.1); Sodium 138 mmol/L (136-145); Total Protein 6.8 gm/dl (6.0-8.3)
[2022-01-23] MEDS ORDERED: SODIUM CHLORIDE 0.9% 250 ML IV PRN ×2 (11:25→11:47)
--- NOTE | 2022-01-23 11:50 | XRay Report ---
XR foot LT min 3V routine CLINICAL HISTORY: sepsis, foot infection, concern osteomyelitis COMPARISON STUDY: None. FINDINGS: 3 views of the left foot were submitted for review. Soft tissue swelling within the dorsum of the foot. There is a 2.5 cm skin ulceration at the dorsal aspect of the midfoot. No underlying javid truction to suggest an osteomyelitis. Tiny plantar and posterior calcaneal spurs are noted. The Lisfr anc joint is intact. No fracture or dislocation. The bones are slightly osteopenic. Suggestion of a p rior bunionectomy. IMPRESSION: A 2.5 cm skin ulceration at the dorsal aspect of the midfoot. No underlying bony destruc tion to suggest an osteomyelitis. ACT 112: Negative or not required by law. Electronically signed by: Madhu Calderon M.D. 01/23/2022 11:49 AM
[2022-01-23 12:45] LABS: Vitamin B12 291 pg/ml (180-914)
[2022-01-23 12:48] LABS: Iron < 10 mcg/dl (35-150); Transferrin 324 mg/dl (200-360); Unsaturated Iron Binding Cap 397 mcg/dl (155-355)
[2022-01-23] MEDS ORDERED: POLYETHYLENE (MIRALAX) 17 GM PACK PO PRN (14:46)
[2022-01-23] MEDS ORDERED: ONDANSETRON INJ 2 MG/ML 2 ML VIAL IV PRN (14:46)
[2022-01-23] MEDS ORDERED: FAMOTIDINE 20 MG TAB PO PRN (14:46)
[2022-01-23] MEDS ORDERED: IRON SUCROSE 200 MG in 0.9 % SODIUM CHLORIDE 100 ML IV ONE (15:30)
[2022-01-23] MEDS: FUROSEMIDE 20 MG TAB PO SCH (16:26)
[2022-01-23 19:00] LABS: Appearance Urine Clear (Clear); Bilirubin Urine Negative (Negative); Blood Urine Negative (Negative); Color Urine Yellow; Glucose Urine UA Negative (Negative); Ketones Urine Negative (Negative); Leukocyte Esterase Urine Negative (Negative); Nitrite Urine Negative (Negative); Protein Urine Negative (Negative); Specific Gravity Urine 1.013 (1.000-1.030); Urobilinogen Urine Negative (Negative)
[2022-01-23] MEDS: ACETAMINOPHEN 325 MG TAB PO PRN (20:30)
[2022-01-23] MEDS: CEFEPIME 1,000 MG in SYRINGE 0 ML IV SCH (20:30)
[2022-01-23] MEDS: DORZOLAMIDE HCL 2% OPH SOLN 10 ML BTL OPB SCH (20:33)
[2022-01-23] MEDS: PANTOprazole 40 MG TAB PO SCH (20:34)
[2022-01-23] MEDS: lisinopril 5 MG TAB PO SCH (20:34)
[2022-01-24 06:22] LABS: Hematocrit (blood only) 24.9 % (34.1-44.9); Hemoglobin 8.2 g/dl (12.0-16.0); Mean Corpuscular Hemoglobin 28.3 pg (25.0-34.0); Mean Corpuscular Hgb Conc 32.9 g/dL (32.0-36.0); Mean Corpuscular Volume 85.9 fL (80.0-100.0); Mean Platelet Volume 9.8 fL (9.4-12.3); Platelet Count 390 K/uL (130-400); RDW Coefficient of Variation 16.5 % (11.5-14.5); RDW Standard Deviation 51.8 fL (36.4-46.3); White Blood Count 8.54 K/ul (4.8-10.8)
[2022-01-24 06:44] LABS: BUN Creatinine Ratio 30.6 (10-20); Calcium 8.2 mg/dl (8.5-10.1); Creatinine Clr Calc Pharmacy 30.1 ml/min; Est GFR (Non-African American) 52.6 ml/min; Potassium 3.9 mmol/L (3.5-5.1)
[2022-01-24 07:13] LABS: Troponin I High Sensitivity 19.2 pg/ml (0-14)
[2022-01-24] MEDS: CEFEPIME 1,000 MG in SYRINGE 0 ML IV SCH ×2 (09:23→21:59)
[2022-01-24] MEDS: PANTOprazole 40 MG TAB PO SCH ×2 (09:23→21:59)
[2022-01-24] MEDS: CHOLECALCIFEROL 5,000 UNITS 125 MCG TAB PO SCH (09:24)
[2022-01-24] MEDS: ADVANCED PROBIOTIC 1250 MG CAPSULE PO SCH (09:24)
[2022-01-24] MEDS: MAGNESIUM OXIDE 400 MG TAB PO SCH (09:24)
[2022-01-24] MEDS: TIMOLOL GFS 0.5% OPH SOLN 74 DROPS/5 ML BTL OPB SCH (09:25)
[2022-01-24] MEDS: DORZOLAMIDE HCL 2% OPH SOLN 10 ML BTL OPB SCH ×2 (09:25→22:00)
[2022-01-24] MEDS: CEROVITE ADV FORMULA TAB PO SCH (09:25)
[2022-01-24] MEDS ORDERED: VANCOMYCIN HCL 750 MG in SODIUM CHLORIDE 0.9% 250 ML IV SCH (10:00)
[2022-01-24] MEDS: ACETAMINOPHEN 325 MG TAB PO PRN ×3 (11:26→22:02)
[2022-01-24] MEDS ORDERED: VANCOMYCIN HCL 1,000 MG in SODIUM CHLORIDE 0.9% 250 ML IV STA (12:13)
--- NOTE | 2022-01-24 12:30 | Pharmacy Report ---
Pharmacy PK ABX Note - Date of Service January 24, 2022 - Assessment and Plan Assessment 86 year old F receiving Vancomycin and cefepime for treatment of SSTI. Pertinent microbiologic data includes: Foot culture growing gram neg bacilli preliminarily. Will reload with 1000mg given ~27 since last dose. Day # 2 of antimicrobial therapy. Plan Vancomycin * Loading dose: 1000 mg IV x 2 (01/23 @ 1000, 01/24 ~1300) * Maintenance dose: 750 mg IV every 24 hours to start tomorrow afternoon. * Regimen is predicted to achieve target AUC/SAMANTHA of 400-600 mg/L.hr * Random level ordered for: 01/26/22 with AM labs Pharmacy will continue to follow and will adjust dose/frequency as necessary. Thank you. Pharmacy has transitioned to AUC monitoring for vancomycin. AUC/SAMANTHA is the preferred PK/PD target and is associated with decreased risk of nephrotoxicity c ompared to traditional trough targets.
--- NOTE | 2022-01-24 12:33 | Orthopedic Consultation ---
Date of Consultation January 24, 2022 Assessment & Plan (1) Ulcer of left foot: Patient seen, evaluated, and treated. I evaluated the patient for a wound that has been resistant to healing. Lower extremity compression and edema control is an important part of this Patient's wound management. I did discuss use of multiple layer compression as well a single layer tubi shrink pit operator. I suspect the failed resolution of the left foot wound has a strong component of lower extremity edema. It was decided at today's visit visit wound would be debrided. Sharp excisional debridement with out incident. Patient tolerated this procedure well. See procedure noted below. Wound cleansed with betadine followed by normal saline. Application of adaptic followed by Aquacel, 4x4 gauze, kerlix. Will continue to monitor wound progression and may change dressings based on assement. Patient may benefit from use of santyl if fibrous slough continues. Thank you for allowing me to participate in the care of this Patient. Today's procedure is an excisional debridement of deep tissue. There is a moderate amount of serosanguineous exudate draining from the ulcer. The ulcer base is described as containing has pink granulation. Necrotic or devitalized tissue is estimated to be present in approximately 60% of the pressure ulcer bed. The ulcer has been exposed full-thickness tissue. I have informed the patient of the risks and benefit of this procedure and they have had the opportunity to ask questions. Appropriate consent has been obtained. The patient refused site marking. The area was prepped and draped in usual aseptic manner. The procedure was performed and a clean field. I debrided the wound sharply with a sterile #15 blade and necrotic tissue was excised down to and including subcutaneous tissue. Bleeding was minimal and hemostasis was achieved using pressure. The patient tolerated procedure and anesthesia well. The patient was educated regarding the signs and symptoms of infection, such as purulent drainage, edema, cellulitis, and significant pain, and to notify healthcare personnel for any of these things occur. Postprocedure no increased pain. (2) Cellulitis of left foot: History of Present Illness Attending Physician: Km Thomas MD History of Present Illness Patient is an 86-year-old female seen at bedside for left foot wound. Patient has a past medical history of chronic diastolic heart failure, hypertension, and venous insufficiency. Patient presented to [facility] ED one day earlier (01/23/22). Patient came from PCPs office with Left LE worsening cellulitis. Patient reports chronic left foot wound with frequent cellulitis over the past 2 years. She most recently has been treated for left foot infection for the past 2-3 months.Patient previously diagnosed with Pseudomonas foot infection 2 months ago in [facility] ED and completed course of Cipro. Patient followed up with PCP and placed on another 10-day course of Bactrim and doxycycline. Patient reports foot is sensate and painful when trying to put shoe on. She has not been seen by wound care in the past. Patient does have lower extremity edema and has need for Lasix to limit leg swelling but has not been taking due to issues with urinary incontinence. Patient is resting comfortably today and has no complaints other than left foot. Allergies Allergy/AdvReac Type Severity Reaction Status Date / Time Iodinated Contrast Media Allergy Intermediate Rash Verified 10/10/21 18:15 Home Medications Medication Instructions Recorded Confirmed Type acetaminophen 650 mg 650 mg PO Q8H PRN Pain 04/13/21 01/23/22 History tablet,extended release (Arthritis Pain Relief (acetaminophen) ER) dorzolamide 2 % eye drops 1 drp OPB BID 04/13/21 01/23/22 History lisinopril 5 mg tablet 5 mg PO HS 04/13/21 01/23/22 History timolol maleate 0.25 % eye drops 1 drp OPB QAM 04/13/21 01/23/22 History pantoprazole 40 mg tablet,delayed 40 mg PO BID 10/10/21 01/23/22 History release L.acidop,casei,lactis,rham-B.lact,larissa 2 cap PO DAILY 01/23/22 01/23/22 History 625 mg (10 billion cell) capsule (Advanced Probiotic) cholecalciferol (vitamin D3) 125 125 mcg PO DAILY 01/23/22 01/23/22 History mcg (5,000 unit) capsule furosemide 20 mg tablet 20 mg PO Q2D PRN Edema 01/23/22 01/23/22 History magnesium 200 mg tablet 200 mg PO DAILY 01/23/22 01/23/22 History ainafzlnwzdk-mbdmqdva-dijfls tablet 1 tab PO DAILY 01/23/22 01/23/22 History Patient History Medical History Anemia Arthritis Closed right hip fracture Glaucoma Hypertension 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 Surgical History H/O: hysterectomy History of bunionectomy History of surgery on arm Family History Other Kidney disease Stroke Social History Smoking Status: Never smoker Second Hand Exposure: No; Hx Alcohol Use: No Hx Substance Use: No Preferred Language: Tajik Communication Ability: Effective Improvement Lead Required: No Beliefs That Will Affect Care: None marital status: / Current Living Situation: Family Current Living Situation Comment: Home with son Other Information That Helps Us Care for You: No Feels Safe at Home: Yes Safety Concerns: Feels Safe At This Time Assistive Devices: Walker Review of Systems Review of Systems: All systems reviewed & are unremarkable except as noted in HPI & below Physical Exam Constitutional: WD/WN, vitals as above ENMT: external ear and nose normal, oropharynx normal Respiratory: normal respiratory effort Cardiovascular: Pedal pulses palpable. Capillary refill time within normal limits. Musculoskeletal: MMT 5/5 Skin: Full thickness left dorsal foot ulcer. Focused Exam: Wound location: Dorsal left foot Wound base color and depth: full thickness wound with significant fibrotic slough Wound size (cm): 6 x 7 x 0.1cm Odor: no malodor Drainage: moderate/heavy serous Undermining: none Borders: macerated Neurologic: Epicritic sensation intact. Psychiatric: A+Ox3, euthymic affect Results & Data ([facility]) Vital Signs (Past 12 Hours) Vital Signs Temp Pulse Resp BP Pulse Ox O2 Del Method 01/24/22 08:06 37.5 C 96 H 19 155/64 H 94 Room Air 01/24/22 03:00 36.9 C 98 H 18 153/71 H 95 Room Air Diagnostic Findings [facility] [place], [place] [phone] XRay Report Patient:LEX LEUNG Admit Date:01/23/22 MR#:[id number] Address1:[address] [place] [address] Acct ID:[id number] Address2: Date:1935 [facility] Zip:[place] [id number] Age:86 Location:ED Sex:F Room/Bed: Att Phy: Diagnosis:CELLULITIS ON LEFT FOOT Marianela Phy:Meagan Castillo MD Service Date:01/23/22 [facility] Phy: Interpreting Phy:Madhu Calderon MDAdmit Phy: Ordering Phy:Hardik Askew M.D. cc: ~ XR foot LT min 3V routine CLINICAL HISTORY: sepsis, foot infection, concern osteomyelitis COMPARISON STUDY: None. FINDINGS: 3 views of the left foot were submitted for review. Soft tissue swelling within the dorsum of the foot. There is a 2.5 cm skin ulceration at the dorsal aspect of the midfoot. No underlying destruction to suggest an osteomyelitis. Tiny plantar and posterior calcaneal spurs are noted. The Lisfranc joint is intact. No fracture or dislocation. The bones are slightly osteopenic. Suggestion of a prior bunionectomy. IMPRESSION: A 2.5 cm skin ulceration at the dorsal aspect of the midfoot. No underlying bony destruction to suggest an osteomyelitis. ACT 112: Negative or not required by law. Electronically signed by: Madhu Calderon M.D. 01/23/2022 11:49 AM
--- NOTE | 2022-01-24 12:44 | Hospitalist Progress Note ---
Date of Service January 24, 2022 Assessment & Plan (1) Cellulitis of left foot: Plan: This is an 86-year-old female with PMHx of left foot cellulitis on recent oral antibiotics, chronic diastolic heart failure, hypertension, venous insufficiency and other medical problems listed below who presents from PCPs office with worsening cellulitis. Previously diagnosed with Pseudomonas foot infection 2 months ago in ED and completed Cipro course followed by 10-day course of Bactrim and doxycycline Sent by PCP for worsening LLE cellulitis and open wound with purulent drainage, increased swelling and pain Vital signs stable, nontoxic appearance, lactate and procalcitonin within normal range. Foot x-ray with a 2.5 cm skin ulceration at the dorsal aspect of the midfoot. No underlying bony destruction to suggest an osteomyelitis Superficial wound cultures shows gram-negative bacilli Blood culture no growth so far Plan: Continue on cefepime and vancomycin for now. Will need coverage for gram- negative bacilli and staph aureus. We will see response on IV antibiotic; oral de-escalation will be dependent on clinical progression. Dressing changes as per wound care. Patient would need outpatient follow-up at discharge for wound care center. Podiatry on consult; appreciate recommendation. (2) Anemia: Plan: Per outpatient records, baseline hemoglobin 7.5-8.5 in setting of known peptic ulcer disease and MARIBELL. Has required blood transfusions in the past. Previous on oral iron supplementation due to constipation Received 1 unit of packed RBC. Hemoglobin is 8.2 today. Likely iron deficiency anemia. Will follow-up on ferritin level and occult blood; will need GI follow-up inpatient vs outpatient based on clinical progression. (3) Hypertension: Plan: Continue lisinopril DVT Ppx: SCDs on RLE for now given possible GI bleed, anemia Code status: FULL PCP: Debora Dispo: admitted to [facility] Admission and Anticipated Discharge Date Admission Date: January 23, 2022 Subjective Patient seen and examined at bedside. She reports pain in her left foot. Afebrile overnight. Vital stable. Review of Systems Review of Systems: All systems reviewed & are unremarkable except as noted in Subjective Physical Exam Physical Exam: Constitutional: WD/WN, vitals as above, NAD, sitting up in bed, pleasant, conversing easily Respiratory: normal respiratory effort, lungs clear to auscultation, no wheeze, rales, rhonchi. Normal insp/exp effort, no accessory muscle use Cardiovascular: RRR, no murmur, no edema Vessels: no JVD or carotid bruit Chest: normal inspection of chest Abdomen: normal bowel sounds, soft, nontender, no hepatosplenomegaly Musculoskeletal: Left foot as documented in the chart. Yellowish discharge on the dorsal aspect of the foot. Surrounding erythema and swelling. Currently, patient has bandage over the foot; no overlying soakage. Skin: no rashes, warm and dry normal turgor Neurologic: PERRL, EOMI, accommodation nl, no face palsy, no dysarthria CN's II- XI intact bilaterally and moves all extremities Psychiatric: A+Ox3, euthymic affect Lymphatic: no cervical or axillary lymphadenopathy : deferred Results & Data Results & Data ([facility]) Vital Signs (Past 12 Hours) Vital Signs Temp Pulse Resp BP Pulse Ox O2 Del Method 01/24/22 08:06 37.5 C 96 H 19 155/64 H 94 Room Air 01/24/22 03:00 36.9 C 98 H 18 153/71 H 95 Room Air Laboratory Results Laboratory Results WBC 8.54 K/ul (4.8-10.8) 01/24/22 05:58 RBC 2.90 M/uL (3.93-5.22) L 01/24/22 05:58 Hgb 8.2 g/dl (12.0-16.0) L 01/24/22 05:58 Hct 24.9 % (34.1-44.9) L 01/24/22 05:58 MCV 85.9 fL (80.0-100.0) 01/24/22 05:58 MCH 28.3 pg (25.0-34.0) 01/24/22 05:58 MCHC 32.9 g/dL (32.0-36.0) 01/24/22 05:58 RDW Std Deviation 51.8 fL (36.4-46.3) H 01/24/22 05:58 RDW Coeff of Vasu 16.5 % (11.5-14.5) H 01/24/22 05:58 Plt Count 390 K/uL (130-400) 01/24/22 05:58 MPV 9.8 fL (9.4-12.3) 01/24/22 05:58 Immature Gran % (Auto) 0.4 % 01/23/22 10:05 Neut % (Auto) 80.2 % 01/23/22 10:05 Lymph % (Auto) 8.2 % 01/23/22 10:05 [place] % (Auto) 10.3 % 01/23/22 10:05 Eos % (Auto) 0.5 % 01/23/22 10:05 Baso % (Auto) 0.4 % 01/23/22 10:05 Neut # (Auto) 7.37 K/uL (1.4-6.5) H 01/23/22 10:05 Lymph # (Auto) 0.75 K/uL (1.2-3.4) L 01/23/22 10:05 [place] # (Auto) 0.95 K/uL (0.24-0.82) H 01/23/22 10:05 Eos # (Auto) 0.05 K/uL (0-0.50) 01/23/22 10:05 Baso # (Auto) 0.04 K/uL (0-0.2) 01/23/22 10:05 Immature Gran # (Auto) 0.04 K/uL (0.00-0.02) H 01/23/22 10:05 Polychromasia 1+ 01/23/22 10:05 Poikilocytosis Present 01/23/22 10:05 Sodium 137 mmol/L (136-145) 01/24/22 05:58 Potassium 3.9 mmol/L (3.5-5.1) 01/24/22 05:58 Chloride 108 mmol/L (98-107) H 01/24/22 05:58 Carbon Dioxide 22 mmol/L (21-32) 01/24/22 05:58 Anion Gap 7 (3-11) 01/24/22 05:58 BUN 30 mg/dl (6-23) H 01/24/22 05:58 Creatinine 0.98 mg/dl (0.6-1.2) 01/24/22 05:58 Est Cr Clr Drug Dosing 30.1 ml/min 01/24/22 05:58 Est GFR ( Amer) 61.0 ml/min 01/24/22 05:58 Est GFR (Non-Af Amer) 52.6 ml/min 01/24/22 05:58 BUN/Creatinine Ratio 30.6 (10-20) H 01/24/22 05:58 Glucose 80 mg/dl (70-99(Fasting)) 01/24/22 05:58 Lactate 0.8 mmol/L (0.4-2.0) 01/23/22 10:05 Calcium 8.2 mg/dl (8.5-10.1) L 01/24/22 05:58 Magnesium 1.8 mg/dl (1.7-2.4) 01/23/22 10:05 Iron < 10 mcg/dl (35-150) L 01/23/22 11:41 Unsaturated IBC 397 mcg/dl (155-355) H 01/23/22 11:41 Transferrin 324 mg/dl (200-360) 01/23/22 11:41 Total Bilirubin 0.4 mg/dl (0.2-1.0) 01/23/22 10:05 Direct Bilirubin 0.0 mg/dl (0-0.2) 01/23/22 10:05 AST 22 U/L (13-39) 01/23/22 10:05 ALT 20 U/L (7-52) 01/23/22 10:05 Alkaline Phosphatase 77 U/L (34-104) 01/23/22 10:05 Troponin I High Sens 19.2 pg/ml (0-14) H D 01/24/22 05:58 Total Protein 6.8 gm/dl (6.0-8.3) 01/23/22 10:05 Albumin 3.2 gm/dl (3.4-5.0) L 01/23/22 10:05 Vitamin B12 291 pg/ml (180-914) 01/23/22 11:41 Folate > 22.30 ng/ml (>5.38) 01/23/22 11:41 Procalcitonin < 0.05 ng/ml (0-0.5) 01/23/22 10:05 Urine Color Yellow 01/23/22 18:25 Urine Appearance Clear (Clear) 01/23/22 18:25 Urine pH 7.0 (4.5-7.5) 01/23/22 18:25 Ur Specific [place] 1.013 (1.000-1.030) 01/23/22 18:25 Urine Protein Negative (Negative) 01/23/22 18:25 Urine Glucose (UA) Negative (Negative) 01/23/22 18:25 Urine Ketones Negative (Negative) 01/23/22 18:25 Urine Blood Negative (Negative) 01/23/22 18:25 Urine Nitrite Negative (Negative) 01/23/22 18:25 Urine Bilirubin Negative (Negative) 01/23/22 18:25 Urine Urobilinogen Negative (Negative) 01/23/22 18:25 Ur Leukocyte Esterase Negative (Negative) 01/23/22 18:25 SARS-CoV-2, RNA, NAAT NEGATIVE (NEGATIVE) 01/23/22 11:24 Blood Type O Positive 01/23/22 11:41 Antibody Screen NEGATIVE 01/23/22 11:41 Crossmatch See Detail 01/23/22 11:41 Impressions Foot X-Ray 01/23/22 09:39 XR foot LT min 3V routine CLINICAL HISTORY: sepsis, foot infection, concern osteomyelitis COMPARISON STUDY: None. FINDINGS: 3 views of the left foot were submitted for review. Soft tissue swelling within the dorsum of the foot. There is a 2.5 cm skin ulceration at the dorsal aspect of the midfoot. No underlying destruction to suggest an osteomyelitis. Tiny plantar and posterior calcaneal spurs are noted. The Lisfranc joint is intact. No fracture or dislocation. The bones are slightly osteopenic. Suggestion of a prior bunionectomy. IMPRESSION: A 2.5 cm skin ulceration at the dorsal aspect of the midfoot. No underlying bony destruction to suggest an osteomyelitis. ACT 112: Negative or not required by law. Electronically signed by: Madhu Calderon M.D. 01/23/2022 11:49 AM (1) Anemia Anemia type: unspecified type Qualified Code(s): D64.9 - Anemia, unspecified
[2022-01-24] MEDS: lisinopril 5 MG TAB PO SCH (21:59)
[2022-01-25] MEDS: ACETAMINOPHEN 325 MG TAB PO PRN ×3 (04:28→15:48)
[2022-01-25 06:04] LABS: Basophils # (auto) 0.03 K/uL (0-0.2); Basophils % (auto) 0.4 %; Eosinophils # (auto) 0.29 K/uL (0-0.50); Eosinophils % (auto) 3.9 %; Hematocrit (blood only) 23.1 % (34.1-44.9); Hemoglobin 7.8 g/dl (12.0-16.0); Immature Granulocytes # (auto) 0.04 K/uL (0.00-0.02); Immature Granulocytes % (auto) 0.5 %; Lymphocytes # (auto) 0.49 K/uL (1.2-3.4); Lymphocytes % (auto) 6.6 %; Mean Corpuscular Hemoglobin 28.8 pg (25.0-34.0); Mean Corpuscular Hgb Conc 33.8 g/dL (32.0-36.0); Mean Corpuscular Volume 85.2 fL (80.0-100.0); Monocytes # (auto) 0.65 K/uL (0.24-0.82); Monocytes % (auto) 8.8 %; Neutrophils # (auto) 5.92 K/uL (1.4-6.5); Neutrophils % (auto) 79.8 %; Nucleated RBC # (auto) 0.04 K/uL (0-0); Nucleated RBC % (auto) 0.5 %; Platelet Count 375 K/uL (130-400); RDW Coefficient of Variation 16.9 % (11.5-14.5); Red Blood Count 2.71 M/uL (3.93-5.22); White Blood Count 7.42 K/ul (4.8-10.8)
[2022-01-25 06:39] LABS: BUN Creatinine Ratio 29.8 (10-20); C Reactive Protein 11.66 mg/dl (0-0.5); Creatinine Clr Calc Pharmacy 25.9 ml/min; Est GFR (African American) 50.8 ml/min; Est GFR (Non-African American) 43.8 ml/min; RBC Morphology Unremarkable
[2022-01-25 06:45] LABS: Ferritin 213.5 ng/ml (8-388)
[2022-01-25] MEDS: MAGNESIUM OXIDE 400 MG TAB PO SCH (08:01)
[2022-01-25] MEDS: PANTOprazole 40 MG TAB PO SCH (08:01)
[2022-01-25] MEDS: CHOLECALCIFEROL 5,000 UNITS 125 MCG TAB PO SCH (08:01)
[2022-01-25] MEDS: CEROVITE ADV FORMULA TAB PO SCH (08:01)
[2022-01-25] MEDS: DORZOLAMIDE HCL 2% OPH SOLN 10 ML BTL OPB SCH ×2 (08:01→20:11)
[2022-01-25] MEDS: ADVANCED PROBIOTIC 1250 MG CAPSULE PO SCH (08:01)
[2022-01-25] MEDS: TIMOLOL GFS 0.5% OPH SOLN 74 DROPS/5 ML BTL OPB SCH (08:02)
[2022-01-25] MEDS: CEFEPIME 1,000 MG in SYRINGE 0 ML IV SCH ×2 (08:02→20:11)
--- NOTE | 2022-01-25 10:51 | Hospitalist Progress Note ---
Date of Service January 25, 2022 Assessment & Plan (1) Ulcer of left foot: (2) Cellulitis of left foot: Plan: This is an 86-year-old female with PMHx of left foot cellulitis on recent oral antibiotics, chronic diastolic heart failure, hypertension, venous insufficiency and other medical problems listed below who presents from PCPs office with worsening cellulitis. Previously diagnosed with Pseudomonas foot infection 2 months ago in ED and completed Cipro course followed by 10-day course of Bactrim and doxycycline Sent by PCP for worsening LLE cellulitis and open wound with purulent drainage, increased swelling and pain Vital signs stable, nontoxic appearance, lactate and procalcitonin within normal range. Foot x-ray with a 2.5 cm skin ulceration at the dorsal aspect of the midfoot. No underlying bony destruction to suggest an osteomyelitis Superficial wound cultures shows Pseudomonas; pansensitive. Blood culture no growth so far ESR44, CRP11.6 s/p Bedside debridement on 01/24/2022 Plan: continue on cefepime IV for now. Stop Vanco and start Doxycycline. Plan to change to ciprofloxacin at discharge. Podiatry on board; patient had bedside debridement yesterday. Wound care on consult; we will follow-up on instruction regarding wound care. - Patient will need outpatient wound clinic follow-up at discharge. (3) Anemia: Plan: Per outpatient records, baseline hemoglobin 7.5-8.5 in setting of known peptic ulcer disease and MARIBELL. Has required blood transfusions in the past. Previous on oral iron supplementation due to constipation Continue on Protonix 40 mg once daily. (4) Hypertension: Plan: Continue lisinopril DVT Ppx: heparin Code status: FULL PCP: Debora Candelario: admitted to [facility] Admission and Anticipated Discharge Date Admission Date: January 23, 2022 Subjective Patient seen and examined at bedside. She reports pain in her left foot intermittently. She underwent bedside debridement by Dr. Leon yesterday. Afebrile overnight. Review of Systems Review of Systems: All systems reviewed & are unremarkable except as noted in Subjective Physical Exam Physical Exam: Constitutional: WD/WN, vitals as above, NAD, sitting up in bed, pleasant, conversing easily Respiratory: normal respiratory effort, lungs clear to auscultation, no wheeze, rales, rhonchi. Normal insp/exp effort, no accessory muscle use Cardiovascular: RRR, no murmur, no edema Vessels: no JVD or carotid bruit Chest: normal inspection of chest Abdomen: normal bowel sounds, soft, nontender, no hepatosplenomegaly Musculoskeletal: Left foot as documented in the chart. Yellowish discharge on the dorsal aspect of the foot. Surrounding erythema and swelling. Currently, patient has bandage over the foot; no overlying soakage. Skin: no rashes, warm and dry normal turgor Neurologic: PERRL, EOMI, accommodation nl, no face palsy, no dysarthria CN's II- XI intact bilaterally and moves all extremities Psychiatric: A+Ox3, euthymic affect Lymphatic: no cervical or axillary lymphadenopathy : deferred Results & Data Results & Data ([facility]) Vital Signs (Past 12 Hours) Vital Signs Temp Pulse Resp BP Pulse Ox O2 Del Method 01/25/22 07:59 36.8 C 85 16 126/61 96 Room Air 01/25/22 03:15 36.6 C 87 18 151/67 H 94 Room Air 01/24/22 23:00 36.8 C 90 18 138/70 96 Room Air Laboratory Results Laboratory Results WBC 7.42 K/ul (4.8-10.8) 01/25/22 05:39 RBC 2.71 M/uL (3.93-5.22) L 01/25/22 05:39 Hgb 7.8 g/dl (12.0-16.0) L 01/25/22 05:39 Hct 23.1 % (34.1-44.9) L 01/25/22 05:39 MCV 85.2 fL (80.0-100.0) 01/25/22 05:39 MCH 28.8 pg (25.0-34.0) 01/25/22 05:39 MCHC 33.8 g/dL (32.0-36.0) 01/25/22 05:39 RDW Std Deviation 52.0 fL (36.4-46.3) H 01/25/22 05:39 RDW Coeff of Vasu 16.9 % (11.5-14.5) H 01/25/22 05:39 Plt Count 375 K/uL (130-400) 01/25/22 05:39 MPV 10.0 fL (9.4-12.3) 01/25/22 05:39 Immature Gran % (Auto) 0.5 % 01/25/22 05:39 Neut % (Auto) 79.8 % 01/25/22 05:39 Lymph % (Auto) 6.6 % 01/25/22 05:39 [place] % (Auto) 8.8 % 01/25/22 05:39 Eos % (Auto) 3.9 % 01/25/22 05:39 Baso % (Auto) 0.4 % 01/25/22 05:39 Neut # (Auto) 5.92 K/uL (1.4-6.5) 01/25/22 05:39 Lymph # (Auto) 0.49 K/uL (1.2-3.4) L 01/25/22 05:39 [place] # (Auto) 0.65 K/uL (0.24-0.82) 01/25/22 05:39 Eos # (Auto) 0.29 K/uL (0-0.50) 01/25/22 05:39 Baso # (Auto) 0.03 K/uL (0-0.2) 01/25/22 05:39 Immature Gran # (Auto) 0.04 K/uL (0.00-0.02) H 01/25/22 05:39 Absolute Nucleated RBC 0.04 K/uL (0-0) H 01/25/22 05:39 Nucleated RBC % (auto) 0.5 % 01/25/22 05:39 RBC Morphology Unremarkable 01/25/22 05:39 Polychromasia 1+ 01/23/22 10:05 Poikilocytosis Present 01/23/22 10:05 ESR 44 mm/hr (0-30) H 01/25/22 05:39 Sodium 138 mmol/L (136-145) 01/25/22 05:39 Potassium 4.0 mmol/L (3.5-5.1) 01/25/22 05:39 Chloride 109 mmol/L (98-107) H 01/25/22 05:39 Carbon Dioxide 23 mmol/L (21-32) 01/25/22 05:39 Anion Gap 6 (3-11) 01/25/22 05:39 BUN 34 mg/dl (6-23) H 01/25/22 05:39 Creatinine 1.14 mg/dl (0.6-1.2) 01/25/22 05:39 Est Cr Clr Drug Dosing 25.9 ml/min 01/25/22 05:39 Est GFR ( Amer) 50.8 ml/min 01/25/22 05:39 Est GFR (Non-Af Amer) 43.8 ml/min 01/25/22 05:39 BUN/Creatinine Ratio 29.8 (10-20) H 01/25/22 05:39 Glucose 81 mg/dl (70-99(Fasting)) 01/25/22 05:39 Lactate 0.8 mmol/L (0.4-2.0) 01/23/22 10:05 Calcium 8.0 mg/dl (8.5-10.1) L 01/25/22 05:39 Magnesium 1.8 mg/dl (1.7-2.4) 01/23/22 10:05 Iron < 10 mcg/dl (35-150) L 01/23/22 11:41 Unsaturated IBC 397 mcg/dl (155-355) H 01/23/22 11:41 Transferrin 324 mg/dl (200-360) 01/23/22 11:41 Ferritin 213.5 ng/ml (8-388) 01/25/22 05:39 Total Bilirubin 0.4 mg/dl (0.2-1.0) 01/23/22 10:05 Direct Bilirubin 0.0 mg/dl (0-0.2) 01/23/22 10:05 AST 22 U/L (13-39) 01/23/22 10:05 ALT 20 U/L (7-52) 01/23/22 10:05 Alkaline Phosphatase 77 U/L (34-104) 01/23/22 10:05 Troponin I High Sens 19.2 pg/ml (0-14) H D 01/24/22 05:58 C-Reactive Protein 11.66 mg/dl (0-0.5) H 01/25/22 05:39 Total Protein 6.8 gm/dl (6.0-8.3) 01/23/22 10:05 Albumin 3.2 gm/dl (3.4-5.0) L 01/23/22 10:05 Vitamin B12 291 pg/ml (180-914) 01/23/22 11:41 Folate > 22.30 ng/ml (>5.38) 11/23/22 11:41 Procalcitonin < 0.05 ng/ml (0-0.5) 01/23/22 10:05 Urine Color Yellow 01/23/22 18:25 Urine Appearance Clear (Clear) 01/23/22 18:25 Urine pH 7.0 (4.5-7.5) 01/23/22 18:25 Ur Specific [place] 1.013 (1.000-1.030) 01/23/22 18:25 Urine Protein Negative (Negative) 01/23/22 18:25 Urine Glucose (UA) Negative (Negative) 01/23/22 18:25 Urine Ketones Negative (Negative) 01/23/22 18:25 Urine Blood Negative (Negative) 01/23/22 18: Urine Nitrite Negative (Negative) 01/23/22 18:25 Urine Bilirubin Negative (Negative) 01/23/22 18:25 Urine Urobilinogen Negative (Negative) 01/23/22 18:25 Ur Leukocyte Esterase Negative (Negative) 01/23/22 18:25 SARS-CoV-2, RNA, NAAT NEGATIVE (NEGATIVE) 01/23/22 11:24 Blood Type O Positive 01/23/22 11:41 Antibody Screen NEGATIVE 01/23/22 11:41 Crossmatch See Detail 01/23/22 11:41 Impressions Foot X-Ray 01/23/22 09:39 XR foot LT min 3V routine CLINICAL HISTORY: sepsis, foot infection, concern osteomyelitis COMPARISON STUDY: None. FINDINGS: 3 views of the left foot were submitted for review. Soft tissue swelling within the dorsum of the foot. There is a 2.5 cm skin ulceration at the dorsal aspect of the midfoot. No underlying destruction to suggest an osteomyelitis. Tiny plantar and posterior calcaneal spurs are noted. The Lisfranc joint is intact. No fracture or dislocation. The bones are slightly osteopenic. Suggestion of a prior bunionectomy. IMPRESSION: A 2.5 cm skin ulceration at the dorsal aspect of the midfoot. No underlying bony destruction to suggest an osteomyelitis. ACT 112: Negative or not required by law. Electronically signed by: Madhu Calderon M.D. 01/23/2022 11:49 AM (1) Anemia Anemia type: unspecified type Qualified Code(s): D64.9 - Anemia, unspecified
[2022-01-25] MEDS: oxyCODONE HCL IR 5 MG TAB (IMMEDIATE RELEASE) PO PRN ×2 (11:50→19:43)
[2022-01-25] MEDS ORDERED: VANCOMYCIN HCL 750 MG in SODIUM CHLORIDE 0.9% 250 ML IV SCH (13:00)
[2022-01-25] MEDS: FUROSEMIDE 20 MG TAB PO SCH (15:36)
[2022-01-25] MEDS: DOXYCYCLINE HYCLATE 100 MG CAP PO SCH ×2 (15:36→20:26)
[2022-01-25] MEDS: HEPARIN SOD 5,000 UNIT/0.5 ML VIAL SQ SCH (20:10)
[2022-01-25] MEDS: lisinopril 5 MG TAB PO SCH (20:10)
--- NOTE | 2022-01-25 21:40 | Orthopedic Progress Note ---
Date of Service January 25, 2022 Assessment & Plan (1) Ulcer of left foot: Plan: Patient seen, evaluated, and treated. Dry, sterile dressing change with out incident. There is significant decrease in fibrous slough over wound. Wound cleansed with Betadine followed by normal saline. Application of adaptic followed by Aquacel, 4x4 gauze, kerlix. Will continue to monitor wound progression and may change dressings based on assessment. Lower extremity compression and edema control is an important part of this Patient's wound management. I did discuss use of multiple layer compression as well a single layer tubi html developer. This will not be available until Friday per yamel vidal. Thank you for allowing me to participate in the care of this Patient. (2) Cellulitis of left foot: Admission and Anticipated Discharge Date Admission Date: January 23, 2022 Subjective Patient seen at bedside resting comfortably in no acute distress. She has no complaints. Review of Systems Review of Systems: All systems reviewed & are unremarkable except as noted in HPI & below Physical Exam Respiratory: normal respiratory effort Cardiovascular: Pedal pulses palpable. Capillary refill time within normal limits. Musculoskeletal: MMT 5/5 Skin: Full thickness left dorsal foot ulcer. Focused Exam: Wound location: Dorsal left foot Wound base color and depth: full thickness wound with significant fibrotic slough Wound size (cm): 6 x 7 x 0.1cm Odor: no malodor Drainage: moderate/heavy serous Undermining: none Borders: macerated Neurologic: Epicritic sensation intact. Psychiatric: A+Ox3, euthymic affect Results & Data ([facility]) Vital Signs (Past 12 Hours) Vital Signs Temp Pulse Resp BP BP Pulse Ox O2 Del Method 01/25/22 20:11 92 H 170/77 H 01/25/22 19:55 36.7 C 93 H 18 99 Room Air 01/25/22 14:43 36.7 C 76 16 118/65 95 Room Air 01/25/22 11:18 36.8 C 91 H 16 115/65 94 Room Air
[2022-01-26] MEDS: ACETAMINOPHEN 325 MG TAB PO PRN ×2 (04:04→14:24)
[2022-01-26 07:31] LABS: Basophils # (auto) 0.02 K/uL (0-0.2); Basophils % (auto) 0.3 %; Eosinophils # (auto) 0.25 K/uL (0-0.50); Eosinophils % (auto) 3.9 %; Hematocrit (blood only) 24.9 % (34.1-44.9); Hemoglobin 8.1 g/dl (12.0-16.0); Immature Granulocytes # (auto) 0.04 K/uL (0.00-0.02); Immature Granulocytes % (auto) 0.6 %; Lymphocytes # (auto) 0.67 K/uL (1.2-3.4); Lymphocytes % (auto) 10.6 %; Mean Corpuscular Hemoglobin 28.5 pg (25.0-34.0); Mean Corpuscular Hgb Conc 32.5 g/dL (32.0-36.0); Mean Corpuscular Volume 87.7 fL (80.0-100.0); Monocytes # (auto) 0.89 K/uL (0.24-0.82); Monocytes % (auto) 14.1 %; Neutrophils # (auto) 4.46 K/uL (1.4-6.5); Neutrophils % (auto) 70.5 %; Nucleated RBC # (auto) 0.02 K/uL (0-0); Nucleated RBC % (auto) 0.3 %; Platelet Count 398 K/uL (130-400); Red Blood Count 2.84 M/uL (3.93-5.22); White Blood Count 6.33 K/ul (4.8-10.8)
[2022-01-26 07:54] LABS: BUN Creatinine Ratio 40.4 (10-20); Calcium 8.1 mg/dl (8.5-10.1); Creatinine Clr Calc Pharmacy 28.4 ml/min; Est GFR (African American) 56.7 ml/min; Potassium 4.1 mmol/L (3.5-5.1)
[2022-01-26] MEDS: CEFEPIME 1,000 MG in SYRINGE 0 ML IV SCH ×2 (09:07→21:06)
[2022-01-26] MEDS: oxyCODONE HCL IR 5 MG TAB (IMMEDIATE RELEASE) PO PRN ×3 (09:07→21:11)
[2022-01-26] MEDS: DOXYCYCLINE HYCLATE 100 MG CAP PO SCH ×2 (09:07→21:07)
[2022-01-26] MEDS: ADVANCED PROBIOTIC 1250 MG CAPSULE PO SCH (09:07)
[2022-01-26] MEDS: MAGNESIUM OXIDE 400 MG TAB PO SCH (09:08)
[2022-01-26] MEDS: CEROVITE ADV FORMULA TAB PO SCH (09:08)
[2022-01-26] MEDS: PANTOprazole 40 MG TAB PO SCH (09:08)
[2022-01-26] MEDS: HEPARIN SOD 5,000 UNIT/0.5 ML VIAL SQ SCH ×2 (09:08→21:07)
[2022-01-26] MEDS: CHOLECALCIFEROL 5,000 UNITS 125 MCG TAB PO SCH (09:08)
[2022-01-26] MEDS: DORZOLAMIDE HCL 2% OPH SOLN 10 ML BTL OPB SCH ×2 (09:09→21:06)
[2022-01-26] MEDS: TIMOLOL GFS 0.5% OPH SOLN 74 DROPS/5 ML BTL OPB SCH (09:09)
--- NOTE | 2022-01-26 11:08 | Hospitalist Progress Note ---
Date of Service January 26, 2022 Assessment & Plan (1) Ulcer of left foot: (2) Cellulitis of left foot: Plan: This is an 86-year-old female with PMHx of left foot cellulitis on recent oral antibiotics, chronic diastolic heart failure, hypertension, venous insufficiency and other medical problems listed below who presents from PCPs office with worsening cellulitis. Previously diagnosed with Pseudomonas foot infection 2 months ago in ED and completed Cipro course followed by 10-day course of Bactrim and doxycycline Sent by PCP for worsening LLE cellulitis and open wound with purulent drainage, increased swelling and pain Vital signs stable, nontoxic appearance, lactate and procalcitonin within normal range. Foot x-ray with a 2.5 cm skin ulceration at the dorsal aspect of the midfoot. No underlying bony destruction to suggest an osteomyelitis Superficial wound cultures shows Pseudomonas; pansensitive. Blood culture no growth so far ESR44, CRP11.6 s/p Bedside debridement on 01/24/2022 Plan: continue on cefepime IV for now. Stop Vanco and start Doxycycline. Plan to change to ciprofloxacin at discharge. Complete 7 days of antibiotic for cellulitis. Podiatry on board; patient had bedside debridement on 01/24. Dressing change done on 01/25. Wound care on consult; we will follow-up on instruction regarding wound care. - Patient will need outpatient wound clinic follow-up at discharge. (3) Anemia: Plan: Per outpatient records, baseline hemoglobin 7.5-8.5 in setting of known peptic ulcer disease and MARIBELL. Has required blood transfusions in the past. Previous on oral iron supplementation due to constipation Continue on Protonix 40 mg once daily. (4) Hypertension: Plan: Continue lisinopril DVT Ppx: heparin Code status: FULL PCP: Debora Delunao: admitted to [facility]. PT OT ordered Admission and Anticipated Discharge Date Admission Date: January 23, 2022 Subjective Patient seen and examined at bedside. She reports pain and discomfort on her left foot intermittently. Afebrile overnight. Review of Systems Review of Systems: All systems reviewed & are unremarkable except as noted in Subjective Physical Exam Physical Exam: Constitutional: WD/WN, vitals as above, NAD, sitting up in bed, pleasant, conversing easily Respiratory: normal respiratory effort, lungs clear to auscultation, no wheeze, rales, rhonchi. Normal insp/exp effort, no accessory muscle use Cardiovascular: RRR, no murmur, no edema Vessels: no JVD or carotid bruit Chest: normal inspection of chest Abdomen: normal bowel sounds, soft, nontender, no hepatosplenomegaly Musculoskeletal: Left foot as documented in the chart. Yellowish discharge on the dorsal aspect of the foot. Currently, patient has bandage over the foot; no overlying soakage. Erythema and swelling improved compared to admission. Skin: no rashes, warm and dry normal turgor Neurologic: PERRL, EOMI, accommodation nl, no face palsy, no dysarthria CN's II- XI intact bilaterally and moves all extremities Psychiatric: A+Ox3, euthymic affect Lymphatic: no cervical or axillary lymphadenopathy : deferred Results & Data Results & Data ([facility]) Vital Signs (Past 12 Hours) Vital Signs Temp Pulse Pulse Resp BP BP Pulse Ox 01/26/22 07:35 36.8 C 84 16 113/64 96 01/26/22 03:28 37.4 C 88 18 144/61 H 94 O2 Del Method 01/26/22 07:35 Room Air 01/26/22 03:28 Room Air Laboratory Results Laboratory Results WBC 6.33 K/ul (4.8-10.8) 01/26/22 06:45 RBC 2.84 M/uL (3.93-5.22) L 01/26/22 06:45 Hgb 8.1 g/dl (12.0-16.0) L 01/26/22 06:45 Hct 24.9 % (34.1-44.9) L 01/26/22 06:45 MCV 87.7 fL (80.0-100.0) 01/26/22 06:45 MCH 28.5 pg (25.0-34.0) 01/26/22 06:45 MCHC 32.5 g/dL (32.0-36.0) 01/26/22 06:45 RDW Std Deviation 53.0 fL (36.4-46.3) H 01/26/22 06:45 RDW Coeff of Vasu 17.0 % (11.5-14.5) H 01/26/22 06:45 Plt Count 398 K/uL (130-400) 01/26/22 06:45 MPV 10.0 fL (9.4-12.3) 01/26/22 06:45 Immature Gran % (Auto) 0.6 % 01/26/22 06:45 Neut % (Auto) 70.5 % 01/26/22 06:45 Lymph % (Auto) 10.6 % 01/26/22 06:45 [place] % (Auto) 14.1 % 01/26/22 06:45 Eos % (Auto) 3.9 % 01/26/22 06:45 Baso % (Auto) 0.3 % 01/26/22 06:45 Neut # (Auto) 4.46 K/uL (1.4-6.5) 01/26/22 06:45 Lymph # (Auto) 0.67 K/uL (1.2-3.4) L 01/26/22 06:45 [place] # (Auto) 0.89 K/uL (0.24-0.82) H 01/26/22 06:45 Eos # (Auto) 0.25 K/uL (0-0.50) 01/26/22 06:45 Baso # (Auto) 0.02 K/uL (0-0.2) 01/26/22 06:45 Immature Gran # (Auto) 0.04 K/uL (0.00-0.02) H 01/26/22 06:45 Absolute Nucleated RBC 0.02 K/uL (0-0) H 01/26/22 06:45 Nucleated RBC % (auto) 0.3 % 01/26/22 06:45 RBC Morphology Unremarkable 01/25/22 05:39 Polychromasia 1+ 01/23/22 10:05 Poikilocytosis Present 01/23/22 10:05 ESR 44 mm/hr (0-30) H 01/25/22 05:39 Sodium 135 mmol/L (136-145) L 01/26/22 06:45 Potassium 4.1 mmol/L (3.5-5.1) 01/26/22 06:45 Chloride 105 mmol/L (98-107) 01/26/22 06:45 Carbon Dioxide 25 mmol/L (21-32) 01/26/22 06:45 Anion Gap 5 (3-11) 01/26/22 06:45 BUN 42 mg/dl (6-23) H 01/26/22 06:45 Creatinine 1.04 mg/dl (0.6-1.2) 01/26/22 06:45 Est Cr Clr Drug Dosing 28.4 ml/min 01/26/22 06:45 Est GFR ( Amer) 56.7 ml/min 01/26/22 06:45 Est GFR (Non-Af Amer) 49.0 ml/min 01/26/22 06:45 BUN/Creatinine Ratio 40.4 (10-20) H 01/26/22 06:45 Glucose 87 mg/dl (70-99(Fasting)) 01/26/22 06:45 Lactate 0.8 mmol/L (0.4-2.0) 01/23/22 10:05 Calcium 8.1 mg/dl (8.5-10.1) L 01/26/22 06:45 Magnesium 1.8 mg/dl (1.7-2.4) 01/23/22 10:05 Iron < 10 mcg/dl (35-150) L 01/23/22 11:41 Unsaturated IBC 397 mcg/dl (155-355) H 01/23/22 11:41 Transferrin 324 mg/dl (200-360) 01/23/22 11:41 Ferritin 213.5 ng/ml (8-388) 01/25/22 05:39 Total Bilirubin 0.4 mg/dl (0.2-1.0) 01/23/22 10:05 Direct Bilirubin 0.0 mg/dl (0-0.2) 01/23/22 10:05 AST 22 U/L (13-39) 01/23/22 10:05 ALT 20 U/L (7-52) 01/23/22 10:05 Alkaline Phosphatase 77 U/L (34-104) 01/23/22 10:05 Troponin I High Sens 19.2 pg/ml (0-14) H D 01/24/22 05:58 C-Reactive Protein 11.66 mg/dl (0-0.5) H 01/25/22 05:39 Total Protein 6.8 gm/dl (6.0-8.3) 01/23/22 10:05 Albumin 3.2 gm/dl (3.4-5.0) L 01/23/22 10:05 Vitamin B12 291 pg/ml (180-914) 01/23/22 11:41 Folate > 22.30 ng/ml (>5.38) 01/23/22 11:41 Procalcitonin < 0.05 ng/ml (0-0.5) 01/23/22 10:05 Urine Color Yellow 01/23/22 18:25 Urine Appearance Clear (Clear) 01/23/22 18:25 Urine pH 7.0 (4.5-7.5) 01/23/22 18:25 Ur Specific [place] 1.013 (1.000-1.030) 01/23/22 18:25 Urine Protein Negative (Negative) 01/23/22 18:25 Urine Glucose (UA) Negative (Negative) 01/23/22 18:25 Urine Ketones Negative (Negative) 01/23/22 18:25 Urine Blood Negative (Negative) 01/23/22 18:25 Urine Nitrite Negative (Negative) 01/23/22 18:25 Urine Bilirubin Negative (Negative) 01/23/22 18:25 Urine Urobilinogen Negative (Negative) 01/23/22 18:25 Ur Leukocyte Esterase Negative (Negative) 01/23/22 18:25 SARS-CoV-2, RNA, NAAT NEGATIVE (NEGATIVE) 01/23/22 11:24 Blood Type O Positive 01/23/22 11:41 Antibody Screen NEGATIVE 01/23/22 11:41 Crossmatch See Detail 01/23/22 11:41 Impressions Foot X-Ray 01/23/22 09:39 XR foot LT min 3V routine CLINICAL HISTORY: sepsis, foot infection, concern osteomyelitis COMPARISON STUDY: None. FINDINGS: 3 views of the left foot were submitted for review. Soft tissue swelling within the dorsum of the foot. There is a 2.5 cm skin ulceration at the dorsal aspect of the midfoot. No underlying destruction to suggest an osteomyelitis. Tiny plantar and posterior calcaneal spurs are noted. The Lisfranc joint is intact. No fracture or dislocation. The bones are slightly osteopenic. Suggestion of a prior bunionectomy. IMPRESSION: A 2.5 cm skin ulceration at the dorsal aspect of the midfoot. No underlying bony destruction to suggest an osteomyelitis. ACT 112: Negative or not required by law. Electronically signed by: Madhu Calderon M.D. 01/23/2022 11:49 AM (1) Anemia Anemia type: unspecified type Qualified Code(s): D64.9 - Anemia, unspecified
[2022-01-26] MEDS: lisinopril 5 MG TAB PO SCH (21:06)
[2022-01-27] MEDS: ACETAMINOPHEN 325 MG TAB PO PRN (03:17)
[2022-01-27 07:47] LABS: Creatinine Clr Calc Pharmacy 28.1 ml/min; Est GFR (African American) 56.1 ml/min; Est GFR (Non-African American) 48.4 ml/min
[2022-01-27] MEDS: HEPARIN SOD 5,000 UNIT/0.5 ML VIAL SQ SCH ×2 (08:25→20:08)
[2022-01-27] MEDS: DORZOLAMIDE HCL 2% OPH SOLN 10 ML BTL OPB SCH ×2 (08:25→20:05)
[2022-01-27] MEDS: TIMOLOL GFS 0.5% OPH SOLN 74 DROPS/5 ML BTL OPB SCH (08:25)
[2022-01-27] MEDS: CEFEPIME 1,000 MG in SYRINGE 0 ML IV SCH ×2 (08:25→20:05)
[2022-01-27] MEDS: CHOLECALCIFEROL 5,000 UNITS 125 MCG TAB PO SCH (08:26)
[2022-01-27] MEDS: PANTOprazole 40 MG TAB PO SCH (08:26)
[2022-01-27] MEDS: CEROVITE ADV FORMULA TAB PO SCH (08:26)
[2022-01-27] MEDS: MAGNESIUM OXIDE 400 MG TAB PO SCH (08:26)
[2022-01-27] MEDS: ADVANCED PROBIOTIC 1250 MG CAPSULE PO SCH (08:26)
[2022-01-27] MEDS: DOXYCYCLINE HYCLATE 100 MG CAP PO SCH ×2 (09:41→21:38)
--- NOTE | 2022-01-27 10:44 | Hospitalist Progress Note ---
Date of Service January 27, 2022 Assessment & Plan (1) Ulcer of left foot: (2) Cellulitis of left foot: Plan: This is an 86-year-old female with PMHx of left foot cellulitis on recent oral antibiotics, chronic diastolic heart failure, hypertension, venous insufficiency and other medical problems listed below who presents from PCPs office with worsening cellulitis. Previously diagnosed with Pseudomonas foot infection 2 months ago in ED and completed Cipro course followed by 10-day course of Bactrim and doxycycline Sent by PCP for worsening LLE cellulitis and open wound with purulent drainage, increased swelling and pain Vital signs stable, nontoxic appearance, lactate and procalcitonin within normal range. Foot x-ray with a 2.5 cm skin ulceration at the dorsal aspect of the midfoot. No underlying bony destruction to suggest an osteomyelitis Superficial wound cultures shows Pseudomonas; pansensitive. Blood culture no growth so far ESR44, CRP11.6 s/p Bedside debridement on 01/24/2022 Plan: continue on cefepime IV for now. Stop Vanco and start Doxycycline. Plan to change to ciprofloxacin at discharge. Complete 7 days of antibiotic for cellulitis. Podiatry on board; patient had bedside debridement on 01/24. Dressing change done on 01/25. Wound care on consult; we will follow-up on instruction regarding wound care. - Patient will need outpatient wound clinic follow-up at discharge. (3) Anemia: Plan: Per outpatient records, baseline hemoglobin 7.5-8.5 in setting of known peptic ulcer disease and MARIBELL. Has required blood transfusions in the past. Previous on oral iron supplementation due to constipation Continue on Protonix 40 mg once daily. (4) Hypertension: Plan: Continue lisinopril DVT Ppx: heparin Code status: FULL PCP: Debora Candelario: admitted to [facility]. PT OT ordered.. Patient to be seen by wound care tomorrow; will need follow-up regarding wound care clinic. She lives with her son at home; possible discharge tomorrow to her son. Admission and Anticipated Discharge Date Admission Date: January 23, 2022 Subjective Patient seen and examined at bedside. Reports intermittent pain over her left leg. Denies fever, chills, chest pain, shortness of breath or abdominal discomfort. Review of Systems Review of Systems: All systems reviewed & are unremarkable except as noted in Subjective Physical Exam Physical Exam: Constitutional: WD/WN, vitals as above, NAD, sitting up in bed, pleasant, conversing easily Respiratory: normal respiratory effort, lungs clear to auscultation, no wheeze, rales, rhonchi. Normal insp/exp effort, no accessory muscle use Cardiovascular: RRR, no murmur, no edema Vessels: no JVD or carotid bruit Chest: normal inspection of chest Abdomen: normal bowel sounds, soft, nontender, no hepatosplenomegaly Musculoskeletal: Left foot as documented in the chart. Yellowish discharge on the dorsal aspect of the foot. Currently, patient has bandage over the foot; no overlying soakage. Erythema and swelling improved compared to admission. Skin: no rashes, warm and dry normal turgor Neurologic: PERRL, EOMI, accommodation nl, no face palsy, no dysarthria CN's II- XI intact bilaterally and moves all extremities Psychiatric: A+Ox3, euthymic affect Lymphatic: no cervical or axillary lymphadenopathy : deferred Results & Data Results & Data ([facility]) Vital Signs (Past 12 Hours) Vital Signs Temp Pulse Resp BP Pulse Ox O2 Del Method 01/27/22 08:45 Room Air 01/27/22 07:31 36.8 C 74 16 117/62 99 Room Air 01/27/22 03:26 36.6 C 91 H 16 116/62 97 Room Air 01/26/22 23:28 36.8 C 92 H 18 127/62 98 Room Air Laboratory Results Laboratory Results WBC 6.33 K/ul (4.8-10.8) 01/26/22 06:45 RBC 2.84 M/uL (3.93-5.22) L 01/26/22 06:45 Hgb 8.1 g/dl (12.0-16.0) L 01/26/22 06:45 Hct 24.9 % (34.1-44.9) L 01/26/22 06:45 MCV 87.7 fL (80.0-100.0) 01/26/22 06:45 MCH 28.5 pg (25.0-34.0) 01/26/22 06:45 MCHC 32.5 g/dL (32.0-36.0) 01/26/22 06:45 RDW Std Deviation 53.0 fL (36.4-46.3) H 01/26/22 06:45 RDW Coeff of Vasu 17.0 % (11.5-14.5) H 01/26/22 06:45 Plt Count 398 K/uL (130-400) 01/26/22 06:45 MPV 10.0 fL (9.4-12.3) 01/26/22 06:45 Immature Gran % (Auto) 0.6 % 01/26/22 06:45 Neut % (Auto) 70.5 % 01/26/22 06:45 Lymph % (Auto) 10.6 % 01/26/22 06:45 [place] % (Auto) 14.1 % 01/26/22 06:45 Eos % (Auto) 3.9 % 01/26/22 06:45 Baso % (Auto) 0.3 % 01/26/22 06:45 Neut # (Auto) 4.46 K/uL (1.4-6.5) 01/26/22 06:45 Lymph # (Auto) 0.67 K/uL (1.2-3.4) L 01/26/22 06:45 [place] # (Auto) 0.89 K/uL (0.24-0.82) H 01/26/22 06:45 Eos # (Auto) 0.25 K/uL (0-0.50) 01/26/22 06:45 Baso # (Auto) 0.02 K/uL (0-0.2) 01/26/22 06:45 Immature Gran # (Auto) 0.04 K/uL (0.00-0.02) H 01/26/22 06:45 Absolute Nucleated RBC 0.02 K/uL (0-0) H 01/26/22 06:45 Nucleated RBC % (auto) 0.3 % 01/26/22 06:45 RBC Morphology Unremarkable 01/25/22 05:39 Polychromasia 1+ 01/23/22 10:05 Poikilocytosis Present 01/23/22 10:05 ESR 44 mm/hr (0-30) H 01/25/22 05:39 Sodium 135 mmol/L (136-145) L 01/26/22 06:45 Potassium 4.1 mmol/L (3.5-5.1) 01/26/22 06:45 Chloride 105 mmol/L (98-107) 01/26/22 06:45 Carbon Dioxide 25 mmol/L (21-32) 01/26/22 06:45 Anion Gap 5 (3-11) 01/26/22 06:45 BUN 42 mg/dl (6-23) H 01/26/22 06:45 Creatinine 1.05 mg/dl (0.6-1.2) 01/27/22 06:33 Est Cr Clr Drug Dosing 28.1 ml/min 01/27/22 06:33 Est GFR ( Amer) 56.1 ml/min 01/27/22 06:33 Est GFR (Non-Af Amer) 48.4 ml/min 01/27/22 06:33 BUN/Creatinine Ratio 40.4 (10-20) H 01/26/22 06:45 Glucose 87 mg/dl (70-99(Fasting)) 01/26/22 06:45 Lactate 0.8 mmol/L (0.4-2.0) 01/23/22 10:05 Calcium 8.1 mg/dl (8.5-10.1) L 01/26/22 06:45 Magnesium 1.8 mg/dl (1.7-2.4) 01/23/22 10:05 Iron < 10 mcg/dl (35-150) L 01/23/22 11:41 Unsaturated IBC 397 mcg/dl (155-355) H 01/23/22 11:41 Transferrin 324 mg/dl (200-360) 01/23/22 11:41 Ferritin 213.5 ng/ml (8-388) 01/25/22 05:39 Total Bilirubin 0.4 mg/dl (0.2-1.0) 01/23/22 10:05 Direct Bilirubin 0.0 mg/dl (0-0.2) 01/23/22 10:05 AST 22 U/L (13-39) 01/23/22 10:05 ALT 20 U/L (7-52) 01/23/22 10:05 Alkaline Phosphatase 77 U/L (34-104) 01/23/22 10:05 Troponin I High Sens 19.2 pg/ml (0-14) H D 01/24/22 05:58 C-Reactive Protein 11.66 mg/dl (0-0.5) H 01/25/22 05:39 Total Protein 6.8 gm/dl (6.0-8.3) 01/23/22 10:05 Albumin 3.2 gm/dl (3.4-5.0) L 01/23/22 10:05 Vitamin B12 291 pg/ml (180-914) 01/23/22 11:41 Folate > 22.30 ng/ml (>5.38) 01/23/22 11:41 Procalcitonin < 0.05 ng/ml (0-0.5) 01/23/22 10:05 Urine Color Yellow 01/23/22 18:25 Urine Appearance Clear (Clear) 01/23/22 18:25 Urine pH 7.0 (4.5-7.5) 01/23/22 18:25 Ur Specific [place] 1.013 (1.000-1.030) 01/23/22 18:25 Urine Protein Negative (Negative) 01/23/22 18:25 Urine Glucose (UA) Negative (Negative) 01/23/22 18:25 Urine Ketones Negative (Negative) 01/23/22 18:25 Urine Blood Negative (Negative) 01/23/22 18:25 Urine Nitrite Negative (Negative) 01/23/22 18:25 Urine Bilirubin Negative (Negative) 01/23/22 18:25 Urine Urobilinogen Negative (Negative) 01/23/22 18:25 Ur Leukocyte Esterase Negative (Negative) 01/23/22 18:25 SARS-CoV-2, RNA, NAAT NEGATIVE (NEGATIVE) 01/23/22 11:24 Blood Type O Positive 01/23/22 11:41 Antibody Screen NEGATIVE 01/23/22 11:41 Crossmatch See Detail 01/23/22 11:41 Impressions Foot X-Ray 01/23/22 09:39 XR foot LT min 3V routine CLINICAL HISTORY: sepsis, foot infection, concern osteomyelitis COMPARISON STUDY: None. FINDINGS: 3 views of the left foot were submitted for review. Soft tissue swelling within the dorsum of the foot. There is a 2.5 cm skin ulceration at the dorsal aspect of the midfoot. No underlying destruction to suggest an osteomyelitis. Tiny plantar and posterior calcaneal spurs are noted. The Lisfranc joint is intact. No fracture or dislocation. The bones are slightly osteopenic. Suggestion of a prior bunionectomy. IMPRESSION: A 2.5 cm skin ulceration at the dorsal aspect of the midfoot. No underlying bony destruction to suggest an osteomyelitis. ACT 112: Negative or not required by law. Electronically signed by: Madhu Calderon M.D. 01/23/2022 11:49 AM (1) Anemia Anemia type: unspecified type Qualified Code(s): D64.9 - Anemia, unspecified
[2022-01-27] MEDS: FUROSEMIDE 20 MG TAB PO SCH (15:58)
--- NOTE | 2022-01-27 17:55 | Electrocardiogram Report ---
Test Reason : Blood Pressure : / mmHG Vent. Rate : 086 BPM Atrial Rate : 086 BPM P-R Int : 138 ms QRS Dur : 090 ms QT Int : 352 ms P-R-T Axes : 087 082 067 degrees QTc Int : 421 ms Normal sinus rhythm Normal ECG When compared with ECG of 23-MAY-2021 12:12, No significant change was found Confirmed by Lauro Finnegan ([id number]) on 01/27/2022 5:55:08 PM Referred By: Peter Cazares Confirmed By:Bereket Finnegan
[2022-01-27] MEDS: lisinopril 5 MG TAB PO SCH (20:07)
--- NOTE | 2022-01-27 21:12 | Orthopedic Progress Note ---
Date of Service January 27, 2022 Assessment & Plan (1) Ulcer of left foot: Plan: Patient seen, evaluated, and treated. Dry, sterile dressing change with out incident. There is significant decrease in fibrous slough over wound. Wound cleansed with Betadine followed by normal saline. Application of adaptic followed by Aquacel, 4x4 gauze, kerlix. Will continue to monitor wound progression and may change dressings based on assessment. Lower extremity compression and edema control is an important part of this Patient's wound management. I did discuss use of multiple layer compression as well a single layer tubi package crimper. This will not be available until Friday per yamel vidal. Thank you for allowing me to participate in the care of this Patient. (2) Cellulitis of left foot: Admission and Anticipated Discharge Date Admission Date: January 23, 2022 Subjective Patient seen and examined at bedside. Reports intermittent pain over her left leg. Denies fever, chills, chest pain, shortness of breath or abdominal discomfort. Review of Systems Review of Systems: All systems reviewed & are unremarkable except as noted in HPI & below Physical Exam Constitutional: WD/WN, vitals as above ENMT: external ear and nose normal, oropharynx normal Respiratory: normal respiratory effort Psychiatric: A+Ox3, euthymic affect Results & Data ([facility]) Vital Signs (Past 12 Hours) Vital Signs Temp Pulse Pulse Resp BP BP Pulse Ox 01/27/22 19:14 36.9 C 93 H 16 110/61 95 01/27/22 15:24 64 01/27/22 15:11 36.8 C 93 H 16 120/67 99 01/27/22 11:21 36.5 C 84 16 105/58 L 96 O2 Del Method 01/27/22 19:14 Room Air 01/27/22 15:24 01/27/22 15:11 Room Air 01/27/22 11:21 Room Air
[2022-01-28] MEDS: oxyCODONE HCL IR 5 MG TAB (IMMEDIATE RELEASE) PO PRN ×3 (00:03→12:06)
[2022-01-28] MEDS: MAGNESIUM OXIDE 400 MG TAB PO SCH (08:10)
[2022-01-28] MEDS: HEPARIN SOD 5,000 UNIT/0.5 ML VIAL SQ SCH (08:10)
[2022-01-28] MEDS: CHOLECALCIFEROL 5,000 UNITS 125 MCG TAB PO SCH (08:10)
[2022-01-28] MEDS: CEROVITE ADV FORMULA TAB PO SCH (08:10)
[2022-01-28] MEDS: CEFEPIME 1,000 MG in SYRINGE 0 ML IV SCH (08:10)
[2022-01-28] MEDS: DORZOLAMIDE HCL 2% OPH SOLN 10 ML BTL OPB SCH (08:11)
[2022-01-28] MEDS: ADVANCED PROBIOTIC 1250 MG CAPSULE PO SCH (08:11)
[2022-01-28] MEDS: PANTOprazole 40 MG TAB PO SCH (08:11)
[2022-01-28] MEDS: TIMOLOL GFS 0.5% OPH SOLN 74 DROPS/5 ML BTL OPB SCH (08:11)
--- NOTE | 2022-01-28 09:45 | Gastrointestinal Consultation ---
Date of Consultation January 28, 2022 Assessment & Plan (1) Anemia: Chronic normal static anemia in the setting of a history of duodenal ulcer found in May of this year. although fecal occult is positive, nursing is documenting brown bowel movements and her hemoglobin is fairly stable from her baseline, We will plan for outpatient EGD and colonoscopy. Continue high-dose twice daily PPI. GI will sign off. Please notify us if new or worsening GI issues, such as gross GI bleeding and further drop in hemoglobin. Supervising Physician Co-Signing Physician Notes 82 y/o F with hx of HTN, glaucoma, arthritis initially admitted on 01/23 for cellulitis for which GI was consulted for anemia and FOBT +. Patients baseline hgb is 8-9 and hit a sultana of 7.0 yesterday. She received 1 unit PRBC with repeat hgbs 8.1 and 8.4. Per nursing notes stools have been brown without any evidence of GI bleeding including melena, hematemesis, or hematochezia. Patient reports a black stool about a week ago but stool is now brown. she reports last colonoscopy was 12 years ago with some polyps removed. she did have an EGD in may with a large duodenal bulb ulcer with a visible vessel. Would recommend outpatient EGD/colonoscopy. No need for inpatient endoscopy given no evidence of overt GI bleeding. Continue PPI. Avoid NSAIDs. Please let us know if patient develops evidence of overt bleeding or significant drop in H/H. Physical Exam: General: pleasant female, elderly, AAOx3 Eyes: sclera anicteric Respiratory: lungs CTA bilaterally, normally respiratory efforts Cardiac: RRR, no murmurs Abdomen: soft, non-tender, non-distended, no guarding or rigidity Psych: appropriate affect Trina Gonzalez, Gastroenterology and Hepatology I personally saw evaluated the patient on 01/28. I agree with the recommendations and plan as described above by KORIN Matthews. History of Present Illness Reason for Consultation: anemia with fecal occult blood Requesting Physician: Dr. Thomas Attending Physician: Km Thomas MD History of Present Illness Ms. Danica Lorenz is an 86 yr old female pt of Dr. Cazares with a hx of HTN, glaucoma, arthritis, history of cellulitis who was admitted on 01/23 for cellulitis. GI is consulted for anemia, occult stool (+). Her Hb was 7 on arrival, she received one unit of RBC and Hb today is 8.1. it appears that her baseline is approximately 8-9. MCV is normocytic. She tells us that she is passing 1 black bowel movement per day, however nursing Is documenting 1 brown bowel movement per day. When asked about abdominal pain she does mention some vague upper abdomen discomfort present for months. She believes that this was improved after her EGD in May. She denies any nausea or vomiting. She underwent EGD in May 2021 for anemia (at that time Hb 6) which showed a non bleeding duodenal ulcer with a Visible Vessel which was cauterized. She has been maintained on pantoprazole 40 mg twice daily since that time. No prior colonoscopy. Allergies Allergy/AdvReac Type Severity Reaction Status Date / Time Iodinated Contrast Media Allergy Intermediate Rash Verified 10/10/21 18:15 Home Medications Medication Instructions Recorded Confirmed Type acetaminophen 650 mg 650 mg PO Q8H PRN Pain 04/13/21 01/23/22 History tablet,extended release (Arthritis Pain Relief (acetaminophen) ER) dorzolamide 2 % eye drops 1 drp OPB BID 04/13/21 01/23/22 History lisinopril 5 mg tablet 5 mg PO HS 04/13/21 01/23/22 History timolol maleate 0.25 % eye drops 1 drp OPB QAM 04/13/21 01/23/22 History pantoprazole 40 mg tablet,delayed 40 mg PO BID 10/10/21 01/23/22 History release L.acidop,casei,lactis,rham-B.lact,larissa 2 cap PO DAILY 01/23/22 01/23/22 History 625 mg (10 billion cell) capsule (Advanced Probiotic) cholecalciferol (vitamin D3) 125 125 mcg PO DAILY 01/23/22 01/23/22 History mcg (5,000 unit) capsule furosemide 20 mg tablet 20 mg PO Q2D PRN Edema 01/23/22 01/23/22 History magnesium 200 mg tablet 200 mg PO DAILY 01/23/22 01/23/22 History yoqgewmvuhaq-ihvmcite-wjtuxr tablet 1 tab PO DAILY 01/23/22 01/23/22 History cephalexin 500 mg capsule 500 mg PO BID 3 days #6 caps 01/28/22 Rx doxycycline hyclate 100 mg capsule 100 mg PO TODAY@1000,2200 #6 caps 01/28/22 Rx Patient History Medical History Anemia Arthritis Closed right hip fracture Glaucoma Hypertension 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 Surgical History H/O: hysterectomy History of bunionectomy History of surgery on arm Family History Other Kidney disease Stroke Social History Smoking Status: Never smoker Second Hand Exposure: No; Hx Alcohol Use: No Hx Substance Use: No Preferred Language: Spanish Communication Ability: Effective Enterprise Application Analyst Required: No Beliefs That Will Affect Care: None marital status: / Current Living Situation: Family Current Living Situation Comment: Home with son Other Information That Helps Us Care for You: No Feels Safe at Home: Yes Safety Concerns: Feels Safe At This Time Assistive Devices: Glasses Review of Systems Review of Systems: ROS: Gen: + Weakness, fevers, weight loss Eyes: No eye redness, or pain, no recent vision changes Resp: No SOB, no cough Cardio: No palpitations/irregular beats, no chest pain GI: As per HPI otherwise negative : Denies pain on urination Skin: left foot cellulitis; otherwise negative a total 12 systems reviewed, all other systems negative Physical Exam Constitutional: well developed, + thin, + frail appearing and comfortable; no acute distress Eyes: PERRL, conjunctivae normal, anicteric sclerae ENMT: external ear and nose normal, oropharynx normal Neck: trachea midline, no thyromegaly Respiratory: normal respiratory effort, lungs clear to auscultation Cardiovascular: RRR, no murmur, no edema Gastrointestinal (Abdomen): normal bowel sounds, soft, nontender, no hepatosplenomegaly Musculoskeletal: left foot dressing in place Skin: no rashes, warm and dry Neurologic: PERRL, EOMI, accommodation nl, no face palsy, no dysarthria Psychiatric: A+Ox3, euthymic affect Lymphatic: no cervical or axillary lymphadenopathy Results & Data ([facility]) Vital Signs (Past 12 Hours) Vital Signs Temp Pulse Pulse Resp BP BP Pulse Ox 01/28/22 08:15 01/28/22 07:26 36.5 C 74 20 137/61 97 01/28/22 03:00 36.8 C 92 H 16 159/73 H 97 01/27/22 22:55 37.4 C 90 18 128/64 96 01/27/22 23:24 88 O2 Del Method 01/28/22 08:15 Room Air 01/28/22 07:26 Room Air 01/28/22 03:00 Room Air 01/27/22 22:55 Room Air 01/27/22 23:24 Laboratory Results WBC 6.3, HB 8.1, HCT 24, PLT S3-9 8, Na 135, K 4.1, Cl 105, CO2 25, BUN 42, CR 1.04, glucose 84 (1) Anemia Anemia type: unspecified type Qualified Code(s): D64.9 - Anemia, unspecified
[2022-01-28 10:18] LABS: Basophils # (auto) 0.04 K/uL (0-0.2); Basophils % (auto) 0.5 %; Eosinophils % (auto) 3.7 %; Hemoglobin 8.4 g/dl (12.0-16.0); Immature Granulocytes # (auto) 0.07 K/uL (0.00-0.02); Immature Granulocytes % (auto) 0.9 %; Lymphocytes # (auto) 0.99 K/uL (1.2-3.4); Lymphocytes % (auto) 12.1 %; Mean Corpuscular Hemoglobin 28.3 pg (25.0-34.0); Mean Corpuscular Hgb Conc 31.1 g/dL (32.0-36.0); Mean Corpuscular Volume 90.9 fL (80.0-100.0); Mean Platelet Volume 9.8 fL (9.4-12.3); Monocytes # (auto) 0.78 K/uL (0.24-0.82); Monocytes % (auto) 9.5 %; Neutrophils % (auto) 73.3 %; Platelet Count 401 K/uL (130-400); RDW Coefficient of Variation 17.5 % (11.5-14.5); RDW Standard Deviation 56.8 fL (36.4-46.3); Red Blood Count 2.97 M/uL (3.93-5.22); White Blood Count 8.18 K/ul (4.8-10.8)
[2022-01-28 10:35] LABS: Calcium 8.3 mg/dl (8.5-10.1); Creatinine Clr Calc Pharmacy 28.4 ml/min; Est GFR (African American) 56.7 ml/min
[2022-01-28] MEDS: DOXYCYCLINE HYCLATE 100 MG CAP PO SCH (13:18)
--- NOTE | 2022-01-28 15:38 | Discharge Summary ---
Date of Service January 28, 2022 Admission HPI Per Admitting Provider This is an 86-year-old female with PMHx of left foot cellulitis on recent oral antibiotics, chronic diastolic heart failure, hypertension, venous insufficiency and other medical problems listed below who presents from PCPs office with worsening cellulitis. Ongoing issues with cellulitis over the past few years with left foot infection for the past 2-3 months. Previously diagnosed with Pseudomonas foot infection 2 months ago in ED and completed Cipro course. Then followed up with PCP and placed on another 10-day course of Bactrim and doxycycline. Was seen in clinic for follow-up today and noted to have a fungal appearing film over her foot with worsening pain and was sent to ED for further evaluation. Patient notes foul odor and increased swelling. Painful when trying to put shoe on. Has not been seen by wound care in the past. Does have as needed Lasix to take for leg swelling but has not been taking due to issues with urinary incontinence. Denies any fever or chills. No headache, chest pain , shortness of breath, nausea, vomiting. Some epigastric pain with history of hiatal hernia and duodenal ulcer. Notes some dark stool with occasional bright red blood. Has not been taking oral iron supplement due to constipation issues. Admission Exam Per Admitting Provider Vitals signs as noted above General Appearance: Thin, frail, elderly, no apparent distress Head: normocephalic, Atraumatic Eyes: normal inspection, EOMI Neck: supple, Trachea midline Respiratory/Chest: Normal breath sounds, CTA, No accessory muscle use Cardiovascular: S1, S2, No murmur Abdomen/GI:Soft, Non tender, Bowel sounds present Extremities/Musculoskeletal:normal inspection, 2+ B/L LE Edema, left foot dorsal ulceration, mild erythema, tender, drainage Neurologic/Psych:AAO, grossly no focal neurological deficits Skin: normal color, warm Principal Diagnosis (1) Ulcer of left foot: (2) Cellulitis of left foot Discharge Exam Constitutional: WD/WN, vitals as above, NAD, sitting up in bed, pleasant, conversing easily Respiratory: normal respiratory effort, lungs clear to auscultation, no wheeze, rales, rhonchi. Normal insp/exp effort, no accessory muscle use Cardiovascular: RRR, no murmur, no edema Vessels: no JVD or carotid bruit Chest: normal inspection of chest Abdomen: normal bowel sounds, soft, nontender, no hepatosplenomegaly Musculoskeletal: Left foot as documented in the chart. Yellowish discharge on the dorsal aspect of the foot. Currently, patient has bandage over the foot; no overlying soakage. Erythema and swelling improved compared to admission. Skin: no rashes, warm and dry normal turgor Neurologic: PERRL, EOMI, accommodation nl, no face palsy, no dysarthria CN's II- XI intact bilaterally and moves all extremities Psychiatric: A+Ox3, euthymic affect Lymphatic: no cervical or axillary lymphadenopathy : deferred Discharge Data Allergies Allergy/AdvReac Type Severity Reaction Status Date / Time Iodinated Contrast Media Allergy Intermediate Rash Verified 10/10/21 18:15 Consultations 01/23/22 11:30 ED Decision to Admit Stat 01/23/22 14:00 Consult Podiatry Routine 01/28/22 07:31 Consult Gastroenterology Routine Hospital Course (1) Ulcer of left foot: (2) Cellulitis of left foot: This is an 86-year-old female with PMHx of left foot cellulitis on recent oral antibiotics, chronic diastolic heart failure, hypertension, venous insufficiency and other medical problems listed below who presents from PCPs office with worsening cellulitis. Previously diagnosed with Pseudomonas foot infection 2 months ago in ED and completed Cipro course followed by 10-day course of Bactrim and doxycycline Sent by PCP for worsening LLE cellulitis and open wound with purulent drainage, increased swelling and pain Vital signs stable, nontoxic appearance, lactate and procalcitonin within normal range. Foot x-ray with a 2.5 cm skin ulceration at the dorsal aspect of the midfoot. No underlying bony destruction to suggest an osteomyelitis Superficial wound cultures shows Pseudomonas; pansensitive. Blood culture no growth so far ESR44, CRP11.6 s/p Bedside debridement on 01/24/[address] Leon. Dressing changes were done during the hospitalization and wound care was consulted. Plan: PT OT evaluation had recommended SNF. Extensive discussion was done with the patient regarding going to a rehab. She wanted to go back home and live with her son. Home health was set up for wound care. Patient was given prescription for oral antibiotics for her cellulitis to complete 7-day course. (3) Anemia: Per outpatient records, baseline hemoglobin 7.5-8.5 in setting of known peptic ulcer disease and MARIBELL. Has required blood transfusions in the past. Previous on oral iron supplementation due to constipation FOBT was positive during the hospitalization. GI was consulted. Recommended Protonix twice daily and outpatient colonoscopy/endoscopy. Total Time Total Time Spent Total Time Spent (In Minutes): 45 Total Time Includes: Examination of the Patient, Discharge Planning, Medication Reconciliation, Communication With Other Providers and Other Discharge Plan Discharge Items Patient Disposition: Home - Home Health Services Reason For Visit: L FOOT CELLULITIS Discharge Diagnosis: (1) Ulcer of left foot: (2) Cellulitis of left foot: Activity: Resume your previous activity Non-emergency contact: Primary Care Provider Call non-emergency contact if: you have any medication questions and your symptoms worsen Follow-up/Referrals: Meagan Castillo MD [Primary Care Provider] - (Date & Time 02/01/2022 11:00 AM Provider Peter Cazares MD Department Family Practice [facility] ) Bradford Leon DPM, MS [Physician] - Diet: Regular Addtl Attending Provider Instructions: You were admitted to the hospital with left leg cellulitis and ulcer. Home health is being arranged for you to get wound care at home. You are treated by Dr. Bradford Leon ( Podiatry). You will have a follow-up appointment with him sometime in the next 2 weeks. You were prescribed 2 antibiotics to be taken for next 3 days: 1) cephalexin 500 mg twice daily 2) doxycycline 100 mg twice daily You have appointment with your primary care doctor on February 01 at 11 AM. You are also prescribed Protonix to be taken twice daily. You will get a call from GI doctor for appointment. Pending Studies at Discharge: No Stand-Alone Forms: My [facility], Smoking Cessation Medications and DC Order Prescriptions: New doxycycline hyclate 100 mg Capsule 100 mg PO TODAY@1000,2200 Qty: 6 0RF cephalexin 500 mg capsule 500 mg PO BID 3 Days Qty: 6 0RF pantoprazole [Protonix] 40 mg granules for susp in packet 40 mg PO BID 30 Days Qty: 60 0RF Continued cholecalciferol (vitamin D3) 125 mcg (5,000 unit) Capsule 125 mcg PO DAILY magnesium 200 mg Tablet 200 mg PO DAILY xdglhpyygtnf-mgeullgc-kmtslq Tablet 1 tab PO DAILY Advanced Probiotic 625 mg (10 billion cell) Capsule 2 cap PO DAILY furosemide 20 mg tablet 20 mg PO Q2D PRN (Reason: Edema) acetaminophen [Arthritis Pain Relief (acetam)] 650 mg tablet extended release 650 mg PO Q8H PRN (Reason: Pain) timolol maleate 0.25 % drops 1 drp OPB QAM lisinopril 5 mg tablet 5 mg PO HS dorzolamide 2 % drops 1 drp OPB BID Discontinued pantoprazole 40 mg tablet,delayed release (DR/EC) 40 mg PO BID Discharge Orders: Discharge Order (Routine); Ordered 01/28/22 Ordered By: Km Thomas Admission Data Admit Date/Time: 01/23/22 11:21 Attending Provider: Km Thomas Admit Provider: Catrachito Christensen Primary Care Provider: Meagan Castillo Other Providers: Catrachiot Christensen ; Bradford Leon ; Trina Gonzalez ; [facility],Home Health Other Interventions: Discharge Summary Assessment (RN) Last Done: 01/28/22 14:38
[2022-01-29] MEDS ORDERED: FUROSEMIDE 20 MG TAB PO SCH (09:00)
--- NOTE | 2022-01-29 10:44 | Orthopedic Progress Note ---
Date of Service January 28, 2022 Assessment & Plan (1) Ulcer of left foot: Plan: Patient seen, evaluated, and treated. Wound has continued to heal uneventfully. Wound cleansed with normal saline. Application of adaptic followed by foam. Wound nurse to come and apply tubi biscuit machine operator. Patient ok for discharge. Recommend at home nursing for continued dressing changes until Patient is able to follow up in office or wound care center. Lower extremity compression and edema control is an important part of this Patient's wound management. Thank you for allowing me to participate in the care of this Patient. (2) Cellulitis of left foot: Admission and Anticipated Discharge Date Admission Date: January 23, 2022 Subjective Patient seen and examined at bedside. She states she has been dealing with foot wound since august. Physical Exam Constitutional: WD/WN, vitals as above ENMT: external ear and nose normal, oropharynx normal Respiratory: normal respiratory effort Psychiatric: A+Ox3, euthymic affect Results & Data ([facility]) Vital Signs (Past 12 Hours) Vital Signs Temp Pulse Pulse Resp BP BP Pulse Ox 01/28/22 12:29 68 01/28/22 11:30 37.0 C 82 20 110/57 L 97 01/28/22 08:15 01/28/22 07:26 36.5 C 74 20 137/61 97 01/28/22 03:00 36.8 C 92 H 16 159/73 H 97 O2 Del Method 01/28/22 12:29 01/28/22 11:30 Room Air 01/28/22 08:15 Room Air 01/28/22 07:26 Room Air 01/28/22 03:00 Room Air
--- NOTE | 2022-01-31 08:45 | Coding Query ---
CODING QUERY To promote full compliance with coding requirements relating to patient care, provider participation is requested in all cases of employment training specialist uncertainty. Please assist us with the question(s) below: Coding Question(s): There is documentation of Ulcer of left foot in the record and the Orthopedic Consultation on 01/24 documents, in the excisional debridement procedure description, "Necrotic or devitalized tissue is estimated to be present in approximately 60% of the pressure ulcer bed". It is not clear, if the ulcer is a pressure ulcer, or if it is a non-pressure ulcer. Please specify below, in your clinical opinion: ( x) Non-Pressure Ulcer of Left Foot ( ) Pressure Ulcer of Left Foot. Please specify further below: If possible, please check the box that provides the specific stage of the pressure ulcer ( ) Stage I ( ) Stage II ( x) Stage III ( ) Stage IV ( ) Unstageable ( ) Unable to determine Physician's Response(s): Thank you Myrna Burns Principal Diagnosis: "that condition established after study, to be chiefly responsible for occasioning the admission of the patient to the hospital for care." Co-Existing Principal Diagnosis: "when two or more diagnoses equally meet the criteria for principal diagnosis as determined by the circumstances of admission, diagnostic work up, and/or therapy provided, and the Alphabetic Index, Tabular List, or another coding guideline does not provide sequencing direction, any one of the diagnoses may be sequenced first." "When the physician has documented what appears to be a current diagnosis in the body of the record, but has not included the diagnosis in the final diagnostic statement, the physician should be asked whether the diagnosis should be added." (Source Coding [facility] 2 QTR90. p3-4) GLENN
== END 2022-01-28 17:32 | disposition home health service (06) | DRG 264 ==
LOC: ED 09:07 → 2N 11:21 → SUATTDRO 11:21 → 2N 14:22

== ENCOUNTER 2022-04-03 18:09 | Inpatient (IN) ==
--- NOTE | 2022-04-03 18:20 | Emergency Department Note ---
Impression & Plan TREVIN (acute kidney injury) ADMIT ED Provider Note HPI: The patient is an 87-year-old female who presents the emergency department via EMS with complaint of generalized weakness and nausea. Patient states she also had an episode of diarrhea earlier today. On arrival here to the ED the patient is in no acute distress, she is frail-appearing, states that she lives at home with a family member currently. Patient states she has not been eating and drinking as well recently secondary to her weakness and nausea. Patient also complains of some throbbing pain in her left foot where she does have a chronic cellulitis that she states has been ongoing for about the past year. On arrival to the ED the patient is alert, she is oriented, she is in no acute distress on my initial evaluation and she is saturating well on room air. Patient is afebrile on arrival. ROS: - Per HPI *Outpatient medications and allergy history reviewed. *Pertinent external medical records reviewed. PE: General: Alert, frail-appearing HEENT: Normocephalic, trachea midline Eyes: Extraocular eye movement is intact, no scleral erythema Pulmonary: Clear to auscultation bilaterally, no wheezing Cardio: Regular rate and rhythm GI: Abdomen is soft, nontender : No suprapubic tenderness MSK: No evidence of trauma or malformation of the extremities, no edema Skin: Chronic appearing skin changes to the left foot with moderate erythema, there is dry skin peeling noted on the base of the foot, there is no purulent drainage, no blister formation Neuro: Alert, no focal deficits Psychiatric: Cooperative manager business intelligence: - An order was placed for continuous cardiac monitoring - Patient was noted to be in sinus rhythm with a rate of 95 EKG: (As interpreted by myself): Rate: 80 Rhythm: Normal sinus rhythm Intervals: Within normal limits ST changes: No ST elevation Time: 1835 Interventions provided in ED: -IV fluid bolus, IV cefepime Medical Decision Making: Patient presented to the emergency department with generalized weakness, nausea, some difficulties with activities of daily living at home secondary to her weakness. On arrival here to the ED the patient is stable but she is frail- appearing, she is alert and oriented x3 on arrival and without focal deficits. IV was established, lab work obtained, patient was placed on television maintenance man, lab work shows evidence of creatinine elevation to 2.9, mild metabolic acidosis, mild leukocytosis. Baseline anemia that appears improved from previous lab work. Patient was given IV fluids here in the ED, she was unable to provide a urine sample, chest x-ray does not show any evidence of pneumonia. COVID-19 t esting is negative. Blood cultures were obtained, patient was ordered a dose of cefepime over tree rn for potential cellulitis, will hold off on vancomycin at this time given the patient's renal function, defer to the hospitalist service for further management. Case was discussed with the on-call hospitalist for [facility], Dr. Boston, and the patient was placed for admission in stable condition for further care. Consultants: Hospitalist service, Dr. Boston Disposition discussion held by myself with: Patient Diagnosis: 1. Acute kidney injury 2. Leukocytosis 3. Metabolic acidosis 4. Dehydration 5. Chronic anemia, stable 6. 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 Surgical History H/O: hysterectomy History of bunionectomy History of surgery on arm Family History Other Kidney disease Stroke Social History Smoking Status: Never smoker Second Hand Exposure: No; Hx Alcohol Use: No Hx Substance Use: No Preferred Language: Chilean Communication Ability: Effective Scale Technician Required: No Beliefs That Will Affect Care: None marital status: / Current Living Situation: Family Current Living Situation Comment: Home with son Feels Safe at Home: Yes Assistive Devices: Glasses Allergies Allergies Allergy/AdvReac Type Severity Reaction Status Date / Time Iodinated Contrast Media Allergy Intermediate Rash Verified 04/03/22 19:39 Home Meds Home Medications Medication Instructions Recorded Confirmed acetaminophen 650 mg 650 mg PO Q8H PRN Pain 04/13/21 04/03/22 tablet,extended release (Arthritis Pain Relief (acetaminophen) ER) dorzolamide 2 % eye drops 1 drp OPB BID 04/13/21 04/03/22 lisinopril 5 mg tablet 5 mg PO QAM 04/13/21 04/03/22 timolol maleate 0.25 % eye drops 1 drp OPB QAM 04/13/21 04/03/22 furosemide 20 mg tablet 20 mg PO Q2D PRN Edema 01/23/22 04/03/22 lebyfprldcfv-dczguvjo-jmljzt tablet 1 tab PO DAILY 01/23/22 04/03/22 tramadol 50 mg tablet 50 mg PO Q8 PRN Pain 04/03/22 04/03/22 Results & Data (ED) Vital Signs Vital Signs - 24 hr 04/03/22 18:27 04/03/22 18:48 04/03/22 19:58 Temperature 36.4 C L Temperature Source Oral Pulse Rate 81 Pulse Rate [Right Finger] 84 102 H Respiratory Rate 22 Blood Pressure 144/73 H Blood Pressure [Right Arm] 144/73 H 161/79 H Blood Pressure Mean 96 Blood Pressure Mean [Right Arm] 96 106 Pulse Oximetry 100 Oxygen Delivery Method Room Air Sepsis Recent Fever Within 48 Hours No Sepsis New/Unexplained Change in Mental Status No Sepsis Action Taken by Nursing No Action Required 04/03/22 20:30 Temperature Temperature Source Pulse Rate Pulse Rate [Right Finger] 100 H Respiratory Rate Blood Pressure Blood Pressure [Right Arm] 161/79 H Blood Pressure Mean Blood Pressure Mean [Right Arm] 106 Pulse Oximetry Oxygen Delivery Method Sepsis Recent Fever Within 48 Hours Sepsis New/Unexplained Change in Mental Status Sepsis Action Taken by Nursing Laboratory Data 04/03/22 18:38 04/03/22 18:38 Lab Results 04/03/22 04/03/22 04/03/22 Range/Units 18:38 18:38 18:38 WBC 13.94 H (4.8-10.8) K/ul RBC 3.99 L (4.20-5.40) M/uL Hgb 11.2 L (12.0-16.0) g/dl Hct 35.1 L (37.0-47.0) % MCV 88.0 (80.0-100.0) fL MCH 28.1 (25.0-34.0) pg MCHC 31.9 L (32.0-36.0) g/dL RDW Std Deviation 54.7 H (36.4-46.3) fL RDW Coeff of Vasu 16.9 H (11.5-14.5) % Plt Count 371 (130-400) K/uL MPV 11.8 (9.4-12.4) fL Immature Gran % (Auto) 0.5 % Neut % (Auto) 88.8 % Lymph % (Auto) 5.5 % [place] % (Auto) 4.9 % Eos % (Auto) 0.1 % Baso % (Auto) 0.2 % Neut # (Auto) 12.39 H (1.40-6.50) K/uL Lymph # (Auto) 0.76 L (1.2-3.4) K/uL [place] # (Auto) 0.68 H (0.11-0.59) K/uL Eos # (Auto) 0.01 (0-0.50) K/uL Baso # (Auto) 0.03 (0-0.2) K/uL Immature Gran # (Auto) 0.07 (0.01-0.20) K/uL Sodium 136 (136-145) mmol/L Potassium 4.4 (3.5-5.1) mmol/L Chloride 106 (98-107) mmol/L Carbon Dioxide 17 L (21-32) mmol/L Anion Gap 13 H (3-11) BUN 103 H (6-23) mg/dl Creatinine 2.90 H (0.6-1.2) mg/dl Est Cr Clr Drug Dosing 6.5 ml/min Est GFR ( Amer) 16.3 ml/min Est GFR (Non-Af Amer) 14.1 ml/min BUN/Creatinine Ratio 35.5 H (10-20) Glucose 112 H (70-99(Fasting)) mg/dl Lactate (0.4-2.0) mmol/L Calcium 9.1 (8.5-10.1) mg/dl Magnesium 1.9 (1.7-2.4) mg/dl Total Bilirubin 0.4 (0.2-1.0) mg/dl Direct Bilirubin 0.0 (0-0.2) mg/dl AST 26 (13-39) U/L ALT 22 (7-52) U/L Alkaline Phosphatase 73 (34-104) U/L Troponin I High Sens 16.8 H (0-14) pg/ml Total Protein 7.8 (6.0-8.3) gm/dl Albumin 3.3 L (3.4-5.0) gm/dl Procalcitonin 0.18 (0-0.5) ng/ml SARS-CoV-2 (PCR) (Negative) Influenza Type A (PCR) (Neg) Influenza Type B (PCR) (Neg) RSV (RT-PCR) (Neg) 04/03/22 04/03/22 Range/Units 18:55 19:22 WBC (4.8-10.8) K/ul RBC (4.20-5.40) M/uL Hgb (12.0-16.0) g/dl Hct (37.0-47.0) % MCV (80.0-100.0) fL MCH (25.0-34.0) pg MCHC (32.0-36.0) g/dL RDW Std Deviation (36.4-46.3) fL RDW Coeff of Vasu (11.5-14.5) % Plt Count (130-400) K/uL MPV (9.4-12.4) fL Immature Gran % (Auto) % Neut % (Auto) % Lymph % (Auto) % [place] % (Auto) % Eos % (Auto) % Baso % (Auto) % Neut # (Auto) (1.40-6.50) K/uL Lymph # (Auto) (1.2-3.4) K/uL [place] # (Auto) (0.11-0.59) K/uL Eos # (Auto) (0-0.50) K/uL Baso # (Auto) (0-0.2) K/uL Immature Gran # (Auto) (0.01-0.20) K/uL Sodium (136-145) mmol/L Potassium (3.5-5.1) mmol/L Chloride (98-107) mmol/L Carbon Dioxide (21-32) mmol/L Anion Gap (3-11) BUN (6-23) mg/dl Creatinine (0.6-1.2) mg/dl Est Cr Clr Drug Dosing ml/min Est GFR ( Amer) ml/min Est GFR (Non-Af Amer) ml/min BUN/Creatinine Ratio (10-20) Glucose (70-99(Fasting)) mg/dl Lactate 1.5 (0.4-2.0) mmol/L Calcium (8.5-10.1) mg/dl Magnesium (1.7-2.4) mg/dl Total Bilirubin (0.2-1.0) mg/dl Direct Bilirubin (0-0.2) mg/dl AST (13-39) U/L ALT (7-52) U/L Alkaline Phosphatase (34-104) U/L Troponin I High Sens (0-14) pg/ml Total Protein (6.0-8.3) gm/dl Albumin (3.4-5.0) gm/dl Procalcitonin (0-0.5) ng/ml SARS-CoV-2 (PCR) NEGATIVE (Negative) Influenza Type A (PCR) Negative (Neg) Influenza Type B (PCR) Negative (Neg) RSV (RT-PCR) Negative (Neg) Administered Medications Discontinued Medications Sodium Chloride (Nss 1000ml) 500 mls @ 999 mls/hr IV .Q31M CK Stop: 04/03/22 19:00 Last Infusion: 04/03/22 19:20 Dose: 0 mls/hr Documented By: Admin: 04/03/22 18:47 Dose: 999 mls/hr Documented By: DAISY Sodium Chloride (Nss) 500 mls @ 999 mls/hr IV .Q31M ONE Stop: 04/03/22 20:37 Last Admin: 04/03/22 20:43 Dose: 999 mls/hr Documented By: MES Morphine Sulfate (Morphine Sulfate 2 Mg/Ml Carp) 2 mg IV NOW STA Stop: 04/03/22 19:51 Last Admin: 04/03/22 19:56 Dose: 2 mg Documented By: MES Imaging Data Radiologist's Impression: Chest X-Ray 04/03/22 18:17 XR chest 1V portable CLINICAL HISTORY: Sepsis COMPARISON STUDY: Chest radiograph May 23, 2021. FINDINGS: Kyphotic positioning is noted. Mild elevation/eventration of the right hemidiaphragm is again noted. There is no consolidation to suggest pneumonia. No evidence for pulmonary edema. Cardiac size is normal. Mediastinal contours are normal. There has been no significant change in appearance of the chest. IMPRESSION: No acute cardiopulmonary findings. No change in appearance of the chest. ACT 112: Negative or not required by law. Electronically signed by: Ciaran Mcginnis M.D. 04/03/2022 8:06 PM Discharge Plan Visit Data Chief Complaint: Weakness Stated Complaint: WEAKNESS, CELLULITIS IN FOOT ED Provider: Pilo Monroe Discharge Problem: TREVIN (acute kidney injury) Patient Disposition: Admitted As Inpatient Forms Stand Alone Forms: [facility] Prescriptions Prescriptions: No Action lycsevwjrgne-eleqqpbg-lesnrh Tablet 1 tab PO DAILY furosemide 20 mg tablet 20 mg PO Q2D PRN (Reason: Edema) acetaminophen [Arthritis Pain Relief (acetam)] 650 mg tablet extended release 650 mg PO Q8H PRN (Reason: Pain) timolol maleate 0.25 % drops 1 drp OPB QAM lisinopril 5 mg tablet 5 mg PO QAM dorzolamide 2 % drops 1 drp OPB BID tramadol 50 mg tablet 50 mg PO Q8 MDD 150mg PRN (Reason: Pain) Referrals Referrals: Meagan Castillo MD [Outside Practitioners] -
[2022-04-03] MEDS ORDERED: SODIUM CHLORIDE 0.9% 1000ML 500 ML IV SCH (18:30)
[2022-04-03 19:05] LABS: Basophils # (auto) 0.03 K/uL (0-0.2); Basophils % (auto) 0.2 %; Eosinophils # (auto) 0.01 K/uL (0-0.50); Eosinophils % (auto) 0.1 %; Hematocrit (blood only) 35.1 % (37.0-47.0); Hemoglobin 11.2 g/dl (12.0-16.0); Immature Granulocytes # (auto) 0.07 K/uL (0.01-0.20); Immature Granulocytes % (auto) 0.5 %; Lymphocytes # (auto) 0.76 K/uL (1.2-3.4); Lymphocytes % (auto) 5.5 %; Mean Corpuscular Hemoglobin 28.1 pg (25.0-34.0); Mean Corpuscular Hgb Conc 31.9 g/dL (32.0-36.0); Mean Platelet Volume 11.8 fL (9.4-12.4); Monocytes # (auto) 0.68 K/uL (0.11-0.59); Monocytes % (auto) 4.9 %; Neutrophils # (auto) 12.39 K/uL (1.40-6.50); Neutrophils % (auto) 88.8 %; Platelet Count 371 K/uL (130-400); RDW Coefficient of Variation 16.9 % (11.5-14.5); RDW Standard Deviation 54.7 fL (36.4-46.3); Red Blood Count 3.99 M/uL (4.20-5.40); White Blood Count 13.94 K/ul (4.8-10.8)
[2022-04-03 19:18] LABS: Albumin Level 3.3 gm/dl (3.4-5.0); BUN Creatinine Ratio 35.5 (10-20); Bilirubin,Total 0.4 mg/dl (0.2-1.0); Calcium 9.1 mg/dl (8.5-10.1); Creatinine Clr Calc Pharmacy 6.5 ml/min; Est GFR (African American) 16.3 ml/min; Est GFR (Non-African American) 14.1 ml/min; Magnesium 1.9 mg/dl (1.7-2.4); Potassium 4.4 mmol/L (3.5-5.1); Total Protein 7.8 gm/dl (6.0-8.3)
[2022-04-03 19:24] LABS: Troponin I High Sensitivity 16.8 pg/ml (0-14)
[2022-04-03] MEDS ORDERED: MoRPHine SULFATE 2 MG/ML CARP IV STA (19:50)
[2022-04-03] MEDS ORDERED: SODIUM CHLORIDE 0.9% 500 ML IV ONE (20:07)
--- NOTE | 2022-04-03 20:08 | XRay Report ---
XR chest 1V portable CLINICAL HISTORY: Sepsis COMPARISON STUDY: Chest radiograph May 23, 2021. FINDINGS: Kyphotic positioning is noted. Mild elevation/eventration of the right hemidiaphragm is aga in noted. There is no consolidation to suggest pneumonia. No evidence for pulmonary edema. Cardiac si ze is normal. Mediastinal contours are normal. There has been no significant change in appearance of the chest. IMPRESSION: No acute cardiopulmonary findings. No change in appearance of the chest. ACT 112: Negative or not required by law. Electronically signed by: Ciaran Mcginnis M.D. 04/03/2022 8:06 PM
[2022-04-03 20:16] LABS: Influenza A virus by PCR Negative (Neg); Influenza B virus by PCR Negative (Neg); RSV by PCR Negative (Neg); SARS CoV2 RNA(COVID-19) Ceph NEGATIVE (Negative)
[2022-04-03] MEDS ORDERED: CEFEPIME 1,000 MG in SYRINGE 0 ML IV STA (21:00)
[2022-04-03] MEDS ORDERED: ONDANSETRON INJ 2 MG/ML 2 ML VIAL IV PRN (22:45)
[2022-04-03] MEDS ORDERED: NITROGLYCERIN SL 0.4 MG/TAB TAB SL PRN (22:45)
[2022-04-03] MEDS ORDERED: FUROSEMIDE 20 MG TAB PO PRN (22:45)
[2022-04-03] MEDS ORDERED: cloNIDine HCL 0.1 MG TAB PO PRN (22:45)
--- NOTE | 2022-04-04 00:28 | History and Physical Report ---
DATE OF ADMISSION: 04/03/2022. CHIEF COMPLAINT: Weakness. HISTORY OF PRESENT ILLNESS: This is an 87-year-old female with past medical history significant for chronic diastolic CHF, angiodysplasia of colon, hypertension, venous insufficiency, diverticulosis of large intestine, GERD, generalized osteoarthritis, kyphoscoliosis, history of anemia, who lives at home with her son, presents with weakness. The patient states that she has ongoing cellulitis of the lower extremities for more than 1 year. She has had initially first in the left foot and then it went to the right foot and currently left foot. She was recently in the hospital at the end of January with left foot cellulitis. Cultures were growing Pseudomonas in November and also in January, pansensitive. She was treated with Cipro. She states that the infection never cleared up. She has always some pain and some infection going on, and from the last week, it is getting worse and her appetite is down since the last 1 week. She had felt nauseous, not eating much. Whenever she tried to walk, she was feeling very weak, nauseous and some abdominal discomfort and today when she was showering, she felt the same and she had 3-4 episodes of diarrhea, which prompted her to come to the ER. Denies any fevers, but feeling always cold. She is having ongoing headaches. Currently, she has mild frontal headache. She gets dizzy when she is ambulating. No blurred vision or double vision. No earache. She always has runny nose. No sore throat, no cough, no chest pain. She gets on and off shortness of breath sometimes. Earlier she had felt abdominal discomfort, but currently has no pain. When she had diarrhea, stools were in dark color. She is not making much urine. ALLERGIES: IODINATED CONTRAST MEDIA. PAST MEDICAL HISTORY: As mentioned above. PAST SURGICAL HISTORY: EGDs. MEDICATIONS: The patient is on Tylenol Arthritis 650 mg p.o. q.8 hours p.r.n., dorzolamide 1 drop ophthalmic b.i.d., Lasix 20 mg p.o. q.2 days p.r.n., lisinopril 5 mg p.o., multivitamins with minerals 1 tablet p.o. daily, timolol 1 drop ophthalmic in the a.m., tramadol 50 mg p.o. q.8 hours p.r.n. FAMILY HISTORY: No family history on file. SOCIAL HISTORY: No smoking, no alcohol, no drug use. REVIEW OF SYSTEMS: As per HPI. Rest of the review of systems is negative. PHYSICAL EXAMINATION: GENERAL: The patient is old and frail, not in acute distress. VITAL SIGNS: Temperature 36.4, pulse 100, respiratory rate 22, blood pressure 161/79, oxygen 100% on room air. HEENT: Pupils equal, round and reactive to light. Oral mucosa moist. NECK: No JVD, no neck masses, no carotid bruits. CARDIOVASCULAR: S1 and S2 heard. Regular rate and rhythm. No murmur, no gallop. RESPIRATORY SYSTEM: Normal AP diameter. No accessory muscle use. No wheezing, no crackles. ABDOMEN: Soft, bowel sounds present. Mild abdominal discomfort. No guarding. No rigidity. CENTRAL NERVOUS SYSTEM: Alert and oriented. Speech is clear. No facial droop. Obeys simple commands. Moves extremities. EXTREMITIES: Left foot is erythematous, slightly wet and dry thick skin on the dorsal aspect of the toes. LABORATORY DATA: WBC 13.9, hemoglobin 11.2, hematocrit 35.5, platelets 371. Sodium 136, potassium 4.4, chloride 106, bicarbonate 17, BUN 103, creatinine 2.9, serum glucose 112, lactate 1.5, calcium 9.1, magnesium 1.9, total bilirubin 0.4, direct bilirubin 0, AST 26, ALT 22, alkaline phosphatase 73. Troponin I high sensitivity 16.8. Procalcitonin 0.18. SARS-CoV-2 PCR negative. Influenza A and B PCR negative. RSV PCR negative. IMAGING DATA: Chest x-ray: No acute findings. EKG: Normal sinus rhythm, rate of 80, no acute ST changes seen. ASSESSMENT AND PLAN: This is an 87-year-old female who presents with weakness. 1. Weakness secondary to possible left foot cellulitis a, history of Pseudomonas infection in the foot. We will continue with IV cefepime, which it was sensitive in the past. Will adjust cefepime for renal dosing.. Currently place her on IV cefepime 500 mg daily. Follow the cultures, wound care, monitor closely in the hospital. 2. Acute kidney injury. Presents with creatinine of 2.9 and very high BUN of 103. Her creatinine was 1.04 in the end of 01/2022. Probably secondary to above. Getting antibiotics and fluids. Follow the repeat laboratories in the a.m. If not improving, we will consult nephrology. 3. Mild anion gap metabolic acidosis secondary to above, possibly also some starvation ketosis as she is not eating for last one week. Getting D5 normal saline. Follow the repeat laboratories in the a.m. 4. Diarrhea. The patient had 3-4 episodes of diarrhea today. She says her stools were dark. Hemoglobin is stable at 11.2. She has a history of anemia with hemoglobin in the range of 8 in the past. We will check stool for Hemoccult. Because she was recently on antibiotics, check stool for Clostridium difficile. We will monitor. Getting fluids. 5. Chronic diastolic congestive heart failure, on Lasix as needed. The patient is currently getting gentle fluids, monitor for any fluid overload, on lisinopril. 6. History of hypertension, on lisinopril. clonidine p.r.n. 7. History of anemia. We will follow the stool occult. Last admission, gastroenterology saw the patient. The patient has a history of duodenal ulcer found in 05/2021, supposed to be on Protonix twice daily, currently seems to be not taking. Supposed to follow outpatient for esophagogastroduodenoscopy and colonoscopy, it seems that she has not followed up. We will follow the stool for Hemoccult. Will place her on Protonix daily. 8. Deep venous thrombosis prophylaxis. We will place her on heparin subcutaneously for now, but monitor for any gastrointestinal bleed. 9. Code status: Full code. 10. Physical therapy and occupational therapy prior to discharge. Social service to help with discharge planning. Job ID: [id number] [facility]
[2022-04-04] MEDS: D5W AND NSS 1,000 ML IV SCH ×2 (01:00→15:31)
[2022-04-04 04:57] LABS: Basophils # (auto) 0.02 K/uL (0-0.2); Basophils % (auto) 0.2 %; Eosinophils # (auto) 0.04 K/uL (0-0.50); Eosinophils % (auto) 0.4 %; Hematocrit (blood only) 27.3 % (37.0-47.0); Hemoglobin 8.7 g/dl (12.0-16.0); Immature Granulocytes # (auto) 0.02 K/uL (0.01-0.20); Immature Granulocytes % (auto) 0.2 %; Lymphocytes # (auto) 0.84 K/uL (1.2-3.4); Lymphocytes % (auto) 8.8 %; Mean Corpuscular Hgb Conc 31.9 g/dL (32.0-36.0); Mean Corpuscular Volume 87.8 fL (80.0-100.0); Mean Platelet Volume 11.2 fL (9.4-12.4); Monocytes # (auto) 0.73 K/uL (0.11-0.59); Monocytes % (auto) 7.7 %; Neutrophils # (auto) 7.86 K/uL (1.40-6.50); Neutrophils % (auto) 82.7 %; Platelet Count 284 K/uL (130-400); RDW Coefficient of Variation 16.6 % (11.5-14.5); RDW Standard Deviation 53.3 fL (36.4-46.3); Red Blood Count 3.11 M/uL (4.20-5.40); White Blood Count 9.51 K/ul (4.8-10.8)
[2022-04-04 05:18] LABS: BUN Creatinine Ratio 39.9 (10-20); Calcium 8.1 mg/dl (8.5-10.1); Creatinine Clr Calc Pharmacy 8.5 ml/min; Est GFR (African American) 22.4 ml/min; Est GFR (Non-African American) 19.3 ml/min; Magnesium 1.6 mg/dl (1.7-2.4); Potassium 4.4 mmol/L (3.5-5.1)
[2022-04-04 05:32] LABS: Appearance Urine Clear (Clear); Bacteria Urine Automated Negative (Negative); Bilirubin Urine Negative (Negative); Blood Urine Negative (Negative); Color Urine Yellow; Epithelial Cell Urine Auto 20-30 /lpf (0-5); Glucose Urine UA Negative (Negative); Ketones Urine Trace (Negative); Leukocyte Esterase Urine Trace (Negative); Nitrite Urine Negative (Negative); Protein Urine Trace (Negative); RBC Urine Automated 0-4 /hpf (0-4); Specific Gravity Urine 1.017 (1.000-1.030); Urobilinogen Urine Negative (Negative)
--- NOTE | 2022-04-04 07:54 | Hospitalist Progress Note ---
Date of Service April 04, 2022 Assessment & Plan (1) TREVIN (acute kidney injury): Plan: This is an 87-year-old female who presents with weakness. 1. Weakness secondary to possible left foot cellulitis a, history of Pseudomonas infection in the foot. Last admission in January 2022, Dr. Leon - podiatry - did foot wound debridement We will continue with IV cefepime, which it was sensitive in the past. Will adjust cefepime for renal dosing.. Currently place her on IV cefepime 500 mg daily. Follow the cultures, wound care, monitor closely in the hospital. Discussed in detail w/ wound care nurse. CT foot ordered to r/o any abscess, or osteomyelitis Arterial doppler L JOSE FUENTES consulted wound cultx to be obtained by wound care nurse 2. Acute kidney injury. Presents with creatinine of 2.9 and very high BUN of 103. Her creatinine was 1.04 in the end of 01/2022. Probably secondary to above, and poor appetite, possibly prerenal. Cr now improved at 1.8 after receiving IVF, antibiotics 3. Mild anion gap metabolic acidosis secondary to above, possibly also some starvation ketosis as she is not eating for last one week. Getting D5 normal saline.Anion gap now normal. 4. Diarrhea. The patient had 3-4 episodes of diarrhea day of admission. She says her stools were dark. Hemoglobin is stable at 11.2. She has a history of anemia with hemoglobin in the range of 8 in the past. will check stool for Hemoccult. Because she was recently on antibiotics, check stool for Clostridium difficile. We will monitor. Getting fluids. 5. Chronic diastolic congestive heart failure, on Lasix as needed. The patient is currently getting gentle fluids, monitor for any fluid overload, on lisinopril. Hold lisinopril d/t TREVIN. 6. History of hypertension, on lisinopril. clonidine p.r.n. Currently BP low. Continue to monitor. Hold lisinopril. 7. History of anemia. We will follow the stool occult. Last admission, gastroenterology saw the patient. The patient has a history of duodenal ulcer found in 05/2021, supposed to be on Protonix twice daily, currently seems to be not taking. Supposed to follow outpatient for esophagogastroduodenoscopy and colonoscopy, it seems that she has not followed up. We will follow the stool for Hemoccult. Will place her on Protonix daily. 8. Severe protein-calorie malnutrition, BMI 13 Dietitian consulted DVT prophylaxis. We will place her on heparin subcutaneously for now, but monitor for any gastrointestinal bleed. Code status: Full code.Discussed code status with the pt - she is more inclined for DNR/DNI status, will address again Physical therapy and occupational therapy prior to discharge. Social service to help with discharge planning. Admission and Anticipated Discharge Date Admission Date: April 03, 2022 Subjective Pt seen in follow up of TREVIN, nausea, diarrhea, LLE cellulitis Currently laying in bed, in no acute distress No fevers chills chest pain shortness of breath Denies any abdominal pain Reports very poor appetite, weakness Creatinine on admission 2.9, now improved after IV fluids Seen by wound care nurse, left foot cleaned and dressed Discussed in detail with wound care nurse. CT foot ordered, arterial Doppler of Left lower extremity ordered. ID consult requested. Also discussed CODE STATUS, and patient is actually DNR/DNI per our discussion Review of Systems Review of Systems: All systems reviewed & are unremarkable except as noted in Subjective Physical Exam Physical Exam: GENERAL: elderly frail F in NAD HEENT: Pupils equal, round and reactive to light. Oral mucosa moist. NECK: No JVD, no neck masses, no carotid bruits. CARDIOVASCULAR: S1 and S2 heard. Regular rate and rhythm. No murmur, no gallop. RESPIRATORY: Normal AP diameter. No accessory muscle use. No wheezing, no crackles. ABDOMEN: Soft, bowel sounds present. Mild abdominal discomfort. No guarding. No rigidity. NEURO: Alert and oriented. Speech is clear. No facial droop. Obeys simple commands. Moves extremities. EXTREMITIES: Left foot is erythematous, slightly wet, +thick skin on the dorsal aspect of the toes. Results & Data Results & Data ([facility]) Vital Signs (Past 12 Hours) Vital Signs Pulse Pulse Resp BP BP Pulse Ox Pulse Ox 04/04/22 05:00 94 H 28 H 04/04/22 05:00 121/74 04/04/22 04:50 88 23 100 04/04/22 04:40 78 14 98 04/04/22 04:30 71 12 97 04/04/22 04:20 94 H 18 97 04/04/22 04:10 76 12 98 04/04/22 04:00 75 12 97 04/04/22 04:00 122/64 04/04/22 03:53 107/56 L 04/04/22 03:53 82 13 04/04/22 03:50 82 12 100 04/04/22 03:40 85 19 100 04/04/22 03:30 85 19 97 04/04/22 03:20 86 17 99 04/04/22 03:10 94 H 19 99 04/04/22 03:01 95 H 23 98 04/04/22 02:50 92 H 20 96 04/04/22 02:40 92 H 24 97 04/04/22 02:30 84 12 96 04/04/22 02:20 84 13 96 04/04/22 02:10 89 20 95 04/04/22 02:00 90 19 97 04/04/22 01:50 86 12 97 04/04/22 01:40 94 H 97 04/04/22 01:30 92 H 96 04/04/22 01:20 83 15 97 04/04/22 01:10 80 13 96 04/04/22 01:00 85 12 96 04/04/22 00:50 85 12 97 04/04/22 00:40 87 14 97 04/04/22 00:30 87 14 96 04/04/22 00:20 92 H 19 96 04/04/22 00:10 89 16 97 04/04/22 00:00 82 16 97 04/03/22 23:50 77 12 98 04/03/22 23:40 90 19 98 04/03/22 23:30 84 19 99 04/03/22 23:20 105 H 18 04/03/22 23:10 93 H 14 95 04/03/22 23:00 91 H 13 96 04/03/22 22:50 94 H 12 100 04/03/22 22:40 95 H 19 04/03/22 22:21 100 04/03/22 21:50 103 H 24 04/03/22 21:40 98 H 20 04/03/22 21:30 96 H 19 100 04/03/22 21:20 20 04/04/22 05:09 04/04/22 05:08 98 04/03/22 22:45 98 04/03/22 20:30 100 H 161/79 H 04/03/22 19:58 102 H 161/79 H 100 O2 Del Method O2 Del Method 04/04/22 05:00 04/04/22 05:00 04/04/22 04:50 04/04/22 04:40 04/04/22 04:30 04/04/22 04:20 04/04/22 04:10 04/04/22 04:00 04/04/22 04:00 04/04/22 03:53 04/04/22 03:53 04/04/22 03:50 04/04/22 03:40 04/04/22 03:30 04/04/22 03:20 04/04/22 03:10 04/04/22 03:01 04/04/22 02:50 04/04/22 02:40 04/04/22 02:30 04/04/22 02:20 04/04/22 02:10 04/04/22 02:00 04/04/22 01:50 04/04/22 01:40 04/04/22 01:30 04/04/22 01:20 04/04/22 01:10 04/04/22 01:00 04/04/22 00:50 04/04/22 00:40 04/04/22 00:30 04/04/22 00:20 04/04/22 00:10 04/04/22 00:00 04/03/22 23:50 04/03/22 23:40 04/03/22 23:30 04/03/22 23:20 04/03/22 23:10 04/03/22 23:00 04/03/22 22:50 04/03/22 22:40 04/03/22 22:21 04/03/22 21:50 04/03/22 21:40 04/03/22 21:30 04/03/22 21:20 04/04/22 05:09 Room Air 04/04/22 05:08 Room Air 04/03/22 22:45 Room Air 04/03/22 20:30 04/03/22 19:58 Room Air Laboratory Results 04/04/22 04/04/22 04/04/22 Range/Units 04:59 04:19 04:19 WBC 9.51 (4.8-10.8) K/ul RBC 3.11 L (4.20-5.40) M/uL Hgb 8.7 L (12.0-16.0) g/dl Hct 27.3 L (37.0-47.0) % MCV 87.8 (80.0-100.0) fL MCH 28.0 (25.0-34.0) pg MCHC 31.9 L (32.0-36.0) g/dL RDW Std Deviation 53.3 H (36.4-46.3) fL RDW Coeff of Vasu 16.6 H (11.5-14.5) % Plt Count 284 (130-400) K/uL MPV 11.2 (9.4-12.4) fL Immature Gran % (Auto) 0.2 % Neut % (Auto) 82.7 % Lymph % (Auto) 8.8 % [place] % (Auto) 7.7 % Eos % (Auto) 0.4 % Baso % (Auto) 0.2 % Neut # (Auto) 7.86 H (1.40-6.50) K/uL Lymph # (Auto) 0.84 L (1.2-3.4) K/uL [place] # (Auto) 0.73 H (0.11-0.59) K/uL Eos # (Auto) 0.04 (0-0.50) K/uL Baso # (Auto) 0.02 (0-0.2) K/uL Immature Gran # (Auto) 0.02 (0.01-0.20) K/uL Sodium 137 (136-145) mmol/L Potassium 4.4 (3.5-5.1) mmol/L Chloride 112 H (98-107) mmol/L Carbon Dioxide 18 L (21-32) mmol/L Anion Gap 7 (3-11) BUN 89 H (6-23) mg/dl Creatinine 2.23 H D (0.6-1.2) mg/dl Est Cr Clr Drug Dosing 8.5 ml/min Est GFR ( Amer) 22.4 ml/min Est GFR (Non-Af Amer) 19.3 ml/min BUN/Creatinine Ratio 39.9 H (10-20) Glucose 106 H (70-99(Fasting)) mg/dl Lactate (0.4-2.0) mmol/L Calcium 8.1 L (8.5-10.1) mg/dl Magnesium 1.6 L (1.7-2.4) mg/dl Total Bilirubin (0.2-1.0) mg/dl Direct Bilirubin (0-0.2) mg/dl AST (13-39) U/L ALT (7-52) U/L Alkaline Phosphatase (34-104) U/L Troponin I High Sens (0-14) pg/ml Total Protein (6.0-8.3) gm/dl Albumin (3.4-5.0) gm/dl Procalcitonin (0-0.5) ng/ml Urine Color Yellow Urine Appearance Clear (Clear) Urine pH 5.0 (4.5-7.5) Ur Specific Edgar 1.017 (1.000-1.030) Urine Protein Trace H (Negative) Urine Glucose (UA) Negative (Negative) Urine Ketones Trace H (Negative) Urine Blood Negative (Negative) Urine Nitrite Negative (Negative) Urine Bilirubin Negative (Negative) Urine Urobilinogen Negative (Negative) Ur Leukocyte Esterase Trace H (Negative) Urine WBC (Auto) 1-5 (0-5) /hpf Urine RBC (Auto) 0-4 (0-4) /hpf U Hyaline Cast (Auto) 1-5 (0-5) /lpf U Epithel Cells (Auto) 20-30 H (0-5) /lpf Urine Bacteria (Auto) Negative (Negative) SARS-CoV-2 (PCR) (Negative) Influenza Type A (PCR) (Neg) Influenza Type B (PCR) (Neg) RSV (RT-PCR) (Neg) 04/03/22 04/03/22 04/03/22 Range/Units 19:22 18:55 18:38 WBC (4.8-10.8) K/ul RBC (4.20-5.40) M/uL Hgb (12.0-16.0) g/dl Hct (37.0-47.0) % MCV (80.0-100.0) fL MCH (25.0-34.0) pg MCHC (32.0-36.0) g/dL RDW Std Deviation (36.4-46.3) fL RDW Coeff of Vasu (11.5-14.5) % Plt Count (130-400) K/uL MPV (9.4-12.4) fL Immature Gran % (Auto) % Neut % (Auto) % Lymph % (Auto) % [place] % (Auto) % Eos % (Auto) % Baso % (Auto) % Neut # (Auto) (1.40-6.50) K/uL Lymph # (Auto) (1.2-3.4) K/uL [place] # (Auto) (0.11-0.59) K/uL Eos # (Auto) (0-0.50) K/uL Baso # (Auto) (0-0.2) K/uL Immature Gran # (Auto) (0.01-0.20) K/uL Sodium (136-145) mmol/L Potassium (3.5-5.1) mmol/L Chloride (98-107) mmol/L Carbon Dioxide (21-32) mmol/L Anion Gap (3-11) BUN (6-23) mg/dl Creatinine (0.6-1.2) mg/dl Est Cr Clr Drug Dosing ml/min Est GFR ( Amer) ml/min Est GFR (Non-Af Amer) ml/min BUN/Creatinine Ratio (10-20) Glucose (70-99(Fasting)) mg/dl Lactate 1.5 (0.4-2.0) mmol/L Calcium (8.5-10.1) mg/dl Magnesium (1.7-2.4) mg/dl Total Bilirubin (0.2-1.0) mg/dl Direct Bilirubin (0-0.2) mg/dl AST (13-39) U/L ALT (7-52) U/L Alkaline Phosphatase (34-104) U/L Troponin I High Sens (0-14) pg/ml Total Protein (6.0-8.3) gm/dl Albumin (3.4-5.0) gm/dl Procalcitonin 0.18 (0-0.5) ng/ml Urine Color Urine Appearance (Clear) Urine pH (4.5-7.5) Ur Specific Edgar (1.000-1.030) Urine Protein (Negative) Urine Glucose (UA) (Negative) Urine Ketones (Negative) Urine Blood (Negative) Urine Nitrite (Negative) Urine Bilirubin (Negative) Urine Urobilinogen (Negative) Ur Leukocyte Esterase (Negative) Urine WBC (Auto) (0-5) /hpf Urine RBC (Auto) (0-4) /hpf U Hyaline Cast (Auto) (0-5) /lpf U Epithel Cells (Auto) (0-5) /lpf Urine Bacteria (Auto) (Negative) SARS-CoV-2 (PCR) NEGATIVE (Negative) Influenza Type A (PCR) Negative (Neg) Influenza Type B (PCR) Negative (Neg) RSV (RT-PCR) Negative (Neg) 04/03/22 04/03/22 Range/Units 18:38 18:38 WBC 13.94 H (4.8-10.8) K/ul RBC 3.99 L (4.20-5.40) M/uL Hgb 11.2 L (12.0-16.0) g/dl Hct 35.1 L (37.0-47.0) % MCV 88.0 (80.0-100.0) fL MCH 28.1 (25.0-34.0) pg MCHC 31.9 L (32.0-36.0) g/dL RDW Std Deviation 54.7 H (36.4-46.3) fL RDW Coeff of Vasu 16.9 H (11.5-14.5) % Plt Count 371 (130-400) K/uL MPV 11.8 (9.4-12.4) fL Immature Gran % (Auto) 0.5 % Neut % (Auto) 88.8 % Lymph % (Auto) 5.5 % [place] % (Auto) 4.9 % Eos % (Auto) 0.1 % Baso % (Auto) 0.2 % Neut # (Auto) 12.39 H (1.40-6.50) K/uL Lymph # (Auto) 0.76 L (1.2-3.4) K/uL [place] # (Auto) 0.68 H (0.11-0.59) K/uL Eos # (Auto) 0.01 (0-0.50) K/uL Baso # (Auto) 0.03 (0-0.2) K/uL Immature Gran # (Auto) 0.07 (0.01-0.20) K/uL Sodium 136 (136-145) mmol/L Potassium 4.4 (3.5-5.1) mmol/L Chloride 106 (98-107) mmol/L Carbon Dioxide 17 L (21-32) mmol/L Anion Gap 13 H (3-11) BUN 103 H (6-23) mg/dl Creatinine 2.90 H (0.6-1.2) mg/dl Est Cr Clr Drug Dosing 6.5 ml/min Est GFR ( Amer) 16.3 ml/min Est GFR (Non-Af Amer) 14.1 ml/min BUN/Creatinine Ratio 35.5 H (10-20) Glucose 112 H (70-99(Fasting)) mg/dl Lactate (0.4-2.0) mmol/L Calcium 9.1 (8.5-10.1) mg/dl Magnesium 1.9 (1.7-2.4) mg/dl Total Bilirubin 0.4 (0.2-1.0) mg/dl Direct Bilirubin 0.0 (0-0.2) mg/dl AST 26 (13-39) U/L ALT 22 (7-52) U/L Alkaline Phosphatase 73 (34-104) U/L Troponin I High Sens 16.8 H (0-14) pg/ml Total Protein 7.8 (6.0-8.3) gm/dl Albumin 3.3 L (3.4-5.0) gm/dl Procalcitonin (0-0.5) ng/ml Urine Color Urine Appearance (Clear) Urine pH (4.5-7.5) Ur Specific Edgar (1.000-1.030) Urine Protein (Negative) Urine Glucose (UA) (Negative) Urine Ketones (Negative) Urine Blood (Negative) Urine Nitrite (Negative) Urine Bilirubin (Negative) Urine Urobilinogen (Negative) Ur Leukocyte Esterase (Negative) Urine WBC (Auto) (0-5) /hpf Urine RBC (Auto) (0-4) /hpf U Hyaline Cast (Auto) (0-5) /lpf U Epithel Cells (Auto) (0-5) /lpf Urine Bacteria (Auto) (Negative) SARS-CoV-2 (PCR) (Negative) Influenza Type A (PCR) (Neg) Influenza Type B (PCR) (Neg) RSV (RT-PCR) (Neg) Medications Administered Current Inpatient Medications Acetaminophen (Acetaminophen 325 Mg Tab) 650 mg PO Q4H PRN PRN Reason: Pain or Fever Stop: 05/03/22 22:44 Clonidine HCl (Clonidine Hcl 0.1 Mg Tab) 0.1 mg PO Q6H PRN PRN Reason: Hypertension Stop: 05/03/22 22:44 Dorzolamide HCl (Dorzolamide Hcl 2% Oph Soln 10 Ml Btl) 1 drops OPB BID [facility] Stop: 05/04/22 08:59 Furosemide (Furosemide 20 Mg Tab) 20 mg PO Q2D@0900 PRN PRN Reason: Edema Stop: 05/03/22 22:44 Heparin Sodium (Porcine) (Heparin Sod 5,000 Unit/0.5 Ml Vial) 5,000 units SQ Q12 CK Stop: 05/04/22 08:59 Dextrose/Sodium Chloride (D5w And Nss) 1,000 mls @ 75 mls/hr IV .[id number] [facility] Stop: 04/05/22 01:24 Last Admin: 04/04/22 01:00 Dose: 75 mls/hr Cefepime HCl 500 mg/ Syringe 5 mls @ 5 mls/min IV Q24H [facility]; Protocol Stop: 04/11/22 21:59 Lactobacillus Acidophilus (Lactobacillus Acidophilus 1 Gm Pack) 1 gm PO TIDM [facility] Stop: 05/04/22 07:59 Lisinopril (Lisinopril 5 Mg Tab) 5 mg PO QAM [facility] Stop: 05/04/22 08:59 Multivitamins/Minerals (Cerovite Adv Formula Tab) 1 tab PO DAILY [facility] Stop: 05/04/22 08:59 Nitroglycerin (Nitroglycerin Sl 0.4 Mg/Tab Tab) 0.4 mg SL UD PRN PRN Reason: Chest Pain Stop: 05/03/22 22:44 Ondansetron HCl (Ondansetron Inj 2 Mg/Ml 2 Ml Vial) 4 mg IV Q6H PRN PRN Reason: Nausea Stop: 05/03/22 22:44 Timolol Maleate (Timolol Gfs 0.5% Oph Soln 74 Drops/5 Ml Btl) 1 drops OPB QAM [facility] Stop: 05/04/22 08:59 Tramadol HCl (Tramadol Hcl 50 Mg Tablet) 50 mg PO Q8H PRN PRN Reason: Pain Stop: 05/03/22 22:44
[2022-04-04] MEDS: PANTOprazole 40 MG TAB PO SCH (08:43)
[2022-04-04] MEDS: HEPARIN SOD 5,000 UNIT/0.5 ML VIAL SQ SCH ×2 (08:44→20:43)
[2022-04-04] MEDS: CEROVITE ADV FORMULA TAB PO SCH (08:44)
[2022-04-04] MEDS: LACTOBACILLUS ACIDOPHILUS 1 GM PACK PO SCH ×3 (08:44→16:26)
[2022-04-04] MEDS: DORZOLAMIDE HCL 2% OPH SOLN 10 ML BTL OPB SCH ×2 (08:45→20:43)
[2022-04-04] MEDS ORDERED: lisinopril 5 MG TAB PO SCH (09:00)
[2022-04-04] MEDS ORDERED: TIMOLOL GFS 0.5% OPH SOLN 74 DROPS/5 ML BTL OPB SCH (09:00)
[2022-04-04] MEDS: traMADol HCL 50 MG TABLET PO PRN ×2 (09:29→16:24)
[2022-04-04 12:34] LABS: Hematocrit (blood only) 25.3 % (37.0-47.0); Hemoglobin 8.2 g/dl (12.0-16.0); Mean Corpuscular Hemoglobin 27.9 pg (25.0-34.0); Mean Corpuscular Hgb Conc 32.4 g/dL (32.0-36.0); Mean Corpuscular Volume 86.1 fL (80.0-100.0); Mean Platelet Volume 10.9 fL (9.4-12.4); Platelet Count 268 K/uL (130-400); RDW Standard Deviation 53.1 fL (36.4-46.3); Red Blood Count 2.94 M/uL (4.20-5.40); White Blood Count 8.41 K/ul (4.8-10.8)
[2022-04-04 12:53] LABS: BUN Creatinine Ratio 41.3 (10-20); Calcium 7.9 mg/dl (8.5-10.1); Creatinine Clr Calc Pharmacy 10.5 ml/min; Est GFR (African American) 29.2 ml/min; Est GFR (Non-African American) 25.2 ml/min; Magnesium 1.5 mg/dl (1.7-2.4)
[2022-04-04] MEDS ORDERED: MAGNESIUM SULFATE / D5W 1 GM/100 ML BAG IV ONE (13:15)
--- NOTE | 2022-04-04 14:05 | Electrocardiogram Report ---
Test Reason : Blood Pressure : / mmHG Vent. Rate : 080 BPM Atrial Rate : 080 BPM P-R Int : 116 ms QRS Dur : 088 ms QT Int : 370 ms P-R-T Axes : 024 047 051 degrees QTc Int : 426 ms Poor data quality, interpretation may be adversely affected Normal sinus rhythm Poor R wave progression, consider anterior IN vs. lead placement vs. LVH Abnormal ECG When compared with ECG of 27-JAN-2022 11:09, Minimal criteria for Anterior infarct are now Present Confirmed by Mark Mercado [id number]) on 04/04/2022 2:04:40 PM Referred By: REFERRED SELF Confirmed By:Mark Mercado
--- NOTE | 2022-04-04 18:41 | CT Scan Report ---
CT foot LT wo con HISTORY: 87 years-old Female r/o abscess or osteo chronic foot ulcer. Possible osteomyelitis COMPARISON: Left foot radiographs 01/23/2022 TECHNIQUE: Multiple axial CT images of the left foot were obtained without the use of IV contrast. A dose lowering technique was used consistent with the principals of ELINA. FINDINGS: There is moderate skin thickening of the left foot and ankle with mild diffuse subcutaneous edema. Li gaments and tendons are not well evaluated by CT technique. Arterial calcifications. No fluid collect ions suggest abscess. No foreign body identified. Demineralized appearance of the bones. Mild to moderate osteoarthritis without acute dislocation or o sseous erosion identified. Subtle age-indeterminate nondisplaced fracture involves the second proxima l phalangeal head on image 223 series 3 with probable intra-articular extension. IMPRESSION: 1. No CT evidence of osteomyelitis.. 2. Subtle acute nondisplaced age-indeterminate second proximal phalangeal fracture. 3. Asymmetric subcutaneous edema with skin thickening of the left foot and ankle. Differential consid erations include cellulitis, venous stasis or lymphedema. 4. No abscess identified. ACT 112: Negative or not required by law. The above report was generated using voice recognition software. It may contain grammatical, syntax o r spelling errors. Electronically signed by: Braulio Sumner M.D. 04/04/2022 6:39 PM
[2022-04-04] MEDS: TIMOLOL GFS 0.5% OPH SOLN 74 DROPS/5 ML BTL OPB SCH (21:54)
[2022-04-04] MEDS ORDERED: CEFEPIME 500 MG in SYRINGE 0 ML IV SCH (22:00)
[2022-04-05] MEDS: traMADol HCL 50 MG TABLET PO PRN ×2 (03:08→11:23)
[2022-04-05 06:20] LABS: Hematocrit (blood only) 24.4 % (37.0-47.0); Hemoglobin 7.8 g/dl (12.0-16.0); Mean Corpuscular Hemoglobin 28.2 pg (25.0-34.0); Mean Corpuscular Volume 88.1 fL (80.0-100.0); Mean Platelet Volume 10.7 fL (9.4-12.4); Platelet Count 241 K/uL (130-400); RDW Coefficient of Variation 16.7 % (11.5-14.5); RDW Standard Deviation 54.4 fL (36.4-46.3); Red Blood Count 2.77 M/uL (4.20-5.40); White Blood Count 7.75 K/ul (4.8-10.8)
[2022-04-05 06:39] LABS: BUN Creatinine Ratio 38.9 (10-20); Calcium 7.4 mg/dl (8.5-10.1); Creatinine Clr Calc Pharmacy 14.8 ml/min; Est GFR (African American) 42.6 ml/min; Est GFR (Non-African American) 36.8 ml/min; Magnesium 1.6 mg/dl (1.7-2.4); Phosphorus 1.9 mg/dl (2.5-4.9)
--- NOTE | 2022-04-05 08:01 | Hospitalist Progress Note ---
Date of Service April 05, 2022 Assessment & Plan (1) TREVIN (acute kidney injury): Plan: This is an 87-year-old female who presents with weakness. 1. Weakness secondary to possible left foot cellulitis, history of Pseudomonas infection in the foot. Last admission in January 2022, Dr. Leon - podiatry - did foot wound debridement We will continue with IV cefepime, which it was sensitive in the past. Will adjust cefepime for renal dosing. Follow the cultures, wound care, monitor closely in the hospital. Discussed in detail w/ wound care nurse. CT foot ordered to r/o any abscess, or osteomyelitis 1. No CT evidence of osteomyelitis.. 2. Subtle acute nondisplaced age-indeterminate second proximal phalangeal fracture. 3. Asymmetric subcutaneous edema with skin thickening of the left foot and ankle. Differential considerations include cellulitis, venous stasis or lymphedema. 4. No abscess identified. Arterial doppler L JOSE FUENTES consulted Podiatry consulted for phalangeal fx wound cultx obtained by wound care nurse (04/05/2022) - pending 2. Acute kidney injury. Presents with creatinine of 2.9 and very high BUN of 103. Her creatinine was 1.04 in the end of 01/2022. Probably secondary to above, and poor appetite, possibly prerenal. Cr now improved at 1.3 after receiving IVF, antibiotics 3. Mild anion gap metabolic acidosis secondary to above, possibly also some starvation ketosis as she is not eating for last one week. Getting D5 normal saline.Anion gap now normal. 4. Diarrhea. The patient had 3-4 episodes of diarrhea day of admission. She says her stools were dark. Hemoglobin is stable at 11.2. She has a history of anemia with hemoglobin in the range of 8 in the past. will check stool for Hemoccult. Because she was recently on antibiotics, check stool for Clostridium difficile. We will monitor. Getting fluids. 5. Chronic diastolic congestive heart failure, on Lasix as needed. The patient is currently getting gentle fluids, monitor for any fluid overload, on lisinopril. Hold lisinopril d/t TREVIN. 6. History of hypertension, on lisinopril. clonidine p.r.n. Currently BP low. Continue to monitor. Hold lisinopril. 7. History of anemia. We will follow the stool occult. Last admission, gastroenterology saw the patient. The patient has a history of duodenal ulcer found in 05/2021, supposed to be on Protonix twice daily, currently seems to be not taking. Supposed to follow outpatient for esophagogastroduodenoscopy and colonoscopy, it seems that she has not followed up. We will follow the stool for Hemoccult. Will place her on Protonix daily. 8. Severe protein-calorie malnutrition, BMI 13 Dietitian consulted DVT prophylaxis. We will place her on heparin subcutaneously for now, but monitor for any gastrointestinal bleed. Code status: Full code.Discussed code status with the pt - she is more inclined for DNR/DNI status, will address again Physical therapy and occupational therapy prior to discharge. Social service to help with discharge planning. Admission and Anticipated Discharge Date Admission Date: April 03, 2022 Subjective Pt seen in follow up of TREVIN, nausea, diarrhea, LLE cellulitis Currently laying in bed, in no acute distress No fevers chills chest pain shortness of breath Denies any abdominal pain Reports very poor appetite, weakness Creatinine on admission 2.9, now improved after IV fluids Seen with wound care nurse at the bedside - wound cultx obtained today Discussed in detail with wound care nurse. Review of Systems Review of Systems: All systems reviewed & are unremarkable except as noted in Subjective Physical Exam Physical Exam: GENERAL: elderly frail F in NAD HEENT: NC/AT, EOMI, Pupils equal, round and reactive to light. Oral mucosa moist. NECK: No JVD, no neck masses, no carotid bruits. CARDIOVASCULAR: S1 and S2 heard. Regular rate and rhythm. No murmur, no gallop. RESPIRATORY: Normal AP diameter. No accessory muscle use. No wheezing, no crackles. ABDOMEN: Soft, bowel sounds present. Mild abdominal discomfort. No guarding. No rigidity. NEURO: Alert and oriented. Speech is clear. No facial droop. Obeys simple commands. Moves extremities. EXTREMITIES: Left foot is erythematous, slightly wet, +thick skin on the dorsal aspect of the toes. Results & Data Results & Data ([facility]) Vital Signs (Past 12 Hours) Vital Signs Temp Pulse Pulse Resp BP Pulse Ox O2 Del Method 04/05/22 02:58 36.8 C 82 18 126/65 98 Room Air 04/04/22 23:23 75 04/04/22 22:53 37.4 C 74 16 124/65 98 Room Air Laboratory Results 04/05/22 04/05/22 04/04/22 Range/Units 05:37 05:37 12:03 WBC 7.75 (4.8-10.8) K/ul RBC 2.77 L (4.20-5.40) M/uL Hgb 7.8 L (12.0-16.0) g/dl Hct 24.4 L (37.0-47.0) % MCV 88.1 (80.0-100.0) fL MCH 28.2 (25.0-34.0) pg MCHC 32.0 (32.0-36.0) g/dL RDW Std Deviation 54.4 H (36.4-46.3) fL RDW Coeff of Vasu 16.7 H (11.5-14.5) % Plt Count 241 (130-400) K/uL MPV 10.7 (9.4-12.4) fL Sodium 138 139 (136-145) mmol/L Potassium 4.0 4.0 (3.5-5.1) mmol/L Chloride 115 H 115 H (98-107) mmol/L Carbon Dioxide 20 L 19 L (21-32) mmol/L Anion Gap 3 5 (3-11) BUN 51 H D 74 H (6-23) mg/dl Creatinine 1.31 H D 1.79 H D (0.6-1.2) mg/dl Est Cr Clr Drug Dosing 14.8 10.5 ml/min Est GFR ( Amer) 42.6 29.2 ml/min Est GFR (Non-Af Amer) 36.8 25.2 ml/min BUN/Creatinine Ratio 38.9 H 41.3 H (10-20) Glucose 101 H 116 H (70-99(Fasting)) mg/dl Calcium 7.4 L 7.9 L (8.5-10.1) mg/dl Phosphorus 1.9 L D 3.0 (2.5-4.9) mg/dl Magnesium 1.6 L 1.5 L (1.7-2.4) mg/dl 04/04/22 Range/Units 12:03 WBC 8.41 (4.8-10.8) K/ul RBC 2.94 L (4.20-5.40) M/uL Hgb 8.2 L (12.0-16.0) g/dl Hct 25.3 L (37.0-47.0) % MCV 86.1 (80.0-100.0) fL MCH 27.9 (25.0-34.0) pg MCHC 32.4 (32.0-36.0) g/dL RDW Std Deviation 53.1 H (36.4-46.3) fL RDW Coeff of Vasu 17.0 H (11.5-14.5) % Plt Count 268 (130-400) K/uL MPV 10.9 (9.4-12.4) fL Sodium (136-145) mmol/L Potassium (3.5-5.1) mmol/L Chloride (98-107) mmol/L Carbon Dioxide (21-32) mmol/L Anion Gap (3-11) BUN (6-23) mg/dl Creatinine (0.6-1.2) mg/dl Est Cr Clr Drug Dosing ml/min Est GFR ( Amer) ml/min Est GFR (Non-Af Amer) ml/min BUN/Creatinine Ratio (10-20) Glucose (70-99(Fasting)) mg/dl Calcium (8.5-10.1) mg/dl Phosphorus (2.5-4.9) mg/dl Magnesium (1.7-2.4) mg/dl Medications Administered Current Inpatient Medications Acetaminophen (Acetaminophen 325 Mg Tab) 650 mg PO Q4H PRN PRN Reason: Pain or Fever Stop: 05/03/22 22:44 Clonidine HCl (Clonidine Hcl 0.1 Mg Tab) 0.1 mg PO Q6H PRN PRN Reason: Hypertension Stop: 05/03/22 22:44 Dorzolamide HCl (Dorzolamide Hcl 2% Oph Soln 10 Ml Btl) 1 drops OPB BID CK Stop: 05/04/22 08:59 Last Admin: 04/04/22 20:43 Dose: 1 drops Furosemide (Furosemide 20 Mg Tab) 20 mg PO Q2D@0900 PRN PRN Reason: Edema Stop: 05/03/22 22:44 Heparin Sodium (Porcine) (Heparin Sod 5,000 Unit/0.5 Ml Vial) 5,000 units SQ Q12 CK Stop: 05/04/22 08:59 Last Admin: 04/04/22 20:43 Dose: 5,000 units Cefepime HCl 500 mg/ Syringe 5 mls @ 5 mls/min IV Q24H [facility]; Protocol Stop: 04/11/22 21:59 Last Admin: 04/04/22 21:57 Dose: 5 mls/min Lactobacillus Acidophilus (Lactobacillus Acidophilus 1 Gm Pack) 1 gm PO TIDM [facility] Stop: 05/04/22 07:59 Last Admin: 04/04/22 16:26 Dose: 1 gm Lisinopril (Lisinopril 5 Mg Tab) 5 mg PO QAM [facility] Stop: 05/04/22 08:59 Last Admin: 04/04/22 08:44 Dose: 5 mg Multivitamins/Minerals (Cerovite Adv Formula Tab) 1 tab PO DAILY [facility] Stop: 05/04/22 08:59 Last Admin: 04/04/22 08:44 Dose: 1 tab Nitroglycerin (Nitroglycerin Sl 0.4 Mg/Tab Tab) 0.4 mg SL UD PRN PRN Reason: Chest Pain Stop: 05/03/22 22:44 Ondansetron HCl (Ondansetron Inj 2 Mg/Ml 2 Ml Vial) 4 mg IV Q6H PRN PRN Reason: Nausea Stop: 05/03/22 22:44 Pantoprazole Sodium (Pantoprazole 40 Mg Tab) 40 mg PO QAM [facility] Stop: 05/04/22 08:59 Last Admin: 04/04/22 08:43 Dose: 40 mg Timolol Maleate (Timolol Gfs 0.5% Oph Soln 74 Drops/5 Ml Btl) 1 drops OPB BID [facility] Stop: 05/04/22 20:59 Last Admin: 04/04/22 21:54 Dose: 1 drops Tramadol HCl (Tramadol Hcl 50 Mg Tablet) 50 mg PO Q8H PRN PRN Reason: Pain Stop: 05/03/22 22:44 Last Admin: 04/05/22 03:08 Dose: 50 mg
--- NOTE | 2022-04-05 08:16 | Ultrasound Report ---
US arterial duplex LE LT CLINICAL HISTORY: recurrent cellulitis, poor wound healing COMPARISON STUDY: None. FINDINGS: The right ankle-brachial index measured 1.08 in the left ankle-brachial index measured 1.00 . IMPRESSION: Normal bilateral ankle brachial indices as above. ACT 112: Negative or not required by law. Electronically signed by: Madhu Calderon M.D. 04/05/2022 8:14 AM
[2022-04-05] MEDS: DORZOLAMIDE HCL 2% OPH SOLN 10 ML BTL OPB SCH ×2 (08:27→20:38)
[2022-04-05] MEDS: LACTOBACILLUS ACIDOPHILUS 1 GM PACK PO SCH ×3 (08:27→16:20)
[2022-04-05] MEDS: TIMOLOL GFS 0.5% OPH SOLN 74 DROPS/5 ML BTL OPB SCH ×2 (08:27→20:38)
[2022-04-05] MEDS: PANTOprazole 40 MG TAB PO SCH (08:27)
[2022-04-05] MEDS: CEROVITE ADV FORMULA TAB PO SCH (08:28)
[2022-04-05] MEDS: HEPARIN SOD 5,000 UNIT/0.5 ML VIAL SQ SCH ×2 (08:28→20:39)
[2022-04-05] MEDS: CEFEPIME 1,000 MG in SYRINGE 0 ML IV SCH (11:23)
[2022-04-05] MEDS ORDERED: MAGNESIUM SULFATE / D5W 1 GM/100 ML BAG IV ONE (12:30)
[2022-04-05] MEDS: ACETAMINOPHEN 325 MG TAB PO PRN ×2 (16:25→20:48)
[2022-04-06] MEDS: traMADol HCL 50 MG TABLET PO PRN ×2 (05:33→19:54)
[2022-04-06 06:25] LABS: Hemoglobin 8.1 g/dl (12.0-16.0); Mean Corpuscular Hgb Conc 31.2 g/dL (32.0-36.0); Mean Platelet Volume 11.4 fL (9.4-12.4); Platelet Count 249 K/uL (130-400); RDW Coefficient of Variation 16.9 % (11.5-14.5); RDW Standard Deviation 55.6 fL (36.4-46.3); Red Blood Count 2.89 M/uL (4.20-5.40); White Blood Count 6.78 K/ul (4.8-10.8)
[2022-04-06 06:48] LABS: BUN Creatinine Ratio 30.5 (10-20); Creatinine Clr Calc Pharmacy 15.2 ml/min; Est GFR (African American) 43.8 ml/min; Est GFR (Non-African American) 37.8 ml/min; Magnesium 1.6 mg/dl (1.7-2.4); Phosphorus 1.7 mg/dl (2.5-4.9); Potassium 4.6 mmol/L (3.5-5.1)
[2022-04-06] MEDS: TIMOLOL GFS 0.5% OPH SOLN 74 DROPS/5 ML BTL OPB SCH ×2 (09:05→20:29)
[2022-04-06] MEDS: LACTOBACILLUS ACIDOPHILUS 1 GM PACK PO SCH ×3 (09:06→17:14)
[2022-04-06] MEDS: PANTOprazole 40 MG TAB PO SCH (09:06)
[2022-04-06] MEDS: DORZOLAMIDE HCL 2% OPH SOLN 10 ML BTL OPB SCH ×2 (09:06→20:29)
[2022-04-06] MEDS: HEPARIN SOD 5,000 UNIT/0.5 ML VIAL SQ SCH ×2 (09:06→20:30)
[2022-04-06] MEDS: CEROVITE ADV FORMULA TAB PO SCH (09:07)
[2022-04-06] MEDS: CEFEPIME 1,000 MG in SYRINGE 0 ML IV SCH (11:31)
[2022-04-06] MEDS ORDERED: SODIUM PHOSPHATE 3 MMOL/1 ML INFUSION IV STA (12:23)
[2022-04-06] MEDS ORDERED: MAGNESIUM SULFATE / D5W 1 GM/100 ML BAG IV ONE (12:24)
--- NOTE | 2022-04-06 12:33 | Hospitalist Progress Note ---
Date of Service April 06, 2022 Assessment & Plan (1) TREVIN (acute kidney injury): Plan: This is an 87-year-old female who presents with weakness. 1. Weakness secondary to possible left foot cellulitis, history of Pseudomonas infection in the foot. Last admission in January 2022, Dr. Leon - podiatry - did foot wound debridement We will continue with IV cefepime, which it was sensitive in the past. Will adjust cefepime for renal dosing. Follow the cultures, wound care, monitor closely in the hospital. Discussed in detail w/ wound care nurse. wound cultx obtained by wound care nurse (04/05/2022) - pending CT foot ordered to r/o any abscess, or osteomyelitis 1. No CT evidence of osteomyelitis.. 2. Subtle acute nondisplaced age-indeterminate second proximal phalangeal fracture. 3. Asymmetric subcutaneous edema with skin thickening of the left foot and ankle. Differential considerations include cellulitis, venous stasis or lymphedema. 4. No abscess identified. Arterial doppler L LE - Normal bilateral ankle brachial indices as above. ID consulted- appreciate their input Podiatry consulted for phalangeal fx 2. Acute kidney injury. Presents with creatinine of 2.9 and very high BUN of 103. Her creatinine was 1.04 in the end of 01/2022. Probably secondary to above, and poor appetite, possibly prerenal. Cr now improved at 1.3 after receiving IVF, antibiotics 3. Mild anion gap metabolic acidosis secondary to above, possibly also some starvation ketosis as she is not eating for last one week. Getting D5 normal saline.Anion gap now normal. 4. Diarrhea. The patient had 3-4 episodes of diarrhea day of admission. She says her stools were dark. Hemoglobin is stable at 11.2. She has a history of anemia with hemoglobin in the range of 8 in the past. will check stool for Hemoccult. Because she was recently on antibiotics, check stool for Clostridium difficile. We will monitor. Getting fluids. 5. Chronic diastolic congestive heart failure, on Lasix as needed. The patient received gentle fluids, monitor for any fluid overload, on lisinopril. Hold lisinopril d/t TREVIN. 6. History of hypertension, on lisinopril. clonidine p.r.n. Currently BP low/normal. Continue to monitor. Hold lisinopril. 7. History of anemia. We will follow the stool occult. Last admission, gastroenterology saw the patient. The patient has a history of duodenal ulcer found in 05/2021, supposed to be on Protonix twice daily, currently seems to be not taking. Supposed to follow outpatient for esophagogastroduodenoscopy and colonoscopy, it seems that she has not followed up. We will follow the stool for Hemoccult. Will place her on Protonix daily. 8. Severe protein-calorie malnutrition, BMI 13 Dietitian consulted DVT prophylaxis.heparin subcutaneously for now, but monitor for any gastrointestinal bleed. Code status: Full code.Discussed code status with the pt - she is more inclined for DNR/DNI status, will address again Physical therapy and occupational therapy prior to discharge. Social service to help with discharge planning. Admission and Anticipated Discharge Date Admission Date: April 03, 2022 Subjective Pt seen in follow up of TREVIN, nausea, diarrhea, LLE cellulitis Currently laying in bed, in no acute distress No fevers chills chest pain shortness of breath Denies any abdominal pain Reports very poor appetite, weakness Creatinine on admission 2.9, now improved after IV fluids Seen with wound care nurse at the bedside yesterday - and wound cultx obtained Podiatry eval pending Review of Systems Review of Systems: All systems reviewed & are unremarkable except as noted in Subjective Physical Exam Physical Exam: GENERAL: elderly frail F in NAD HEENT: NC/AT, EOMI, Pupils equal, round and reactive to light. Oral mucosa moist. NECK: No JVD, no neck masses, no carotid bruits. CARDIOVASCULAR: S1 and S2 heard. Regular rate and rhythm. No murmur, no gallop. RESPIRATORY: Normal AP diameter. No accessory muscle use. No wheezing, no crackles. ABDOMEN: Soft, bowel sounds present. Mild abdominal discomfort. No guarding. No rigidity. NEURO: Alert and oriented. Speech is clear. No facial droop. Obeys simple commands. Moves extremities. EXTREMITIES: Left foot is erythematous, slightly wet, +thick skin on the dorsal aspect of the toes. Results & Data Results & Data ([facility]) Vital Signs (Past 12 Hours) Vital Signs Temp Pulse Pulse Resp BP Pulse Ox O2 Del Method 04/06/22 12:17 36.9 C 71 16 122/56 L 98 Room Air 04/06/22 06:59 75 04/06/22 06:23 36.7 C 78 18 143/78 H 99 Room Air 04/06/22 02:58 36.9 C 82 16 150/97 H 97 Room Air Laboratory Results 04/06/22 04/06/22 Range/Units 05:22 05:22 WBC 6.78 (4.8-10.8) K/ul RBC 2.89 L (4.20-5.40) M/uL Hgb 8.1 L (12.0-16.0) g/dl Hct 26.0 L (37.0-47.0) % MCV 90.0 (80.0-100.0) fL MCH 28.0 (25.0-34.0) pg MCHC 31.2 L (32.0-36.0) g/dL RDW Std Deviation 55.6 H (36.4-46.3) fL RDW Coeff of Vasu 16.9 H (11.5-14.5) % Plt Count 249 (130-400) K/uL MPV 11.4 (9.4-12.4) fL Sodium 137 (136-145) mmol/L Potassium 4.6 (3.5-5.1) mmol/L Chloride 113 H (98-107) mmol/L Carbon Dioxide 21 (21-32) mmol/L Anion Gap 3 (3-11) BUN 39 H (6-23) mg/dl Creatinine 1.28 H (0.6-1.2) mg/dl Est Cr Clr Drug Dosing 15.2 ml/min Est GFR ( Amer) 43.8 ml/min Est GFR (Non-Af Amer) 37.8 ml/min BUN/Creatinine Ratio 30.5 H (10-20) Glucose 90 (70-99(Fasting)) mg/dl Calcium 8.0 L (8.5-10.1) mg/dl Phosphorus 1.7 L (2.5-4.9) mg/dl Magnesium 1.6 L (1.7-2.4) mg/dl Medications Administered Current Inpatient Medications Acetaminophen (Acetaminophen 325 Mg Tab) 650 mg PO Q4H PRN PRN Reason: Pain or Fever Stop: 05/03/22 22:44 Last Admin: 04/05/22 20:48 Dose: 650 mg Clonidine HCl (Clonidine Hcl 0.1 Mg Tab) 0.1 mg PO Q6H PRN PRN Reason: Hypertension Stop: 05/03/22 22:44 Dorzolamide HCl (Dorzolamide Hcl 2% Oph Soln 10 Ml Btl) 1 drops OPB BID [facility] Stop: 05/04/22 08:59 Last Admin: 04/06/22 09:06 Dose: 1 drops Furosemide (Furosemide 20 Mg Tab) 20 mg PO Q2D@0900 PRN PRN Reason: Edema Stop: 05/03/22 22:44 Heparin Sodium (Porcine) (Heparin Sod 5,000 Unit/0.5 Ml Vial) 5,000 units SQ Q12 CK Stop: 05/04/22 08:59 Last Admin: 04/06/22 09:06 Dose: 5,000 units Cefepime HCl 1,000 mg/ Syringe 10 mls @ 5 mls/min IV Q24H [facility]; Protocol Stop: 04/11/22 21:59 Last Admin: 04/06/22 11:31 Dose: 5 mls/min Magnesium Sulfate/Dextrose (Magnesium Sulfate / D5w) 1 gm in 100 mls @ 50 mls/hr IV ONE ONE Stop: 04/06/22 14:23 Lactobacillus Acidophilus (Lactobacillus Acidophilus 1 Gm Pack) 1 gm PO TIDM [facility] Stop: 05/04/22 07:59 Last Admin: 04/06/22 11:30 Dose: 1 gm Lisinopril (Lisinopril 5 Mg Tab) 5 mg PO QAM [facility] Stop: 05/04/22 08:59 Last Admin: 04/04/22 08:44 Dose: 5 mg Multivitamins/Minerals (Cerovite Adv Formula Tab) 1 tab PO DAILY [facility] Stop: 05/04/22 08:59 Last Admin: 04/06/22 09:07 Dose: 1 tab Nitroglycerin (Nitroglycerin Sl 0.4 Mg/Tab Tab) 0.4 mg SL UD PRN PRN Reason: Chest Pain Stop: 05/03/22 22:44 Ondansetron HCl (Ondansetron Inj 2 Mg/Ml 2 Ml Vial) 4 mg IV Q6H PRN PRN Reason: Nausea Stop: 05/03/22 22:44 Pantoprazole Sodium (Pantoprazole 40 Mg Tab) 40 mg PO QAM [facility] Stop: 05/04/22 08:59 Last Admin: 04/06/22 09:06 Dose: 40 mg Sodium Phosphate (Sodium Phosphate 3 Mmol/1 Ml Infusion) 9 mmol IV NOW STA Stop: 04/06/22 12:24 Timolol Maleate (Timolol Gfs 0.5% Oph Soln 74 Drops/5 Ml Btl) 1 drops OPB BID CK Stop: 05/04/22 20:59 Last Admin: 04/06/22 09:05 Dose: 1 drops Tramadol HCl (Tramadol Hcl 50 Mg Tablet) 50 mg PO Q8H PRN PRN Reason: Pain Stop: 05/03/22 22:44 Last Admin: 04/06/22 05:33 Dose: 50 mg
[2022-04-06] MEDS ORDERED: SODIUM CHLORIDE 0.9% IV ONE (12:45)
[2022-04-06] MEDS ORDERED: SODIUM PHOSPHATE IV ONE (12:45)
--- NOTE | 2022-04-06 14:42 | Orthopedic Consultation ---
Date of Consultation April 05, 2022 Assessment & Plan (1) Ulcer of left foot: Patient seen, evaluated, and treated. I evaluated the patient for a wound that has been resistant to healing. Lower extremity compression and edema control is an important part of this Patient's wound management. I did discuss use of multiple layer compression as well a single layer tubi commercial credit officer. I suspect the failed resolution of the left foot wound has a strong component of lower extremity edema. It was decided at today's visit visit wound would be debrided. Sharp excisional debridement with out incident. Patient tolerated this procedure well. See procedure noted below. Wound cleansed with betadine followed by normal saline. Application of adaptic followed by Aquacel, 4x4 gauze, kerlix. Will continue to monitor wound progression and may change dressings based on assement. Patient may benefit from use of santyl if fibrous slough continues. Thank you for allowing me to participate in the care of this Patient. Today's procedure is an excisional debridement of deep tissue. There is a moderate amount of serosanguineous exudate draining from the ulcer. The ulcer base is described as containing has pink granulation. Necrotic or devitalized tissue is estimated to be present in approximately 60% of the pressure ulcer bed. The ulcer has been exposed full-thickness tissue. I have informed the patient of the risks and benefit of this procedure and they have had the opportunity to ask questions. Appropriate consent has been obtained. The patient refused site marking. The area was prepped and draped in usual aseptic manner. The procedure was performed and a clean field. I debrided the wound sharply with a sterile #15 blade and necrotic tissue was excised down to and including subcutaneous tissue. Bleeding was minimal and hemostasis was achieved using pressure. The patient tolerated procedure and anesthesia well. The patient was educated regarding the signs and symptoms of infection, such as purulent drainage, edema, cellulitis, and significant pain, and to notify healthcare personnel for any of these things occur. Postprocedure no increased pain. History of Present Illness Attending Physician: Vimal Lam MD History of Present Illness Patient is an 87-year-old female who has been treated at [facility] in past for left foot ulcer. Patient has a past medical history significant for chronic diastolic CHF, angiodysplasia of colon, hypertension, venous insufficiency, diverticulosis of large intestine, GERD, generalized osteoarthritis, kyphoscoliosis, history of anemia, who lives at home with her son, presents with weakness. Patient states that she has ongoing cellulitis of the lower extremities for 2 years. She has had initially first in the left foot and then it went to the right foot and currently left foot. Patient was seen in [facility] hospital at the end of January with left foot cellulitis. Cultures were growing Pseudomonas in November and also in January, pansensitive. She was treated with Bactrim then Cipro. She states that the infection never cleared up. Allergies Allergy/AdvReac Type Severity Reaction Status Date / Time Iodinated Contrast Media Allergy Intermediate Rash Verified 04/03/22 19:39 Home Medications Medication Instructions Recorded Confirmed Type acetaminophen 650 mg 650 mg PO Q8H PRN Pain 04/13/21 04/03/22 History tablet,extended release (Arthritis Pain Relief (acetaminophen) ER) dorzolamide 2 % eye drops 1 drp OPB BID 04/13/21 04/03/22 History lisinopril 5 mg tablet 5 mg PO QAM 04/13/21 04/03/22 History timolol maleate 0.25 % eye drops 1 drp OPB BID 04/13/21 04/04/22 History furosemide 20 mg tablet 20 mg PO Q2D PRN Edema 01/23/22 04/03/22 History [id number] tablet 1 tab PO DAILY 01/23/22 04/03/22 History tramadol 50 mg tablet 50 mg PO Q8 PRN Pain 04/03/22 04/03/22 History Patient History Medical History Anemia Arthritis Closed right hip fracture Glaucoma Hypertension 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 Surgical History H/O: hysterectomy History of bunionectomy History of surgery on arm Family History Other Kidney disease Stroke Social History Smoking Status: Never smoker Second Hand Exposure: No; Do You Dip or Chew Tobacco: No; Hx Alcohol Use: No Hx Substance Use: No Preferred Language: Croatian Communication Ability: Effective Mural Painter Required: No Beliefs That Will Affect Care: None marital status: / Current Living Situation: Family Current Living Situation Comment: Home with son Feels Safe at Home: Yes Safety Concerns: Feels Safe At This Time Assistive Devices: None Review of Systems Review of Systems: All systems reviewed & are unremarkable except as noted in HPI & below Physical Exam Constitutional: WD/WN, vitals as above Eyes: PERRL, conjunctivae normal, anicteric sclerae ENMT: external ear and nose normal, oropharynx normal Respiratory: normal respiratory effort Cardiovascular: Rate/Rhythm: regular rate and regular rhythm Skin: Full thickness left dorsal foot ulcer. Focused Exam: Wound location: Dorsal left foot Wound base color and depth: full thickness wound with significant fibrotic slough Wound size (cm): 6 x 7 x 0.1cm Odor: no malodor Drainage: moderate/heavy serous Undermining: none Borders: macerated Neurologic: Epicritic sensation intact. Psychiatric: Orientation: alert and oriented x 3 Results & Data ([facility]) Vital Signs (Past 12 Hours) Vital Signs Temp Pulse Pulse Resp BP Pulse Ox O2 Del Method 04/05/22 20:11 36.5 C 80 16 128/63 97 Room Air 04/05/22 16:53 36.8 C 82 19 147/74 H 99 Room Air 04/05/22 15:47 88 04/05/22 13:50 71 04/05/22 11:56 36.4 C L 83 18 126/67 99 Room Air
[2022-04-06] MEDS: ACETAMINOPHEN 325 MG TAB PO PRN (22:08)
[2022-04-07] MEDS: traMADol HCL 50 MG TABLET PO PRN ×2 (03:57→16:00)
[2022-04-07 06:15] LABS: Hematocrit (blood only) 25.7 % (37.0-47.0); Hemoglobin 8.2 g/dl (12.0-16.0); Mean Corpuscular Hemoglobin 28.1 pg (25.0-34.0); Mean Corpuscular Hgb Conc 31.9 g/dL (32.0-36.0); Mean Platelet Volume 11.2 fL (9.4-12.4); Platelet Count 260 K/uL (130-400); RDW Coefficient of Variation 16.5 % (11.5-14.5); RDW Standard Deviation 53.1 fL (36.4-46.3); Red Blood Count 2.92 M/uL (4.20-5.40); White Blood Count 7.45 K/ul (4.8-10.8)
[2022-04-07 06:21] LABS: BUN Creatinine Ratio 29.2 (10-20); Calcium 7.8 mg/dl (8.5-10.1); Creatinine Clr Calc Pharmacy 24.5 ml/min; Est GFR (African American) 55.1 ml/min; Est GFR (Non-African American) 47.5 ml/min; Potassium 4.6 mmol/L (3.5-5.1)
[2022-04-07 07:01] LABS: Magnesium 1.6 mg/dl (1.7-2.4); Phosphorus 1.5 mg/dl (2.5-4.9)
[2022-04-07] MEDS ORDERED: SODIUM PHOSPHATE 3 MMOL/1 ML INFUSION IV STA (07:36)
--- NOTE | 2022-04-07 07:39 | Hospitalist Progress Note ---
Date of Service April 07, 2022 Assessment & Plan (1) TREVIN (acute kidney injury): Plan: This is an 87-year-old female who presents with weakness. 1. Weakness secondary to possible left foot cellulitis, history of Pseudomonas infection in the foot. Last admission in January 2022, Dr. Leon - podiatry - did foot wound debridement We will continue with IV cefepime, which it was sensitive in the past. Will adjust cefepime for renal dosing. Follow the cultures, wound care, monitor closely in the hospital. Discussed in detail w/ wound care nurse. wound cultx obtained by wound care nurse (04/05/2022) - pending CT foot ordered to r/o any abscess, or osteomyelitis 1. No CT evidence of osteomyelitis.. 2. Subtle acute nondisplaced age-indeterminate second proximal phalangeal fracture. 3. Asymmetric subcutaneous edema with skin thickening of the left foot and ankle. Differential considerations include cellulitis, venous stasis or lymphedema. 4. No abscess identified. Arterial doppler L LE - Normal bilateral ankle brachial indices as above. ID consulted- appreciate their input Podiatry consulted for phalangeal fx and ongoing cellulitis/wound - underwent excisional debridement 2. Acute kidney injury. - resolved Presents with creatinine of 2.9 and very high BUN of 103. Her creatinine was 1.04 in the end of 01/2022. Probably secondary to above, and poor appetite, possibly prerenal. Cr now improved normalized after receiving IVF, antibiotics 3. Mild anion gap metabolic acidosis secondary to above, possibly also some starvation ketosis as she is not eating for last one week. Getting D5 normal saline.Anion gap now normal. 4. Diarrhea. The patient had 3-4 episodes of diarrhea day of admission. She says her stools were dark. Hemoglobin is stable at 11.2. She has a history of anemia with hemoglobin in the range of 8 in the past. will check stool for Hemoccult. Because she was recently on antibiotics, check stool for Clostridium difficile. We will monitor. Getting fluids. 5. Chronic diastolic congestive heart failure, on Lasix as needed. The patient received gentle fluids, monitor for any fluid overload, on lisinopril. Hold lisinopril d/t TREVIN. 6. History of hypertension, on lisinopril. clonidine p.r.n. Currently BP low/normal. Continue to monitor. Hold lisinopril. 7. History of anemia. We will follow the stool occult. Last admission, gastroenterology saw the patient. The patient has a history of duodenal ulcer found in 05/2021, supposed to be on Protonix twice daily, currently seems to be not taking. Supposed to follow outpatient for esophagogastroduodenoscopy and colonoscopy, it seems that she has not followed up. We will follow the stool for Hemoccult. Will place her on Protonix daily. 8. Severe protein-calorie malnutrition, BMI 13 Dietitian consulted DVT prophylaxis.heparin subcutaneously for now, but monitor for any gastrointestinal bleed. Code status: Full code.Discussed code status with the pt - she is more inclined for DNR/DNI status, will address again Physical therapy and occupational therapy prior to discharge. Social service to help with discharge planning. Admission and Anticipated Discharge Date Admission Date: April 03, 2022 Subjective Pt seen in follow up of TREVIN, nausea, diarrhea, LLE cellulitis Currently laying in bed, in no acute distress No fevers chills chest pain shortness of breath Denies any abdominal pain +poor appetite, weakness Creatinine on admission 2.9, TREVIN now resolved after IVF wound cultx obtained- pending Podiatry and ID consulted Review of Systems Review of Systems: All systems reviewed & are unremarkable except as noted in Subjective Physical Exam Physical Exam: GENERAL: elderly frail F in NAD HEENT: NC/AT, EOMI, Pupils equal, round and reactive to light. Oral mucosa moist. NECK: No JVD, no neck masses, no carotid bruits. CARDIOVASCULAR: S1 and S2 heard. Regular rate and rhythm. No murmur, no gallop. RESPIRATORY: Normal AP diameter. No accessory muscle use. No wheezing, no crackles. ABDOMEN: Soft, bowel sounds present. Mild abdominal discomfort. No guarding. No rigidity. NEURO: Alert and oriented. Speech is clear. No facial droop. Obeys simple commands. Moves extremities. EXTREMITIES: Left foot is erythematous, slightly wet, +thick skin on the dorsal aspect of the toes. Results & Data Results & Data ([facility]) Vital Signs (Past 12 Hours) Vital Signs Temp Pulse Pulse Resp BP Pulse Ox O2 Del Method 04/07/22 07:14 67 04/07/22 06:49 36.7 C 70 16 146/75 H 98 Room Air 04/07/22 04:24 36.7 C 76 16 157/79 H 98 Room Air 04/06/22 23:48 85 04/06/22 22:48 Room Air 04/06/22 22:15 36.9 C 82 16 133/71 96 Room Air Laboratory Results 04/07/22 04/07/22 Range/Units 05:24 05:24 WBC 7.45 (4.8-10.8) K/ul RBC 2.92 L (4.20-5.40) M/uL Hgb 8.2 L (12.0-16.0) g/dl Hct 25.7 L (37.0-47.0) % MCV 88.0 (80.0-100.0) fL MCH 28.1 (25.0-34.0) pg MCHC 31.9 L (32.0-36.0) g/dL RDW Std Deviation 53.1 H (36.4-46.3) fL RDW Coeff of Vasu 16.5 H (11.5-14.5) % Plt Count 260 (130-400) K/uL MPV 11.2 (9.4-12.4) fL Sodium 133 L (136-145) mmol/L Potassium 4.6 (3.5-5.1) mmol/L Chloride 109 H (98-107) mmol/L Carbon Dioxide 23 (21-32) mmol/L Anion Gap 1 L (3-11) BUN 31 H (6-23) mg/dl Creatinine 1.06 (0.6-1.2) mg/dl Est Cr Clr Drug Dosing 24.5 ml/min Est GFR ( Amer) 55.1 ml/min Est GFR (Non-Af Amer) 47.5 ml/min BUN/Creatinine Ratio 29.2 H (10-20) Glucose 92 (70-99(Fasting)) mg/dl Calcium 7.8 L (8.5-10.1) mg/dl Phosphorus 1.5 L* (2.5-4.9) mg/dl Magnesium 1.6 L (1.7-2.4) mg/dl Medications Administered Current Inpatient Medications Acetaminophen (Acetaminophen 325 Mg Tab) 650 mg PO Q4H PRN PRN Reason: Pain or Fever Stop: 05/03/22 22:44 Last Admin: 04/06/22 22:08 Dose: 650 mg Clonidine HCl (Clonidine Hcl 0.1 Mg Tab) 0.1 mg PO Q6H PRN PRN Reason: Hypertension Stop: 05/03/22 22:44 Dorzolamide HCl (Dorzolamide Hcl 2% Oph Soln 10 Ml Btl) 1 drops OPB BID [facility] Stop: 05/04/22 08:59 Last Admin: 04/06/22 20:29 Dose: 1 drops Furosemide (Furosemide 20 Mg Tab) 20 mg PO Q2D@0900 PRN PRN Reason: Edema Stop: 05/03/22 22:44 Heparin Sodium (Porcine) (Heparin Sod 5,000 Unit/0.5 Ml Vial) 5,000 units SQ Q12 [facility] Stop: 05/04/22 08:59 Last Admin: 04/06/22 20:30 Dose: 5,000 units Cefepime HCl 1,000 mg/ Syringe 10 mls @ 5 mls/min IV Q24H [facility]; Protocol Stop: 04/11/22 21:59 Last Admin: 04/06/22 11:31 Dose: 5 mls/min Magnesium Sulfate/Dextrose (Magnesium Sulfate / D5w) 1 gm in 100 mls @ 50 mls/hr IV ONE ONE Stop: 04/07/22 09:35 Lactobacillus Acidophilus (Lactobacillus Acidophilus 1 Gm Pack) 1 gm PO TIDM [facility] Stop: 05/04/22 07:59 Last Admin: 04/06/22 17:14 Dose: 1 gm Lisinopril (Lisinopril 5 Mg Tab) 5 mg PO QAM [facility] Stop: 05/04/22 08:59 Last Admin: 04/04/22 08:44 Dose: 5 mg Multivitamins/Minerals (Cerovite Adv Formula Tab) 1 tab PO DAILY [facility] Stop: 05/04/22 08:59 Last Admin: 04/06/22 09:07 Dose: 1 tab Nitroglycerin (Nitroglycerin Sl 0.4 Mg/Tab Tab) 0.4 mg SL UD PRN PRN Reason: Chest Pain Stop: 05/03/22 22:44 Ondansetron HCl (Ondansetron Inj 2 Mg/Ml 2 Ml Vial) 4 mg IV Q6H PRN PRN Reason: Nausea Stop: 05/03/22 22:44 Pantoprazole Sodium (Pantoprazole 40 Mg Tab) 40 mg PO QAM [facility] Stop: 05/04/22 08:59 Last Admin: 04/06/22 09:06 Dose: 40 mg Sodium Phosphate (Sodium Phosphate 3 Mmol/1 Ml Infusion) 6 mmol IV NOW STA Stop: 04/07/22 07:37 Timolol Maleate (Timolol Gfs 0.5% Oph Soln 74 Drops/5 Ml Btl) 1 drops OPB BID [facility] Stop: 05/04/22 20:59 Last Admin: 04/06/22 20:29 Dose: 1 drops Tramadol HCl (Tramadol Hcl 50 Mg Tablet) 50 mg PO Q8H PRN PRN Reason: Pain Stop: 05/03/22 22:44 Last Admin: 04/07/22 03:57 Dose: 50 mg
[2022-04-07] MEDS ORDERED: MAGNESIUM SULFATE / D5W 1 GM/100 ML BAG IV ONE (07:45)
[2022-04-07] MEDS: LACTOBACILLUS ACIDOPHILUS 1 GM PACK PO SCH ×3 (07:46→16:50)
[2022-04-07] MEDS: DORZOLAMIDE HCL 2% OPH SOLN 10 ML BTL OPB SCH ×2 (07:47→20:18)
[2022-04-07] MEDS: HEPARIN SOD 5,000 UNIT/0.5 ML VIAL SQ SCH ×2 (07:48→20:22)
[2022-04-07] MEDS: CEROVITE ADV FORMULA TAB PO SCH (07:48)
[2022-04-07] MEDS: TIMOLOL GFS 0.5% OPH SOLN 74 DROPS/5 ML BTL OPB SCH ×2 (07:48→20:18)
[2022-04-07] MEDS: PANTOprazole 40 MG TAB PO SCH (07:48)
[2022-04-07] MEDS ORDERED: SODIUM PHOSPHATE 6 MMOL in SODIUM CHLORIDE 0.9% 250 ML IV ONE (08:15)
[2022-04-07] MEDS: CEFEPIME 1,000 MG in SYRINGE 0 ML IV SCH (11:57)
[2022-04-07] MEDS: ACETAMINOPHEN 325 MG TAB PO PRN (20:21)
[2022-04-07] MEDS ORDERED: POLYETHYLENE (MIRALAX) 17 GM PACK PO PRN (23:52)
[2022-04-08 06:17] LABS: Basophils # (auto) 0.04 K/uL (0-0.2); Basophils % (auto) 0.5 %; Eosinophils # (auto) 0.36 K/uL (0-0.50); Eosinophils % (auto) 4.3 %; Hematocrit (blood only) 25.9 % (37.0-47.0); Hemoglobin 8.3 g/dl (12.0-16.0); Immature Granulocytes # (auto) 0.04 K/uL (0.01-0.20); Immature Granulocytes % (auto) 0.5 %; Lymphocytes # (auto) 0.88 K/uL (1.2-3.4); Lymphocytes % (auto) 10.6 %; Mean Corpuscular Hemoglobin 27.7 pg (25.0-34.0); Mean Corpuscular Volume 86.3 fL (80.0-100.0); Mean Platelet Volume 11.1 fL (9.4-12.4); Monocytes % (auto) 7.2 %; Neutrophils # (auto) 6.36 K/uL (1.40-6.50); Neutrophils % (auto) 76.9 %; Platelet Count 275 K/uL (130-400); RDW Coefficient of Variation 16.9 % (11.5-14.5); RDW Standard Deviation 53.1 fL (36.4-46.3); White Blood Count 8.28 K/ul (4.8-10.8)
[2022-04-08 06:35] LABS: BUN Creatinine Ratio 28.6 (10-20); Calcium 7.7 mg/dl (8.5-10.1); Creatinine Clr Calc Pharmacy 25.3 ml/min; Est GFR (African American) 55.7 ml/min; Est GFR (Non-African American) 48.1 ml/min; Magnesium 1.6 mg/dl (1.7-2.4); Potassium 4.8 mmol/L (3.5-5.1)
[2022-04-08] MEDS ORDERED: MAGNESIUM SULFATE / D5W 1 GM/100 ML BAG IV ONE (08:17)
--- NOTE | 2022-04-08 08:29 | Hospitalist Progress Note ---
Date of Service April 08, 2022 Assessment & Plan (1) TREVIN (acute kidney injury): Plan: This is an 87-year-old female who presents with weakness. 1. Weakness secondary to possible left foot cellulitis, history of Pseudomonas infection in the foot. Last admission in January 2022, Dr. Leon - podiatry - did foot wound debridement We will continue with IV cefepime, which it was sensitive in the past. Will adjust cefepime for renal dosing. Follow the cultures, wound care, monitor closely in the hospital. Discussed in detail w/ wound care nurse. wound cultx obtained by wound care nurse (04/05/2022) - posit. for Pseudomonas CT foot ordered to r/o any abscess, or osteomyelitis 1. No CT evidence of osteomyelitis.. 2. Subtle acute nondisplaced age-indeterminate second proximal phalangeal fracture. 3. Asymmetric subcutaneous edema with skin thickening of the left foot and ankle. Differential considerations include cellulitis, venous stasis or lymphedema. 4. No abscess identified. Arterial doppler L LE - Normal bilateral ankle brachial indices as above. ID consulted- appreciate their input Podiatry consulted for phalangeal fx and ongoing cellulitis/wound - underwent excisional debridement 2. Acute kidney injury. - resolved Presents with creatinine of 2.9 and very high BUN of 103. Her creatinine was 1.04 in the end of 01/2022. Probably secondary to above, and poor appetite, possibly prerenal. Cr now improved normalized after receiving IVF, antibiotics 3. Mild anion gap metabolic acidosis secondary to above, possibly also some starvation ketosis as she is not eating for last one week. Getting D5 normal saline.Anion gap now normal. 4. Diarrhea. The patient had 3-4 episodes of diarrhea day of admission. She says her stools were dark. Hemoglobin is stable at 11.2. She has a history of anemia with hemoglobin in the range of 8 in the past. will check stool for Hemoccult. Because she was recently on antibiotics, check stool for Clostridium difficile. We will monitor. Getting fluids. 5. Chronic diastolic congestive heart failure, on Lasix as needed. The patient received gentle fluids, monitor for any fluid overload, on vipin nopril. Hold lisinopril d/t TREVIN. 6. History of hypertension, on lisinopril. clonidine p.r.n. Currently BP low/normal. Continue to monitor. Hold lisinopril. 7. History of anemia. We will follow the stool occult. Last admission, gastroenterology saw the patient. The patient has a history of duodenal ulcer found in 05/2021, supposed to be on Protonix twice daily, currently seems to be not taking. Supposed to follow outpatient for esophagogastroduodenoscopy and colonoscopy, it seems that she has not followed up. We will follow the stool for Hemoccult.Placed her on Protonix daily. 8. Severe protein-calorie malnutrition, BMI 13 Dietitian consulted DVT prophylaxis.heparin subcutaneously for now, but monitor for any gastrointestinal bleed. Code status: Full code.Discussed code status with the pt - she is more inclined for DNR/DNI status, will address again Physical therapy and occupational therapy prior to discharge. Social service to help with discharge planning. Admission and Anticipated Discharge Date Admission Date: April 03, 2022 Subjective Pt seen in follow up of TREVIN, nausea, diarrhea, LLE cellulitis Currently laying in bed, in no acute distress No fevers chills chest pain shortness of breath Denies any abdominal pain +poor appetite, weakness Creatinine on admission 2.9, TREVIN now resolved after IVF wound cultx obtained- posit. for Pseudomonas Podiatry and ID consulted Discussed with podiatry today - will examine the foot together this PM Review of Systems Review of Systems: All systems reviewed & are unremarkable except as noted in Subjective Physical Exam Physical Exam: GENERAL: elderly frail F in NAD HEENT: NC/AT, EOMI, Pupils equal, round and reactive to light. Oral mucosa moist. NECK: No JVD, no neck masses, no carotid bruits. CARDIOVASCULAR: S1 and S2 heard. Regular rate and rhythm. No murmur, no gallop. RESPIRATORY: Normal AP diameter. No accessory muscle use. No wheezing, no crackles. ABDOMEN: Soft, bowel sounds present. Mild abdominal discomfort. No guarding. No rigidity. NEURO: Alert and oriented. Speech is clear. No facial droop. Obeys simple commands. Moves extremities. EXTREMITIES: Left foot is erythematous, slightly wet, +thick skin on the dorsal aspect of the toes. Results & Data Results & Data ([facility]) Vital Signs (Past 12 Hours) Vital Signs Temp Pulse Pulse Resp BP Pulse Ox O2 Del Method 04/08/22 07:56 37.3 C 75 16 128/68 97 Room Air 04/08/22 07:42 72 04/08/22 04:00 37 C 82 18 145/67 H 98 Room Air 04/07/22 22:00 37 C 79 18 152/70 H 98 Room Air Laboratory Results 04/08/22 04/08/22 Range/Units 05:36 05:36 WBC 8.28 (4.8-10.8) K/ul RBC 3.00 L (4.20-5.40) M/uL Hgb 8.3 L (12.0-16.0) g/dl Hct 25.9 L (37.0-47.0) % MCV 86.3 (80.0-100.0) fL MCH 27.7 (25.0-34.0) pg MCHC 32.0 (32.0-36.0) g/dL RDW Std Deviation 53.1 H (36.4-46.3) fL RDW Coeff of Vasu 16.9 H (11.5-14.5) % Plt Count 275 (130-400) K/uL MPV 11.1 (9.4-12.4) fL Immature Gran % (Auto) 0.5 % Neut % (Auto) 76.9 % Lymph % (Auto) 10.6 % Terrell % (Auto) 7.2 % Eos % (Auto) 4.3 % Baso % (Auto) 0.5 % Neut # (Auto) 6.36 (1.40-6.50) K/uL Lymph # (Auto) 0.88 L (1.2-3.4) K/uL Terrell # (Auto) 0.60 H (0.11-0.59) K/uL Eos # (Auto) 0.36 (0-0.50) K/uL Baso # (Auto) 0.04 (0-0.2) K/uL Immature Gran # (Auto) 0.04 (0.01-0.20) K/uL Sodium 135 L (136-145) mmol/L Potassium 4.8 (3.5-5.1) mmol/L Chloride 109 H (98-107) mmol/L Carbon Dioxide 23 (21-32) mmol/L Anion Gap 3 (3-11) BUN 30 H (6-23) mg/dl Creatinine 1.05 (0.6-1.2) mg/dl Est Cr Clr Drug Dosing 25.3 ml/min Est GFR ( Amer) 55.7 ml/min Est GFR (Non-Af Amer) 48.1 ml/min BUN/Creatinine Ratio 28.6 H (10-20) Glucose 88 (70-99(Fasting)) mg/dl Calcium 7.7 L (8.5-10.1) mg/dl Magnesium 1.6 L (1.7-2.4) mg/dl Medications Administered Current Inpatient Medications Acetaminophen (Acetaminophen 325 Mg Tab) 650 mg PO Q4H PRN PRN Reason: Pain or Fever Stop: 05/03/22 22:44 Last Admin: 04/07/22 20:21 Dose: 650 mg Clonidine HCl (Clonidine Hcl 0.1 Mg Tab) 0.1 mg PO Q6H PRN PRN Reason: Hypertension Stop: 05/03/22 22:44 Dorzolamide HCl (Dorzolamide Hcl 2% Oph Soln 10 Ml Btl) 1 drops OPB BID [facility] Stop: 05/04/22 08:59 Last Admin: 04/07/22 20:18 Dose: 1 drops Furosemide (Furosemide 20 Mg Tab) 20 mg PO Q2D@0900 PRN PRN Reason: Edema Stop: 05/03/22 22:44 Heparin Sodium (Porcine) (Heparin Sod 5,000 Unit/0.5 Ml Vial) 5,000 units SQ Q12 [facility] Stop: 05/04/22 08:59 Last Admin: 04/07/22 20:22 Dose: 5,000 units Cefepime HCl 1,000 mg/ Syringe 10 mls @ 5 mls/min IV Q24H [facility]; Protocol Stop: 04/11/22 21:59 Last Admin: 04/07/22 11:57 Dose: 5 mls/min Magnesium Sulfate/Dextrose (Magnesium Sulfate / D5w) 1 gm in 100 mls @ 50 mls/hr IV ONE ONE Stop: 04/08/22 10:16 Lactobacillus Acidophilus (Lactobacillus Acidophilus 1 Gm Pack) 1 gm PO TIDM [facility] Stop: 05/04/22 07:59 Last Admin: 04/07/22 16:50 Dose: 1 gm Lisinopril (Lisinopril 5 Mg Tab) 5 mg PO QAM [facility] Stop: 05/04/22 08:59 Last Admin: 04/04/22 08:44 Dose: 5 mg Multivitamins/Minerals (Cerovite Adv Formula Tab) 1 tab PO DAILY [facility] Stop: 05/04/22 08:59 Last Admin: 04/07/22 07:48 Dose: 1 tab Nitroglycerin (Nitroglycerin Sl 0.4 Mg/Tab Tab) 0.4 mg SL UD PRN PRN Reason: Chest Pain Stop: 05/03/22 22:44 Ondansetron HCl (Ondansetron Inj 2 Mg/Ml 2 Ml Vial) 4 mg IV Q6H PRN PRN Reason: Nausea Stop: 05/03/22 22:44 Pantoprazole Sodium (Pantoprazole 40 Mg Tab) 40 mg PO QAM [facility] Stop: 05/04/22 08:59 Last Admin: 04/07/22 07:48 Dose: 40 mg Polyethylene Glycol (Polyethylene (Miralax) 17 Gm Pack) 17 gm PO DAILY PRN PRN Reason: Constipation Stop: 05/07/22 23:51 Timolol Maleate (Timolol Gfs 0.5% Oph Soln 74 Drops/5 Ml Btl) 1 drops OPB BID [facility] Stop: 05/04/22 20:59 Last Admin: 04/07/22 20:18 Dose: 1 drops Tramadol HCl (Tramadol Hcl 50 Mg Tablet) 50 mg PO Q8H PRN PRN Reason: Pain Stop: 05/03/22 22:44 Last Admin: 04/07/22 16:00 Dose: 50 mg
[2022-04-08] MEDS: CEROVITE ADV FORMULA TAB PO SCH (08:39)
[2022-04-08] MEDS: PANTOprazole 40 MG TAB PO SCH (08:40)
[2022-04-08] MEDS: TIMOLOL GFS 0.5% OPH SOLN 74 DROPS/5 ML BTL OPB SCH ×2 (08:40→20:47)
[2022-04-08] MEDS: LACTOBACILLUS ACIDOPHILUS 1 GM PACK PO SCH ×3 (08:40→17:57)
[2022-04-08] MEDS: DORZOLAMIDE HCL 2% OPH SOLN 10 ML BTL OPB SCH ×2 (08:40→20:47)
[2022-04-08] MEDS: HEPARIN SOD 5,000 UNIT/0.5 ML VIAL SQ SCH ×2 (08:41→20:48)
[2022-04-08] MEDS: traMADol HCL 50 MG TABLET PO PRN ×2 (09:00→19:32)
[2022-04-08] MEDS: CEFEPIME 1,000 MG in SYRINGE 0 ML IV SCH (11:27)
[2022-04-08] MEDS: cephALEXin 250 MG CAP PO SCH (20:47)
--- NOTE | 2022-04-08 21:26 | Orthopedic Progress Note ---
Date of Service April 08, 2022 Assessment & Plan (1) Ulcer of left foot: Plan: Patient seen, evaluated, and treated. Patient seen for a wound that previously has been resistant to healing. Excellent signs of healing and improvement. Wound cleansed with Betadine followed by normal saline. Application of adaptic, Aquacel, 4x4 gauze, kerlix, John. Reviewed previous CT and CT findings. Patient is weight bearing as tolerated per podiatry, right foot. She does note she typically utilizes assisted ambulatory device and should continue to do so. Patient remains weight bearing as tolerated. Continue daily dressing changes as indicated. Admission and Anticipated Discharge Date Admission Date: April 03, 2022 Subjective Patient seen at bedside. Patient relates no immediate complaints. She is resting comfortably. Dressing is clean, dry, and intact. Review of Systems Constitutional: as per Subjective / HPI Physical Exam Constitutional: WD/WN, vitals as above Eyes: PERRL, conjunctivae normal, anicteric sclerae ENMT: external ear and nose normal, oropharynx normal Respiratory: normal respiratory effort Cardiovascular: Rate/Rhythm: regular rate and regular rhythm Skin: Full thickness left dorsal foot ulcer. Focused Exam: Wound location: Dorsal left foot Wound base color and depth: full thickness wound with granular base Wound size (cm): 4 x 4 x 0.1cm Odor: no malodor Drainage: moderate serosanguineous Undermining: none Borders: healthy Psychiatric: Orientation: alert and oriented x 3 Results & Data ([facility]) Vital Signs (Past 12 Hours) Vital Signs Temp Pulse Pulse Resp BP Pulse Ox O2 Del Method 04/08/22 19:14 37.2 C 89 18 135/71 99 Room Air 04/08/22 15:40 79 04/08/22 11:31 36.7 C 79 16 111/57 L 98 Room Air
[2022-04-09] MEDS: ACETAMINOPHEN 325 MG TAB PO PRN (01:59)
[2022-04-09] MEDS: traMADol HCL 50 MG TABLET PO PRN ×2 (05:02→14:44)
[2022-04-09 06:35] LABS: Hemoglobin 8.3 g/dl (12.0-16.0); Mean Corpuscular Hemoglobin 28.1 pg (25.0-34.0); Mean Corpuscular Hgb Conc 31.9 g/dL (32.0-36.0); Mean Corpuscular Volume 88.1 fL (80.0-100.0); Mean Platelet Volume 11.1 fL (9.4-12.4); Platelet Count 289 K/uL (130-400); RDW Coefficient of Variation 16.9 % (11.5-14.5); RDW Standard Deviation 53.3 fL (36.4-46.3); Red Blood Count 2.95 M/uL (4.20-5.40); White Blood Count 7.55 K/ul (4.8-10.8)
[2022-04-09 06:49] LABS: BUN Creatinine Ratio 29.2 (10-20); Calcium 7.9 mg/dl (8.5-10.1); Creatinine Clr Calc Pharmacy 25.7 ml/min; Est GFR (African American) 62.1 ml/min; Est GFR (Non-African American) 53.6 ml/min; Magnesium 1.6 mg/dl (1.7-2.4); Phosphorus 1.8 mg/dl (2.5-4.9); Potassium 5.1 mmol/L (3.5-5.1)
[2022-04-09] MEDS: cephALEXin 250 MG CAP PO SCH ×3 (07:54→20:38)
[2022-04-09] MEDS: HEPARIN SOD 5,000 UNIT/0.5 ML VIAL SQ SCH ×2 (07:54→20:38)
[2022-04-09] MEDS: DORZOLAMIDE HCL 2% OPH SOLN 10 ML BTL OPB SCH ×2 (07:55→20:39)
[2022-04-09] MEDS: PANTOprazole 40 MG TAB PO SCH (07:55)
[2022-04-09] MEDS: LACTOBACILLUS ACIDOPHILUS 1 GM PACK PO SCH ×3 (07:55→17:32)
[2022-04-09] MEDS: CEROVITE ADV FORMULA TAB PO SCH (07:55)
[2022-04-09] MEDS: CIPROFLOXACIN 500 MG TAB PO SCH (07:55)
[2022-04-09] MEDS: TIMOLOL GFS 0.5% OPH SOLN 74 DROPS/5 ML BTL OPB SCH ×2 (07:55→20:39)
--- NOTE | 2022-04-09 14:24 | Hospitalist Progress Note ---
Date of Service April 09, 2022 Assessment & Plan (1) TREVIN (acute kidney injury): Plan: This is an 87-year-old female who presents with weakness. 1. Weakness secondary to possible left foot cellulitis, history of Pseudomonas infection in the foot. Last admission in January 2022, Dr. Leon - podiatry - did foot wound debridement We will continue with IV cefepime, which it was sensitive in the past. Will adjust cefepime for renal dosing. Follow the cultures, wound care, monitor closely in the hospital. Discussed in detail w/ wound care nurse. wound cultx obtained by wound care nurse (04/05/2022) - posit. for Pseudomonas CT foot ordered to r/o any abscess, or osteomyelitis 1. No CT evidence of osteomyelitis.. 2. Subtle acute nondisplaced age-indeterminate second proximal phalangeal fracture. 3. Asymmetric subcutaneous edema with skin thickening of the left foot and ankle. Differential considerations include cellulitis, venous stasis or lymphedema. 4. No abscess identified. Arterial doppler L LE - Normal bilateral ankle brachial indices as above. ID consulted- appreciate their input Podiatry consulted for phalangeal fx and ongoing cellulitis/wound - underwent excisional debridement Per podiatry - Patient seen for a wound that previously has been resistant to healing. Excellent signs of healing and improvement. Wound cleansed with Betadine followed by normal saline. Application of adaptic, Aquacel, 4x4 gauze, kerlix, John Reviewed previous CT and CT findings. Patient is weight bearing as tolerated per podiatry, right foot. She does note she typically utilizes assisted ambulatory device and should continue to do so. Continue daily dressing changes as indicated. 2. Acute kidney injury. - resolved Presents with creatinine of 2.9 and very high BUN of 103. Her creatinine was 1.04 in the end of 01/2022. Probably secondary to above, and poor appetite, possibly prerenal. Cr now improved normalized after receiving IVF, antibiotics 3. Mild anion gap metabolic acidosis secondary to above, possibly also some starvation ketosis as she is not eating for last one week. Getting D5 normal saline.Anion gap now normal. 4. Diarrhea. The patient had 3-4 episodes of diarrhea day of admission. She says her stools were dark. Hemoglobin is stable at 11.2. She has a history of anemia with hemoglobin in the range of 8 in the past. will check stool for Hemoccult. Because she was recently on antibiotics, check stool for Clostridium difficile. We will monitor. Getting fluids. 5. Chronic diastolic congestive heart failure, on Lasix as needed. The patient received gentle fluids, monitor for any fluid overload, on lisinopril. Hold lisinopril d/t TREVIN. 6. History of hypertension, on lisinopril. clonidine p.r.n. Currently BP low/normal. Continue to monitor. Hold lisinopril. 7. History of anemia. We will follow the stool occult. Last admission, gastroenterology saw the patient. The patient has a history of duodenal ulcer found in 05/2021, supposed to be on Protonix twice daily, currently seems to be not taking. Supposed to follow outpatient for esophagogastroduodenoscopy and colonoscopy, it seems that she has not followed up. We will follow the stool for Hemoccult.Placed her on Protonix daily. 8. Severe protein-calorie malnutrition, BMI 13 Dietitian consulted DVT prophylaxis.heparin subcutaneously for now, but monitor for any gastrointestinal bleed. Code status: Full code.Discussed code status with the pt - she is more inclined for DNR/DNI status, will address again Physical therapy and occupational therapy prior to discharge. Social service to help with discharge planning. Admission and Anticipated Discharge Date Admission Date: April 03, 2022 Subjective Pt seen in follow up of TREVIN, nausea, diarrhea, LLE cellulitis Currently laying in bed, in no acute distress No fevers chills chest pain shortness of breath Denies any abdominal pain +poor appetite, weakness, continues to have pain in left foot especially when getting up to the bathroom Creatinine on admission 2.9, TREVIN now resolved after IVF wound cultx obtained- posit. for Pseudomonas Podiatry and ID consulted Review of Systems Review of Systems: All systems reviewed & are unremarkable except as noted in Subjective Physical Exam Physical Exam: GENERAL: elderly frail F in NAD HEENT: NC/AT, EOMI, Pupils equal, round and reactive to light. Oral mucosa moist. NECK: No JVD, no neck masses, no carotid bruits. CARDIOVASCULAR: S1 and S2 heard. Regular rate and rhythm. No murmur, no gallop. RESPIRATORY: Normal AP diameter. No accessory muscle use. No wheezing, no crackles. ABDOMEN: Soft, bowel sounds present. Mild abdominal discomfort. No guarding. No rigidity. NEURO: Alert and oriented. Speech is clear. No facial droop. Obeys simple commands. Moves extremities. EXTREMITIES: Left foot is erythematous, + circular wound on dorsal foot s/p debridement Results & Data Results & Data ([facility]) Vital Signs (Past 12 Hours) Vital Signs Temp Pulse Pulse Pulse Resp BP BP 04/09/22 11:27 36.4 C L 74 16 105/55 L 04/09/22 07:38 36.4 C L 66 16 140/78 04/09/22 07:17 62 04/09/22 04:00 36.6 C 69 18 149/72 H Pulse Ox O2 Del Method 04/09/22 11:27 99 Room Air 04/09/22 07:38 98 Room Air 04/09/22 07:17 04/09/22 04:00 99 Room Air Laboratory Results 04/09/22 04/09/22 Range/Units 05:29 05:29 WBC 7.55 (4.8-10.8) K/ul RBC 2.95 L (4.20-5.40) M/uL Hgb 8.3 L (12.0-16.0) g/dl Hct 26.0 L (37.0-47.0) % MCV 88.1 (80.0-100.0) fL MCH 28.1 (25.0-34.0) pg MCHC 31.9 L (32.0-36.0) g/dL RDW Std Deviation 53.3 H (36.4-46.3) fL RDW Coeff of Vasu 16.9 H (11.5-14.5) % Plt Count 289 (130-400) K/uL MPV 11.1 (9.4-12.4) fL Sodium 135 L (136-145) mmol/L Potassium 5.1 (3.5-5.1) mmol/L Chloride 107 (98-107) mmol/L Carbon Dioxide 26 (21-32) mmol/L Anion Gap 2 L (3-11) BUN 28 H (6-23) mg/dl Creatinine 0.96 (0.6-1.2) mg/dl Est Cr Clr Drug Dosing 25.7 ml/min Est GFR ( Amer) 62.1 ml/min Est GFR (Non-Af Amer) 53.6 ml/min BUN/Creatinine Ratio 29.2 H (10-20) Glucose 82 (70-99(Fasting)) mg/dl Calcium 7.9 L (8.5-10.1) mg/dl Phosphorus 1.8 L (2.5-4.9) mg/dl Magnesium 1.6 L (1.7-2.4) mg/dl Medications Administered Current Inpatient Medications Acetaminophen (Acetaminophen 325 Mg Tab) 650 mg PO Q4H PRN PRN Reason: Pain or Fever Stop: 05/03/22 22:44 Last Admin: 04/09/22 01:59 Dose: 650 mg Cephalexin HCl (Cephalexin 250 Mg Cap) 250 mg PO TID [facility]; Protocol Stop: 04/15/22 20:59 Last Admin: 04/09/22 12:58 Dose: 250 mg Ciprofloxacin (Ciprofloxacin 500 Mg Tab) 500 mg PO DAILY [facility] Stop: 04/16/22 08:59 Last Admin: 04/09/22 07:55 Dose: 500 mg Clonidine HCl (Clonidine Hcl 0.1 Mg Tab) 0.1 mg PO Q6H PRN PRN Reason: Hypertension Stop: 05/03/22 22:44 Dorzolamide HCl (Dorzolamide Hcl 2% Oph Soln 10 Ml Btl) 1 drops OPB BID [facility] Stop: 05/04/22 08:59 Last Admin: 04/09/22 07:55 Dose: 1 drops Furosemide (Furosemide 20 Mg Tab) 20 mg PO Q2D@0900 PRN PRN Reason: Edema Stop: 05/03/22 22:44 Heparin Sodium (Porcine) (Heparin Sod 5,000 Unit/0.5 Ml Vial) 5,000 units SQ Q12 CK Stop: 05/04/22 08:59 Last Admin: 04/09/22 07:54 Dose: 5,000 units Lactobacillus Acidophilus (Lactobacillus Acidophilus 1 Gm Pack) 1 gm PO TIDM [facility] Stop: 05/04/22 07:59 Last Admin: 04/09/22 12:59 Dose: 1 gm Lisinopril (Lisinopril 5 Mg Tab) 5 mg PO QAM [facility] Stop: 05/04/22 08:59 Last Admin: 04/04/22 08:44 Dose: 5 mg Multivitamins/Minerals (Cerovite Adv Formula Tab) 1 tab PO DAILY [facility] Stop: 05/04/22 08:59 Last Admin: 04/09/22 07:55 Dose: 1 tab Nitroglycerin (Nitroglycerin Sl 0.4 Mg/Tab Tab) 0.4 mg SL UD PRN PRN Reason: Chest Pain Stop: 05/03/22 22:44 Ondansetron HCl (Ondansetron Inj 2 Mg/Ml 2 Ml Vial) 4 mg IV Q6H PRN PRN Reason: Nausea Stop: 05/03/22 22:44 Pantoprazole Sodium (Pantoprazole 40 Mg Tab) 40 mg PO QAM [facility] Stop: 05/04/22 08:59 Last Admin: 04/09/22 07:55 Dose: 40 mg Polyethylene Glycol (Polyethylene (Miralax) 17 Gm Pack) 17 gm PO DAILY PRN PRN Reason: Constipation Stop: 05/07/22 23:51 Potassium Phosphate (Pot Phosphate Monobasic W/ Sod Tab) 1 tab PO QID [facility] Stop: 05/09/22 16:59 Timolol Maleate (Timolol Gfs 0.5% Oph Soln 74 Drops/5 Ml Btl) 1 drops OPB BID [facility] Stop: 05/04/22 20:59 Last Admin: 04/09/22 07:55 Dose: 1 drops Tramadol HCl (Tramadol Hcl 50 Mg Tablet) 50 mg PO Q8H PRN PRN Reason: Pain Stop: 05/03/22 22:44 Last Admin: 04/09/22 05:02 Dose: 50 mg
[2022-04-09] MEDS: POT PHOSPHATE MONOBASIC W/ SOD TAB PO SCH ×2 (17:32→20:38)
[2022-04-10] MEDS: traMADol HCL 50 MG TABLET PO PRN ×3 (05:54→23:20)
[2022-04-10 08:14] LABS: Hematocrit (blood only) 25.5 % (37.0-47.0); Hemoglobin 8.2 g/dl (12.0-16.0); Mean Corpuscular Hemoglobin 28.1 pg (25.0-34.0); Mean Corpuscular Hgb Conc 32.2 g/dL (32.0-36.0); Mean Corpuscular Volume 87.3 fL (80.0-100.0); Mean Platelet Volume 10.7 fL (9.4-12.4); Platelet Count 285 K/uL (130-400); RDW Standard Deviation 53.9 fL (36.4-46.3); Red Blood Count 2.92 M/uL (4.20-5.40); White Blood Count 7.16 K/ul (4.8-10.8)
[2022-04-10] MEDS: cephALEXin 250 MG CAP PO SCH ×3 (08:20→21:28)
[2022-04-10] MEDS: POT PHOSPHATE MONOBASIC W/ SOD TAB PO SCH ×4 (08:21→21:29)
[2022-04-10] MEDS: DORZOLAMIDE HCL 2% OPH SOLN 10 ML BTL OPB SCH ×2 (08:21→21:28)
[2022-04-10] MEDS: TIMOLOL GFS 0.5% OPH SOLN 74 DROPS/5 ML BTL OPB SCH ×2 (08:21→21:28)
[2022-04-10] MEDS: CIPROFLOXACIN 500 MG TAB PO SCH (08:22)
[2022-04-10] MEDS: LACTOBACILLUS ACIDOPHILUS 1 GM PACK PO SCH ×3 (08:22→17:53)
[2022-04-10] MEDS: HEPARIN SOD 5,000 UNIT/0.5 ML VIAL SQ SCH ×2 (08:22→21:29)
[2022-04-10] MEDS: CEROVITE ADV FORMULA TAB PO SCH (08:22)
[2022-04-10] MEDS: PANTOprazole 40 MG TAB PO SCH (08:23)
[2022-04-10 08:47] LABS: BUN Creatinine Ratio 31.4 (10-20); Calcium 8.4 mg/dl (8.5-10.1); Creatinine Clr Calc Pharmacy 24.3 ml/min; Est GFR (African American) 57.7 ml/min; Est GFR (Non-African American) 49.8 ml/min; Phosphorus 2.5 mg/dl (2.5-4.9)
--- NOTE | 2022-04-10 11:10 | Hospitalist Progress Note ---
Date of Service April 10, 2022 Assessment & Plan (1) TREVIN (acute kidney injury): Plan: per Dr. Lam's notes with addendum: This is an 87-year-old female who presents with weakness. 1. Weakness secondary to possible left foot cellulitis, history of Pseudomonas infection in the foot. Last admission in January 2022, Dr. Leon - podiatry - did foot wound debridement We will continue with IV cefepime, which it was sensitive in the past. Will adjust cefepime for renal dosing. Follow the cultures, wound care, monitor closely in the hospital. Discussed in detail w/ wound care nurse. wound cultx obtained by wound care nurse (04/05/2022) - posit. for Pseudomonas CT foot ordered to r/o any abscess, or osteomyelitis 1. No CT evidence of osteomyelitis.. 2. Subtle acute nondisplaced age-indeterminate second proximal phalangeal fracture. 3. Asymmetric subcutaneous edema with skin thickening of the left foot and ankle. Differential considerations include cellulitis, venous stasis or lymphedema. 4. No abscess identified. Arterial doppler L LE - Normal bilateral ankle brachial indices as above. ID consulted- appreciate their input Podiatry consulted for phalangeal fx and ongoing cellulitis/wound - underwent excisional debridement Per podiatry - Patient seen for a wound that previously has been resistant to healing. Excellent signs of healing and improvement. Wound cleansed with Betadine followed by normal saline. Application of adaptic, Aquacel, 4x4 gauze, kerlix, John Reviewed previous CT and CT findings. Patient is weight bearing as tolerated per podiatry, right foot. She does note she typically utilizes assisted ambulatory device and should continue to do so. Continue daily dressing changes as indicated. discharge plan: Ciprofloxacin + Cephalexin x 1 more week Probiotics daily Home health arranged for wound care- clean with Betadine followed by normal saline.Then apply adaptic, Aquacel, 4x4 gauze, kerlix, John PCP ff up in 1 week 2. Acute kidney injury. - resolved Presents with creatinine of 2.9 and very high BUN of 103. Her creatinine was 1.04 in the end of 01/2022. Probably secondary to above, and poor appetite, possibly prerenal. Cr now improved normalized after receiving IVF, antibiotics -- resolved 3. Mild anion gap metabolic acidosis secondary to above, possibly also some starvation ketosis as she is not eating for last one week. Getting D5 normal saline.Anion gap now normal. 4. Diarrhea. The patient had 3-4 episodes of diarrhea day of admission. She says her stools were dark. Hemoglobin is stable at 11.2. She has a history of anemia with hemoglobin in the range of 8 in the past. will check stool for Hemoccult. Because she was recently on antibiotics, check stool for Clostridium difficile. -- resolved 5. Chronic diastolic congestive heart failure, on Lasix as needed. -- euvolemic 6. History of hypertension -- stable without Lisinopril monitor 7. History of anemia. We will follow the stool occult. Last admission, gastroenterology saw the patient. The patient has a history of duodenal ulcer found in 05/2021, supposed to be on Protonix twice daily, currently seems to be not taking. Supposed to follow outpatient for esophagogastroduodenoscopy and colonoscopy, it seems that she has not followed up. We will follow the stool for Hemoccult.Placed her on Protonix daily. -- Hg stable around 8 ff up as outpatient 8. Severe protein-calorie malnutrition, BMI 13 Dietitian consulted [employer] [facility] DVT prophylaxis.heparin subcutaneously for now, but monitor for any gastrointestinal bleed. Code status: Full code.Discussed code status with the pt - she is more inclined for DNR/DNI status, will address again Physical therapy and occupational therapy prior to discharge. Social service to help with discharge planning. Admission and Anticipated Discharge Date Admission Date: April 03, 2022 Subjective ff up for left foot cellulitis, etc seen resting in bed, comfortable states she feels fine overall left foot pain is under good control ambulating with the rolling walker with no problems no chest pain, dyspnea, palpitations, dizziness no other symptoms states she is ready and would like to be discharged today Review of Systems Review of Systems: all noted and negative except for above Physical Exam Physical Exam: General- oriented x 3, not in distress, speaks in sentences with no effort or accessory muscle use Eyes- anicteric Neck- no JVD Lungs- clear breath sounds bilaterally, no rales/wheezes Heart- normal rate, regular rhythm; no murmurs Abdomen- normal bowel sounds, nondistended, soft, nontender Extremities- no pretibial edema, no calf tenderness Left foot: heavy dressing in place mild erythema of the left lower leg surrounding the dressing Neuro- alert, oriented x 3; no gross focal neurologic deficits Skin- warm & dry Results & Data Results & Data ([facility]) Vital Signs (Past 12 Hours) Vital Signs Temp Pulse Pulse Pulse Resp BP Pulse Ox 04/10/22 08:08 36.7 C 77 19 117/66 96 04/10/22 07:23 82 04/10/22 03:02 36.7 C 79 16 123/58 L 98 04/10/22 00:08 72 O2 Del Method 04/10/22 08:08 Room Air 04/10/22 07:23 04/10/22 03:02 Room Air 04/10/22 00:08 all noted and reviewed including below
[2022-04-11] MEDS: cephALEXin 250 MG CAP PO SCH ×2 (08:07→13:37)
[2022-04-11] MEDS: LACTOBACILLUS ACIDOPHILUS 1 GM PACK PO SCH ×2 (08:08→13:37)
[2022-04-11] MEDS: CIPROFLOXACIN 500 MG TAB PO SCH (08:09)
[2022-04-11] MEDS: CEROVITE ADV FORMULA TAB PO SCH (08:09)
[2022-04-11] MEDS: PANTOprazole 40 MG TAB PO SCH (08:09)
[2022-04-11] MEDS: HEPARIN SOD 5,000 UNIT/0.5 ML VIAL SQ SCH (08:11)
[2022-04-11] MEDS: TIMOLOL GFS 0.5% OPH SOLN 74 DROPS/5 ML BTL OPB SCH (09:23)
[2022-04-11] MEDS: DORZOLAMIDE HCL 2% OPH SOLN 10 ML BTL OPB SCH (09:23)
--- NOTE | 2022-04-11 10:01 | Hospitalist Progress Note ---
Date of Service April 11, 2022 Assessment & Plan (1) TREVIN (acute kidney injury): Plan: per Dr. Lam's notes with addendum: This is an 87-year-old female who presents with weakness. 1. Weakness secondary to possible left foot ulcer, cellulitis, wound cultx : (+) Pseudomonas CT foot 1. No CT evidence of osteomyelitis.. 2. Subtle acute nondisplaced age-indeterminate second proximal phalangeal fracture. 3. Asymmetric subcutaneous edema with skin thickening of the left foot and ankle. Differential considerations include cellulitis, venous stasis or lymphedema. 4. No abscess identified. Arterial doppler L LE - Normal bilateral ankle brachial indices as above. ID consulted- appreciate their input Podiatry consulted for phalangeal fx and ongoing cellulitis/wound - underwent ex cisional debridement Per podiatry - Patient seen for a wound that previously has been resistant to healing. Excellent signs of healing and improvement. Wound cleansed with Betadine followed by normal saline. Application of adaptic, Aquacel, 4x4 gauze, kerlix, John Reviewed previous CT and CT findings. Patient is weight bearing as tolerated per podiatry, right foot. She does note she typically utilizes assisted ambulatory device and should continue to do so. Continue daily dressing changes as indicated. Discharge plan: Ciprofloxacin + Cephalexin x 1 more week Probiotics daily Home health arranged for wound care- clean with Betadine followed by normal saline.Then apply adaptic, Aquacel, 4x4 gauze, kerlix, John PCP ff up in 1 week 2. Acute kidney injury. - resolved Presents with creatinine of 2.9 and very high BUN of 103. given IV fluids -- resolved 3. Mild anion gap metabolic acidosis secondary to above resolved 4. Diarrhea. -- resolved 5. Chronic diastolic congestive heart failure, on Lasix as needed. -- euvolemic 6. History of hypertension -- stable without Lisinopril discontinue Lisinopril to prevent monitor on ff up with PCP 7. History of anemia. -- history of duodenal ulcer found in 05/2021, supposed to be on Protonix twice daily, currently seems to be not taking. Supposed to follow outpatient for esophagogastroduodenoscopy and colonoscopy, it seems that she has not followed up. -- also has history of iron deficiency --Placed her on Protonix and Iron daily. -- Hg stable around 8 further evaluation and management , ff up as outpatient 8. Severe protein-calorie malnutrition, BMI 13 Dietitian consulted [employer] [facility] Disposition anticipate d/c home with home health services today plan of care discussed with patient in detail and at length all questions answered she is understanding, agreeable, comfortable with the plan of care Admission and Anticipated Discharge Date Admission Date: April 03, 2022 Subjective ff up for L foot ulcer, cellulitis, etc seen resting in bed, comfortable in good spirits states she continues to feel better L foot pain improving also notes swelling and redness coming down no fever/chills no chest pain, dyspnea, palpitations, dizziness no other symptoms patient hoping for discharge todat Review of Systems Review of Systems: all noted and negative except for above Physical Exam Physical Exam: General- oriented x 3, not in distress, speaks in sentences with no effort or accessory muscle use Eyes- anicteric Neck- no JVD Lungs- clear BS bilaterally, no rales/wheezes Heart- normal rate, regular rhythm; no murmurs Abdomen- normal bowel sounds, nondistended, soft, nontender Extremities- R: no pretibial edema, no calf tenderness L: very mild edema and erythema- improving dry skin L foot - dressing in place, no bleeding or discharge Neuro- alert, oriented x 3; no gross focal neurologic deficits Skin- warm & dry Results & Data Results & Data ([facility]) Vital Signs (Past 12 Hours) Vital Signs Temp Pulse Pulse Resp BP Pulse Ox O2 Del Method 04/11/22 07:19 36.6 C 70 16 130/50 L 99 Room Air 04/11/22 07:26 65 04/11/22 03:00 36.6 C 81 18 122/66 98 Room Air 04/11/22 00:12 86 04/10/22 22:00 36.8 C 86 18 99/58 L 98 Room Air all noted and reviewed including below
--- NOTE | 2022-04-11 12:09 | Discharge Summary ---
Discharge Summary Date of Service April 11, 2022 Notes For Next Care Provider FURTHER EVALUATION AND MANAGEMENT OF ANEMIA OUTPATIENT Medication Changes From Visit CIPROFLOXACIN, CEPHALEXIN TRAMADOL PROBIOTICS PROTONIX FERROUS SULFATE Admission HPI Per Admitting Provider CHIEF COMPLAINT: Weakness. HISTORY OF PRESENT ILLNESS: This is an 87-year-old female with past medical history significant for chronic diastolic CHF, angiodysplasia of colon, hypertension, venous insufficiency, diverticulosis of large intestine, GERD, generalized osteoarthritis, kyphoscoliosis, history of anemia, who lives at home with her son, presents with weakness. The patient states that she has ongoing cellulitis of the lower extremities for more than 1 year. She has had initially first in the left foot and then it went to the right foot and currently left foot. She was recently in the hospital at the end of January with left foot cellulitis. Cultures were growing Pseudomonas in November and also in January, pansensitive. She was treated with Cipro. She states that the infection never cleared up. She has always some pain and some infection going on, and from the last week, it is getting worse and her appetite is down since the last 1 week. She had felt nauseous, not eating much. Whenever she tried to walk, she was feeling very weak, nauseous and some abdominal discomfort and today when she was showering, she felt the same and she had 3-4 episodes of diarrhea, which prompted her to come to the ER. Denies any fevers, but feeling always cold. She is having ongoing headaches. Currently, she has mild frontal headache. She gets dizzy when she is ambulating. No blurred vision or double vision. No earache. She always has runny nose. No sore throat, no cough, no chest pain. She gets on and off shortness of breath sometimes. Earlier she had felt abdominal discomfort, but currently has no pain. When she had diarrhea, stools were in dark color. She is not making much urine. Admission Exam Per Admitting Provider GENERAL: The patient is old and frail, not in acute distress. VITAL SIGNS: Temperature 36.4, pulse 100, respiratory rate 22, blood pressure 161/79, oxygen 100% on room air. HEENT: Pupils equal, round and reactive to light. Oral mucosa moist. NECK: No JVD, no neck masses, no carotid bruits. CARDIOVASCULAR: S1 and S2 heard. Regular rate and rhythm. No murmur, no gallop. RESPIRATORY SYSTEM: Normal AP diameter. No accessory muscle use. No wheezing, no crackles. ABDOMEN: Soft, bowel sounds present. Mild abdominal discomfort. No guarding. No rigidity. CENTRAL NERVOUS SYSTEM: Alert and oriented. Speech is clear. No facial droop. Obeys simple commands. Moves extremities. EXTREMITIES: Left foot is erythematous, slightly wet and dry thick skin on the dorsal aspect of the toes. Principal Dx & Hospital Course #1 = Principal Diagnosis (1) TREVIN (acute kidney injury): per Dr. Lam's notes with addendum: This is an 87-year-old female who presents with weakness. 1. Weakness secondary to possible left foot ulcer, cellulitis, wound cultx : (+) Pseudomonas CT foot 1. No CT evidence of osteomyelitis.. 2. Subtle acute nondisplaced age-indeterminate second proximal phalangeal fracture. 3. Asymmetric subcutaneous edema with skin thickening of the left foot and ankle. Differential considerations include cellulitis, venous stasis or lymphedema. 4. No abscess identified. Arterial doppler L LE - Normal bilateral ankle brachial indices as above. ID consulted- appreciate their input Podiatry consulted for phalangeal fx and ongoing cellulitis/wound - underwent excisional debridement Per podiatry - Patient seen for a wound that previously has been resistant to healing. Excellent signs of healing and improvement. Wound cleansed with Betadine followed by normal saline. Application of adaptic, Aquacel, 4x4 gauze, kerlix, John Reviewed previous CT and CT findings. Patient is weight bearing as tolerated per podiatry, right foot. She does note she typically utilizes assisted ambulatory device and should continue to do so. Continue daily dressing changes as indicated. Discharge plan: Ciprofloxacin + Cephalexin x 1 more week Probiotics daily Home health arranged for wound care- clean with Betadine followed by normal saline.Then apply adaptic, Aquacel, 4x4 gauze, kerlix, John PCP ff up in 1 week 2. Acute kidney injury. - resolved Presents with creatinine of 2.9 and very high BUN of 103. given IV fluids -- resolved 3. Mild anion gap metabolic acidosis secondary to above resolved 4. Diarrhea. -- resolved 5. Chronic diastolic congestive heart failure, on Lasix as needed. -- euvolemic 6. History of hypertension -- stable without Lisinopril discontinue Lisinopril to prevent monitor on ff up with PCP 7. History of anemia. -- history of duodenal ulcer found in 05/2021, supposed to be on Protonix twice daily, currently seems to be not taking. Supposed to follow outpatient for esophagogastroduodenoscopy and colonoscopy, it seems that she has not followed up. -- also has history of iron deficiency --Placed her on Protonix and Iron daily. -- Hg stable around 8 further evaluation and management , ff up as outpatient 8. Severe protein-calorie malnutrition, BMI 13 Dietitian consulted [facility] Disposition anticipate d/c home with home health services today plan of care discussed with patient in detail and at length all questions answered she is understanding, agreeable, comfortable with the plan of care Discharge Exam General- oriented x 3, not in distress, speaks in sentences with no effort or accessory muscle use Eyes- anicteric Neck- no JVD Lungs- clear BS bilaterally, no rales/wheezes Heart- normal rate, regular rhythm; no murmurs Abdomen- normal bowel sounds, nondistended, soft, nontender Extremities- R: no pretibial edema, no calf tenderness L: very mild edema and erythema- improving dry skin L foot - dressing in place, no bleeding or discharge Neuro- alert, oriented x 3; no gross focal neurologic deficits Skin- warm & dry Updated Medication List Medication Instructions Recorded Confirmed Type acetaminophen 650 mg 650 mg PO Q8H PRN Pain 04/13/21 04/03/22 History tablet,extended release (Arthritis Pain Relief (acetaminophen) ER) dorzolamide 2 % eye drops 1 drp OPB BID 04/13/21 04/03/22 History lisinopril 5 mg tablet 5 mg PO QAM 04/13/21 04/03/22 History timolol maleate 0.25 % eye drops 1 drp OPB BID 04/13/21 04/04/22 History furosemide 20 mg tablet 20 mg PO Q2D PRN Edema 01/23/22 04/03/22 History bmdcwvyucqab-fzayyapo-fjxjnx tablet 1 tab PO DAILY 01/23/22 04/03/22 History tramadol 50 mg tablet 50 mg PO Q8 PRN Pain 04/03/22 04/03/22 History Lactobacillus acidophilus, 1 packet PO BID 21 days #42 ea 04/10/22 Rx bulgaricus 100 million cell granules packet (Floranex) cephalexin 250 mg capsule 250 mg PO TID 7 days #21 caps 04/10/22 Rx ciprofloxacin HCl 500 mg tablet 500 mg PO DAILY 7 days #7 tabs 04/10/22 Rx ferrous sulfate 325 mg (65 mg 325 mg PO DAILY #30 tabs 04/11/22 Rx iron) tablet pantoprazole 40 mg tablet,delayed 40 mg PO QAM 30 days #30 tabs 04/11/22 Rx release Hospital Stay Data Consultations 04/03/22 21:10 ED Decision to Admit Stat 04/04/22 16:53 Consult Infectious Diseases Routine 04/04/22 18:53 Consult Podiatry Routine Diagnostic Imagining Performed 04/04/22 13:56 CT foot LT wo con Routine 04/04/22 16:46 US doppler leg [US arterial duplex LE LT] Routine Pending Results Patient Have Any Pending Studies at Discharge: No Discharge Instructions Given to Patient (Per Discharging Provider) PLEASE REFER TO YOUR NEW MEDICATION LIST AND FOLLOW INSTRUCTIONS CAREFULLY. YOUR NEW MEDICATIONS INCLUDE: CIPROFLOXACIN, CEPHALEXIN- antibiotics for left foot ulcer, and cellulitis TRAMADOL- as needed for pain control PROBIOTICS- to prevent diarrhea while on antibiotics FERROUS SULFATE- iron supplement for anemia PROTONIX- antacid for history of stomach ulcer Drink plenty of fluids daily. Call your doctor immediately if you develop diarrhea. Wound care Instructions: Clean with Betadine followed by normal saline.Then apply adaptic, Aquacel, 4x4 gauze, kerlix, John. PLEASE CALL YOUR PRIMARY CARE PHYSICIAN OR RETURN TO THE ER IF WITH WORSENING OF SYMPTOMS, INCLUDING fever/chills, worsening redness, pain, swelling, drainage on the left foot, etc FOLLOW UP WITH PRIMARY CARE PHYSICIAN OUTLINED ABOVE. FOLLOW UP WITH [employer]TER DR. MESA IN 2 WEEKS. PLEASE CALL HIS OFFICE FOR AN APPOINTMENT. [phone] Total Time Total Time Spent Total Time Spent (In Minutes): >30 minutes
== END 2022-04-11 15:30 | disposition home health service (06) | DRG 570 ==
LOC: ED 18:09 → SUATTDRO 22:10 → EDINP 22:10 → 2N 22:44